=== PATIENT | male | born 1955 | race Two or more races ===

== ENCOUNTER 2017-02-27 21:48 | Inpatient (IN) | payer MEDICAID ==
[~2017-02-27] VITALS: Ht 177.8 cm; Wt 68.0 kg
[~2017-02-27 21:48] MED LIST: NKM
[2017-02-27 21:50] VITALS: BP 109/68
[2017-02-27] MEDS ORDERED: Norco 5mg/325mg tab PO ONE (22:00)
[2017-02-27 23:55] VITALS: BP 119/62
[2017-02-28] VITALS (14 sets, daily range): BP systolic 110–173; BP diastolic 54–91
[2017-02-28] MEDS ORDERED: Morphine Sulfate 4mg/ml Inj IVP ONE (00:15)
[2017-02-28 00:42] LABS: BASOPHILS % (AUTO) 0.3 % (0.0-2.0); LYMPHOCYTES % (AUTO) 13.4 % (20.0-45.0); MEAN CORPUSCULAR HGB CONC 31.7 G/DL (32.0-36.0); MEAN CORPUSCULAR VOLUME 95 FL (80-99); MEAN PLATELET VOLUME 5.1 FL (6.5-10.1); MONOCYTES % (AUTO) 7.9 % (1.0-10.0); NEUTROPHILS % (AUTO) 78.4 % (45.0-75.0); PLATELET COUNT 291 K/UL (150-450); RED BLOOD COUNT 2.67 M/UL (4.70-6.10); RED CELL DISTRIBUTION WIDTH 16.5 % (11.6-14.8); WHITE BLOOD COUNT 11.8 K/UL (4.8-10.8)
[2017-02-28 00:56] LABS: ALBUMIN/GLOBULIN RATIO 0.5 (1.0-2.7); CALCIUM 8.3 mg/dL (8.6-10.2); CREATININE 1.8 mg/dL (0.7-1.2); GLOMERULAR FILTRATION RATE 38.8 mL/min (>60); POTASSIUM 4.1 mEQ/L (3.4-4.9); TOTAL PROTEIN 6.9 g/dL (6.6-8.7)
[2017-02-28 01:04] LABS: INR 1.1 (0.9-1.1); PROTHROMBIN TIME 11.2 SEC (9.30-11.50)
[2017-02-28] MEDS ORDERED: MULTIVITAMINS1 EAC2 ORAL (03:10)
[2017-02-28] MEDS ORDERED: IBUPROFEN200 M2 ORAL (03:10)
[2017-02-28] MEDS ORDERED: Morphine Sulfate 4mg/ml Inj IVP PRN ×2 (03:15→08:56)
--- NOTE | 2017-02-28 03:37 | Emergency Room Report ---
History of Present Illness General Chief Complaint: Multiple Trauma/Fall Source: EMS Present Illness HPI 61-year-old male presents ED complaining of right leg pain. States he had a mechanical fall today at home. Denies hitting his head or LOC. Patient is here complaining of right hip and leg pain. Pain is an 8/10, sharp, nonradiating. Unable to bear weight. Denies any other injuries. No other aggravating or relieving factors. Denies any other associated symptoms Allergies: Coded Allergies: No Known Allergies (Unverified , 02/27/17) Patient History Past Medical History: HTN Past Surgical History: none Pertinent Family History: none Social History: Denies: alcohol use, drug use, smoking Immunizations: UTD Reviewed Nursing Documentation: PMH: Agreed, PSxH: Agreed Nursing Documentation-PMH Past Medical History: No History, Except For Hx Hypertension: Yes Review of Systems All Other Systems: negative except mentioned in HPI Physical Exam Vital Signs Date Time Temp Pulse Resp B/P Pulse Ox O2 Delivery O2 Flow Rate FiO2 02/27/17 21:22 98.2 82 16 109/68 100 Room Air Sp02 EP Interpretation: reviewed, normal General Appearance: no apparent distress, alert, GCS 15, non-toxic Head: normocephalic Eyes: bilateral eye PERRL, bilateral eye normal inspection ENT: hearing grossly normal Neck: normal inspection Respiratory: normal inspection Cardiovascular #1: normal inspection Gastrointestinal: normal inspection Rectal: deferred Genitourinary: no CVA tenderness Musculoskeletal: decreased range of motion, tender - R hip Neurologic: alert, oriented x3, responsive, motor strength/tone normal, sensory intact, speech normal Psychiatric: judgement/insight normal, memory normal, mood/affect normal, no suicidal/homicidal ideation Skin: normal inspection Lymphatic: normal inspection Medical Decision Making Diagnostic Impression: Primary Impression: Fracture of femoral neck, right Qualified Codes: S72.001A - Fracture of unspecified part of neck of right femur, initial encounter for closed fracture Additional Impressions: Multiple injuries due to trauma Renal insufficiency ER Course Hospital Course 61-year-old male presents to ED with R hip pain s/p fall Differential diagnoses include: fracture, dislocation, contusion Clinical course Patient placed on stretcher. After initial history and physical I ordered labs , pain medication and imaging studies Labs reviewed-mild leukocytosis noted, BUN/Cr elecated, hemoglobin/hematocrit 8/ 25.2 Femur x-ray shows R femoral neck fx confirmed on CT pelvis Case discussed with Dr. Jay who agreed to consult on this case. Case discussed with Dr. De Paz who agreed to accept the patient to his service for further care and support i. I feel this is a highly complex case requiring extensive working including EKG/Rhythm strip, Xray/CT/US, Blood/urine lab work, repeat exams while in ED, and administration of strong opiates/narcotics for pain control, admission to hospital or close patient follow up. Diagnosis - femoral neck fx, multiple injuries due to trauma, renal insuffiency Admitted to floor in serious condition Labs Test 02/28/17 00:18 White Blood Count 11.8 K/UL (4.8-10.8) Red Blood Count 2.67 M/UL (4.70-6.10) Hemoglobin 8.0 G/DL (14.2-18.0) Hematocrit 25.2 % (42.0-52.0) Mean Corpuscular Volume 95 FL (80-99) Mean Corpuscular Hemoglobin 30.0 PG (27.0-31.0) Mean Corpuscular Hemoglobin Concent 31.7 G/DL (32.0-36.0) Red Cell Distribution Width 16.5 % (11.6-14.8) Platelet Count 291 K/UL (150-450) Mean Platelet Volume 5.1 FL (6.5-10.1) Neutrophils (%) (Auto) 78.4 % (45.0-75.0) Lymphocytes (%) (Auto) 13.4 % (20.0-45.0) Monocytes (%) (Auto) 7.9 % (1.0-10.0) Eosinophils (%) (Auto) 0.0 % (0.0-3.0) Basophils (%) (Auto) 0.3 % (0.0-2.0) Prothrombin Time 11.2 SEC (9.30-11.50) Prothromb Time International Ratio 1.1 (0.9-1.1) Activated Partial Thromboplast Time 26 SEC (23-33) Sodium Level 132 mEQ/L (135-145) Potassium Level 4.1 mEQ/L (3.4-4.9) Chloride Level 93 mEQ/L (98-107) Carbon Dioxide Level 19 mEQ/L (20-30) Anion Gap 20 (5-15) Blood Urea Nitrogen 42 mg/dL (7-23) Creatinine 1.8 mg/dL (0.7-1.2) Estimat Glomerular Filtration Rate 38.8 mL/min (>60) Glucose Level 109 mg/dL (74-106) Calcium Level 8.3 mg/dL (8.6-10.2) Total Bilirubin 0.3 mg/dL (0.0-1.2) Aspartate Amino Transf (AST/SGOT) 24 U/L (5-40) Alanine Aminotransferase (ALT/SGPT) 14 U/L (3-41) Alkaline Phosphatase 150 U/L (40-129) Total Protein 6.9 g/dL (6.6-8.7) Albumin 2.4 g/dL (3.5-5.2) Globulin 4.5 g/dL Albumin/Globulin Ratio 0.5 (1.0-2.7) Other X-Ray Diagnostic Results Other X-Ray Diagnostic Results #1: X-Ray ordered: R femur # of Views/Limited Vs Complete: 3 View Indication: Pain EP Interpretation: Yes Interpretation: no dislocation, no soft tissue swelling, other - R femoral neck fx Impression: Other - R femoral neck fx Interpreting ER Provider: Electronically signed by Benedict Mujica MD Other X-Ray Diagnostic Results #2: X-Ray ordered: Right knee # of Views/Limited Vs Complete: 3 View Indication: Pain EP Interpretation: Yes Interpretation: no dislocation, no soft tissue swelling, no fractures Impression: No acute disease Interpreting ER Provider: Electronically signed by Benedict Mujica MD CT/MRI/US Diagnostic Results CT/MRI/US Diagnostic Results : Imaging Test Ordered: CT pelvis Impression R femoral neck fx Last Vital Signs Date Time Temp Pulse Resp B/P Pulse Ox O2 Delivery O2 Flow Rate FiO2 02/27/17 21:50 98.2 16 109/68 100 Room Air 02/27/17 21:22 82 Status: improved Disposition: ADMITTED INPATIENT Condition: Serious Referrals: NOT CHOSEN [place]/,REFERRING (PCP) BENEDICT MUJICA M.D. Feb 28, 2017 03:37
[2017-02-28] MEDS ORDERED: D5 1/2NS 1,000 ML IV SCH (04:00)
[2017-02-28] MEDS ORDERED: LORazepam Inj 2mg/ml 1ml IV PRN (08:00)
[2017-02-28] MEDS ORDERED: Mylanta II UD 30ml ORAL PRN (08:00)
[2017-02-28] MEDS: D5 1/2NS 1,000 ML IV SCH (08:30)
[2017-02-28] MEDS: Heparin 5000 units/ml inj SUBQ SCH ×2 (08:32→21:24)
[2017-02-28] MEDS ORDERED: Morphine Sulfate 2mg/ml Inj IVP PRN (08:56)
--- NOTE | 2017-02-28 10:13 | Diagnostic Imaging Report ---
Indication: Pelvic pain. Trauma to the pelvis Technique: Continuous helical transaxial imaging of the pelvis was obtained from the iliac crest to the pubic symphysis. Coronal 2-D reformats were also obtained. Study obtained in a Siemens sensation [address] Intravenous non-ionic contrast was administered. Total Dose length Product (DLP): [address] Dose Index Volume (CTDIvol): 16 mGy Comparison: None Findings: There is an acute fracture of the right femoral neck. There is moderate displacement. The shaft of the femur is displaced superiorly relative to the femoral head. There are slight impaction. Soft tissue swelling noted. No other fractures are appreciated. Some irregularity of the L5-S1 facet noted due to arthritis. There are multiple stones noted within the urinary bladder incidentally. There is an umbilical hernia containing fat measuring 3 cm. Few diverticula noted in the sigmoid colon. Arterial calcifications noted in the aorta. Impression: Acute fracture of the right femoral neck with displacement and impaction. Incidental urinary bladder stones. Umbilical hernia containing fat Atherosclerotic disease Mild sigmoid diverticulosis Degenerative changes lower lumbar spine [facility] has communicated the preliminary results to the Emergency Department. Their findings are largely concordant with this report. The CT scanner at [facility] is accredited by the [employer] [place] [employer] and the scans are performed using dose optimization techniques as appropriate to a performed exam including Automatic Exposure control.
--- NOTE | 2017-02-28 10:43 | Pre-Procedure Note/Attestation ---
Pre-Procedure Note/Attestation Complete Prior to Procedure Planned Procedure: right Procedure Narrative: Right hip hemiathroplasty Indications for Procedure Pre-Operative Diagnosis: Right hip fracture Attestation I attest that I discussed the nature of the procedure; its benefits; risks and complications; and alternatives (and the risks and benefits of such alternatives ), prior to the procedure, with the patient (or the patient's legal call center representative). I attest that, if there was a reasonable possibility of needing a blood transfusion, the patient (or the patient's legal call center representative) was given the [facility] standardized written summary, pursuant to the [place] Blood Safety Act ([place] Health and Safety Code # 1645, as amended). I attest that I re-evaluated the patient just prior to the surgery and that there has been no change in the patient's H&P, except as documented below: NEVA RODRÍGUEZ Feb 28, 2017 10:43
--- NOTE | 2017-02-28 11:10 | History and Physical ---
History of Present Illness General Date patient seen: Feb 28, 2017 Reason for Hospitalization: Multiple Trauma/Fall Present Illness HPI 61-year-old male presents ED complaining of right leg pain after a mechanical fall today at home. Pain is an 8/10, sharp, nonradiating. Unable to bear weight. Denies any other injuries. No other aggravating or relieving factors. Denies any other associated symptoms. Pt was diagnosed to have right hip fracture and admitted for further care. Allergies: Coded Allergies: No Known Allergies (Unverified , 02/27/17) Medication History Scheduled Ibuprofen (Ibuprofen), 200 MG ORAL Q6H, (Reported) Multivitamins* (Multivitamins*), 1 TAB ORAL DAILY, (Reported) No Known Medications* (NKM - No Known Medications*), 0 ., (Reported) Patient History Healthcare decision maker Resuscitation status Full Code Advanced Directive on File Past Medical/Surgical History Past Medical/Surgical History: (1) Renal insufficiency Review of Systems All Other Systems: negative except mentioned in HPI Physical Exam General Appearance: WD/WN Lines, tubes and drains: peripheral HEENT: normocephalic, atraumatic Neck: non-tender, normal alignment Respiratory/Chest: chest wall non-tender, lungs clear Breasts: no masses Cardiovascular/Chest: normal peripheral pulses Abdomen: normal bowel sounds, non tender Genitourinary/Rectal: normal rectal exam Last 24 Hour Vital Signs Date Time Temp Pulse Resp B/P Pulse Ox O2 Delivery O2 Flow Rate FiO2 02/28/17 08:26 97.8 74 20 114/66 100 Room Air 02/28/17 04:00 97.4 80 20 140/72 97 Room Air 02/28/17 03:45 89 18 116/54 100 Room Air 02/28/17 03:40 97.2 89 18 116/54 100 Room Air 02/28/17 01:55 97.5 92 16 110/60 100 02/27/17 23:55 97.6 99 16 119/62 99 Room Air 02/27/17 23:03 97.2 02/27/17 21:50 98.2 16 109/68 100 Room Air 02/27/17 21:22 98.2 82 16 109/68 100 Room Air Intake and Output 02/27/17 02/28/17 19:00 07:00 Intake Total 200 ml Balance 200 ml Intake IV Total 200 ml Laboratory Tests Test 7/18/17 00:18 White Blood Count 11.8 K/UL (4.8-10.8) H Red Blood Count 2.67 M/UL (4.70-6.10) L Hemoglobin 8.0 G/DL (14.2-18.0) L Hematocrit 25.2 % (42.0-52.0) L Mean Corpuscular Volume 95 FL (80-99) Mean Corpuscular Hemoglobin 30.0 PG (27.0-31.0) Mean Corpuscular Hemoglobin Concent 31.7 G/DL (32.0-36.0) L Red Cell Distribution Width 16.5 % (11.6-14.8) H Platelet Count 291 K/UL (150-450) Mean Platelet Volume 5.1 FL (6.5-10.1) L Neutrophils (%) (Auto) 78.4 % (45.0-75.0) H Lymphocytes (%) (Auto) 13.4 % (20.0-45.0) L Monocytes (%) (Auto) 7.9 % (1.0-10.0) Eosinophils (%) (Auto) 0.0 % (0.0-3.0) Basophils (%) (Auto) 0.3 % (0.0-2.0) Prothrombin Time 11.2 SEC (9.30-11.50) Prothromb Time International Ratio 1.1 (0.9-1.1) Activated Partial Thromboplast Time 26 SEC (23-33) Sodium Level 132 mEQ/L (135-145) L Potassium Level 4.1 mEQ/L (3.4-4.9) Chloride Level 93 mEQ/L (98-107) L Carbon Dioxide Level 19 mEQ/L (20-30) L Anion Gap 20 (5-15) H Blood Urea Nitrogen 42 mg/dL (7-23) H Creatinine 1.8 mg/dL (0.7-1.2) H Estimat Glomerular Filtration Rate 38.8 mL/min (>60) Glucose Level 109 mg/dL (74-106) H Calcium Level 8.3 mg/dL (8.6-10.2) L Total Bilirubin 0.3 mg/dL (0.0-1.2) Aspartate Amino Transf (AST/SGOT) 24 U/L (5-40) Alanine Aminotransferase (ALT/SGPT) 14 U/L (3-41) Alkaline Phosphatase 150 U/L (40-129) H Total Protein 6.9 g/dL (6.6-8.7) Albumin 2.4 g/dL (3.5-5.2) L Globulin 4.5 g/dL Albumin/Globulin Ratio 0.5 (1.0-2.7) L Height (Feet): 5 Height (Inches): 10.00 Weight (Pounds): 150 Medications Current Medications Medications (Trade) Dose Ordered Sig/Bautista Route PRN Reason Start Time Stop Time Status Last Admin Dose Admin Acetaminophen (Tylenol) 650 mg Q4H PRN ORAL fever>100.5 02/28/17 08:00 03/30/17 07:59 Al Hydroxide/Mg Hydroxide (Mylanta II) 30 ml Q6H PRN ORAL dyspepsia 02/28/17 08:00 03/30/17 07:59 Dextrose (Dextrose 50%) STAT PRN IV Hypoglycemia 02/28/17 08:00 03/30/17 07:59 Dextrose/Sodium Chloride (D5 0.45% NS) 1,000 ml @ 50 mls/hr Q20H IV 02/28/17 08:00 03/30/17 07:59 02/28/17 08:30 Heparin Sodium (Porcine) (Heparin 5000 units/ml) 5,000 units EVERY 12 HOURS SUBQ 02/28/17 09:00 03/30/17 08:59 Lorazepam (Ativan 2mg/ml 1ml) 0.5 mg Q4H PRN IV For Anxiety 02/28/17 08:00 03/07/17 07:59 Morphine Sulfate (Morphine Sulfate) 2 mg Q4H PRN IVP For Pain 4-6 02/28/17 08:56 03/07/17 08:55 Morphine Sulfate (Morphine Sulfate) 4 mg Q4H PRN IVP For Pain 7-10 02/28/17 08:56 03/07/17 08:55 Ondansetron HCl (Zofran) 4 mg Q6H PRN IVP Nausea & Vomiting 02/28/17 08:00 03/30/17 07:59 Polyethylene Glycol (Miralax) 17 gm HSPRN PRN ORAL Constipation 02/28/17 21:00 03/30/17 20:59 Zolpidem Tartrate (Ambien) 5 mg HSPRN PRN ORAL Insomnia 02/28/17 21:00 03/30/17 20:59 Assessment/Plan Problem List: (1) Fracture of femoral neck, right ICD Codes: S72.001A - Fracture of unspecified part of neck of right femur, initial encounter for closed fracture SNOMED: [id number] Qualifiers: Qualified Codes: S72.001A - Fracture of unspecified part of neck of right femur, initial encounter for closed fracture (2) Anemia ICD Codes: D64.9 - Anemia, unspecified SNOMED: 092250421 (3) Renal insufficiency ICD Codes: N28.9 - Disorder of kidney and ureter, unspecified SNOMED: 028398819, [id number] Assessment/Plan ortho evaluation anemia w/u prbc prn renal evaluation GURWINDER YI Feb 28, 2017 11:10
--- NOTE | 2017-02-28 11:15 | Diagnostic Imaging Report ---
Indication: Pain To views of the right knee were obtained. Findings: Study is limited. Bones are osteopenic. There is artifact probably related to a wrap. There is soft tissue swelling. Alignment is normal. No definite fracture seen. Impression: Limited study showing no acute injury
--- NOTE | 2017-02-28 11:27 | Diagnostic Imaging Report ---
Indication: Pain Findings: 2 views of the right femur were obtained. There is an acute fracture of the right femoral neck with impaction and superior displacement. Bones are osteopenic. Impression: Acute fracture of the right femoral neck
[2017-02-28 12:52] LABS: URIC ACID 10.3 mg/dL (3.0-7.5)
[2017-02-28] MEDS ORDERED: Midazolam 2mg/2ml Inj ONE (13:00)
[2017-02-28] MEDS ORDERED: Zemuron 50mg/5ml Inj IV ONE (13:00)
[2017-02-28] MEDS ORDERED: LR 1000ml ONE (13:00)
[2017-02-28] MEDS ORDERED: Sterile Water Irrig 1000ml IRRIG ONE (13:00)
[2017-02-28] MEDS ORDERED: NS Irrig 1000ml ONE (13:00)
[2017-02-28] MEDS ORDERED: fentaNYL 100 mcg/2 mL IV ONE (13:00)
[2017-02-28] MEDS ORDERED: Propofol 10mg/ml 20ml IV ONE (13:00)
[2017-02-28] MEDS ORDERED: LR 1000ml 1,000 ML IVLG SCH (14:39)
[2017-02-28] MEDS ORDERED: DiphenhydrAMINE 50mg/ml Inj IVP PRN (14:45)
[2017-02-28] MEDS ORDERED: Hydromorphone 0.5mg/0.5ml inj IVP PRN ×3 (14:45→15:00)
--- NOTE | 2017-02-28 14:45 | Anethesia Preoperative Eval ---
Anesthesia Pre-op PMH/ROS General Date of Evaluation: Feb 28, 2017 Time of Evaluation: 13:10 Anesthesiologist: Jhon ASA Score: ASA 3 Mallampati Score Class I : Soft palate, uvula, fauces, pillars visible Class II: Soft palate, uvula, fauces visible Class III: Soft palate, base of uvula visible Class IV: Only hard plate visible Mallampati Classification: Class II Surgeon: Pierre Diagnosis: Right hip fracture Surgical Procedure: Right hip naun arthroplasty Family History: no anesthesia problems Allergies: Coded Allergies: No Known Allergies (Unverified , 02/27/17) Past Medical History Cardiovascular: Reports: HTN, Denies: CAD, TN, arrhythmia, other, valve dz Pulmonary: Denies: COPD, JAMILAH, asthma, other Gastrointestinal/Genitourinary: Reports: CRI, Denies: ESRD, GERD, other Neurologic/Psychiatric: Denies: CVA, TIA, dementia, depression/anxiety, other Endocrine: Denies: DM, hypothyroidism, other, steroids HEENT: Denies: SENECA (L), SENECA (R), cataract (L), cataract (R), glaucoma, other Hematology/Immune: Reports: anemia, Denies: DVT, bleeding disorder, other Musculoskeletal/Integumentary: Denies: DDD, DJD, OA, RA, edema, other PMH Narrative: HTN, CRI, anemia PSxH Narrative: Denies Anesthesia Pre-op Phys. Exam Physician Exam Last Vital Signs Date Time Temp Pulse Resp B/P Pulse Ox O2 Delivery O2 Flow Rate FiO2 02/28/17 12:01 98.3 76 20 119/69 100 Room Air Constitutional: NAD Neurologic: CN 2-12 intact Cardiovascular: RRR, no M/R/G Respiratory: CTA Gastrointestinal: S/NT/ND Airway Exam Mallampati Score: Class II MO: full ROM: full Teeth: intact Anesthesia Pre-op A/P Labs Hematology Test 02/28/17 00:18 White Blood Count 11.8 K/UL (4.8-10.8) H Red Blood Count 2.67 M/UL (4.70-6.10) L Hemoglobin 8.0 G/DL (14.2-18.0) L Hematocrit 25.2 % (42.0-52.0) L Mean Corpuscular Volume 95 FL (80-99) Mean Corpuscular Hemoglobin 30.0 PG (27.0-31.0) Mean Corpuscular Hemoglobin Concent 31.7 G/DL (32.0-36.0) L Red Cell Distribution Width 16.5 % (11.6-14.8) H Platelet Count 291 K/UL (150-450) Mean Platelet Volume 5.1 FL (6.5-10.1) L Neutrophils (%) (Auto) 78.4 % (45.0-75.0) H Lymphocytes (%) (Auto) 13.4 % (20.0-45.0) L Monocytes (%) (Auto) 7.9 % (1.0-10.0) Eosinophils (%) (Auto) 0.0 % (0.0-3.0) Basophils (%) (Auto) 0.3 % (0.0-2.0) Coagulation Test 02/28/17 00:18 Prothrombin Time 11.2 SEC (9.30-11.50) Prothromb Time International Ratio 1.1 (0.9-1.1) Activated Partial Thromboplast Time 26 SEC (23-33) Chemistry Test 02/28/17 00:18 Sodium Level 132 mEQ/L (135-145) L Potassium Level 4.1 mEQ/L (3.4-4.9) Chloride Level 93 mEQ/L (98-107) L Carbon Dioxide Level 19 mEQ/L (20-30) L Anion Gap 20 (5-15) H Blood Urea Nitrogen 42 mg/dL (7-23) H Creatinine 1.8 mg/dL (0.7-1.2) H Estimat Glomerular Filtration Rate 38.8 mL/min (>60) Glucose Level 109 mg/dL (74-106) H Uric Acid 10.3 mg/dL (3.0-7.5) H Calcium Level 8.3 mg/dL (8.6-10.2) L Total Bilirubin 0.3 mg/dL (0.0-1.2) Aspartate Amino Transf (AST/SGOT) 24 U/L (5-40) Alanine Aminotransferase (ALT/SGPT) 14 U/L (3-41) Alkaline Phosphatase 150 U/L (40-129) H Total Creatine Kinase 132 U/L (38-174) Total Protein 6.9 g/dL (6.6-8.7) Albumin 2.4 g/dL (3.5-5.2) L Globulin 4.5 g/dL Albumin/Globulin Ratio 0.5 (1.0-2.7) L Risk Assessment & Plan Assessment: HTN male with CRI and anemia now with right hip fracture...here for right hip hemiarthroplasty Plan: GETA, transfusion 1 unit PRBC (discussed with patient) Status Change Before Surgery: No Pre-Antibiotics Drug: Ancef Given Within 1 Hr of Incision: Yes Time Given: 13:45 EUSEBIO SABILLON M.D. Feb 28, 2017 14:45
--- NOTE | 2017-02-28 14:46 | Immediate Post-Op Evaluation ---
Immediate Post-Op Evalulation Immediate Post-Op Evalulation Procedure: Right hip naun arthroplasty Date of Evaluation: Feb 28, 2017 Time of Evaluation: 15:35 IV Fluids: 1100 Blood Products: 250 Estimated Blood Loss: 50 Blood Pressure Systolic: 141 Blood Pressure Diastolic: 75 Pulse Rate: 88 Respiratory Rate: 19 O2 Sat by Pulse Oximetry: 100 Temperature (Fahrenheit): 97.9 Pain Score (1-10): 0 Nausea: No Vomiting: No Complications No complication Patient Status: reacts, patent, extubated, none Hydration Status: adequate Drug: Ancef Given Within 1 Hr of Incision: Yes Time Given: 13:45 EUSEBIO SABILLON M.D. Feb 28, 2017 14:46
[2017-02-28] MEDS ORDERED: Ketorolac 60mg Inj ONE (14:52)
[2017-02-28] MEDS ORDERED: Bupivacaine w/Epi 0.5% 30ml Vial INJ ONE (14:53)
[2017-02-28] MEDS ORDERED: Kenalog-40 1ml Vial ONE (14:53)
[2017-02-28] MEDS ORDERED: Bacitracin 50000 Units Vial ONE (14:53)
--- NOTE | 2017-02-28 15:47 | Diagnostic Imaging Report ---
Indication: Right hip replacement Findings: Single AP view of the pelvis was performed. Femoral spacer noted during hip replacement. Right femoral head was resected. Impression: Intraoperative imaging
[2017-02-28] MEDS ORDERED: HYDROmorphone 1mg/ml Carpuject IVP PRN (16:00)
[2017-02-28] MEDS ORDERED: Norco 10mg/325mg tab ORAL PRN (16:00)
--- NOTE | 2017-02-28 16:24 | Diagnostic Imaging Report ---
Indication: Status post hip replacement Findings: Single AP view of the pelvis was performed. Immediate postoperative film of the pelvis demonstrating the right hip hemiarthroplasty. This is a bipolar prosthesis, which appears appropriate in position and alignment on this single view which is a limited evaluation. There is overlying soft tissue air. Arriaza catheter noted. Single view left hip and other osseous structures notable for generalized osteopenia. Arriaza catheter noted. Impression: Status post right hip hemiarthroplasty. No complications demonstrated on this single view
[2017-02-28 17:12] LABS: APPEARANCE,URINE CLEAR; KETONES,URINE 1+ (NEGATIVE); LEUKOCYTE ESTERASE ,URINE NEGATIVE (NEGATIVE); NITRITE,URINE NEGATIVE (NEGATIVE); PH,URINE 5 (4.5-8.0); PROTEIN,URINE 2+ (NEGATIVE); UROBILINOGEN,URINE NORMAL MG/DL (0.0-1.0)
[2017-02-28 17:23] LABS: RBC,URINE 20-30 /HPF (0 - 0); WBC,URINE 0-2 /HPF (0 - 0)
--- NOTE | 2017-02-28 19:32 | Consultation ---
History of Present Illness General Date patient seen: Feb 28, 2017 Chief Complaint: Multiple Trauma/Fall Present Illness Allergies: Coded Allergies: No Known Allergies (Unverified , 02/27/17) Medication History Scheduled Ibuprofen (Ibuprofen), 200 MG ORAL Q6H, (Reported) Multivitamins* (Multivitamins*), 1 TAB ORAL DAILY, (Reported) No Known Medications* (NKM - No Known Medications*), 0 ., (Reported) Patient History Healthcare decision maker Resuscitation status Full Code Advanced Directive on File Physical Exam Last 24 Hour Vital Signs Date Time Temp Pulse Resp B/P Pulse Ox O2 Delivery O2 Flow Rate FiO2 02/28/17 17:39 98.1 103 22 128/82 100 Nasal Cannula 2.0 02/28/17 16:27 97.7 96 19 142/74 100 Nasal Cannula 3.0 02/28/17 16:13 95 17 153/79 100 Nasal Cannula 3.0 02/28/17 16:00 98 18 173/91 100 Nasal Cannula 3.0 02/28/17 15:45 96 21 145/76 99 Nasal Cannula 3.0 02/28/17 15:35 92 19 143/77 100 Simple Mask 6.0 02/28/17 15:30 91 19 143/76 100 Simple Mask 6.0 02/28/17 15:29 88 19 100 02/28/17 15:25 97.9 89 22 143/79 100 Simple Mask 6.0 02/28/17 12:01 98.3 76 20 119/69 100 Room Air 02/28/17 08:26 97.8 74 20 114/66 100 Room Air 02/28/17 04:00 97.4 80 20 140/72 97 Room Air 02/28/17 03:45 89 18 116/54 100 Room Air 02/28/17 03:40 97.2 89 18 116/54 100 Room Air 02/28/17 01:55 97.5 92 16 110/60 100 02/27/17 23:55 97.6 99 16 119/62 99 Room Air 02/27/17 23:03 97.2 02/27/17 21:50 98.2 16 109/68 100 Room Air 02/27/17 21:22 98.2 82 16 109/68 100 Room Air Intake and Output 02/27/17 02/28/17 19:00 07:00 Intake Total 200 ml Balance 200 ml IV Total 200 ml Laboratory Tests Test 02/28/17 00:18 02/28/17 15:00 02/28/17 17:35 White Blood Count 11.8 K/UL (4.8-10.8) H Red Blood Count 2.67 M/UL (4.70-6.10) L Hemoglobin 8.0 G/DL (14.2-18.0) L Hematocrit 25.2 % (42.0-52.0) L Mean Corpuscular Volume 95 FL (80-99) Mean Corpuscular Hemoglobin 30.0 PG (27.0-31.0) Mean Corpuscular Hemoglobin Concent 31.7 G/DL (32.0-36.0) L Red Cell Distribution Width 16.5 % (11.6-14.8) H Platelet Count 291 K/UL (150-450) Mean Platelet Volume 5.1 FL (6.5-10.1) L Neutrophils (%) (Auto) 78.4 % (45.0-75.0) H Lymphocytes (%) (Auto) 13.4 % (20.0-45.0) L Monocytes (%) (Auto) 7.9 % (1.0-10.0) Eosinophils (%) (Auto) 0.0 % (0.0-3.0) Basophils (%) (Auto) 0.3 % (0.0-2.0) Neutrophils % (Manual) Pending Lymphocytes % (Manual) Pending Platelet Estimate Pending Platelet Morphology Pending Prothrombin Time 11.2 SEC (9.30-11.50) Prothromb Time International Ratio 1.1 (0.9-1.1) Activated Partial Thromboplast Time 26 SEC (23-33) Sodium Level 132 mEQ/L (135-145) L Potassium Level 4.1 mEQ/L (3.4-4.9) Chloride Level 93 mEQ/L (98-107) L Carbon Dioxide Level 19 mEQ/L (20-30) L Anion Gap 20 (5-15) H Blood Urea Nitrogen 42 mg/dL (7-23) H Creatinine 1.8 mg/dL (0.7-1.2) H Estimat Glomerular Filtration Rate 38.8 mL/min (>60) Glucose Level 109 mg/dL (74-106) H Uric Acid 10.3 mg/dL (3.0-7.5) H Calcium Level 8.3 mg/dL (8.6-10.2) L Calcium (Send out) Pending Total Bilirubin 0.3 mg/dL (0.0-1.2) Aspartate Amino Transf (AST/SGOT) 24 U/L (5-40) Alanine Aminotransferase (ALT/SGPT) 14 U/L (3-41) Alkaline Phosphatase 150 U/L (40-129) H Total Creatine Kinase 132 U/L (38-174) Total Protein 6.9 g/dL (6.6-8.7) Albumin 2.4 g/dL (3.5-5.2) L Globulin 4.5 g/dL Albumin/Globulin Ratio 0.5 (1.0-2.7) L Parathyroid Hormone (Intact) Pending Urine Color Pale yellow Urine Appearance Clear Urine pH 5 (4.5-8.0) Urine Specific [place] 1.015 (1.005-1.035) Urine Protein 2+ (NEGATIVE) H Urine Glucose (UA) Negative (NEGATIVE) Urine Ketones 1+ (NEGATIVE) H Urine Occult Blood 5+ (NEGATIVE) H Urine Nitrite Negative (NEGATIVE) Urine Bilirubin Negative (NEGATIVE) Urine Urobilinogen Normal MG/DL (0.0-1.0) Urine Leukocyte Esterase Negative (NEGATIVE) Urine RBC 20-30 /HPF (0 - 0) H Urine WBC 0-2 /HPF (0 - 0) Urine Squamous Epithelial Cells None /LPF (NONE/OCC) Urine Bacteria None /HPF (NONE) Urine Eosinophils None seen Urine Random Sodium 19 mmol/L Urine Potassium Timed 8 mmol/L Reticulocyte Count Pending Iron Level 100 ug/dL (59-158) Total Iron Binding Capacity 128 ug/dL (250-400) L Percent Iron Saturation 78 % (15-50) H Unsaturated Iron Binding 28 ug/dL (112-346) L Ferritin 358 ng/mL (10-230) H Lactate Dehydrogenase 281 U/L (135-230) H Carcinoembryonic Antigen 5.0 ng/mL H Vitamin B12 Level 320 pg/mL (211-946) Folate Pending Height (Feet): 5 Height (Inches): 10.00 Weight (Pounds): 150 Medications Current Medications Medications (Trade) Dose Ordered Sig/Bautista Route PRN Reason Start Time Stop Time Status Last Admin Dose Admin Acetaminophen (Tylenol) 650 mg Q4H PRN ORAL fever>100.5 02/28/17 08:00 03/30/17 07:59 Acetaminophen/ Hydrocodone Bitart ([place] 10/325) 1 ea Q4H PRN ORAL For Pain 02/28/17 16:00 03/07/17 15:59 Al Hydroxide/Mg Hydroxide (Mylanta II) 30 ml Q6H PRN ORAL dyspepsia 02/28/17 08:00 03/30/17 07:59 Cefazolin Sodium/ Dextrose (Ancef/D5W) 55 ml @ 110 mls/hr Q8HR IVPB 02/28/17 22:00 03/07/17 21:59 Dextrose (Dextrose 50%) STAT PRN IV Hypoglycemia 02/28/17 08:00 03/30/17 07:59 Dextrose/Sodium Chloride (D5 0.45% NS) 1,000 ml @ 50 mls/hr Q20H IV 02/28/17 08:00 03/30/17 07:59 02/28/17 08:30 Diphenhydramine HCl 25 mg 25 mg Q15M PRN IVP Itching 02/28/17 14:45 02/28/17 21:00 Epoetin Reyes (Procrit (for non ESRD use)) 5,000 units ONCE ONCE SUBQ 02/28/17 20:00 02/28/17 20:01 Heparin Sodium (Porcine) (Heparin 5000 units/ml) 5,000 units EVERY 12 HOURS SUBQ 02/28/17 09:00 03/30/17 08:59 Hydromorphone HCl (Dilaudid) 1 mg EVERY 2 HOURS PRN IVP For Pain 02/28/17 16:00 03/07/17 15:59 Lactated Ringer's 1,000 ml @ 10 mls/hr Q24H IVLG 02/28/17 14:39 02/28/17 20:00 Lorazepam (Ativan 2mg/ml 1ml) 0.5 mg Q4H PRN IV For Anxiety 02/28/17 08:00 03/07/17 07:59 Ondansetron HCl (Zofran) 4 mg Q6H PRN IVP Nausea & Vomiting 02/28/17 16:00 03/30/17 15:59 Polyethylene Glycol (Miralax) 17 gm HSPRN PRN ORAL Constipation 02/28/17 21:00 03/30/17 20:59 Zolpidem Tartrate (Ambien) 5 mg HSPRN PRN ORAL Insomnia 02/28/17 21:00 03/30/17 20:59 Assessment/Plan Assessment/Plan (1) Right hip fracture (2) Right hip pain (3) S/p naun arthroplasty Seen dictated. HIEN LAMAR Feb 28, 2017 19:32
[2017-02-28] MEDS ORDERED: Epogen (for non ESRD use) SUBQ ONE (20:00)
--- NOTE | 2017-02-28 20:00 | Consultation ---
DATE OF CONSULTATION: 02/28/2017 ORTHOPEDIC CONSULTATION REFERRING PHYSICIAN: Tano De Paz M.D. DIAGNOSIS: Right femoral neck displaced fracture. 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 He lives at home and uses a walker. When asked why he has used a walker over the last two months, he states both weakness and imbalance as a reason. He has fallen a few times and most recently fell and sustained a femoral neck fracture on the right, which was significantly displaced. He was not able to bear weight. There was no loss of consciousness at the time of initial injury. PAST MEDICAL HISTORY: Hypertension and renal insufficiency. ALLERGIES: No known drug allergies. REVIEW OF SYSTEMS: A 14-point review of systems negative. PHYSICAL EXAMINATION: EXTREMITIES: He is in the gurney, in mild discomfort. The right hip is in a flexed position and no provocative testing was performed because of the patient comfort. Distal neurovascular examination is grossly intact to motor movement. There are no open wounds about the right hip. RADIOGRAPHS: AP pelvis and CT scan reveal a displaced impacted femoral neck fracture. IMPRESSION AND PLAN: The patient sustained a right femoral neck fracture. His overall appearance and evaluation appear older than stated age. I have recommended hemiarthroplasty for definitive fixation and treatment. He understands all associated risks. We will proceed to the operating room when available. Thank you for the opportunity to consult. Brendon Jay M.D. DR: RENITA JOB#: [id number] CC:
[2017-02-28 20:10] LABS: BAND NEUTROPHILS % (MANUAL) 2 % (0-8); BASOPHILS % (MANUAL) 0 % (0-2); EOSINOPHILS % (MANUAL) 0 % (0-3); LYMPHOCYTES % (MANUAL) 6 % (20-45); NEUTROPHILS % (MANUAL) 90 % (45-75); PLATELET ESTIMATE ADEQUATE; TOTAL CELLS COUNTED 100
[2017-02-28 20:11] LABS: ANISOCYTOSIS 1+; PLATELET MORPHOLOGY NORMAL; POLYCHROMASIA 1+
[2017-02-28 20:12] LABS: PATH BLOOD SMEAR/OMC SENT TO PATHOLOGIST
[2017-02-28] MEDS ORDERED: Miralax 17gm pkt ORAL PRN (21:00)
[2017-02-28] MEDS: ceFAZolin sod 1 GM in D5W 55 ML IVPB SCH (21:21)
[2017-03-01 00:17] VITALS: BP 113/67
[2017-03-01 04:00] VITALS: BP 113/64
[2017-03-01] MEDS: D5 1/2NS 1,000 ML IV SCH (05:09)
[2017-03-01] MEDS: ceFAZolin sod 1 GM in D5W 55 ML IVPB SCH ×3 (05:10→22:17)
[2017-03-01 06:37] LABS: BASOPHILS % (AUTO) 0.3 % (0.0-2.0); LYMPHOCYTES % (AUTO) 8.8 % (20.0-45.0); MEAN CORPUSCULAR HEMOGLOBIN 30.1 PG (27.0-31.0); MEAN CORPUSCULAR HGB CONC 31.5 G/DL (32.0-36.0); MEAN CORPUSCULAR VOLUME 95 FL (80-99); MEAN PLATELET VOLUME 5.4 FL (6.5-10.1); MONOCYTES % (AUTO) 9.3 % (1.0-10.0); NEUTROPHILS % (AUTO) 81.6 % (45.0-75.0); PLATELET COUNT 264 K/UL (150-450); RED BLOOD COUNT 2.71 M/UL (4.70-6.10); RED CELL DISTRIBUTION WIDTH 16.5 % (11.6-14.8); WHITE BLOOD COUNT 9.3 K/UL (4.8-10.8)
--- NOTE | 2017-03-01 07:01 | Consultation ---
DATE OF CONSULTATION: PAIN MANAGEMENT CONSULTATION CONSULTING PHYSICIAN: Karin Loyd M.D. PHYSICIAN PRODUCTION GRIP: HAILEE Alford REFERRING PHYSICIAN: Tano De Paz M.D. CHIEF COMPLAINT: Right hip pain. HISTORY OF PRESENT ILLNESS: This is a 61-year-old male, who is being seen on the medical/surgical floor of [facility] for initial comprehensive pain management consultation. The patient reports that he had a mechanical fall today at home and rating his pain at 8/10. It has been sharp and nonradiating pain, increasing with movement, was unable to bear weight, and went in for right hip hemiarthroplasty with Dr. Jay. At this time, the patient is comfortable, rating his pain at a mild level, and is on Dilaudid 1 mg IV every two hours as needed for severe pain and [place] 10/325 mg one tablet every four hours as needed for moderate pain, comfortable in the bed, in no acute distress, no signs of pain, and has no new complaints. PAST MEDICAL HISTORY: Hypertension and renal insufficiency. ALLERGIES: No known drug allergies. MEDICATIONS: Ibuprofen and multivitamin. SOCIAL HISTORY: He denies smoking tobacco, drinking alcohol, or drug abuse. REVIEW OF SYSTEMS: Denies rash, fever, chills, sweating, dizziness, drowsiness, blurred vision, sore throat, or change in weight. No shortness of breath, chest pain, palpitations, or cough. No nausea, vomiting, diarrhea, or blood in the stool or urine. No bowel or bladder incontinence. No hematuria or dysuria. PHYSICAL EXAMINATION: GENERAL: Alert, awake, and oriented. VITAL SIGNS: Blood pressure is 128/82, heart rate 103, oxygen saturation 100%, respiratory rate 22, and temperature 98.1 degrees Fahrenheit. HEENT: Pupils are equally round and reactive to light and accommodation. NECK: Range of motion is full in all directions. No tenderness to paracervical muscles. No adenopathy. LUNGS: Lungs are clear. HEART: S1 and S2 are regular. ABDOMEN: Benign. BACK: Range of motion is full on flexion and extension. No tenderness to paraspinal muscles, trapezius, or rhomboid muscles. EXTREMITIES: Upper extremity range of motion is full in all directions. Motor is intact. No cyanosis. No clubbing. No edema. Sensory is intact. Reflexes are unobtainable. No adenopathy. Lower extremity motion is decreased due to the patient's clinical condition. Motor is intact. No cyanosis. No clubbing. Tenderness to palpation of the right hip with bandages noted. Sensory is intact. Reflexes are unobtainable. No adenopathy. ASSESSMENT AND PLAN: This is a 61-year-old male with right hip fracture and right hip pain, status post hemiarthroplasty. The patient will be continued on Dilaudid and [place] as needed. The patient was discussed with Dr. Loyd and Dr. Loyd concurred. We will follow the patient. Thank you very much for the courtesy of this consultation. Karin Loyd M.D. JOY Alford DR: Minoo JOB#: [id number] CC:
[2017-03-01 07:07] LABS: ALBUMIN/GLOBULIN RATIO 0.5 (1.0-2.7); CALCIUM 7.5 mg/dL (8.6-10.2); CREATININE 1.5 mg/dL (0.7-1.2); GLOMERULAR FILTRATION RATE 47.9 mL/min (>60); TOTAL PROTEIN 5.6 g/dL (6.6-8.7)
[2017-03-01 07:13] LABS: THYROID STIMULATING HORMONE 1.71 uIU/mL (0.300-4.500)
--- NOTE | 2017-03-01 07:20 | Brief Operative Note ---
Immediate Post Operative Note Operative Note Pre-op Diagnosis: Right hip fracture Procedure: Right hip hemiarthroplasty Post-op Diagnosis: same as pre-op Findings: consistent w/pre-op dx studies Surgeon: Pierre Anesthesiologist: Sunshine Anesthesia: general, local Specimen: yes Complications: none Condition: stable Estimated Blood Loss: minimal Drains: none Implant(s) used?: Yes NEVA RODRÍGUEZ Mar 01, 2017 07:20
--- NOTE | 2017-03-01 07:22 | Orthopedic Progress Note ---
Orthopedic - Progress Note Subjective Symptoms: c/o post-op hip pain Objective Vital Signs Last 24 Hour Vital Signs Date Time Temp Pulse Resp B/P Pulse Ox O2 Delivery O2 Flow Rate FiO2 03/01/17 04:00 96.6 79 20 113/64 100 Room Air 03/01/17 00:17 97.3 78 20 113/67 98 Room Air 02/28/17 20:41 97.1 82 20 114/76 100 Room Air 02/28/17 17:39 98.1 103 22 128/82 100 Nasal Cannula 2.0 02/28/17 16:27 97.7 96 19 142/74 100 Nasal Cannula 3.0 02/28/17 16:13 95 17 153/79 100 Nasal Cannula 3.0 02/28/17 16:00 98 18 173/91 100 Nasal Cannula 3.0 02/28/17 15:45 96 21 145/76 99 Nasal Cannula 3.0 02/28/17 15:35 92 19 143/77 100 Simple Mask 6.0 02/28/17 15:30 91 19 143/76 100 Simple Mask 6.0 02/28/17 15:29 88 19 100 02/28/17 15:25 97.9 89 22 143/79 100 Simple Mask 6.0 02/28/17 12:01 98.3 76 20 119/69 100 Room Air 02/28/17 08:26 97.8 74 20 114/66 100 Room Air I&O Intake and Output 02/28/17 03/01/17 19:00 07:00 Intake Total 1870 ml Output Total 865 ml 450 ml Balance 1005 ml -450 ml Intake Oral 420 ml IV Total 1200 ml Blood Product 250 ml Output Urine Total 850 ml 450 ml Estimated Blood Loss 15 ml # Voids 1 2 Wound: clean, dry Drains: none Neuro Status: normal Vascular Status: normal Assessment Procedure Performed Right hip hemiarthroplasty Plan Plan: PT, pain management Additional Comments WBAT with posterior dislocation precautions knee immobilizer to replace abduction pillow to be worn only in bed/sleeping ( Not needed when up and ambulating) Follow up in 10-14 days NEVA RODRÍGUEZ Mar 01, 2017 07:22
[2017-03-01 08:00] VITALS: BP 119/66
[2017-03-01] MEDS: Heparin 5000 units/ml inj SUBQ SCH ×2 (08:00→22:19)
--- NOTE | 2017-03-01 08:45 | Consultation ---
DATE OF CONSULTATION: 02/28/2017 HEMATOLOGY/ONCOLOGY CONSULTATION CONSULTING PHYSICIAN: Leandro Ceja M.D. REFERRING PHYSICIAN: Tano De Paz M.D. REASON FOR CONSULTATION: Evaluation of anemia. IDENTIFYING DATA: Dear Dr. Tano De Paz, Thank you for this consultation. The patient is a pleasant 61-year-old male with past medical history significant for history of anemia, KARINA, as well as hypertension, shortness of breath, and diabetes mellitus, at this time presents to [facility] with a recent fall right leg pain. The pain is 8/10, diagnosed with a right hip fracture and admitted for further care. Orthopedic Surgery consulted as well as Hematology for anemia. The patient at this time will be ordered an Epogen only one dose, and Orthopedic Surgery to evaluate the patient for potential procedure. PAST MEDICAL HISTORY: In addition to anemia workup, which was ordered as noted above. PAST SURGICAL HISTORY: None noted. MEDICATIONS: Have been reviewed. SOCIAL HISTORY: No alcohol, tobacco, or illicit drug use. He lives on his own. REVIEW OF SYSTEMS: Constitutional: No fever, chills, or night sweats. Skin: No rash, lumps, or itching. HEENT: No headache, hearing, or vision changes. Breasts: No lumps, pain, or discharge. Pulmonary: No cough, sputum, or shortness of breath. Cardiovascular: No chest pain, tenderness, or palpitations. Gastrointestinal: No nausea, vomiting, or diarrhea. Genitourinary: No dysuria, frequency, or urgency. PHYSICAL EXAMINATION: VITAL SIGNS: Temperature 97.8 degrees Fahrenheit, pulse 74, respiratory rate 12, blood pressure 114/66, and pulse oximetry 100% on room air. GENERAL: No acute distress. PULMONARY: Decreased breath sounds. CARDIOVASCULAR: Regular rate. No S3 or S4. ABDOMEN: Soft, nontender, and nondistended. EXTREMITIES: There is 1+ edema. LABORATORY AND DIAGNOSTIC DATA: WBC 12.8, hemoglobin 8, hematocrit 25, and platelet count 291,000. INR 1.1. BUN of 42 and creatinine of 1.8. Uric acid 10. Albumin 2.4. ASSESSMENT AND PLAN: 1. Anemia secondary to chronic disease, closely monitor. 2. Anemia secondary to orthopedic procedure. 3. Anemia secondary to kidney disease with acute kidney injury. 4. Uricemia. Uric acid elevated at 10.2. 5. Hypocalcemia. We will send for a parathyroid level. 6. Leukocytosis secondary to reactive process from . 7. Right hip fracture, to be seen by Orthopedic Surgery. 8. We will give one dose of Neupogen. 9. . Leandro Ceja M.D. DR: TIERNEY JOB#: [id number] CC:
--- NOTE | 2017-03-01 10:12 | 48 Hour Post Anesthesia Eval ---
Post Anesthesia Evaluation Procedure: Right hip naun arthroplasty Date of Evaluation: Mar 01, 2017 Time of Evaluation: 10:11 Blood Pressure Systolic: 144 0: 74 Pulse Rate: 88 Respiratory Rate: 16 Temperature (Fahrenheit): 97 O2 Sat by Pulse Oximetry: 99 Nausea: No Vomiting: No Hydration Status: adequate Franchesca Garvey MD Mar 01, 2017 10:12
[2017-03-01 12:00] VITALS: BP 111/65
--- NOTE | 2017-03-01 12:26 | Consultation ---
Consult Note Consult Note asked to eval for renal failure Chief Complaint: Multiple Trauma/Fall 61-year-old male presents ED complaining of right leg pain. States he had a mechanical fall today at home. Denies hitting his head or LOC. Patient is here complaining of right hip and leg pain. Pain is an 8/10, sharp, nonradiating. Unable to bear weight. Denies any other injuries. No other aggravating or relieving factors. Denies any other associated symptoms Past Medical History: HTN Hx Hypertension: Yes Assessment/Plan status: Renal failure- HypoNatremia- Dehydration- Anemia- HypoAlbuminemia Right Hip Fx , s/p surgery Plan; 3% saline- B12 SQ Gastric support Monitor renal parameters BRITTANY CANCINO Mar 01, 2017 12:26
--- NOTE | 2017-03-01 12:30 | Operative Note - Dictated ---
DATE OF OPERATION: 02/28/2017 SURGEON: Brendon Jay M.D. LABORER PIE BAKERY: None. ANESTHESIA: General plus local. COMPLICATIONS: None. ANTIBIOTICS: Ancef. PREOPERATIVE DIAGNOSIS: Right femoral neck displaced fracture. POSTOPERATIVE DIAGNOSIS: Right femoral neck displaced fracture (chronic). PROCEDURE PERFORMED: Right hip hemiarthroplasty using an uncemented Microport Profemur Z classic femoral stem with a short neck size 6 with varus 8 degrees, a lineage Transcend femoral head 28 mm +3.5 mm long neck length with gladiator bipolar auto-diameter 35 mm bipolar shell. BACKGROUND: The patient sustained a right femoral neck fracture. All risks, benefits, and alternatives of surgical intervention were discussed in great detail. Risks included, but were not limited to, bleeding, infection, neurovascular injury, need for additional surgical intervention, failure of pain relief, arthrofibrosis, complications of anesthesia, blood clots, stroke, heart attack, and potential . He understood these risks, amongst others including leg length discrepancy, fracture, and dislocation, and consent was signed. PROCEDURE IN DETAIL: The patient was brought in the operating room and placed supine on the operating table. General anesthesia was induced. Arriaza catheter was placed. All bony prominences were then appropriately padded and was placed in a lateral decubitus position with right right side up. The right hip was prepped and draped in a standard sterile fashion. A posterior incision was created and a percutaneously assisted hip hemiarthroplasty undertaken. Hemostasis was maintained using electrocautery, although it was found that he had some mildly abnormal soft tissue. The fascia was identified and carefully dissected. Incision was created in line withe fibers and the gluteus bluntly dissected down the piriformis fossa. The piriformis/conjoint tendon were elevated, identified, detached distally as possible. The capsule was identified, there was "tissue liquifaction indicative of chronic injury". Once capsule was incised in a T-like fashion, there was no hematoma. There was excessive shortening of the soft tissue indicative of a chronic injury. Once the femoral head was removed, the acetabulum cleared of any debris. Using sequential reaming and broaching, a size 6 stem was found to fit appropriately. Trial reduction using a 45 mm outer diameter stem with medium length neck and one femoral head revealed excellent stability leg lengths. No dislocation or purging at 90 degrees hip flexion, 90 degrees hip flexion with 85 degrees internal rotation, position of sleep, position of sleep with 85 degrees internal rotation, and 10 degrees of extension with 10 degrees of extension and external rotation. Intraoperative radiographs confirmed appropriate hardware sizing, offset, and failed leg lengths. The trials were removed and copious irrigation was used throughout. Femoral components were secured into position. There was no change in final stability or leg lengths. Once again copious irrigation was utilized and there was no retained foreign body or debris The capsule was reapproximated as well as could be done so using #1 Vicryl and more superficial tissues using #0 and 2-0 Vicryl, Monocryl was used in a subcuticular fashion. Steri-Strips were used over Mastisol. Dry sterile dressing was applied. He tolerated the procedure well. There were no complications. I attest that I performed the entire operation. He was then transferred to recovery in good condition. Brendon Jay M.D. DR: Ayden JOB#: [id number] CC: JUSTIN
[2017-03-01 13:11] LABS: CALCIUM 7.7 mg/dL (8.7-10.2); PTH INTACT 29 pg/mL (15-65)
--- NOTE | 2017-03-01 13:32 | Diagnostic Imaging Report ---
Indication: Abnormal renal function tests Technique: Grayscale and duplex images of the kidneys, retroperitoneum, and bladder were obtained. Comparison:None Findings: Right kidney measures 9 point cm in length. Left kidney measures 10.3 cm in length. Both kidneys demonstrate normal echogenicity. No hydronephrosis. Calcifications are seen in the renal pelvis bilaterally. There is a 7 mm cyst in the lower pole of the left kidney. There is a 14 mm cyst in the interpolar region of the right kidney. Normal inferior vena cava. Bladder is empty, contains a Arriaza catheter. Impression: Nonobstructive bilateral intrarenal calculi Negative for hydronephrosis Arriaza catheter within empty bladder Incidental finding bilateral renal cysts.
[2017-03-01] MEDS ORDERED: NaCl 3% 500ml 500 ML IV ONE (14:00)
[2017-03-01] MEDS: Docusate 100mg cap ORAL SCH ×3 (14:37→18:20)
[2017-03-01] MEDS: Thiamine 100mg tab ORAL SCH (14:38)
[2017-03-01] MEDS: Vitamin B12 1000mcg/ml Inj SUBQ SCH (14:38)
[2017-03-01] MEDS: Vitamin D 50,000 units cap ORAL SCH (14:42)
--- NOTE | 2017-03-01 15:19 | Pulmonology Progress Note ---
Assessment/Plan Problems: (1) Fracture of femoral neck, right (2) Anemia (3) Renal insufficiency Assessment/Plan w/u in progress pt/ot f/u labs tolerating diet Subjective ROS Limited/Unobtainable: No Interval Events: tolerated surgery very well Constitutional: Reports: no symptoms Allergies: Coded Allergies: No Known Allergies (Unverified , 02/27/17) Objective Last 24 Hour Vital Signs Date Time Temp Pulse Resp B/P Pulse Ox O2 Delivery O2 Flow Rate FiO2 03/01/17 12:00 97.2 84 18 111/65 99 Room Air 03/01/17 10:12 88 16 99 03/01/17 08:00 97.0 78 17 119/66 100 Room Air 03/01/17 04:00 96.6 79 20 113/64 100 Room Air 03/01/17 00:17 97.3 78 20 113/67 98 Room Air 02/28/17 20:41 97.1 82 20 114/76 100 Room Air 02/28/17 17:39 98.1 103 22 128/82 100 Nasal Cannula 2.0 02/28/17 16:27 97.7 96 19 142/74 100 Nasal Cannula 3.0 02/28/17 16:13 95 17 153/79 100 Nasal Cannula 3.0 02/28/17 16:00 98 18 173/91 100 Nasal Cannula 3.0 02/28/17 15:45 96 21 145/76 99 Nasal Cannula 3.0 02/28/17 15:35 92 19 143/77 100 Simple Mask 6.0 02/28/17 15:30 91 19 143/76 100 Simple Mask 6.0 02/28/17 15:29 88 19 100 02/28/17 15:25 97.9 89 22 143/79 100 Simple Mask 6.0 Intake and Output 02/28/17 03/01/17 19:00 07:00 Intake Total 1870 ml 50 ml Output Total 865 ml 450 ml Balance 1005 ml -400 ml Intake Oral 420 ml IV Total 1200 ml 50 ml Blood Product 250 ml Output Urine Total 850 ml 450 ml Estimated Blood Loss 15 ml # Voids 1 2 General Appearance: cachetic HEENT: normocephalic, atraumatic Respiratory/Chest: lungs clear, normal breath sounds Cardiovascular: normal peripheral pulses, regular rhythm Abdomen: normal bowel sounds, soft, non tender Extremities: no cyanosis, no clubbing Skin: no rash, no lesions Laboratory Tests 02/28/17 17:35: Reticulocyte Count 2.5H, Iron Level 100, Total Iron Binding Capacity 128L, Percent Iron Saturation 78H, Unsaturated Iron Binding 28L, Ferritin 358H, Lactate Dehydrogenase 281H, Carcinoembryonic Antigen 5.0H, Vitamin B12 Level 320 , Folate 5.1 03/01/17 06:15: White Blood Count 9.3, Red Blood Count 2.71L, Hemoglobin 8.2L, Hematocrit 25.9L , Mean Corpuscular Volume 95, Mean Corpuscular Hemoglobin 30.1, Mean Corpuscular Hemoglobin Concent 31.5L, Red Cell Distribution Width 16.5H, Platelet Count 264, Mean Platelet Volume 5.4L, Neutrophils (%) (Auto) 81.6H, Lymphocytes (%) (Auto) 8.8L, Monocytes (%) (Auto) 9.3, Eosinophils (%) (Auto) 0.0, Basophils (%) (Auto) 0.3, Sodium Level 130L, Potassium Level 4.0, Chloride Level 99, Carbon Dioxide Level 19L, Anion Gap 12, Blood Urea Nitrogen 34H, Creatinine 1.5H, Estimat Glomerular Filtration Rate 47.9, Glucose Level 163H, Calcium Level 7.5L, Total Bilirubin 0.2, Aspartate Amino Transf (AST/SGOT) 18, Alanine Aminotransferase (ALT/SGPT) 10, Alkaline Phosphatase 103, Total Protein 5.6L, Albumin 2.0L, Globulin 3.6, Albumin/Globulin Ratio 0.5L, Thyroid Stimulating Hormone (TSH) 1.710 Current Medications Medications (Trade) Dose Ordered Sig/Bautista Route PRN Reason Start Time Stop Time Status Last Admin Dose Admin Acetaminophen (Tylenol) 650 mg Q4H PRN ORAL fever>100.5 02/28/17 08:00 03/30/17 07:59 Acetaminophen/ Hydrocodone Bitart ([place] 10/325) 1 ea Q4H PRN ORAL For Pain 02/28/17 16:00 03/07/17 15:59 03/01/17 08:27 Cefazolin Sodium/ Dextrose (Ancef/D5W) 55 ml @ 110 mls/hr Q8HR IVPB 02/28/17 22:00 03/07/17 21:59 03/01/17 14:39 Cyanocobalamin (Vitamin B12) 1,000 mcg DAILY SUBQ 03/01/17 13:00 03/03/17 09:01 03/01/17 14:38 Dextrose (Dextrose 50%) STAT PRN IV Hypoglycemia 02/28/17 08:00 03/30/17 07:59 Docusate Sodium 100 mg 100 mg THREE TIMES A DAY ORAL 03/01/17 13:00 03/31/17 12:59 03/01/17 14:37 Ergocalciferol (Drisdol) 50,000 intlu QWEEK ORAL 03/01/17 14:00 03/31/17 13:59 03/01/17 14:42 Folic Acid (Folate) 2 mg DAILY ORAL 03/01/17 12:30 03/31/17 12:29 03/01/17 14:38 Heparin Sodium (Porcine) 5000 units 5,000 units EVERY 12 HOURS SUBQ 02/28/17 09:00 03/30/17 08:59 03/01/17 08:00 Hydromorphone HCl (Dilaudid) 1 mg EVERY 2 HOURS PRN IVP For Pain 02/28/17 16:00 03/07/17 15:59 Lorazepam (Ativan 2mg/ml 1ml) 0.5 mg Q4H PRN IV For Anxiety 02/28/17 08:00 03/07/17 07:59 Ondansetron HCl (Zofran) 4 mg Q6H PRN IVP Nausea & Vomiting 02/28/17 16:00 03/30/17 15:59 Pantoprazole (Protonix) 40 mg EVERY 12 HOURS ORAL 03/01/17 12:30 03/31/17 12:29 03/01/17 14:37 Polyethylene Glycol (Miralax) 17 gm HSPRN PRN ORAL Constipation 02/28/17 21:00 03/30/17 20:59 Sodium Chloride (Hypertonic Saline) 500 ml @ 30 mls/hr ONCE ONCE IV 03/01/17 14:00 03/02/17 06:39 03/01/17 14:40 Thiamine HCl (Vitamin B1) 100 mg DAILY ORAL 03/01/17 12:30 03/31/17 12:29 03/01/17 14:38 Zolpidem Tartrate (Ambien) 5 mg HSPRN PRN ORAL Insomnia 02/28/17 21:00 03/30/17 20:59 GURWINDER YI Mar 01, 2017 15:19
--- NOTE | 2017-03-01 15:47 | Wound Care Consultation ---
Wound Assessment Wound Assessment #1: Wound Number: #1 Wound Present on Admission: Yes New Wound: No Status Change of Wound: No Wound Location Body Site Modif: left Wound Location Body Site: ischial tuberosity Wound Type: pressure ulcer Valentine Test: Does not Valentine Pressure Ulcer Stage: IV/unstageable - unstageable. Wound Thickness: Full Thickness Wound Length: 4.0 Wound Width: 4.0 Wound Depth: utd Percent of Wound Bed Yellow/Wh: 20 Percent of Wound Black/Brown: 80 Wound Drainage Description: Serosanguineous Wound Drainage Amount: Moderate Wound Drainage Odor: None/Absent Tissue Surrounding Wound: Macerated Wound General Appearance: Reddened, Blackened, Draining, Necrotic Wound Assessment #2: Wound Number: #2 Wound Present on Admission: Yes New Wound: No Status Change of Wound: No Wound Location Body Site Modif: left Wound Location Body Site: trochanter Wound Type: pressure ulcer Valentine Test: Does not Valentine Pressure Ulcer Stage: IV/unstageable - unstageable. scattered. Wound Thickness: Full Thickness Wound Length: 5.0 - unstageable. Wound Width: 3.0 - unstageable Wound Depth: utd Percent of Wound [place]/Red: 50 Percent of Wound Bed Yellow/Wh: 40 Percent of Wound Black/Brown: 10 Wound Drainage Description: Serosanguineous Wound Drainage Amount: Scant Wound Drainage Odor: None/Absent Tissue Surrounding Wound: Macerated Wound General Appearance: Reddened, Blackened, Necrotic Wound Assessment #3: Wound Number: #3 Wound Present on Admission: Yes New Wound: No Status Change of Wound: No Wound Location Body Site Modif: left Wound Location Body Site: buttocks Wound Type: scar - scattered scar tissue with hyperpigmentation. Valentine Test: Does not Valentine Wound Thickness: Full Thickness Percent of Wound [place]/Red: 100 Wound Drainage Amount: None Wound Drainage Odor: None/Absent Tissue Surrounding Wound: Intact Wound General Appearance: Reddened, Clean/Dry Wound Assessment #4: Wound Number: #4 Wound Present on Admission: Yes New Wound: No Status Change of Wound: No Wound Location Body Site Modif: left Wound Location Body Site: knee Wound Type: scab Valentine Test: Does not Valentine Wound Thickness: Partial Thickness Wound Length: 4.0 Wound Width: 4.0 Wound Depth: utd Percent of Wound [place]/Red: 50 - dry scab Percent of Wound Black/Brown: 50 - dry scab Wound Drainage Amount: None Wound Drainage Odor: None/Absent Tissue Surrounding Wound: Intact - erythemic Wound General Appearance: Open to air, Clean/Dry Wound Comment #1 Left lower leg dry scaly skin. #2 Left ischial tuberosity pressure ulcer Unstageable. #3 Left trochanter scattered pressure ulcer Unstageable. #4 Left buttock scattered full thickness scar tissue with hyperpigmentation. #5 Left knee Traumatic injury - scab. Recommendation. -Local wound care as ordered. -Apply low air loss mattress SPR for wound and skin management. -Turn and reposition. -Keep clean and dry. -Offload affected wound sites. -Optimize nutrition. -Offload heels. -Assess and notify MD if any further changes of condition noted to skin. NAE SERRA Mar 01, 2017 15:47
[2017-03-01 16:00] VITALS: BP 106/68
[2017-03-01] MEDS ORDERED: Tubing IV Secondary IV ONE (16:57)
[2017-03-01] MEDS ORDERED: D5 1/2NS 1000ml IV ONE (16:57)
--- NOTE | 2017-03-01 19:32 | General Progress Note ---
Assessment/Plan Assessment/Plan 1. Anemia secondary to chronic disease, closely monitor. --> hgb goal above 7 2. Anemia secondary to orthopedic procedure. 3. Anemia secondary to kidney disease with acute kidney injury. 4. Uricemia. Uric acid elevated at 10.2. 5. Hypocalcemia. We will send for a parathyroid level. 6. Leukocytosis secondary to reactive process from anemia 7. Right hip fracture, to be seen by Orthopedic Surgery. 8. We will give one dose of Neupogen. Subjective Constitutional: Reports: no symptoms HEENT: Reports: no symptoms Cardiovascular: Reports: no symptoms Respiratory: Reports: no symptoms Gastrointestinal/Abdominal: Reports: no symptoms Genitourinary: Reports: no symptoms Neurologic/Psychiatric: Reports: no symptoms Endocrine: Reports: no symptoms Hematologic/Lymphatic: Reports: anemia Allergies: Coded Allergies: No Known Allergies (Unverified , 02/27/17) Subjective no bleeding, afebrile Objective Last 24 Hour Vital Signs Date Time Temp Pulse Resp B/P Pulse Ox O2 Delivery O2 Flow Rate FiO2 03/01/17 16:00 97.5 74 16 106/68 98 Room Air 03/01/17 12:00 97.2 84 18 111/65 99 Room Air 03/01/17 10:12 88 16 99 03/01/17 08:00 97.0 78 17 119/66 100 Room Air 03/01/17 04:00 96.6 79 20 113/64 100 Room Air 03/01/17 00:17 97.3 78 20 113/67 98 Room Air 02/28/17 20:41 97.1 82 20 114/76 100 Room Air Intake and Output 02/28/17 03/01/17 19:00 07:00 Intake Total 1870 ml 50 ml Output Total 865 ml 450 ml Balance 1005 ml -400 ml Intake Oral 420 ml IV Total 1200 ml 50 ml Blood Product 250 ml Output Urine Total 850 ml 450 ml Estimated Blood Loss 15 ml # Voids 1 2 Laboratory Tests 03/01/17 06:15: White Blood Count 9.3, Red Blood Count 2.71L, Hemoglobin 8.2L, Hematocrit 25.9L , Mean Corpuscular Volume 95, Mean Corpuscular Hemoglobin 30.1, Mean Corpuscular Hemoglobin Concent 31.5L, Red Cell Distribution Width 16.5H, Platelet Count 264, Mean Platelet Volume 5.4L, Neutrophils (%) (Auto) 81.6H, Lymphocytes (%) (Auto) 8.8L, Monocytes (%) (Auto) 9.3, Eosinophils (%) (Auto) 0.0, Basophils (%) (Auto) 0.3, Sodium Level 130L, Potassium Level 4.0, Chloride Level 99, Carbon Dioxide Level 19L, Anion Gap 12, Blood Urea Nitrogen 34H, Creatinine 1.5H, Estimat Glomerular Filtration Rate 47.9, Glucose Level 163H, Calcium Level 7.5L, Total Bilirubin 0.2, Aspartate Amino Transf (AST/SGOT) 18, Alanine Aminotransferase (ALT/SGPT) 10, Alkaline Phosphatase 103, Total Protein 5.6L, Albumin 2.0L, Globulin 3.6, Albumin/Globulin Ratio 0.5L, Thyroid Stimulating Hormone (TSH) 1.710 Height (Feet): 5 Height (Inches): 10.00 Weight (Pounds): 150 General Appearance: no apparent distress EENT: normal ENT inspection Neck: normal alignment Cardiovascular: normal peripheral pulses, regular rhythm Respiratory/Chest: chest wall non-tender Abdomen: normal bowel sounds, no mass 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
[2017-03-01 20:00] VITALS: BP 125/74
[2017-03-02] VITALS: BP 122/64
[2017-03-02] MEDS: Zolpidem 5mg tab ORAL PRN ×2 (01:36→22:33)
[2017-03-02 04:00] VITALS: BP 110/68
[2017-03-02] MEDS: ceFAZolin sod 1 GM in D5W 55 ML IVPB SCH ×3 (05:33→22:33)
[2017-03-02 06:40] LABS: MEAN CORPUSCULAR HEMOGLOBIN 29.1 PG (27.0-31.0); MEAN CORPUSCULAR HGB CONC 30.6 G/DL (32.0-36.0); MEAN CORPUSCULAR VOLUME 95 FL (80-99); MEAN PLATELET VOLUME 5.3 FL (6.5-10.1); PLATELET COUNT 304 K/UL (150-450); RED BLOOD COUNT 2.55 M/UL (4.70-6.10); RED CELL DISTRIBUTION WIDTH 15.6 % (11.6-14.8); WHITE BLOOD COUNT 9.1 K/UL (4.8-10.8)
[2017-03-02 07:11] LABS: AMMONIA 22 umol/L (16-60)
[2017-03-02 07:33] LABS: ALANINE AMINOTRANSFERASE 8 U/L (3-41); ALBUMIN/GLOBULIN RATIO 0.5 (1.0-2.7); ANION GAP 8 (5-15); ASPARTATE AMINO TRANSFERASE 14 U/L (5-40); CARBON DIOXIDE 22 mEQ/L (20-30); CHLORIDE 100 mEQ/L (98-107); CHOLESTEROL 93 mg/dL (< 200); CREATININE 1.3 mg/dL (0.7-1.2); CRP QUANT 6.4 mg/dL (< 0.5); GLOMERULAR FILTRATION RATE 56.5 mL/min (>60); HEMOLYSIS 0; LDL CHOLESTEROL (CALC.) 43 mg/dL (60-99); MAGNESIUM 1.6 mg/dL (1.7-2.5); PHOSPHORUS 2.4 mg/dL (2.5-4.8); POTASSIUM 4.8 mEQ/L (3.4-4.9); SODIUM 130 mEQ/L (135-145); TOTAL PROTEIN 5.4 g/dL (6.6-8.7); URIC ACID 7.9 mg/dL (3.0-7.5)
[2017-03-02 08:00] VITALS: BP 126/70
[2017-03-02 08:24] LABS: HEMOGLOBIN A1C 5.6 % (< 6.0)
[2017-03-02] MEDS: Docusate 100mg cap ORAL SCH ×3 (09:14→20:30)
[2017-03-02] MEDS: Thiamine 100mg tab ORAL SCH (09:14)
[2017-03-02] MEDS: Vitamin B12 1000mcg/ml Inj SUBQ SCH (09:15)
[2017-03-02] MEDS: Heparin 5000 units/ml inj SUBQ SCH ×2 (09:16→22:35)
[2017-03-02] MEDS ORDERED: Sodium Phosphate 30 MM in NS 275 ML IVPB ONE (09:30)
[2017-03-02 12:00] VITALS: BP 136/78
--- NOTE | 2017-03-02 15:14 | General Progress Note ---
Assessment/Plan Status: stable Assessment/Plan Renal failure- HypoNatremia- Dehydration- Anemia- HypoAlbuminemia Right Hip Fx , s/p surgery Plan; 3% saline- transfuse B12 SQ Gastric support Monitor renal parameters Subjective ROS Limited/Unobtainable: No Constitutional: Reports: malaise, other - being transfused Allergies: Coded Allergies: No Known Allergies (Unverified , 02/27/17) Objective Last 24 Hour Vital Signs Date Time Temp Pulse Resp B/P Pulse Ox O2 Delivery O2 Flow Rate FiO2 03/02/17 12:00 97.4 88 19 136/78 96 Room Air 03/02/17 08:00 97.5 80 17 126/70 99 Room Air 03/02/17 04:00 97.0 74 18 110/68 98 Room Air 03/02/17 00:00 97.0 84 18 122/64 98 Room Air 03/01/17 20:00 97.5 83 18 125/74 99 Room Air 03/01/17 16:00 97.5 74 16 106/68 98 Room Air Intake and Output 03/01/17 03/02/17 19:00 07:00 Intake Total 1550 ml 450 ml Output Total 700 ml Balance 850 ml 450 ml Intake Oral 1300 ml 120 ml IV Total 250 ml 330 ml Output Urine Total 700 ml # Voids 2 Laboratory Tests 03/02/17 06:30: White Blood Count 9.1, Red Blood Count 2.55L, Hemoglobin 7.4L, Hematocrit 24.3L , Mean Corpuscular Volume 95, Mean Corpuscular Hemoglobin 29.1, Mean Corpuscular Hemoglobin Concent 30.6L, Red Cell Distribution Width 15.6H, Platelet Count 304, Mean Platelet Volume 5.3L, Neutrophils (%) (Auto) , Lymphocytes (%) (Auto) , Monocytes (%) (Auto) , Eosinophils (%) (Auto) , Basophils (%) (Auto) , Sodium Level 130L, Potassium Level 4.8, Chloride Level 100, Carbon Dioxide Level 22, Anion Gap 8, Blood Urea Nitrogen 31H, Creatinine 1.3H, Estimat Glomerular Filtration Rate 56.5, Glucose Level 214H, Hemoglobin A1c 5.6, Uric Acid 7.9H, Calcium Level 7.0L, Phosphorus Level 2.4L, Magnesium Level 1.6L, Total Bilirubin < 0.2, Gamma Glutamyl Transpeptidase 15, Aspartate Amino Transf (AST/SGOT) 14, Alanine Aminotransferase (ALT/SGPT) 8, Alkaline Phosphatase 122, Ammonia 22, Total Creatine Kinase 82, C-Reactive Protein, Quantitative 6.4H, Pro-B-Type Natriuretic Peptide 1598H, Total Protein 5.4L, Albumin 1.9L, Globulin 3.5, Albumin/Globulin Ratio 0.5L, Triglycerides Level 96 , Cholesterol Level 93, LDL Cholesterol 43L, HDL Cholesterol 31, Cholesterol/ HDL Ratio 3.0L, Thyroid Stimulating Hormone (TSH) 1.480 Height (Feet): 5 Height (Inches): 10.00 Weight (Pounds): 150 General Appearance: no apparent distress Objective no change in PE BRITTANY CANCINO Mar 02, 2017 15:14
[2017-03-02 16:00] VITALS: BP 134/79
[2017-03-02] MEDS ORDERED: NaCl 3% 500ml 500 ML IV ONE ×2 (16:00→18:00)
--- NOTE | 2017-03-02 18:56 | Pulmonology Progress Note ---
Assessment/Plan Problems: (1) Fracture of femoral neck, right (2) Anemia (3) Renal insufficiency Assessment/Plan w/u in progress pt/ot f/u labs tolerating diet dc planning Subjective ROS Limited/Unobtainable: No Constitutional: Reports: no symptoms HEENT: Repors: no symptoms Allergies: Coded Allergies: No Known Allergies (Unverified , 02/27/17) Objective Last 24 Hour Vital Signs Date Time Temp Pulse Resp B/P Pulse Ox O2 Delivery O2 Flow Rate FiO2 03/02/17 16:00 97.2 83 17 134/79 97 Room Air 03/02/17 12:00 97.4 88 19 136/78 96 Room Air 03/02/17 08:00 97.5 80 17 126/70 99 Room Air 03/02/17 04:00 97.0 74 18 110/68 98 Room Air 03/02/17 00:00 97.0 84 18 122/64 98 Room Air 03/01/17 20:00 97.5 83 18 125/74 99 Room Air Intake and Output 03/01/17 03/02/17 19:00 07:00 Intake Total 1550 ml 450 ml Output Total 700 ml Balance 850 ml 450 ml Intake Oral 1300 ml 120 ml IV Total 250 ml 330 ml Output Urine Total 700 ml # Voids 2 General Appearance: cachetic HEENT: normocephalic, atraumatic Respiratory/Chest: chest wall non-tender, lungs clear Cardiovascular: normal peripheral pulses, normal rate Abdomen: normal bowel sounds, soft, non tender Genitourinary: normal external genitalia Extremities: no cyanosis Laboratory Tests 03/02/17 06:30: White Blood Count 9.1, Red Blood Count 2.55L, Hemoglobin 7.4L, Hematocrit 24.3L , Mean Corpuscular Volume 95, Mean Corpuscular Hemoglobin 29.1, Mean Corpuscular Hemoglobin Concent 30.6L, Red Cell Distribution Width 15.6H, Platelet Count 304, Mean Platelet Volume 5.3L, Neutrophils (%) (Auto) , Lymphocytes (%) (Auto) , Monocytes (%) (Auto) , Eosinophils (%) (Auto) , Basophils (%) (Auto) , Sodium Level 130L, Potassium Level 4.8, Chloride Level 100, Carbon Dioxide Level 22, Anion Gap 8, Blood Urea Nitrogen 31H, Creatinine 1.3H, Estimat Glomerular Filtration Rate 56.5, Glucose Level 214H, Hemoglobin A1c 5.6, Uric Acid 7.9H, Calcium Level 7.0L, Phosphorus Level 2.4L, Magnesium Level 1.6L, Total Bilirubin < 0.2, Gamma Glutamyl Transpeptidase 15, Aspartate Amino Transf (AST/SGOT) 14, Alanine Aminotransferase (ALT/SGPT) 8, Alkaline Phosphatase 122, Ammonia 22, Total Creatine Kinase 82, C-Reactive Protein, Quantitative 6.4H, Pro-B-Type Natriuretic Peptide 1598H, Total Protein 5.4L, Albumin 1.9L, Globulin 3.5, Albumin/Globulin Ratio 0.5L, Triglycerides Level 96 , Cholesterol Level 93, LDL Cholesterol 43L, HDL Cholesterol 31, Cholesterol/ HDL Ratio 3.0L, Thyroid Stimulating Hormone (TSH) 1.480 Current Medications Medications (Trade) Dose Ordered Sig/Bautista Route PRN Reason Start Time Stop Time Status Last Admin Dose Admin Acetaminophen (Tylenol) 650 mg Q4H PRN ORAL fever>100.5 02/28/17 08:00 03/30/17 07:59 Acetaminophen/ Hydrocodone Bitart ([place] 10/325) 1 ea Q4H PRN ORAL For Pain 02/28/17 16:00 03/07/17 15:59 03/01/17 08:27 Cefazolin Sodium/ Dextrose (Ancef/D5W) 55 ml @ 110 mls/hr Q8HR IVPB 02/28/17 22:00 03/07/17 21:59 03/02/17 15:58 Cyanocobalamin (Vitamin B12) 1,000 mcg DAILY SUBQ 03/01/17 13:00 03/03/17 09:01 03/02/17 09:15 Dextrose (Dextrose 50%) STAT PRN IV Hypoglycemia 02/28/17 08:00 03/30/17 07:59 Docusate Sodium (Colace) 100 mg THREE TIMES A DAY ORAL 03/01/17 13:00 03/31/17 12:59 03/02/17 15:59 Ergocalciferol 91109 intlu 50,000 intlu QWEEK ORAL 03/01/17 14:00 03/31/17 13:59 03/01/17 14:42 Folic Acid (Folate) 2 mg DAILY ORAL 03/01/17 12:30 03/31/17 12:29 03/02/17 09:14 Heparin Sodium (Porcine) 5000 units 5,000 units EVERY 12 HOURS SUBQ 02/28/17 09:00 03/30/17 08:59 03/02/17 09:16 Hydromorphone HCl (Dilaudid) 1 mg EVERY 2 HOURS PRN IVP For Pain 02/28/17 16:00 03/07/17 15:59 Lorazepam (Ativan 2mg/ml 1ml) 0.5 mg Q4H PRN IV For Anxiety 02/28/17 08:00 03/07/17 07:59 Ondansetron HCl (Zofran) 4 mg Q6H PRN IVP Nausea & Vomiting 02/28/17 16:00 03/30/17 15:59 Pantoprazole (Protonix) 40 mg EVERY 12 HOURS ORAL 03/01/17 12:30 03/31/17 12:29 03/02/17 09:14 Polyethylene Glycol (Miralax) 17 gm HSPRN PRN ORAL Constipation 02/28/17 21:00 03/30/17 20:59 Sodium Chloride (Hypertonic Saline) 500 ml @ 30 mls/hr ONCE ONCE IV 03/02/17 18:00 03/03/17 10:39 Thiamine HCl (Vitamin B1) 100 mg DAILY ORAL 03/01/17 12:30 03/31/17 12:29 03/02/17 09:14 Zolpidem Tartrate (Ambien) 5 mg HSPRN PRN ORAL Insomnia 02/28/17 21:00 03/30/17 20:59 03/02/17 01:36 GURWINDER YI Mar 02, 2017 18:56
[2017-03-02 20:00] VITALS: BP 129/76
--- NOTE | 2017-03-02 23:17 | General Progress Note ---
Assessment/Plan Assessment/Plan 1. Anemia secondary to chronic disease, ferritin is elevated and tibc is low --> hgb goal above 7 2. Anemia secondary to orthopedic procedure. 3. Anemia secondary to kidney disease with KARINA 4. Uricemia. Uric acid elevated at 10.2. 5. Hypocalcemia. PTH is 29 --> urine to be evaluated, consider endo consilt 6. Leukocytosis secondary to reactive process from anemia 7. Right hip fracture, to be seen by Orthopedic Surgery. 8. We will give one dose of Neupogen. Subjective Constitutional: Denies: chills, diaphoresis, fever, malaise, no symptoms, other , weakness HEENT: Denies: blurred vision, double vision, ear discharge, ear pain, eye pain , mouth pain, mouth swelling, no symptoms, nose congestion, nose pain, other, tearing, throat pain, throat swelling Cardiovascular: Denies: chest pain, edema, irregular heart rate, lightheadedness, no symptoms, other, palpitations, syncope Respiratory: Denies: SOB at rest, SOB with excertion, cough, no symptoms, orthopnea, other, shortness of breath, sputum, stridor, wheezing Gastrointestinal/Abdominal: Denies: abdomen distended, abdominal pain, black stools, blood in stool, constipated, diarrhea, difficulty swallowing, nausea, no symptoms, other, poor appetite, poor fluid intake, rectal bleeding, tarry stools, vomiting Genitourinary: Denies: burning, discharge, flank pain, frequency, hematuria, incontinence, no symptoms, other, pain, urgency Neurologic/Psychiatric: Denies: anxiety, depressed, emotional problems, headache, no symptoms, numbness, other, paresthesia, pre-existing deficit, seizure, tingling, tremors, weakness Allergies: Coded Allergies: No Known Allergies (Unverified , 02/27/17) Subjective no bleeding, afebrile at moment Objective Last 24 Hour Vital Signs Date Time Temp Pulse Resp B/P Pulse Ox O2 Delivery O2 Flow Rate FiO2 03/02/17 20:00 98.1 76 18 129/76 97 Room Air 03/02/17 16:00 97.2 83 17 134/79 97 Room Air 03/02/17 12:00 97.4 88 19 136/78 96 Room Air 03/02/17 08:00 97.5 80 17 126/70 99 Room Air 03/02/17 04:00 97.0 74 18 110/68 98 Room Air 03/02/17 00:00 97.0 84 18 122/64 98 Room Air Intake and Output 03/01/17 03/02/17 19:00 07:00 Intake Total 1550 ml 450 ml Output Total 700 ml Balance 850 ml 450 ml Intake Oral 1300 ml 120 ml IV Total 250 ml 330 ml Output Urine Total 700 ml # Voids 2 Laboratory Tests 03/02/17 06:30: White Blood Count 9.1, Red Blood Count 2.55L, Hemoglobin 7.4L, Hematocrit 24.3L , Mean Corpuscular Volume 95, Mean Corpuscular Hemoglobin 29.1, Mean Corpuscular Hemoglobin Concent 30.6L, Red Cell Distribution Width 15.6H, Platelet Count 304, Mean Platelet Volume 5.3L, Neutrophils (%) (Auto) , Lymphocytes (%) (Auto) , Monocytes (%) (Auto) , Eosinophils (%) (Auto) , Basophils (%) (Auto) , Sodium Level 130L, Potassium Level 4.8, Chloride Level 100, Carbon Dioxide Level 22, Anion Gap 8, Blood Urea Nitrogen 31H, Creatinine 1.3H, Estimat Glomerular Filtration Rate 56.5, Glucose Level 214H, Hemoglobin A1c 5.6, Uric Acid 7.9H, Calcium Level 7.0L, Phosphorus Level 2.4L, Magnesium Level 1.6L, Total Bilirubin < 0.2, Gamma Glutamyl Transpeptidase 15, Aspartate Amino Transf (AST/SGOT) 14, Alanine Aminotransferase (ALT/SGPT) 8, Alkaline Phosphatase 122, Ammonia 22, Total Creatine Kinase 82, C-Reactive Protein, Quantitative 6.4H, Pro-B-Type Natriuretic Peptide 1598H, Total Protein 5.4L, Albumin 1.9L, Globulin 3.5, Albumin/Globulin Ratio 0.5L, Triglycerides Level 96 , Cholesterol Level 93, LDL Cholesterol 43L, HDL Cholesterol 31, Cholesterol/ HDL Ratio 3.0L, Thyroid Stimulating Hormone (TSH) 1.480 Height (Feet): 5 Height (Inches): 10.00 Weight (Pounds): 150 General Appearance: alert EENT: TMs normal Neck: supple Cardiovascular: no gallop/murmur Respiratory/Chest: no respiratory distress Abdomen: normal bowel sounds Genitourinary/Rectal: normal prostate exam Extremities: non-tender Edema: 1+ Leg (L), 1+ Leg (R) Edema: mild edema Neurologic: alert Leandro Ceja Mar 02, 2017 23:17
[2017-03-03 04:00] VITALS: BP 147/82
[2017-03-03] MEDS: ceFAZolin sod 1 GM in D5W 55 ML IVPB SCH ×3 (05:53→21:57)
[2017-03-03 06:55] LABS: BASOPHILS % (AUTO) 0.4 % (0.0-2.0); EOSINOPHILS % (AUTO) 0.1 % (0.0-3.0); LYMPHOCYTES % (AUTO) 10.5 % (20.0-45.0); MEAN CORPUSCULAR HEMOGLOBIN 29.8 PG (27.0-31.0); MEAN CORPUSCULAR VOLUME 96 FL (80-99); MEAN PLATELET VOLUME 5.2 FL (6.5-10.1); MONOCYTES % (AUTO) 6.1 % (1.0-10.0); PLATELET COUNT 356 K/UL (150-450); RED BLOOD COUNT 2.93 M/UL (4.70-6.10); RED CELL DISTRIBUTION WIDTH 15.7 % (11.6-14.8); WHITE BLOOD COUNT 8.6 K/UL (4.8-10.8)
[2017-03-03 06:59] LABS: ANION GAP 10 (5-15); CALCIUM 7.6 mg/dL (8.6-10.2); CARBON DIOXIDE 20 mEQ/L (20-30); CHLORIDE 103 mEQ/L (98-107); CREATININE 1.1 mg/dL (0.7-1.2); GLOMERULAR FILTRATION RATE > 60 mL/min (>60); HEMOLYSIS 6; MAGNESIUM 2.3 mg/dL (1.7-2.5); PHOSPHORUS 1.9 mg/dL (2.5-4.8); SODIUM 133 mEQ/L (135-145)
[2017-03-03 08:00] VITALS: BP 152/81
--- NOTE | 2017-03-03 08:04 | Pulmonology Progress Note ---
Assessment/Plan Assessment/Plan ASSESSMENT s/p fall R femoral neck displaced fracture s/p R hip hemiarthroplasty acute renal failure, likely due to dehydration-resolved dehydration hypo Na anemia of chronic disease acute DVT RLE ( SFV and popliteal) Hx of HTN electrolyte imbalance ( hypo Mg, hypo P, hypo Ca) elevated CEA L ischial tuberosity pressure ulcer un-stageable, POA left trochanter pressure ulcer, un-stageable PLAN OF CARE MS floor surgery follows pain management Venous Duplex BLE + RLE acute DVT SFV and popliteal IVC filter today start Lovenox and Coumadin to bridge dc SCD bowel regimen PT/OT - so far unable to ambulate nephro follows renal US negative ( no hydro, normal echogenicity) s/p 3% NaCl, Na up to 133 Na phosphate today as per nephro anemia workup with stable iron, borderline B 12 s/p total of 3 u PRBC HH at baseline, monitor and transfuse prn elevated CEA will get GI eval due to anemia and elevated CEA check stool OB electrolyte correction as per nephro DVT, GI prophylaxis B 12 SQ given x 1 ( at normal limits, low range) wound care as per wound nurse recommendations BP management, Clonidine prn case discussed and evaluated by supervising physician Subjective Allergies: Coded Allergies: No Known Allergies (Unverified , 02/27/17) Subjective leukocytosis resolved, afebrile HH with small trend up to baseline after blood transfusion pain controlled unable to ambulate with PT creat down to 1.1, Na up to 133 P-1.9 Venous Duplex + acute DVT RLE Objective Last 24 Hour Vital Signs Date Time Temp Pulse Resp B/P Pulse Ox O2 Delivery O2 Flow Rate FiO2 03/03/17 04:00 97.9 78 18 147/82 96 Room Air 03/02/17 20:00 98.1 76 18 129/76 97 Room Air 03/02/17 16:00 97.2 83 17 134/79 97 Room Air 03/02/17 12:00 97.4 88 19 136/78 96 Room Air Intake and Output 03/02/17 03/03/17 19:00 07:00 Intake Total 850 ml 480 ml Balance 850 ml 480 ml Intake Oral 850 ml 240 ml IV Total 240 ml # Voids 3 General Appearance: no acute distress, other - awake, alert, confused male in NAD HEENT: normocephalic, atraumatic, anicteric, mucous membranes moist Respiratory/Chest: lungs clear, no respiratory distress, no accessory muscle use Cardiovascular: normal peripheral pulses, normal rate, regular rhythm, no JVD Abdomen: normal bowel sounds, soft, non tender, non distended Genitourinary: normal external genitalia Extremities: no edema, pedal pulses normal Skin: other - R hip dressing C/D/I Neurologic/Psychiatric: abnormal gait, alert, responsive Musculoskeletal: normal muscle bulk Laboratory Tests 03/03/17 06:15: White Blood Count 8.6, Red Blood Count 2.93L, Hemoglobin 8.7L, Hematocrit 28.2L , Mean Corpuscular Volume 96, Mean Corpuscular Hemoglobin 29.8, Mean Corpuscular Hemoglobin Concent 31.0L, Red Cell Distribution Width 15.7H, Platelet Count 356, Mean Platelet Volume 5.2L, Neutrophils (%) (Auto) 83.0H, Lymphocytes (%) (Auto) 10.5L, Monocytes (%) (Auto) 6.1, Eosinophils (%) (Auto) 0.1, Basophils (%) (Auto) 0.4, Sodium Level 133L, Potassium Level 5.0H, Chloride Level 103, Carbon Dioxide Level 20, Anion Gap 10, Blood Urea Nitrogen 24H, Creatinine 1.1, Estimat Glomerular Filtration Rate > 60, Glucose Level 202H , Calcium Level 7.6L, Phosphorus Level 1.9L, Magnesium Level 2.3 Current Medications Medications (Trade) Dose Ordered Sig/Bautista Route PRN Reason Start Time Stop Time Status Last Admin Dose Admin Acetaminophen (Tylenol) 650 mg Q4H PRN ORAL fever>100.5 02/28/17 08:00 03/30/17 07:59 Acetaminophen/ Hydrocodone Bitart ([place] 10/325) 1 ea Q4H PRN ORAL For Pain 02/28/17 16:00 03/07/17 15:59 03/01/17 08:27 Cefazolin Sodium/ Dextrose (Ancef/D5W) 55 ml @ 110 mls/hr Q8HR IVPB 02/28/17 22:00 03/07/17 21:59 03/03/17 05:53 Cyanocobalamin (Vitamin B12) 1,000 mcg DAILY SUBQ 03/01/17 13:00 03/03/17 09:01 03/02/17 09:15 Dextrose (Dextrose 50%) STAT PRN IV Hypoglycemia 02/28/17 08:00 03/30/17 07:59 Docusate Sodium (Colace) 100 mg THREE TIMES A DAY ORAL 03/01/17 13:00 03/31/17 12:59 03/02/17 20:30 Ergocalciferol 65595 intlu 50,000 intlu QWEEK ORAL 03/01/17 14:00 03/31/17 13:59 03/01/17 14:42 Folic Acid (Folate) 2 mg DAILY ORAL 03/01/17 12:30 03/31/17 12:29 03/02/17 09:14 Heparin Sodium (Porcine) 5000 units 5,000 units EVERY 12 HOURS SUBQ 02/28/17 09:00 03/30/17 08:59 03/02/17 22:35 Hydromorphone HCl (Dilaudid) 1 mg EVERY 2 HOURS PRN IVP For Pain 02/28/17 16:00 03/07/17 15:59 Lorazepam (Ativan 2mg/ml 1ml) 0.5 mg Q4H PRN IV For Anxiety 02/28/17 08:00 03/07/17 07:59 Magnesium Sulfate 100 ml @ 100 mls/hr Q1H IVPB 03/03/17 08:00 03/03/17 09:59 Ondansetron HCl (Zofran) 4 mg Q6H PRN IVP Nausea & Vomiting 02/28/17 16:00 03/30/17 15:59 Pantoprazole (Protonix) 40 mg EVERY 12 HOURS ORAL 03/01/17 12:30 03/31/17 12:29 03/02/17 22:33 Polyethylene Glycol (Miralax) 17 gm HSPRN PRN ORAL Constipation 02/28/17 21:00 03/30/17 20:59 Sodium Chloride 500 ml @ 30 mls/hr ONCE ONCE IV 03/02/17 18:00 03/03/17 10:39 03/02/17 20:31 Sodium Phosphate/ Sodium Chloride (NaPO4/Sodium Chloride) 285 ml @ 47.5 mls/hr ONCE ONCE IVPB 03/03/17 10:00 03/03/17 15:59 Thiamine HCl (Vitamin B1) 100 mg DAILY ORAL 03/01/17 12:30 03/31/17 12:29 03/02/17 09:14 Zolpidem Tartrate (Ambien) 5 mg HSPRN PRN ORAL Insomnia 02/28/17 21:00 03/30/17 20:59 03/02/17 22:33 Mateus ([facility])Sera NP Mar 03, 2017 08:04
[2017-03-03] MEDS: Thiamine 100mg tab ORAL SCH (08:30)
[2017-03-03] MEDS: Docusate 100mg cap ORAL SCH ×3 (08:30→17:24)
[2017-03-03] MEDS: Vitamin B12 1000mcg/ml Inj SUBQ SCH (08:30)
[2017-03-03] MEDS: Heparin 5000 units/ml inj SUBQ SCH (08:38)
--- NOTE | 2017-03-03 09:17 | General Progress Note ---
Assessment/Plan Status: stable Assessment/Plan Renal failure- resolved HypoNatremia- Dehydration- Anemia- HypoAlbuminemia Right Hip Fx , s/p surgery Plan; Phos supplement transfused B12 SQ Gastric support Monitor renal parameters Subjective ROS Limited/Unobtainable: No Constitutional: Reports: malaise Allergies: Coded Allergies: No Known Allergies (Unverified , 02/27/17) Objective Last 24 Hour Vital Signs Date Time Temp Pulse Resp B/P Pulse Ox O2 Delivery O2 Flow Rate FiO2 03/03/17 04:00 97.9 78 18 147/82 96 Room Air 03/02/17 20:00 98.1 76 18 129/76 97 Room Air 03/02/17 16:00 97.2 83 17 134/79 97 Room Air 03/02/17 12:00 97.4 88 19 136/78 96 Room Air Intake and Output 03/02/17 03/03/17 19:00 07:00 Intake Total 850 ml 630 ml Balance 850 ml 630 ml Intake Oral 850 ml 240 ml IV Total 390 ml # Voids 3 Laboratory Tests 03/03/17 06:15: White Blood Count 8.6, Red Blood Count 2.93L, Hemoglobin 8.7L, Hematocrit 28.2L , Mean Corpuscular Volume 96, Mean Corpuscular Hemoglobin 29.8, Mean Corpuscular Hemoglobin Concent 31.0L, Red Cell Distribution Width 15.7H, Platelet Count 356, Mean Platelet Volume 5.2L, Neutrophils (%) (Auto) 83.0H, Lymphocytes (%) (Auto) 10.5L, Monocytes (%) (Auto) 6.1, Eosinophils (%) (Auto) 0.1, Basophils (%) (Auto) 0.4, Sodium Level 133L, Potassium Level 5.0H, Chloride Level 103, Carbon Dioxide Level 20, Anion Gap 10, Blood Urea Nitrogen 24H, Creatinine 1.1, Estimat Glomerular Filtration Rate > 60, Glucose Level 202H , Calcium Level 7.6L, Phosphorus Level 1.9L, Magnesium Level 2.3 Height (Feet): 5 Height (Inches): 10.00 Weight (Pounds): 150 General Appearance: no apparent distress Objective no change in PE BRITTANY CANCINO Mar 03, 2017 09:17
[2017-03-03] MEDS ORDERED: Sodium Phosphate 30 MM in NS 275 ML IVPB ONE (10:00)
[2017-03-03 12:00] VITALS: BP 144/79
[2017-03-03] MEDS: Enoxaparin Sodium 300mg/3ml vial SUBQ SCH ×2 (13:40→21:58)
--- NOTE | 2017-03-03 14:12 | GI Initial Consult Note ---
History of Present Illness General Date patient seen: Mar 03, 2017 Time patient seen: 11:10 Reason for Hospitalization: Multiple Trauma/Fall Referring physician: GURWINDER HI Reason for Consultation: ANEMIA Present Illness HPI 61-year-old male presents ED complaining of right leg pain. States he had a mechanical fall today at home. Denies hitting his head or LOC. Patient is here complaining of right hip and leg pain. Pain is an 8/10, sharp, nonradiating. Unable to bear weight. Denies any other injuries. No other aggravating or relieving factors. Denies any other associated symptoms GI Consult. HPI as noted above. GI consulted for anemia. Pt seen on floor, awake A&Ox4 NAD states he recently has a right hip fx. Currently c/o of constipation. Denies pain, weight loss or changes in dietary habits. Denies any N/V/D. Presents today with anemia, hypoalbuminemia, and elevated CEA. Patient has no history of endoscopic procedures. Home Meds Reported Medications Multivitamins* (MULTIVITAMINS*) 1 Each Tablet, 1 TAB ORAL DAILY 02/28/17 Ibuprofen (IBUPROFEN) 200 Mg Capsule, 200 MG ORAL Q6H 02/28/17 No Known Medications* (NKM - No Known Medications*) ., 0 ., 0 Refills 02/27/17 Med list reviewed/reconciled: Yes Allergies: Coded Allergies: No Known Allergies (Unverified , 02/27/17) Patient History History Provided By: Patient, Medical Record PMH Narrative Past Medical History: HTN Past Surgical History: none Pertinent Family History: none Social History: Denies: alcohol use, drug use, smoking Immunizations: UTD Reviewed Nursing Documentation: PMH: Agreed, PSxH: Agreed Nursing Documentation-PMH Past Medical History: No History, Except For Hx Hypertension: Yes Social History: Denies: alcohol use, drug use, other, smoking Review of Systems All Other Systems: negative except mentioned in HPI Physical Exam Vital Signs Date Time Temp Pulse Resp B/P Pulse Ox O2 Delivery O2 Flow Rate FiO2 02/27/17 21:22 98.2 82 16 109/68 100 Room Air 02/28/17 15:25 6.0 Sp02 EP Interpretation: reviewed Labs Laboratory Tests Test 03/03/17 06:15 White Blood Count 8.6 K/UL (4.8-10.8) Red Blood Count 2.93 M/UL (4.70-6.10) L Hemoglobin 8.7 G/DL (14.2-18.0) L Hematocrit 28.2 % (42.0-52.0) L Mean Corpuscular Volume 96 FL (80-99) Mean Corpuscular Hemoglobin 29.8 PG (27.0-31.0) Mean Corpuscular Hemoglobin Concent 31.0 G/DL (32.0-36.0) L Red Cell Distribution Width 15.7 % (11.6-14.8) H Platelet Count 356 K/UL (150-450) Mean Platelet Volume 5.2 FL (6.5-10.1) L Neutrophils (%) (Auto) 83.0 % (45.0-75.0) H Lymphocytes (%) (Auto) 10.5 % (20.0-45.0) L Monocytes (%) (Auto) 6.1 % (1.0-10.0) Eosinophils (%) (Auto) 0.1 % (0.0-3.0) Basophils (%) (Auto) 0.4 % (0.0-2.0) Sodium Level 133 mEQ/L (135-145) L Potassium Level 5.0 mEQ/L (3.4-4.9) H Chloride Level 103 mEQ/L (98-107) Carbon Dioxide Level 20 mEQ/L (20-30) Anion Gap 10 (5-15) Blood Urea Nitrogen 24 mg/dL (7-23) H Creatinine 1.1 mg/dL (0.7-1.2) Estimat Glomerular Filtration Rate > 60 mL/min (>60) Glucose Level 202 mg/dL (74-106) H Calcium Level 7.6 mg/dL (8.6-10.2) L Phosphorus Level 1.9 mg/dL (2.5-4.8) L Magnesium Level 2.3 mg/dL (1.7-2.5) General Appearance: well appearing, no apparent distress, alert Head: normocephalic EENT: normal ENT inspection Neck: supple Respiratory: normal breath sounds, no respiratory distress Cardiovascular: normal rate Gastrointestinal: normal inspection, non tender, soft Rectal: deferred Genitourinary: normal inspection Neurologic: alert, oriented x3, responsive Psychiatric: normal inspection, judgement/insight normal, memory normal Skin: normal inspection, normal color, no rash, warm/dry Lymphatic: normal inspection, no adenopathy Current Medications Current Medications Medications (Trade) Dose Ordered Sig/Bautista Route PRN Reason Start Time Stop Time Status Last Admin Dose Admin Acetaminophen 650 mg 650 mg Q4H PRN ORAL fever>100.5 02/28/17 08:00 03/30/17 07:59 Acetaminophen/ Hydrocodone Bitart ([place] 10/325) 1 ea Q4H PRN ORAL For Pain 02/28/17 16:00 03/07/17 15:59 03/01/17 08:27 Cefazolin Sodium/ Dextrose (Ancef/D5W) 55 ml @ 110 mls/hr Q8HR IVPB 02/28/17 22:00 03/07/17 21:59 03/03/17 05:53 Clonidine HCl (Catapres) 0.1 mg Q6H PRN ORAL SBP>160 03/03/17 10:00 04/02/17 09:59 Dextrose (Dextrose 50%) STAT PRN IV Hypoglycemia 02/28/17 08:00 03/30/17 07:59 Docusate Sodium (Colace) 100 mg THREE TIMES A DAY ORAL 03/01/17 13:00 03/31/17 12:59 03/03/17 13:37 Enoxaparin Sodium (Lovenox) 70 mg EVERY 12 HOURS SUBQ 03/03/17 11:30 04/02/17 11:29 03/03/17 13:40 Ergocalciferol 67658 intlu 50,000 intlu QWEEK ORAL 03/01/17 14:00 03/31/17 13:59 03/01/17 14:42 Folic Acid (Folate) 2 mg DAILY ORAL 03/01/17 12:30 03/31/17 12:29 03/03/17 08:30 Hydromorphone HCl (Dilaudid) 1 mg EVERY 2 HOURS PRN IVP For Pain 02/28/17 16:00 03/07/17 15:59 Lorazepam (Ativan 2mg/ml 1ml) 0.5 mg Q4H PRN IV For Anxiety 02/28/17 08:00 03/07/17 07:59 Ondansetron HCl (Zofran) 4 mg Q6H PRN IVP Nausea & Vomiting 02/28/17 16:00 03/30/17 15:59 Pantoprazole (Protonix) 40 mg EVERY 12 HOURS ORAL 03/01/17 12:30 03/31/17 12:29 03/03/17 08:30 Polyethylene Glycol (Miralax) 17 gm HSPRN PRN ORAL Constipation 02/28/17 21:00 03/30/17 20:59 Sodium Phosphate/ Sodium Chloride (NaPO4/Sodium Chloride) 285 ml @ 47.5 mls/hr ONCE ONCE IVPB 03/03/17 10:00 03/03/17 15:59 03/03/17 09:47 Thiamine HCl (Vitamin B1) 100 mg DAILY ORAL 03/01/17 12:30 03/31/17 12:29 03/03/17 08:30 Zolpidem Tartrate (Ambien) 5 mg HSPRN PRN ORAL Insomnia 02/28/17 21:00 03/30/17 20:59 03/02/17 22:33 GI: Plan Problems: (1) Hypoalbuminemia (2) Elevated CEA (3) Anemia Plan elevated CEA anemia work up OB stool r/o GI bleed prn transfusions PPI bowel regime fu labs will consider colonoscopy Monday pending OB Discussed with Dr. Pressley. Thank you for referring this patient, we will follow. Mag Esteban N.P. Mar 03, 2017 14:12
[2017-03-03 16:33] VITALS: BP 141/79
--- NOTE | 2017-03-03 17:08 | General Progress Note ---
Assessment/Plan Assessment/Plan 1. Anemia secondary to chronic disease, ferritin is elevated and tibc is low --> hgb goal above 7, continue to monitor 2. Anemia secondary to orthopedic procedure. 3. Anemia secondary to kidney disease with KARINA 4. Uricemia. Uric acid elevated at 10.2. 5. Hypocalcemia. PTH is 29 --> urine to be evaluated, consider endo consilt 6. Leukocytosis secondary to reactive process from anemia 7. Right hip fracture, to be seen by Orthopedic Surgery. 8. We will give one dose of Neupogen. Subjective Constitutional: Reports: no symptoms HEENT: Reports: no symptoms Cardiovascular: Reports: no symptoms Respiratory: Reports: no symptoms Gastrointestinal/Abdominal: Reports: no symptoms Genitourinary: Reports: no symptoms Neurologic/Psychiatric: Reports: no symptoms Endocrine: Reports: no symptoms Allergies: Coded Allergies: No Known Allergies (Unverified , 02/27/17) Subjective considering colonoscopy Mon, no fevers or chills overnight Objective Last 24 Hour Vital Signs Date Time Temp Pulse Resp B/P Pulse Ox O2 Delivery O2 Flow Rate FiO2 03/03/17 16:33 98.1 79 20 141/79 97 Room Air 03/03/17 12:00 98.0 81 20 144/79 98 Room Air 03/03/17 08:00 98.0 86 20 152/81 98 Room Air 03/03/17 04:00 97.9 78 18 147/82 96 Room Air 03/02/17 20:00 98.1 76 18 129/76 97 Room Air Intake and Output 03/02/17 03/03/17 19:00 07:00 Intake Total 850 ml 660 ml Balance 850 ml 660 ml Intake Oral 850 ml 240 ml IV Total 420 ml # Voids 3 Laboratory Tests 03/03/17 06:15: White Blood Count 8.6, Red Blood Count 2.93L, Hemoglobin 8.7L, Hematocrit 28.2L , Mean Corpuscular Volume 96, Mean Corpuscular Hemoglobin 29.8, Mean Corpuscular Hemoglobin Concent 31.0L, Red Cell Distribution Width 15.7H, Platelet Count 356, Mean Platelet Volume 5.2L, Neutrophils (%) (Auto) 83.0H, Lymphocytes (%) (Auto) 10.5L, Monocytes (%) (Auto) 6.1, Eosinophils (%) (Auto) 0.1, Basophils (%) (Auto) 0.4, Sodium Level 133L, Potassium Level 5.0H, Chloride Level 103, Carbon Dioxide Level 20, Anion Gap 10, Blood Urea Nitrogen 24H, Creatinine 1.1, Estimat Glomerular Filtration Rate > 60, Glucose Level 202H , Calcium Level 7.6L, Phosphorus Level 1.9L, Magnesium Level 2.3 Height (Feet): 5 Height (Inches): 10.00 Weight (Pounds): 150 General Appearance: no apparent distress EENT: PERRL/EOMI Neck: normal alignment Cardiovascular: normal peripheral pulses Respiratory/Chest: chest wall non-tender Edema: no edema noted Pedal (L), no edema noted Pedal (R) 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
[2017-03-03 20:00] VITALS: BP 141/77
[2017-03-03] MEDS: Zolpidem 5mg tab ORAL PRN (22:17)
[2017-03-04] VITALS: BP 126/66
[2017-03-04 04:00] VITALS: BP 149/72
[2017-03-04] MEDS: ceFAZolin sod 1 GM in D5W 55 ML IVPB SCH ×3 (06:03→21:28)
--- NOTE | 2017-03-04 07:41 | Pulmonology Progress Note ---
Assessment/Plan Assessment/Plan ASSESSMENT s/p fall R femoral neck displaced fracture s/p R hip hemiarthroplasty acute renal failure, likely due to dehydration-resolved dehydration hypo Na anemia of chronic disease acute DVT RLE ( SFV and popliteal) Hx of HTN electrolyte imbalance ( hypo Mg, hypo P, hypo Ca) elevated CEA L ischial tuberosity pressure ulcer un-stageable, POA left trochanter pressure ulcer, un-stageable PLAN OF CARE MS floor surgery follows pain management Venous Duplex BLE + RLE acute DVT SFV and popliteal IVC filter cancelled by radiology, unless confirmed GI bleeding than will do on Lovenox and Coumadin to bridge to therapeutic INR 2-3 off SCD bowel regimen PT/OT - so far unable to ambulate nephro follows renal US negative ( no hydro, normal echogenicity) s/p 3% NaCl, Na up to 133 s/p Na phosphate Na-136 anemia workup with stable iron, borderline B 12 s/p total of 3 u PRBC HH at baseline, monitor and transfuse prn elevated CEA GI eval appreciated ( due to anemia and elevated CEA ) check stool OB electrolyte correction as needed DVT, GI prophylaxis B 12 SQ given x 1 ( at normal limits, low range) wound care as per wound nurse recommendations BP management, Clonidine prn case discussed and evaluated by supervising physician Subjective Allergies: Coded Allergies: No Known Allergies (Unverified , 02/27/17) Subjective leukocytosis resolved, afebrile HH at baseline after blood transfusion pain controlled unable to ambulate with PT yet creat down to 1.0, Na up to 136 Objective Last 24 Hour Vital Signs Date Time Temp Pulse Resp B/P Pulse Ox O2 Delivery O2 Flow Rate FiO2 03/04/17 00:00 98.3 84 17 126/66 98 Room Air 03/03/17 20:00 97.5 80 18 141/77 99 Room Air 03/03/17 16:33 98.1 79 20 141/79 97 Room Air 03/03/17 12:00 98.0 81 20 144/79 98 Room Air 03/03/17 08:00 98.0 86 20 152/81 98 Room Air Intake and Output 03/03/17 03/04/17 19:00 07:00 Intake Total 1198.75 ml Balance 1198.75 ml Intake Oral 720 ml IV Total 478.75 ml # Voids 3 Objective General Appearance: no acute distress, other - awake, alert, confused male in NAD HEENT: normocephalic, atraumatic, anicteric, mucous membranes moist Respiratory/Chest: lungs clear, no respiratory distress, no accessory muscle use Cardiovascular: normal peripheral pulses, normal rate, regular rhythm, no JVD Abdomen: normal bowel sounds, soft, non tender, non distended Genitourinary: normal external genitalia Extremities: no edema, pedal pulses normal Skin: other - R hip dressing C/D/I Neurologic/Psychiatric: abnormal gait, alert, responsive Musculoskeletal: normal muscle bulk Current Medications Medications (Trade) Dose Ordered Sig/Bautista Route PRN Reason Start Time Stop Time Status Last Admin Dose Admin Acetaminophen 650 mg 650 mg Q4H PRN ORAL fever>100.5 02/28/17 08:00 03/30/17 07:59 Acetaminophen/ Hydrocodone Bitart ([place] 10/325) 1 ea Q4H PRN ORAL For Pain 02/28/17 16:00 03/07/17 15:59 03/01/17 08:27 Cefazolin Sodium/ Dextrose (Ancef/D5W) 55 ml @ 110 mls/hr Q8HR IVPB 02/28/17 22:00 03/07/17 21:59 03/04/17 06:03 Clonidine HCl (Catapres) 0.1 mg Q6H PRN ORAL SBP>160 03/03/17 10:00 04/02/17 09:59 Dextrose (Dextrose 50%) STAT PRN IV Hypoglycemia 02/28/17 08:00 03/30/17 07:59 Docusate Sodium (Colace) 100 mg THREE TIMES A DAY ORAL 03/01/17 13:00 03/31/17 12:59 03/03/17 17:24 Enoxaparin Sodium (Lovenox) 70 mg EVERY 12 HOURS SUBQ 03/03/17 11:30 04/02/17 11:29 03/03/17 21:58 Ergocalciferol (Drisdol) 50,000 intlu QWEEK ORAL 03/01/17 14:00 03/31/17 13:59 03/01/17 14:42 Folic Acid (Folate) 2 mg DAILY ORAL 03/01/17 12:30 03/31/17 12:29 03/03/17 08:30 Hydromorphone HCl (Dilaudid) 1 mg EVERY 2 HOURS PRN IVP For Pain 02/28/17 16:00 03/07/17 15:59 Lorazepam (Ativan 2mg/ml 1ml) 0.5 mg Q4H PRN IV For Anxiety 02/28/17 08:00 03/07/17 07:59 Ondansetron HCl (Zofran) 4 mg Q6H PRN IVP Nausea & Vomiting 02/28/17 16:00 03/30/17 15:59 Pantoprazole (Protonix) 40 mg EVERY 12 HOURS ORAL 03/01/17 12:30 03/31/17 12:29 03/03/17 21:58 Polyethylene Glycol (Miralax) 17 gm HSPRN PRN ORAL Constipation 02/28/17 21:00 03/30/17 20:59 Thiamine HCl (Vitamin B1) 100 mg DAILY ORAL 03/01/17 12:30 03/31/17 12:29 03/03/17 08:30 Zolpidem Tartrate (Ambien) 5 mg HSPRN PRN ORAL Insomnia 02/28/17 21:00 03/30/17 20:59 03/03/17 22:17 Mateus ([facility])Sera NP Mar 04, 2017 07:41
--- NOTE | 2017-03-04 07:55 | General Progress Note ---
Assessment/Plan Problem List: (1) Elevated CEA ICD Codes: R97.0 - Elevated carcinoembryonic antigen [CEA] SNOMED: 16156290, 859153058 (2) Hypoalbuminemia ICD Codes: E88.09 - Other disorders of plasma-protein metabolism, not elsewhere classified SNOMED: 401882951 (3) Fracture of femoral neck, right ICD Codes: S72.001A - Fracture of unspecified part of neck of right femur, initial encounter for closed fracture SNOMED: 2397514 Qualifiers: Qualified Codes: S72.001A - Fracture of unspecified part of neck of right femur, initial encounter for closed fracture (4) Anemia ICD Codes: D64.9 - Anemia, unspecified SNOMED: 232656437 Assessment/Plan fu stool ob fu H&H prn blood transfusion fu ortho and hem Subjective ROS Limited/Unobtainable: Yes Allergies: Coded Allergies: No Known Allergies (Unverified , 02/27/17) Subjective no event Objective Last 24 Hour Vital Signs Date Time Temp Pulse Resp B/P Pulse Ox O2 Delivery O2 Flow Rate FiO2 03/04/17 00:00 98.3 84 17 126/66 98 Room Air 03/03/17 20:00 97.5 80 18 141/77 99 Room Air 03/03/17 16:33 98.1 79 20 141/79 97 Room Air 03/03/17 12:00 98.0 81 20 144/79 98 Room Air 03/03/17 08:00 98.0 86 20 152/81 98 Room Air Intake and Output 03/03/17 03/04/17 19:00 07:00 Intake Total 1198.75 ml Balance 1198.75 ml Intake Oral 720 ml IV Total 478.75 ml # Voids 3 Height (Feet): 5 Height (Inches): 10.00 Weight (Pounds): 150 General Appearance: no apparent distress EENT: normal ENT inspection Neck: supple Cardiovascular: normal rate Respiratory/Chest: decreased breath sounds Abdomen: normal bowel sounds, non tender, soft Extremities: non-tender CONTRERAS BANKS Mar 04, 2017 07:55
[2017-03-04 08:00] VITALS: BP 154/93
[2017-03-04 08:18] LABS: BASOPHILS % (AUTO) 0.4 % (0.0-2.0); EOSINOPHILS % (AUTO) 0.3 % (0.0-3.0); LYMPHOCYTES % (AUTO) 15.8 % (20.0-45.0); MEAN CORPUSCULAR HEMOGLOBIN 30.2 PG (27.0-31.0); MEAN CORPUSCULAR HGB CONC 31.3 G/DL (32.0-36.0); MEAN CORPUSCULAR VOLUME 96 FL (80-99); MEAN PLATELET VOLUME 5.4 FL (6.5-10.1); MONOCYTES % (AUTO) 4.9 % (1.0-10.0); NEUTROPHILS % (AUTO) 78.6 % (45.0-75.0); PLATELET COUNT 377 K/UL (150-450); RED BLOOD COUNT 2.83 M/UL (4.70-6.10); WHITE BLOOD COUNT 10.5 K/UL (4.8-10.8)
[2017-03-04 08:25] LABS: ANION GAP 8 (5-15); CALCIUM 7.5 mg/dL (8.6-10.2); CARBON DIOXIDE 24 mEQ/L (20-30); CHLORIDE 104 mEQ/L (98-107); GLOMERULAR FILTRATION RATE > 60 mL/min (>60); HEMOLYSIS 9; POTASSIUM 4.8 mEQ/L (3.4-4.9); SODIUM 136 mEQ/L (135-145)
[2017-03-04] MEDS: Thiamine 100mg tab ORAL SCH (08:30)
[2017-03-04] MEDS: Docusate 100mg cap ORAL SCH ×3 (08:30→17:15)
[2017-03-04] MEDS: Enoxaparin Sodium 300mg/3ml vial SUBQ SCH ×2 (09:19→21:31)
[2017-03-04] MEDS ORDERED: NS 275ml ONE (10:48)
[2017-03-04] MEDS ORDERED: Tubing IV Secondary IV ONE (10:48)
[2017-03-04 11:54] VITALS: BP 114/89
--- NOTE | 2017-03-04 12:53 | Diagnostic Imaging Report ---
APPROVED REPORT CPT Code: 26674 Present Symptoms Lower Extremity Edema: Right Comments: Post op: Right hip RIGHT LEG: Venous imaging reveals acute thrombus in the superficial femoral to calf veins. Remainder of the deep venous system within normal limits. No evidence of thrombus in the common femoral vein. Greater saphenous vein also within normal limits. LEFT LEG: Venous imaging reveals a patent deep venous system. There is no evidence of thrombus within the femoral, popliteal or tibial segments. The greater saphenous vein is also within normal limits. Doppler indicates normal spontaneous flow within these segments. MARITZA Rodriguez was notified of abnormal results at 0950 hours.
[2017-03-04 16:00] VITALS: BP 143/75
--- NOTE | 2017-03-04 16:29 | Nephrology Progress Note ---
Assessment/Plan Problem List: (1) ARF (acute renal failure) Assessment: ok (2) Hyponatremia Assessment: ok (3) Fracture of femoral neck, right Plan pain meds keep hydrated follow labs Subjective Subjective feels ok Objective Objective Last 24 Hour Vital Signs Date Time Temp Pulse Resp B/P Pulse Ox O2 Delivery O2 Flow Rate FiO2 03/04/17 11:54 97.5 76 18 114/89 97 Room Air 03/04/17 08:00 98.2 89 18 154/93 98 Room Air 03/04/17 04:00 98.1 83 15 149/72 98 Room Air 03/04/17 00:00 98.3 84 17 126/66 98 Room Air 03/03/17 20:00 97.5 80 18 141/77 99 Room Air 03/03/17 16:33 98.1 79 20 141/79 97 Room Air Intake and Output 03/03/17 03/04/17 19:00 07:00 Intake Total 1198.75 ml 360 ml Balance 1198.75 ml 360 ml Intake Oral 720 ml 360 ml IV Total 478.75 ml # Voids 3 3 Laboratory Tests 03/04/17 06:35: White Blood Count 10.5, Red Blood Count 2.83L, Hemoglobin 8.5L, Hematocrit 27.3L , Mean Corpuscular Volume 96, Mean Corpuscular Hemoglobin 30.2, Mean Corpuscular Hemoglobin Concent 31.3L, Red Cell Distribution Width 16.0H, Platelet Count 377, Mean Platelet Volume 5.4L, Neutrophils (%) (Auto) 78.6H, Lymphocytes (%) (Auto) 15.8L, Monocytes (%) (Auto) 4.9, Eosinophils (%) (Auto) 0.3, Basophils (%) (Auto) 0.4, Sodium Level 136, Potassium Level 4.8, Chloride Level 104, Carbon Dioxide Level 24, Anion Gap 8, Blood Urea Nitrogen 21, Creatinine 1.0, Estimat Glomerular Filtration Rate > 60, Glucose Level 131H, Calcium Level 7.5L Height (Feet): 5 Height (Inches): 10.00 Weight (Pounds): 150 Cardiovascular: normal rate Respiratory/Chest: lungs clear Extremities: other - no edema BUSTER KAT Mar 04, 2017 16:29
[2017-03-04] MEDS ORDERED: Warfarin Sodium 2.5mg ORAL ONE (17:00)
[2017-03-04 20:00] VITALS: BP 142/85
[2017-03-04] MEDS: Zolpidem 5mg tab ORAL PRN (21:28)
--- NOTE | 2017-03-04 23:23 | Consultation ---
Consult Note Consult Note PODIATRY CONSULTATION DATE 03/04/17 CONSULTING PHYSICIAN: Tripp Lamebrt DPM COVERING FOR: Tj Degroot DPM REASON FOR CONSULT: Painful toenails HISTORY OF PRESENT ILLNESS: Patient states he has painful toenails bilaterally that he is unable to trim himself. Patient is admitted for right hip fracture and is status post right hip surgery. No other pedal complaints at this time ALLERGIES: No known MEDICATIONS: Reviewed. Please refer to chart for details SOCIAL HISTORY: Denies tobacco, alcohol, or illicit drug use FAMILY HISTORY: No pertinent findings. Patient states he has no family locally PAST MEDICAL HISTORY: Acute kidney insufficiency and right hip fracture OBJECTIVE: Last 24 Hour Vital Signs Date Time Temp Pulse Resp B/P Pulse Ox O2 Delivery O2 Flow Rate FiO2 03/04/17 20:00 97.0 89 18 142/85 97 Room Air 03/04/17 16:00 98.1 18 143/75 98 Room Air 03/04/17 11:54 97.5 76 18 114/89 97 Room Air 03/04/17 08:00 98.2 89 18 154/93 98 Room Air 03/04/17 04:00 98.1 83 15 149/72 98 Room Air 03/04/17 00:00 98.3 84 17 126/66 98 Room Air Laboratory Tests Test 03/04/17 06:35 White Blood Count 10.5 K/UL (4.8-10.8) Red Blood Count 2.83 M/UL (4.70-6.10) L Hemoglobin 8.5 G/DL (14.2-18.0) L Hematocrit 27.3 % (42.0-52.0) L Mean Corpuscular Volume 96 FL (80-99) Mean Corpuscular Hemoglobin 30.2 PG (27.0-31.0) Mean Corpuscular Hemoglobin Concent 31.3 G/DL (32.0-36.0) L Red Cell Distribution Width 16.0 % (11.6-14.8) H Platelet Count 377 K/UL (150-450) Mean Platelet Volume 5.4 FL (6.5-10.1) L Neutrophils (%) (Auto) 78.6 % (45.0-75.0) H Lymphocytes (%) (Auto) 15.8 % (20.0-45.0) L Monocytes (%) (Auto) 4.9 % (1.0-10.0) Eosinophils (%) (Auto) 0.3 % (0.0-3.0) Basophils (%) (Auto) 0.4 % (0.0-2.0) Sodium Level 136 mEQ/L (135-145) Potassium Level 4.8 mEQ/L (3.4-4.9) Chloride Level 104 mEQ/L (98-107) Carbon Dioxide Level 24 mEQ/L (20-30) Anion Gap 8 (5-15) Blood Urea Nitrogen 21 mg/dL (7-23) Creatinine 1.0 mg/dL (0.7-1.2) Estimat Glomerular Filtration Rate > 60 mL/min (>60) Glucose Level 131 mg/dL (74-106) H Calcium Level 7.5 mg/dL (8.6-10.2) L PHYSICAL EXAM: DERM: Thick, discolored and elongated toenails x 10 NEURO: Sensation in tact to light touch VASC: Pedal pulses difficult to palpate MSK: Muscle strength appropriate for age . Assessment/Plan ASSESSMENT: Painful mycotic toenails PLAN: - Debrided toenails x 10 without complications Tripp Lambert DPM Mar 04, 2017 23:22
[2017-03-05] VITALS: BP 130/79
[2017-03-05 04:00] VITALS: BP 139/82
[2017-03-05] MEDS: ceFAZolin sod 1 GM in D5W 55 ML IVPB SCH ×3 (05:48→22:00)
[2017-03-05 05:50] LABS: BASOPHILS % (AUTO) 0.2 % (0.0-2.0); EOSINOPHILS % (AUTO) 0.6 % (0.0-3.0); LYMPHOCYTES % (AUTO) 18.6 % (20.0-45.0); MEAN CORPUSCULAR HEMOGLOBIN 29.1 PG (27.0-31.0); MEAN CORPUSCULAR HGB CONC 30.6 G/DL (32.0-36.0); MEAN CORPUSCULAR VOLUME 95 FL (80-99); MEAN PLATELET VOLUME 5.4 FL (6.5-10.1); MONOCYTES % (AUTO) 6.9 % (1.0-10.0); NEUTROPHILS % (AUTO) 73.7 % (45.0-75.0); PLATELET COUNT 367 K/UL (150-450); RED BLOOD COUNT 2.81 M/UL (4.70-6.10); RED CELL DISTRIBUTION WIDTH 15.8 % (11.6-14.8); WHITE BLOOD COUNT 9.7 K/UL (4.8-10.8)
[2017-03-05 05:59] LABS: PROTHROMBIN TIME 10.8 SEC (9.30-11.50)
[2017-03-05 06:21] LABS: ANION GAP 7 (5-15); CALCIUM 7.6 mg/dL (8.6-10.2); CARBON DIOXIDE 24 mEQ/L (20-30); CHLORIDE 101 mEQ/L (98-107); CREATININE 0.9 mg/dL (0.7-1.2); GLOMERULAR FILTRATION RATE > 60 mL/min (>60); HEMOLYSIS 3; POTASSIUM 4.8 mEQ/L (3.4-4.9); SODIUM 132 mEQ/L (135-145)
[2017-03-05 07:38] VITALS: BP 148/81
--- NOTE | 2017-03-05 07:43 | Pulmonology Progress Note ---
Assessment/Plan Assessment/Plan ASSESSMENT s/p fall R femoral neck displaced fracture s/p R hip hemiarthroplasty acute renal failure, likely due to dehydration-resolved dehydration hypo Na anemia of chronic disease acute DVT RLE ( SFV and popliteal) Hx of HTN electrolyte imbalance ( hypo Mg, hypo P, hypo Ca) elevated CEA L ischial tuberosity pressure ulcer un-stageable, POA left trochanter pressure ulcer, un-stageable painful mycotic toe nails, s/p debridemetn PLAN OF CARE MS floor surgery follows pain management Venous Duplex BLE + RLE acute DVT SFV and popliteal IVC filter cancelled by radiology, unless confirmed GI bleeding than will do on Lovenox and Coumadin to bridge to therapeutic INR 2-3 off SCD bowel regimen PT/OT - so far unable to ambulate nephro follows renal US negative ( no hydro, normal echogenicity) s/p 3% NaCl, Na up to 133 s/p Na phosphate Na-136 anemia workup with stable iron, borderline B 12 s/p total of 3 u PRBC HH at baseline, monitor and transfuse prn elevated CEA GI eval appreciated ( due to anemia and elevated CEA ) check stool OB electrolyte correction as needed DVT, GI prophylaxis B 12 SQ given x 1 ( at normal limits, low range) wound care as per wound nurse recommendations BP management, Clonidine prn seen by maintenance apprentice, s/p debridement x10 toenails replace P with Neutro-Phos x 1 days, check P in am case discussed and evaluated by supervising physician Subjective Allergies: Coded Allergies: No Known Allergies (Unverified , 02/27/17) Subjective leukocytosis resolved, afebrile HH at baseline after blood transfusion pain controlled not working with DVT due to acute DVT INR still subtherapeutic P-2.3 Objective Last 24 Hour Vital Signs Date Time Temp Pulse Resp B/P Pulse Ox O2 Delivery O2 Flow Rate FiO2 03/05/17 07:38 98.5 73 20 148/81 98 Room Air 03/05/17 04:00 98.4 83 18 139/82 98 Room Air 03/05/17 00:00 98.2 78 20 130/79 98 Room Air 03/04/17 20:00 97.0 89 18 142/85 97 Room Air 03/04/17 16:00 98.1 18 143/75 98 Room Air 03/04/17 11:54 97.5 76 18 114/89 97 Room Air 03/04/17 08:00 98.2 89 18 154/93 98 Room Air Intake and Output 03/04/17 03/05/17 19:00 07:00 Intake Total 805 ml Output Total 50 ml Balance 755 ml Intake Oral 750 ml IV Total 55 ml Output Urine Total 50 ml # Voids 2 5 # Bowel Movements 1 1 Objective General Appearance: no acute distress, other - awake, alert, confused male in NAD HEENT: normocephalic, atraumatic, anicteric, mucous membranes moist Respiratory/Chest: lungs clear, no respiratory distress, no accessory muscle use Cardiovascular: normal peripheral pulses, normal rate, regular rhythm, no JVD Abdomen: normal bowel sounds, soft, non tender, non distended Genitourinary: normal external genitalia Extremities: no edema, pedal pulses normal Skin: other - R hip dressing C/D/I Neurologic/Psychiatric: abnormal gait, alert, responsive Musculoskeletal: normal muscle bulk Laboratory Tests 03/05/17 05:30: White Blood Count 9.7, Red Blood Count 2.81L, Hemoglobin 8.2L, Hematocrit 26.7L , Mean Corpuscular Volume 95, Mean Corpuscular Hemoglobin 29.1, Mean Corpuscular Hemoglobin Concent 30.6L, Red Cell Distribution Width 15.8H, Platelet Count 367, Mean Platelet Volume 5.4L, Neutrophils (%) (Auto) 73.7, Lymphocytes (%) (Auto) 18.6L, Monocytes (%) (Auto) 6.9, Eosinophils (%) (Auto) 0.6, Basophils (%) (Auto) 0.2, Prothrombin Time 10.8, Prothromb Time International Ratio 1.0, Sodium Level 132L, Potassium Level 4.8, Chloride Level 101, Carbon Dioxide Level 24, Anion Gap 7, Blood Urea Nitrogen 17, Creatinine 0.9, Estimat Glomerular Filtration Rate > 60, Glucose Level 129H, Calcium Level 7.6L, Phosphorus Level 2.3L Current Medications Medications (Trade) Dose Ordered Sig/Bautista Route PRN Reason Start Time Stop Time Status Last Admin Dose Admin Acetaminophen 650 mg 650 mg Q4H PRN ORAL fever>100.5 02/28/17 08:00 03/30/17 07:59 Acetaminophen/ Hydrocodone Bitart (Bruce 10/325) 1 ea Q4H PRN ORAL For Pain 02/28/17 16:00 03/07/17 15:59 03/01/17 08:27 Cefazolin Sodium/ Dextrose (Ancef/D5W) 55 ml @ 110 mls/hr Q8HR IVPB 02/28/17 22:00 03/07/17 21:59 03/05/17 05:48 Clonidine HCl (Catapres) 0.1 mg Q6H PRN ORAL SBP>160 03/03/17 10:00 04/02/17 09:59 Dextrose (Dextrose 50%) STAT PRN IV Hypoglycemia 02/28/17 08:00 03/30/17 07:59 Docusate Sodium (Colace) 100 mg THREE TIMES A DAY ORAL 03/01/17 13:00 03/31/17 12:59 03/04/17 17:15 Enoxaparin Sodium (Lovenox) 70 mg EVERY 12 HOURS SUBQ 03/03/17 11:30 04/02/17 11:29 03/04/17 21:31 Ergocalciferol (Drisdol) 50,000 intlu QWEEK ORAL 03/01/17 14:00 03/31/17 13:59 03/01/17 14:42 Folic Acid (Folate) 2 mg DAILY ORAL 03/01/17 12:30 03/31/17 12:29 03/04/17 08:29 Hydromorphone HCl (Dilaudid) 1 mg EVERY 2 HOURS PRN IVP For Pain 02/28/17 16:00 03/07/17 15:59 Lorazepam (Ativan 2mg/ml 1ml) 0.5 mg Q4H PRN IV For Anxiety 02/28/17 08:00 03/07/17 07:59 Ondansetron HCl (Zofran) 4 mg Q6H PRN IVP Nausea & Vomiting 02/28/17 16:00 03/30/17 15:59 Pantoprazole (Protonix) 40 mg EVERY 12 HOURS ORAL 03/01/17 12:30 03/31/17 12:29 03/04/17 21:28 Polyethylene Glycol (Miralax) 17 gm HSPRN PRN ORAL Constipation 02/28/17 21:00 03/30/17 20:59 Thiamine HCl (Vitamin B1) 100 mg DAILY ORAL 03/01/17 12:30 03/31/17 12:29 03/04/17 08:30 Warfarin Sodium (Coumadin per pharmacy) 1 ea DAILY PRN MISC Per rx protocol 03/04/17 07:45 04/03/17 07:44 Zolpidem Tartrate (Ambien) 5 mg HSPRN PRN ORAL Insomnia 02/28/17 21:00 03/30/17 20:59 03/04/17 21:28 Mateus ([facility])Sera NP Mar 05, 2017 07:43
[2017-03-05] MEDS ORDERED: HYDROmorphone 1mg/ml Carpuject IVP PRN (07:45)
[2017-03-05] MEDS ORDERED: Norco 10mg/325mg tab ORAL PRN (08:00)
[2017-03-05] MEDS ORDERED: LORazepam Inj 2mg/ml 1ml IV PRN (08:00)
[2017-03-05] MEDS: Docusate 100mg cap ORAL SCH ×3 (09:09→17:35)
[2017-03-05] MEDS: Thiamine 100mg tab ORAL SCH (09:09)
[2017-03-05] MEDS: Phospha 250 Neutral tab ORAL SCH ×3 (09:09→17:35)
[2017-03-05] MEDS: Enoxaparin Sodium 300mg/3ml vial SUBQ SCH ×2 (09:10→22:05)
[2017-03-05] MEDS ORDERED: Norco 5mg/325mg tab ORAL PRN (09:45)
--- NOTE | 2017-03-05 10:08 | General Progress Note ---
Assessment/Plan Assessment/Plan (1) Right hip fracture (2) Right hip pain (3) S/p naun arthroplasty Pt will be discontinued off Dilaudid IV and reduced to Seaside 5/325mg PO 1 tab Q4H PRN pain D/w Dr. Loyd and he concurred. Subjective Date patient seen: Mar 05, 2017 Time patient seen: 08:45 - am Allergies: Coded Allergies: No Known Allergies (Unverified , 02/27/17) Subjective REVIEW OF SYSTEMS: Denies rash, fever, chills, sweating, dizziness, drowsiness, blurred vision, sore throat, or change in weight. No shortness of breath, chest pain, palpitations, or cough. No nausea, vomiting, diarrhea, or blood in the stool or urine. No bowel or bladder incontinence. No hematuria or dysuria. SUBJECTIVE: Patient is laying in bed. He reports that he is not having pain at this time. However he does of issues with walking due to pain and weakness. Has received Seaside once since surgery. Objective Last 24 Hour Vital Signs Date Time Temp Pulse Resp B/P Pulse Ox O2 Delivery O2 Flow Rate FiO2 03/05/17 07:38 98.5 73 20 148/81 98 Room Air 03/05/17 04:00 98.4 83 18 139/82 98 Room Air 03/05/17 00:00 98.2 78 20 130/79 98 Room Air 03/04/17 20:00 97.0 89 18 142/85 97 Room Air 03/04/17 16:00 98.1 18 143/75 98 Room Air 03/04/17 11:54 97.5 76 18 114/89 97 Room Air Intake and Output 03/04/17 03/05/17 19:00 07:00 Intake Total 805 ml Output Total 50 ml Balance 755 ml Intake Oral 750 ml IV Total 55 ml Output Urine Total 50 ml # Voids 2 5 # Bowel Movements 1 1 Laboratory Tests 03/05/17 05:30: White Blood Count 9.7, Red Blood Count 2.81L, Hemoglobin 8.2L, Hematocrit 26.7L , Mean Corpuscular Volume 95, Mean Corpuscular Hemoglobin 29.1, Mean Corpuscular Hemoglobin Concent 30.6L, Red Cell Distribution Width 15.8H, Platelet Count 367, Mean Platelet Volume 5.4L, Neutrophils (%) (Auto) 73.7, Lymphocytes (%) (Auto) 18.6L, Monocytes (%) (Auto) 6.9, Eosinophils (%) (Auto) 0.6, Basophils (%) (Auto) 0.2, Prothrombin Time 10.8, Prothromb Time International Ratio 1.0, Sodium Level 132L, Potassium Level 4.8, Chloride Level 101, Carbon Dioxide Level 24, Anion Gap 7, Blood Urea Nitrogen 17, Creatinine 0.9, Estimat Glomerular Filtration Rate > 60, Glucose Level 129H, Calcium Level 7.6L, Phosphorus Level 2.3L Height (Feet): 5 Height (Inches): 10.00 Weight (Pounds): 150 Objective GENERAL: Alert, awake, and oriented. HEENT: Pupils are equally round and reactive to light and accommodation. NECK: Range of motion is full in all directions. No tenderness to paracervical muscles. No adenopathy. LUNGS: Lungs are clear. HEART: S1 and S2 are regular. ABDOMEN: Benign. BACK: Range of motion is full on flexion and extension. No tenderness to paraspinal muscles, trapezius, or rhomboid muscles. EXTREMITIES: No cyanosis. No clubbing. No edema. NEURO: No changes. HIEN LAMAR Mar 05, 2017 10:08
--- NOTE | 2017-03-05 10:12 | General Progress Note ---
Assessment/Plan Problem List: (1) Elevated CEA ICD Codes: R97.0 - Elevated carcinoembryonic antigen [CEA] SNOMED: 95623998, 314718122 (2) Hypoalbuminemia ICD Codes: E88.09 - Other disorders of plasma-protein metabolism, not elsewhere classified SNOMED: 133820622 (3) Fracture of femoral neck, right ICD Codes: S72.001A - Fracture of unspecified part of neck of right femur, initial encounter for closed fracture SNOMED: 3409159 Qualifiers: Qualified Codes: S72.001A - Fracture of unspecified part of neck of right femur, initial encounter for closed fracture (4) Anemia ICD Codes: D64.9 - Anemia, unspecified SNOMED: 086198164 Assessment/Plan fu stool ob fu H&H prn blood transfusion fu ortho and hem Subjective ROS Limited/Unobtainable: Yes Allergies: Coded Allergies: No Known Allergies (Unverified , 02/27/17) Subjective no event Objective Last 24 Hour Vital Signs Date Time Temp Pulse Resp B/P Pulse Ox O2 Delivery O2 Flow Rate FiO2 03/05/17 07:38 98.5 73 20 148/81 98 Room Air 03/05/17 04:00 98.4 83 18 139/82 98 Room Air 03/05/17 00:00 98.2 78 20 130/79 98 Room Air 03/04/17 20:00 97.0 89 18 142/85 97 Room Air 03/04/17 16:00 98.1 18 143/75 98 Room Air 03/04/17 11:54 97.5 76 18 114/89 97 Room Air Intake and Output 03/04/17 03/05/17 19:00 07:00 Intake Total 805 ml Output Total 50 ml Balance 755 ml Intake Oral 750 ml IV Total 55 ml Output Urine Total 50 ml # Voids 2 5 # Bowel Movements 1 1 Laboratory Tests 03/05/17 05:30: White Blood Count 9.7, Red Blood Count 2.81L, Hemoglobin 8.2L, Hematocrit 26.7L , Mean Corpuscular Volume 95, Mean Corpuscular Hemoglobin 29.1, Mean Corpuscular Hemoglobin Concent 30.6L, Red Cell Distribution Width 15.8H, Platelet Count 367, Mean Platelet Volume 5.4L, Neutrophils (%) (Auto) 73.7, Lymphocytes (%) (Auto) 18.6L, Monocytes (%) (Auto) 6.9, Eosinophils (%) (Auto) 0.6, Basophils (%) (Auto) 0.2, Prothrombin Time 10.8, Prothromb Time International Ratio 1.0, Sodium Level 132L, Potassium Level 4.8, Chloride Level 101, Carbon Dioxide Level 24, Anion Gap 7, Blood Urea Nitrogen 17, Creatinine 0.9, Estimat Glomerular Filtration Rate > 60, Glucose Level 129H, Calcium Level 7.6L, Phosphorus Level 2.3L Height (Feet): 5 Height (Inches): 10.00 Weight (Pounds): 150 General Appearance: alert EENT: normal ENT inspection Neck: supple Cardiovascular: normal rate, gallop/S3 Abdomen: normal bowel sounds, non tender, soft Extremities: non-tender CONTRERAS BANKS Mar 05, 2017 10:12
[2017-03-05 11:58] VITALS: BP 143/87
--- NOTE | 2017-03-05 13:37 | Nephrology Progress Note ---
Assessment/Plan Problem List: (1) ARF (acute renal failure) Assessment: ok (2) Hyponatremia Assessment: ok (3) Fracture of femoral neck, right Plan pain meds keep hydrated follow labs Subjective Subjective feels ok Objective Objective Last 24 Hour Vital Signs Date Time Temp Pulse Resp B/P Pulse Ox O2 Delivery O2 Flow Rate FiO2 03/05/17 11:58 98.1 69 20 143/87 99 Room Air 03/05/17 07:38 98.5 73 20 148/81 98 Room Air 03/05/17 04:00 98.4 83 18 139/82 98 Room Air 03/05/17 00:00 98.2 78 20 130/79 98 Room Air 03/04/17 20:00 97.0 89 18 142/85 97 Room Air 03/04/17 16:00 98.1 18 143/75 98 Room Air Intake and Output 03/04/17 03/05/17 19:00 07:00 Intake Total 805 ml Output Total 50 ml Balance 755 ml Intake Oral 750 ml IV Total 55 ml Output Urine Total 50 ml # Voids 2 5 # Bowel Movements 1 1 Laboratory Tests 03/05/17 05:30: White Blood Count 9.7, Red Blood Count 2.81L, Hemoglobin 8.2L, Hematocrit 26.7L , Mean Corpuscular Volume 95, Mean Corpuscular Hemoglobin 29.1, Mean Corpuscular Hemoglobin Concent 30.6L, Red Cell Distribution Width 15.8H, Platelet Count 367, Mean Platelet Volume 5.4L, Neutrophils (%) (Auto) 73.7, Lymphocytes (%) (Auto) 18.6L, Monocytes (%) (Auto) 6.9, Eosinophils (%) (Auto) 0.6, Basophils (%) (Auto) 0.2, Prothrombin Time 10.8, Prothromb Time International Ratio 1.0, Sodium Level 132L, Potassium Level 4.8, Chloride Level 101, Carbon Dioxide Level 24, Anion Gap 7, Blood Urea Nitrogen 17, Creatinine 0.9, Estimat Glomerular Filtration Rate > 60, Glucose Level 129H, Calcium Level 7.6L, Phosphorus Level 2.3L Height (Feet): 5 Height (Inches): 10.00 Weight (Pounds): 150 Cardiovascular: normal rate Respiratory/Chest: lungs clear Extremities: other - no edema BSUTER KAT Mar 05, 2017 13:37
[2017-03-05] MEDS ORDERED: Tubing IV Secondary IV ONE (15:11)
[2017-03-05 15:45] VITALS: BP 130/72
--- NOTE | 2017-03-05 15:48 | General Progress Note ---
Assessment/Plan Assessment/Plan #. Anemia secondary to chronic disease, ferritin is elevated and tibc is low --> hgb goal above 7, continue to monitor #. Anemia secondary to orthopedic procedure. #. DVT of right superficial femoral vein of the right llower extremity is on coumadin/lovenox --> INR goal 2-3 #. Uricemia. Uric acid elevated at 10.2. #. Hypocalcemia. PTH is 29 --> urine to be evaluated, consider endo consilt #. Leukocytosis secondary to reactive process from anemia #. Right hip fracture, to be seen by Orthopedic Surgery. Subjective Date patient seen: Mar 04, 2017 Constitutional: Reports: no symptoms HEENT: Reports: no symptoms Respiratory: Denies: SOB at rest, SOB with excertion, cough, no symptoms, orthopnea, other, shortness of breath, sputum, stridor, wheezing Gastrointestinal/Abdominal: Denies: abdomen distended, abdominal pain, black stools, blood in stool, constipated, diarrhea, difficulty swallowing, nausea, no symptoms, other, poor appetite, poor fluid intake, rectal bleeding, tarry stools, vomiting Neurologic/Psychiatric: Denies: anxiety, depressed, emotional problems, headache, no symptoms, numbness, other, paresthesia, pre-existing deficit, seizure, tingling, tremors, weakness Endocrine: Denies: excessive sweating, flushing, increased hunger, increased thirst, increased urine, intolerance to cold, intolerance to heat, no symptoms, other, unexplained weight gain, unexplained weight loss Allergies: Coded Allergies: No Known Allergies (Unverified , 02/27/17) Subjective considering colonoscopy Mon, no fevers or chills overnight Objective Last 24 Hour Vital Signs Date Time Temp Pulse Resp B/P Pulse Ox O2 Delivery O2 Flow Rate FiO2 03/05/17 15:45 98.1 89 20 130/72 97 Room Air 03/05/17 11:58 98.1 69 20 143/87 99 Room Air 03/05/17 07:38 98.5 73 20 148/81 98 Room Air 03/05/17 04:00 98.4 83 18 139/82 98 Room Air 03/05/17 00:00 98.2 78 20 130/79 98 Room Air 03/04/17 20:00 97.0 89 18 142/85 97 Room Air 7/22/17 16:00 98.1 18 143/75 98 Room Air Intake and Output 03/04/17 03/05/17 19:00 07:00 Intake Total 805 ml Output Total 50 ml Balance 755 ml Intake Oral 750 ml IV Total 55 ml Output Urine Total 50 ml # Voids 2 5 # Bowel Movements 1 1 Laboratory Tests 03/05/17 05:30: White Blood Count 9.7, Red Blood Count 2.81L, Hemoglobin 8.2L, Hematocrit 26.7L , Mean Corpuscular Volume 95, Mean Corpuscular Hemoglobin 29.1, Mean Corpuscular Hemoglobin Concent 30.6L, Red Cell Distribution Width 15.8H, Platelet Count 367, Mean Platelet Volume 5.4L, Neutrophils (%) (Auto) 73.7, Lymphocytes (%) (Auto) 18.6L, Monocytes (%) (Auto) 6.9, Eosinophils (%) (Auto) 0.6, Basophils (%) (Auto) 0.2, Prothrombin Time 10.8, Prothromb Time International Ratio 1.0, Sodium Level 132L, Potassium Level 4.8, Chloride Level 101, Carbon Dioxide Level 24, Anion Gap 7, Blood Urea Nitrogen 17, Creatinine 0.9, Estimat Glomerular Filtration Rate > 60, Glucose Level 129H, Calcium Level 7.6L, Phosphorus Level 2.3L Height (Feet): 5 Height (Inches): 10.00 Weight (Pounds): 150 General Appearance: lethargic EENT: normal ENT inspection Neck: normal alignment Cardiovascular: normal rate Respiratory/Chest: lungs clear Abdomen: soft Extremities: normal inspection Edema: no edema noted Leg (L), no edema noted Leg (R) Edema: trace edema Neurologic: alert Leandro Ceja Mar 05, 2017 15:48
[2017-03-05] MEDS ORDERED: Warfarin Sodium 7.5mg ORAL ONE (17:00)
[2017-03-05 20:07] VITALS: BP 146/74
--- NOTE | 2017-03-05 21:47 | General Progress Note ---
Assessment/Plan Assessment/Plan #. Anemia secondary to chronic disease, ferritin is elevated and tibc is low --> hgb goal above 7, continue to closely monitor #. Anemia secondary to orthopedic procedure. #. DVT of right superficial femoral vein of the right llower extremity is on coumadin/lovenox --> INR goal 2-3 #. Uricemia. Uric acid elevated at 10.2. #. Hypocalcemia. PTH is 29 --> urine to be evaluated, consider endo consilt #. Leukocytosis secondary to reactive process from anemia #. Right hip fracture, to be seen by Orthopedic Surgery. Subjective Constitutional: Reports: no symptoms HEENT: Reports: no symptoms Cardiovascular: Reports: no symptoms Respiratory: Reports: no symptoms Gastrointestinal/Abdominal: Reports: no symptoms Genitourinary: Reports: no symptoms Neurologic/Psychiatric: Reports: no symptoms Endocrine: Reports: no symptoms Hematologic/Lymphatic: Reports: anemia Allergies: Coded Allergies: No Known Allergies (Unverified , 02/27/17) Subjective considering colonoscopy Mon, no fevers or chills noted overnight Objective Last 24 Hour Vital Signs Date Time Temp Pulse Resp B/P Pulse Ox O2 Delivery O2 Flow Rate FiO2 03/05/17 20:07 97.0 85 19 146/74 97 Room Air 03/05/17 15:45 98.1 89 20 130/72 97 Room Air 03/05/17 11:58 98.1 69 20 143/87 99 Room Air 03/05/17 07:38 98.5 73 20 148/81 98 Room Air 03/05/17 04:00 98.4 83 18 139/82 98 Room Air 03/05/17 00:00 98.2 78 20 130/79 98 Room Air Intake and Output 03/04/17 03/05/17 19:00 07:00 Intake Total 805 ml Output Total 50 ml Balance 755 ml Intake Oral 750 ml IV Total 55 ml Output Urine Total 50 ml # Voids 2 5 # Bowel Movements 1 1 Laboratory Tests 03/05/17 05:30: White Blood Count 9.7, Red Blood Count 2.81L, Hemoglobin 8.2L, Hematocrit 26.7L , Mean Corpuscular Volume 95, Mean Corpuscular Hemoglobin 29.1, Mean Corpuscular Hemoglobin Concent 30.6L, Red Cell Distribution Width 15.8H, Platelet Count 367, Mean Platelet Volume 5.4L, Neutrophils (%) (Auto) 73.7, Lymphocytes (%) (Auto) 18.6L, Monocytes (%) (Auto) 6.9, Eosinophils (%) (Auto) 0.6, Basophils (%) (Auto) 0.2, Prothrombin Time 10.8, Prothromb Time International Ratio 1.0, Sodium Level 132L, Potassium Level 4.8, Chloride Level 101, Carbon Dioxide Level 24, Anion Gap 7, Blood Urea Nitrogen 17, Creatinine 0.9, Estimat Glomerular Filtration Rate > 60, Glucose Level 129H, Calcium Level 7.6L, Phosphorus Level 2.3L Height (Feet): 5 Height (Inches): 10.00 Weight (Pounds): 150 General Appearance: no apparent distress EENT: TMs normal Neck: normal inspection Cardiovascular: normal rate Respiratory/Chest: normal breath sounds Abdomen: normal bowel sounds, no mass Extremities: non-tender Edema: 1+ Leg (L), 1+ Leg (R) Edema: mild edema Neurologic: alert Skin: warm/dry Leandro Ceja Mar 05, 2017 21:46
[2017-03-05] MEDS: Zolpidem 5mg tab ORAL PRN (22:56)
[2017-03-06 00:18] VITALS: BP 140/80
[2017-03-06 04:21] VITALS: BP 129/70
[2017-03-06] MEDS: ceFAZolin sod 1 GM in D5W 55 ML IVPB SCH ×3 (06:20→21:46)
[2017-03-06 07:43] LABS: BASOPHILS % (AUTO) 0.4 % (0.0-2.0); EOSINOPHILS % (AUTO) 0.8 % (0.0-3.0); MEAN CORPUSCULAR HEMOGLOBIN 30.9 PG (27.0-31.0); MEAN CORPUSCULAR HGB CONC 32.3 G/DL (32.0-36.0); MEAN CORPUSCULAR VOLUME 96 FL (80-99); MEAN PLATELET VOLUME 5.3 FL (6.5-10.1); MONOCYTES % (AUTO) 8.1 % (1.0-10.0); NEUTROPHILS % (AUTO) 71.8 % (45.0-75.0); PLATELET COUNT 327 K/UL (150-450); RED BLOOD COUNT 2.75 M/UL (4.70-6.10); RED CELL DISTRIBUTION WIDTH 16.4 % (11.6-14.8); WHITE BLOOD COUNT 9.6 K/UL (4.8-10.8)
[2017-03-06 07:57] LABS: INR 1.9 (0.9-1.1)
[2017-03-06 08:00] VITALS: BP 138/76
[2017-03-06 08:01] LABS: ANION GAP 10 (5-15); CALCIUM 7.6 mg/dL (8.6-10.2); CARBON DIOXIDE 25 mEQ/L (20-30); CHLORIDE 100 mEQ/L (98-107); GLOMERULAR FILTRATION RATE > 60 mL/min (>60); HEMOLYSIS 3; POTASSIUM 4.5 mEQ/L (3.4-4.9); SODIUM 135 mEQ/L (135-145)
[2017-03-06] MEDS: Thiamine 100mg tab ORAL SCH (08:35)
[2017-03-06] MEDS: Docusate 100mg cap ORAL SCH ×3 (08:35→17:10)
[2017-03-06] MEDS: Enoxaparin Sodium 300mg/3ml vial SUBQ SCH ×2 (08:40→21:44)
[2017-03-06 12:00] VITALS: BP 147/71
--- NOTE | 2017-03-06 12:05 | GI Progress Note ---
Assessment/Plan Problems: (1) Hypoalbuminemia ICD Codes: E88.09 - Other disorders of plasma-protein metabolism, not elsewhere classified SNOMED: 489463687 (2) Anemia ICD Codes: D64.9 - Anemia, unspecified SNOMED: 860755808 (3) Elevated CEA ICD Codes: R97.0 - Elevated carcinoembryonic antigen [CEA] SNOMED: 77255112, 225847039 Status: stable Status Narrative Discussed with Dr. Pressley. Assessment/Plan elevated CEA OB stool r/o GI bleed, will consider colonoscopy prn transfusions PPI bowel regime fu labs Subjective Gastrointestinal/Abdominal: Reports: no symptoms Objective Last 24 Hour Vital Signs Date Time Temp Pulse Resp B/P Pulse Ox O2 Delivery O2 Flow Rate FiO2 03/06/17 08:00 97.3 92 19 138/76 98 Room Air 03/06/17 04:21 96.6 85 19 129/70 97 Room Air 03/06/17 00:18 97.9 80 18 140/80 96 Room Air 03/05/17 20:07 97.0 85 19 146/74 97 Room Air 03/05/17 15:45 98.1 89 20 130/72 97 Room Air Intake and Output 03/05/17 03/06/17 19:00 07:00 Intake Total 1530 ml 240 ml Output Total 350 ml Balance 1180 ml 240 ml Intake Oral 1530 ml 240 ml Output Urine Total 350 ml # Voids 6 2 # Bowel Movements 2 1 Laboratory Tests Test 03/06/17 07:05 White Blood Count 9.6 K/UL (4.8-10.8) Red Blood Count 2.75 M/UL (4.70-6.10) L Hemoglobin 8.5 G/DL (14.2-18.0) L Hematocrit 26.4 % (42.0-52.0) L Mean Corpuscular Volume 96 FL (80-99) Mean Corpuscular Hemoglobin 30.9 PG (27.0-31.0) Mean Corpuscular Hemoglobin Concent 32.3 G/DL (32.0-36.0) Red Cell Distribution Width 16.4 % (11.6-14.8) H Platelet Count 327 K/UL (150-450) Mean Platelet Volume 5.3 FL (6.5-10.1) L Neutrophils (%) (Auto) 71.8 % (45.0-75.0) Lymphocytes (%) (Auto) 19.0 % (20.0-45.0) L Monocytes (%) (Auto) 8.1 % (1.0-10.0) Eosinophils (%) (Auto) 0.8 % (0.0-3.0) Basophils (%) (Auto) 0.4 % (0.0-2.0) Prothrombin Time 20.0 SEC (9.30-11.50) H Prothromb Time International Ratio 1.9 (0.9-1.1) H Sodium Level 135 mEQ/L (135-145) Potassium Level 4.5 mEQ/L (3.4-4.9) Chloride Level 100 mEQ/L (98-107) Carbon Dioxide Level 25 mEQ/L (20-30) Anion Gap 10 (5-15) Blood Urea Nitrogen 18 mg/dL (7-23) Creatinine 1.0 mg/dL (0.7-1.2) Estimat Glomerular Filtration Rate > 60 mL/min (>60) Glucose Level 216 mg/dL (74-106) H Calcium Level 7.6 mg/dL (8.6-10.2) L Phosphorus Level 3.0 mg/dL (2.5-4.8) Height (Feet): 5 Height (Inches): 10.00 Weight (Pounds): 150 General Appearance: no apparent distress, alert Cardiovascular: normal rate Respiratory/Chest: normal breath sounds, no respiratory distress Abdominal Exam: normal bowel sounds, non tender, soft Mag Esteban N.P. Mar 06, 2017 12:05
[2017-03-06 16:00] VITALS: BP 132/66
--- NOTE | 2017-03-06 16:11 | Nephrology Progress Note ---
Assessment/Plan Problem List: (1) ARF (acute renal failure) Assessment: ok (2) Hyponatremia Assessment: ok (3) Fracture of femoral neck, right Plan cont as is will follow Subjective Subjective all noted Objective Objective Last 24 Hour Vital Signs Date Time Temp Pulse Resp B/P Pulse Ox O2 Delivery O2 Flow Rate FiO2 03/06/17 12:00 98.2 96 20 147/71 96 Room Air 03/06/17 08:00 97.3 92 19 138/76 98 Room Air 03/06/17 04:21 96.6 85 19 129/70 97 Room Air 03/06/17 00:18 97.9 80 18 140/80 96 Room Air 03/05/17 20:07 97.0 85 19 146/74 97 Room Air Intake and Output 03/05/17 03/06/17 19:00 07:00 Intake Total 1530 ml 240 ml Output Total 350 ml Balance 1180 ml 240 ml Intake Oral 1530 ml 240 ml Output Urine Total 350 ml # Voids 6 2 # Bowel Movements 2 1 Laboratory Tests 03/06/17 07:05: White Blood Count 9.6, Red Blood Count 2.75L, Hemoglobin 8.5L, Hematocrit 26.4L , Mean Corpuscular Volume 96, Mean Corpuscular Hemoglobin 30.9, Mean Corpuscular Hemoglobin Concent 32.3, Red Cell Distribution Width 16.4H, Platelet Count 327, Mean Platelet Volume 5.3L, Neutrophils (%) (Auto) 71.8, Lymphocytes (%) (Auto) 19.0L, Monocytes (%) (Auto) 8.1, Eosinophils (%) (Auto) 0.8, Basophils (%) (Auto) 0.4, Prothrombin Time 20.0H, Prothromb Time International Ratio 1.9H, Sodium Level 135, Potassium Level 4.5, Chloride Level 100, Carbon Dioxide Level 25, Anion Gap 10, Blood Urea Nitrogen 18, Creatinine 1.0, Estimat Glomerular Filtration Rate > 60, Glucose Level 216H, Calcium Level 7.6L, Phosphorus Level 3.0 03/06/17 11:45: Stool Occult Blood [Pending] Height (Feet): 5 Height (Inches): 10.00 Weight (Pounds): 150 BUSTER KAT Mar 06, 2017 16:11
--- NOTE | 2017-03-06 18:07 | Pulmonology Progress Note ---
Assessment/Plan Problems: (1) Fracture of femoral neck, right (2) DVT (deep venous thrombosis) (3) Renal insufficiency (4) Anemia Assessment/Plan w/u in progress pt/ot f/u labs tolerating diet dc planning awaiting placement Subjective ROS Limited/Unobtainable: No Constitutional: Reports: no symptoms HEENT: Repors: no symptoms Respiratory: Reports: no symptoms Allergies: Coded Allergies: No Known Allergies (Unverified , 02/27/17) Objective Last 24 Hour Vital Signs Date Time Temp Pulse Resp B/P Pulse Ox O2 Delivery O2 Flow Rate FiO2 03/06/17 16:00 98.0 95 19 132/66 97 Room Air 03/06/17 12:00 98.2 96 20 147/71 96 Room Air 03/06/17 08:00 97.3 92 19 138/76 98 Room Air 03/06/17 04:21 96.6 85 19 129/70 97 Room Air 03/06/17 00:18 97.9 80 18 140/80 96 Room Air 03/05/17 20:07 97.0 85 19 146/74 97 Room Air Intake and Output 03/05/17 03/06/17 19:00 07:00 Intake Total 1530 ml 240 ml Output Total 350 ml Balance 1180 ml 240 ml Intake Oral 1530 ml 240 ml Output Urine Total 350 ml # Voids 6 2 # Bowel Movements 2 1 General Appearance: WD/WN HEENT: normocephalic, atraumatic Respiratory/Chest: chest wall non-tender, lungs clear Cardiovascular: normal peripheral pulses, normal rate Abdomen: normal bowel sounds, soft, non tender Genitourinary: normal external genitalia Extremities: no cyanosis Skin: no rash Neurologic/Psychiatric: inside account representative II-XII grossly normal, no motor/sensory deficits Lymphatic: no neck adenopathy Musculoskeletal: normal muscle bulk Laboratory Tests 03/06/17 07:05: White Blood Count 9.6, Red Blood Count 2.75L, Hemoglobin 8.5L, Hematocrit 26.4L , Mean Corpuscular Volume 96, Mean Corpuscular Hemoglobin 30.9, Mean Corpuscular Hemoglobin Concent 32.3, Red Cell Distribution Width 16.4H, Platelet Count 327, Mean Platelet Volume 5.3L, Neutrophils (%) (Auto) 71.8, Lymphocytes (%) (Auto) 19.0L, Monocytes (%) (Auto) 8.1, Eosinophils (%) (Auto) 0.8, Basophils (%) (Auto) 0.4, Prothrombin Time 20.0H, Prothromb Time International Ratio 1.9H, Sodium Level 135, Potassium Level 4.5, Chloride Level 100, Carbon Dioxide Level 25, Anion Gap 10, Blood Urea Nitrogen 18, Creatinine 1.0, Estimat Glomerular Filtration Rate > 60, Glucose Level 216H, Calcium Level 7.6L, Phosphorus Level 3.0 03/06/17 11:45: Stool Occult Blood [Pending] Current Medications Medications (Trade) Dose Ordered Sig/Bautista Route PRN Reason Start Time Stop Time Status Last Admin Dose Admin Acetaminophen 650 mg 650 mg Q4H PRN ORAL fever>100.5 02/28/17 08:00 03/30/17 07:59 Acetaminophen/ Hydrocodone Bitart ([place] 5/325) 1 tab Q4H PRN ORAL Severe Pain (Pain Scale 7-10) 03/05/17 09:45 03/12/17 09:44 Cefazolin Sodium/ Dextrose (Ancef/D5W) 55 ml @ 110 mls/hr Q8HR IVPB 02/28/17 22:00 03/07/17 21:59 03/06/17 13:08 Clonidine HCl (Catapres) 0.1 mg Q6H PRN ORAL SBP>160 03/03/17 10:00 04/02/17 09:59 Dextrose (Dextrose 50%) STAT PRN IV Hypoglycemia 02/28/17 08:00 03/30/17 07:59 Docusate Sodium (Colace) 100 mg THREE TIMES A DAY ORAL 03/01/17 13:00 03/31/17 12:59 03/06/17 08:35 Enoxaparin Sodium (Lovenox) 70 mg EVERY 12 HOURS SUBQ 03/03/17 11:30 04/02/17 11:29 03/06/17 08:40 Ergocalciferol (Drisdol) 50,000 intlu QWEEK ORAL 03/01/17 14:00 03/31/17 13:59 03/01/17 14:42 Folic Acid (Folate) 2 mg DAILY ORAL 03/01/17 12:30 03/31/17 12:29 03/06/17 08:35 Lorazepam (Ativan 2mg/ml 1ml) 0.5 mg Q4H PRN IV For Anxiety 03/05/17 08:00 03/12/17 07:59 Ondansetron HCl (Zofran) 4 mg Q6H PRN IVP Nausea & Vomiting 02/28/17 16:00 03/30/17 15:59 Pantoprazole (Protonix) 40 mg EVERY 12 HOURS ORAL 03/01/17 12:30 03/31/17 12:29 03/06/17 08:35 Polyethylene Glycol (Miralax) 17 gm HSPRN PRN ORAL Constipation 02/28/17 21:00 03/30/17 20:59 Thiamine HCl (Vitamin B1) 100 mg DAILY ORAL 03/01/17 12:30 03/31/17 12:29 03/06/17 08:35 Warfarin Sodium (Coumadin per pharmacy) 1 ea DAILY PRN MISC Per rx protocol 03/04/17 07:45 04/03/17 07:44 Zolpidem Tartrate (Ambien) 5 mg HSPRN PRN ORAL Insomnia 02/28/17 21:00 03/30/17 20:59 03/05/17 22:56 GURWINDER YI Mar 06, 2017 18:07
--- NOTE | 2017-03-06 18:14 | General Progress Note ---
Assessment/Plan Assessment/Plan #. Anemia secondary to chronic disease, ferritin is elevated and tibc is low --> hgb goal above 7, continue to closely monitor #. Anemia secondary to orthopedic procedure. #. DVT of right superficial femoral vein of the right llower extremity is on coumadin/lovenox --> INR goal 2-3 #. Uricemia. Uric acid elevated at 10.2. #. Hypocalcemia. PTH is 29 --> urine to be evaluated, consider endo consult #. Leukocytosis secondary to reactive process from anemia #. Right hip fracture, to be seen by Orthopedic Surgery. Subjective Constitutional: Reports: no symptoms HEENT: Reports: no symptoms Cardiovascular: Reports: no symptoms Respiratory: Reports: no symptoms Gastrointestinal/Abdominal: Reports: no symptoms Genitourinary: Reports: no symptoms Neurologic/Psychiatric: Reports: no symptoms Endocrine: Reports: no symptoms Hematologic/Lymphatic: Reports: anemia Allergies: Coded Allergies: No Known Allergies (Unverified , 02/27/17) Subjective NAD, planning for discharge Objective Last 24 Hour Vital Signs Date Time Temp Pulse Resp B/P Pulse Ox O2 Delivery O2 Flow Rate FiO2 03/06/17 16:00 98.0 95 19 132/66 97 Room Air 03/06/17 12:00 98.2 96 20 147/71 96 Room Air 03/06/17 08:00 97.3 92 19 138/76 98 Room Air 03/06/17 04:21 96.6 85 19 129/70 97 Room Air 03/06/17 00:18 97.9 80 18 140/80 96 Room Air 03/05/17 20:07 97.0 85 19 146/74 97 Room Air Intake and Output 03/05/17 03/06/17 19:00 07:00 Intake Total 1530 ml 240 ml Output Total 350 ml Balance 1180 ml 240 ml Intake Oral 1530 ml 240 ml Output Urine Total 350 ml # Voids 6 2 # Bowel Movements 2 1 Laboratory Tests 03/06/17 07:05: White Blood Count 9.6, Red Blood Count 2.75L, Hemoglobin 8.5L, Hematocrit 26.4L , Mean Corpuscular Volume 96, Mean Corpuscular Hemoglobin 30.9, Mean Corpuscular Hemoglobin Concent 32.3, Red Cell Distribution Width 16.4H, Platelet Count 327, Mean Platelet Volume 5.3L, Neutrophils (%) (Auto) 71.8, Lymphocytes (%) (Auto) 19.0L, Monocytes (%) (Auto) 8.1, Eosinophils (%) (Auto) 0.8, Basophils (%) (Auto) 0.4, Prothrombin Time 20.0H, Prothromb Time International Ratio 1.9H, Sodium Level 135, Potassium Level 4.5, Chloride Level 100, Carbon Dioxide Level 25, Anion Gap 10, Blood Urea Nitrogen 18, Creatinine 1.0, Estimat Glomerular Filtration Rate > 60, Glucose Level 216H, Calcium Level 7.6L, Phosphorus Level 3.0 03/06/17 11:45: Stool Occult Blood [Pending] Height (Feet): 5 Height (Inches): 10.00 Weight (Pounds): 150 General Appearance: no apparent distress EENT: normal ENT inspection Neck: normal alignment Cardiovascular: normal peripheral pulses Abdomen: non tender Edema: no edema noted Pedal (L), no edema noted Pedal (R) Skin: warm/dry Leandro Ceja Mar 06, 2017 18:14
[2017-03-06 20:00] VITALS: BP 118/68
[2017-03-06] MEDS: Zolpidem 5mg tab ORAL PRN (21:39)
[2017-03-06] MEDS: NovoLOG Insulin Flexpen SUBQ SCH (21:43)
[2017-03-07] VITALS (7 sets, daily range): BP systolic 110–134; BP diastolic 60–72
[2017-03-07] MEDS: ceFAZolin sod 1 GM in D5W 55 ML IVPB SCH ×2 (06:15→13:24)
[2017-03-07] MEDS: NovoLOG Insulin Flexpen SUBQ SCH ×4 (06:18→22:33)
[2017-03-07 06:53] LABS: BASOPHILS % (AUTO) 0.9 % (0.0-2.0); EOSINOPHILS % (AUTO) 0.6 % (0.0-3.0); LYMPHOCYTES % (AUTO) 18.1 % (20.0-45.0); MEAN CORPUSCULAR HEMOGLOBIN 30.5 PG (27.0-31.0); MEAN CORPUSCULAR HGB CONC 31.5 G/DL (32.0-36.0); MEAN CORPUSCULAR VOLUME 97 FL (80-99); MEAN PLATELET VOLUME 4.9 FL (6.5-10.1); MONOCYTES % (AUTO) 8.8 % (1.0-10.0); NEUTROPHILS % (AUTO) 71.6 % (45.0-75.0); PLATELET COUNT 343 K/UL (150-450); RED BLOOD COUNT 2.76 M/UL (4.70-6.10); RED CELL DISTRIBUTION WIDTH 16.2 % (11.6-14.8); WHITE BLOOD COUNT 10.1 K/UL (4.8-10.8)
[2017-03-07 07:02] LABS: INR 1.6 (0.9-1.1); PROTHROMBIN TIME 16.7 SEC (9.30-11.50)
[2017-03-07 07:17] LABS: ANION GAP 8 (5-15); CALCIUM 7.9 mg/dL (8.6-10.2); CARBON DIOXIDE 27 mEQ/L (20-30); CHLORIDE 101 mEQ/L (98-107); CREATININE 0.9 mg/dL (0.7-1.2); GLOMERULAR FILTRATION RATE > 60 mL/min (>60); HEMOLYSIS 6; POTASSIUM 5.1 mEQ/L (3.4-4.9); SODIUM 136 mEQ/L (135-145)
[2017-03-07] MEDS: Docusate 100mg cap ORAL SCH ×3 (08:35→19:25)
[2017-03-07] MEDS: Thiamine 100mg tab ORAL SCH (08:36)
[2017-03-07] MEDS: Enoxaparin Sodium 300mg/3ml vial SUBQ SCH ×2 (08:38→22:35)
--- NOTE | 2017-03-07 15:17 | GI Progress Note ---
Assessment/Plan Problems: (1) Hypoalbuminemia ICD Codes: E88.09 - Other disorders of plasma-protein metabolism, not elsewhere classified SNOMED: 535883540 (2) Anemia ICD Codes: D64.9 - Anemia, unspecified SNOMED: 173851885 (3) Elevated CEA ICD Codes: R97.0 - Elevated carcinoembryonic antigen [CEA] SNOMED: 79234740, 702782584 Status: stable Status Narrative Discussed with Dr. Pressley. Assessment/Plan elevated CEA OB stool r/o GI bleed >> negative stable H&H prn transfusions PPI bowel regime fu labs outpatient colonoscopy Subjective Gastrointestinal/Abdominal: Reports: no symptoms Objective Last 24 Hour Vital Signs Date Time Temp Pulse Resp B/P Pulse Ox O2 Delivery O2 Flow Rate FiO2 03/07/17 11:44 97.9 75 21 115/67 98 Room Air 03/07/17 08:11 97.7 94 19 110/60 98 Room Air 03/07/17 04:00 97.9 88 19 117/70 97 Room Air 03/07/17 00:09 97.8 90 18 120/63 96 Room Air 03/06/17 20:00 97.9 93 19 118/68 96 Room Air 03/06/17 16:00 98.0 95 19 132/66 97 Room Air Intake and Output 03/06/17 03/07/17 19:00 07:00 Intake Total 650 ml 240 ml Balance 650 ml 240 ml Intake Oral 650 ml 240 ml # Voids 3 # Bowel Movements 4 1 Laboratory Tests Test 03/07/17 05:39 White Blood Count 10.1 K/UL (4.8-10.8) Red Blood Count 2.76 M/UL (4.70-6.10) L Hemoglobin 8.4 G/DL (14.2-18.0) L Hematocrit 26.7 % (42.0-52.0) L Mean Corpuscular Volume 97 FL (80-99) Mean Corpuscular Hemoglobin 30.5 PG (27.0-31.0) Mean Corpuscular Hemoglobin Concent 31.5 G/DL (32.0-36.0) L Red Cell Distribution Width 16.2 % (11.6-14.8) H Platelet Count 343 K/UL (150-450) Mean Platelet Volume 4.9 FL (6.5-10.1) L Neutrophils (%) (Auto) 71.6 % (45.0-75.0) Lymphocytes (%) (Auto) 18.1 % (20.0-45.0) L Monocytes (%) (Auto) 8.8 % (1.0-10.0) Eosinophils (%) (Auto) 0.6 % (0.0-3.0) Basophils (%) (Auto) 0.9 % (0.0-2.0) Prothrombin Time 16.7 SEC (9.30-11.50) H Prothromb Time International Ratio 1.6 (0.9-1.1) H Activated Partial Thromboplast Time 35 SEC (23-33) H Sodium Level 136 mEQ/L (135-145) Potassium Level 5.1 mEQ/L (3.4-4.9) H Chloride Level 101 mEQ/L (98-107) Carbon Dioxide Level 27 mEQ/L (20-30) Anion Gap 8 (5-15) Blood Urea Nitrogen 19 mg/dL (7-23) Creatinine 0.9 mg/dL (0.7-1.2) Estimat Glomerular Filtration Rate > 60 mL/min (>60) Glucose Level 111 mg/dL (74-106) #H Calcium Level 7.9 mg/dL (8.6-10.2) L Height (Feet): 5 Height (Inches): 10.00 Weight (Pounds): 150 General Appearance: no apparent distress, alert Cardiovascular: normal rate Respiratory/Chest: normal breath sounds, no respiratory distress Abdominal Exam: normal bowel sounds, non tender, soft Mag Esteban N.PMarlene Mar 07, 2017 15:17
[2017-03-07] MEDS ORDERED: Warfarin Sodium 3mg ORAL SCH (17:00)
--- NOTE | 2017-03-07 17:09 | General Progress Note ---
Assessment/Plan Assessment/Plan #. Anemia secondary to chronic disease, ferritin is elevated and tibc is low --> hgb goal above 7, continue to closely monitor --> OB stool neg #. Anemia secondary to orthopedic procedure. #. DVT of right superficial femoral vein of the right lower extremity is on coumadin/lovenox --> INR goal 2-3 #. Uricemia. Uric acid elevated at 10.2. #. Hypocalcemia. PTH is 29 --> urine to be evaluated, consider endo consult #. Leukocytosis secondary to reactive process from anemia #. Right hip fracture, to be seen by Orthopedic Surgery. Subjective Constitutional: Reports: no symptoms HEENT: Reports: no symptoms Cardiovascular: Reports: no symptoms Respiratory: Reports: no symptoms Gastrointestinal/Abdominal: Reports: no symptoms Genitourinary: Reports: no symptoms Neurologic/Psychiatric: Reports: no symptoms Endocrine: Reports: no symptoms Hematologic/Lymphatic: Reports: no symptoms Allergies: Coded Allergies: No Known Allergies (Unverified , 02/27/17) Subjective appears comfortable, no events overnight Objective Last 24 Hour Vital Signs Date Time Temp Pulse Resp B/P Pulse Ox O2 Delivery O2 Flow Rate FiO2 03/07/17 16:05 98.9 86 20 134/72 98 Room Air 03/07/17 11:44 97.9 75 21 115/67 98 Room Air 03/07/17 08:11 97.7 94 19 110/60 98 Room Air 03/07/17 04:00 97.9 88 19 117/70 97 Room Air 03/07/17 00:09 97.8 90 18 120/63 96 Room Air 03/06/17 20:00 97.9 93 19 118/68 96 Room Air Intake and Output 03/06/17 03/07/17 19:00 07:00 Intake Total 650 ml 240 ml Balance 650 ml 240 ml Intake Oral 650 ml 240 ml # Voids 3 # Bowel Movements 4 1 Laboratory Tests 03/07/17 05:39: White Blood Count 10.1, Red Blood Count 2.76L, Hemoglobin 8.4L, Hematocrit 26.7L , Mean Corpuscular Volume 97, Mean Corpuscular Hemoglobin 30.5, Mean Corpuscular Hemoglobin Concent 31.5L, Red Cell Distribution Width 16.2H, Platelet Count 343, Mean Platelet Volume 4.9L, Neutrophils (%) (Auto) 71.6, Lymphocytes (%) (Auto) 18.1L, Monocytes (%) (Auto) 8.8, Eosinophils (%) (Auto) 0.6, Basophils (%) (Auto) 0.9, Prothrombin Time 16.7H, Prothromb Time International Ratio 1.6H, Activated Partial Thromboplast Time 35H, Sodium Level 136, Potassium Level 5.1H, Chloride Level 101, Carbon Dioxide Level 27, Anion Gap 8, Blood Urea Nitrogen 19, Creatinine 0.9, Estimat Glomerular Filtration Rate > 60, Glucose Level 111#H, Calcium Level 7.9L Height (Feet): 5 Height (Inches): 10.00 Weight (Pounds): 150 General Appearance: no apparent distress EENT: normal ENT inspection Neck: non-tender Cardiovascular: normal peripheral pulses Respiratory/Chest: chest wall non-tender Extremities: non-tender Neurologic: window cutter II-XII grossly normal Skin: warm/dry Leandro Ceja Mar 07, 2017 17:09
--- NOTE | 2017-03-07 20:06 | Pulmonology Progress Note ---
Assessment/Plan Problems: (1) Fracture of femoral neck, right (2) DVT (deep venous thrombosis) (3) Renal insufficiency (4) Anemia Assessment/Plan pt/ot f/u labs tolerating diet dc planning awaiting placement Subjective ROS Limited/Unobtainable: No Allergies: Coded Allergies: No Known Allergies (Unverified , 02/27/17) Objective Last 24 Hour Vital Signs Date Time Temp Pulse Resp B/P Pulse Ox O2 Delivery O2 Flow Rate FiO2 03/07/17 16:05 98.9 86 20 134/72 98 Room Air 03/07/17 11:44 97.9 75 21 115/67 98 Room Air 03/07/17 08:11 97.7 94 19 110/60 98 Room Air 03/07/17 04:00 97.9 88 19 117/70 97 Room Air 03/07/17 00:09 97.8 90 18 120/63 96 Room Air Intake and Output 03/06/17 03/07/17 19:00 07:00 Intake Total 650 ml 240 ml Balance 650 ml 240 ml Intake Oral 650 ml 240 ml # Voids 3 # Bowel Movements 4 1 General Appearance: cachetic HEENT: normocephalic, atraumatic Cardiovascular: normal peripheral pulses, normal rate Abdomen: normal bowel sounds, soft, non tender Genitourinary: normal external genitalia Extremities: no cyanosis Neurologic/Psychiatric: algologist II-XII grossly normal Lymphatic: no neck adenopathy Laboratory Tests 03/07/17 05:39: White Blood Count 10.1, Red Blood Count 2.76L, Hemoglobin 8.4L, Hematocrit 26.7L , Mean Corpuscular Volume 97, Mean Corpuscular Hemoglobin 30.5, Mean Corpuscular Hemoglobin Concent 31.5L, Red Cell Distribution Width 16.2H, Platelet Count 343, Mean Platelet Volume 4.9L, Neutrophils (%) (Auto) 71.6, Lymphocytes (%) (Auto) 18.1L, Monocytes (%) (Auto) 8.8, Eosinophils (%) (Auto) 0.6, Basophils (%) (Auto) 0.9, Prothrombin Time 16.7H, Prothromb Time International Ratio 1.6H, Activated Partial Thromboplast Time 35H, Sodium Level 136, Potassium Level 5.1H, Chloride Level 101, Carbon Dioxide Level 27, Anion Gap 8, Blood Urea Nitrogen 19, Creatinine 0.9, Estimat Glomerular Filtration Rate > 60, Glucose Level 111#H, Calcium Level 7.9L Current Medications Medications (Trade) Dose Ordered Sig/Bautista Route PRN Reason Start Time Stop Time Status Last Admin Dose Admin Acetaminophen 650 mg 650 mg Q4H PRN ORAL fever>100.5 02/28/17 08:00 03/30/17 07:59 Acetaminophen/ Hydrocodone Bitart ([place] 5/325) 1 tab Q4H PRN ORAL Severe Pain (Pain Scale 7-10) 03/05/17 09:45 03/12/17 09:44 Cefazolin Sodium/ Dextrose (Ancef/D5W) 55 ml @ 110 mls/hr Q8HR IVPB 02/28/17 22:00 03/07/17 21:59 03/07/17 13:24 Clonidine HCl (Catapres) 0.1 mg Q6H PRN ORAL SBP>160 03/03/17 10:00 04/02/17 09:59 Dextrose (Dextrose 50%) STAT PRN IV Hypoglycemia 02/28/17 08:00 03/30/17 07:59 Docusate Sodium (Colace) 100 mg THREE TIMES A DAY ORAL 03/01/17 13:00 03/31/17 12:59 03/07/17 19:25 Enoxaparin Sodium (Lovenox) 70 mg EVERY 12 HOURS SUBQ 03/03/17 11:30 04/02/17 11:29 03/07/17 08:38 Ergocalciferol (Drisdol) 50,000 intlu QWEEK ORAL 03/01/17 14:00 03/31/17 13:59 03/01/17 14:42 Folic Acid (Folate) 2 mg DAILY ORAL 03/01/17 12:30 03/31/17 12:29 03/07/17 08:36 Insulin Aspart (NovoLOG) BEFORE MEALS AND HS SUBQ 03/06/17 21:00 04/05/17 20:59 03/07/17 17:07 Lorazepam (Ativan 2mg/ml 1ml) 0.5 mg Q4H PRN IV For Anxiety 03/05/17 08:00 03/12/17 07:59 Ondansetron HCl (Zofran) 4 mg Q6H PRN IVP Nausea & Vomiting 02/28/17 16:00 03/30/17 15:59 Pantoprazole (Protonix) 40 mg EVERY 12 HOURS ORAL 03/01/17 12:30 03/31/17 12:29 03/07/17 08:36 Polyethylene Glycol (Miralax) 17 gm HSPRN PRN ORAL Constipation 02/28/17 21:00 03/30/17 20:59 Thiamine HCl (Vitamin B1) 100 mg DAILY ORAL 03/01/17 12:30 03/31/17 12:29 03/07/17 08:36 Warfarin Sodium (Coumadin per pharmacy) 1 ea DAILY PRN MISC Per rx protocol 03/04/17 07:45 04/03/17 07:44 Warfarin Sodium (Coumadin) 3 mg COUMADIN ORAL 03/07/17 17:00 03/12/17 16:59 03/07/17 19:25 Zolpidem Tartrate (Ambien) 5 mg HSPRN PRN ORAL Insomnia 02/28/17 21:00 03/30/17 20:59 03/06/17 21:39 GURWINDER YI Mar 07, 2017 20:06
[2017-03-07] MEDS ORDERED: Sodium Polystyrene Sulfonate 15gm Powder ORAL ONE (21:00)
[2017-03-07] MEDS: Zolpidem 5mg tab ORAL PRN (23:25)
[2017-03-08 04:00] VITALS: BP 125/70
[2017-03-08] MEDS: NovoLOG Insulin Flexpen SUBQ SCH ×4 (06:00→20:48)
[2017-03-08 07:22] LABS: BASOPHILS % (AUTO) 1.1 % (0.0-2.0); EOSINOPHILS % (AUTO) 0.4 % (0.0-3.0); LYMPHOCYTES % (AUTO) 17.8 % (20.0-45.0); MEAN CORPUSCULAR HEMOGLOBIN 29.6 PG (27.0-31.0); MEAN CORPUSCULAR HGB CONC 30.5 G/DL (32.0-36.0); MEAN CORPUSCULAR VOLUME 97 FL (80-99); MEAN PLATELET VOLUME 5.2 FL (6.5-10.1); MONOCYTES % (AUTO) 5.6 % (1.0-10.0); NEUTROPHILS % (AUTO) 75.1 % (45.0-75.0); PLATELET COUNT 342 K/UL (150-450); RED BLOOD COUNT 3.28 M/UL (4.70-6.10); RED CELL DISTRIBUTION WIDTH 16.3 % (11.6-14.8); WHITE BLOOD COUNT 11.3 K/UL (4.8-10.8)
[2017-03-08 07:56] LABS: ANION GAP 11 (5-15); CALCIUM 8.4 mg/dL (8.6-10.2); CARBON DIOXIDE 29 mEQ/L (20-30); CHLORIDE 96 mEQ/L (98-107); GLOMERULAR FILTRATION RATE > 60 mL/min (>60); HEMOLYSIS 40; POTASSIUM 5.3 mEQ/L (3.4-4.9); SODIUM 136 mEQ/L (135-145)
[2017-03-08 08:00] VITALS: BP 121/62
[2017-03-08 08:05] LABS: INR 1.3 (0.9-1.1); PROTHROMBIN TIME 13.9 SEC (9.30-11.50)
[2017-03-08] MEDS: Docusate 100mg cap ORAL SCH ×3 (08:24→16:55)
[2017-03-08] MEDS: Thiamine 100mg tab ORAL SCH (08:24)
[2017-03-08] MEDS: Enoxaparin Sodium 300mg/3ml vial SUBQ SCH ×2 (08:30→20:47)
[2017-03-08] MEDS ORDERED: Sodium Polystyrene Sulfonate 15gm Powder ORAL ONE (10:00)
--- NOTE | 2017-03-08 11:56 | Nephrology Progress Note ---
Assessment/Plan Problem List: (1) ARF (acute renal failure) Assessment: ok (2) Hyponatremia Assessment: ok (3) Fracture of femoral neck, right Plan cont with Vit D needs placement Subjective Subjective In NAD Objective Objective Last 24 Hour Vital Signs Date Time Temp Pulse Resp B/P Pulse Ox O2 Delivery O2 Flow Rate FiO2 03/08/17 08:00 97.9 84 20 121/62 99 Room Air 03/08/17 04:00 97.0 70 17 125/70 99 Room Air 03/07/17 23:42 96.6 78 17 122/70 97 Room Air 03/07/17 20:00 97.9 82 19 117/65 97 Room Air 03/07/17 16:05 98.9 86 20 134/72 98 Room Air Intake and Output 03/07/17 03/08/17 19:00 07:00 Intake Total 1580 ml 270 ml Output Total 400 ml Balance 1180 ml 270 ml Intake Oral 1580 ml 270 ml Output Urine Total 400 ml # Voids 4 3 # Bowel Movements 2 1 Laboratory Tests 03/08/17 06:20: Prothrombin Time 13.9H, Prothromb Time International Ratio 1.3H, Activated Partial Thromboplast Time 29 03/08/17 06:30: White Blood Count 11.3H, Red Blood Count 3.28L, Hemoglobin 9.7L, Hematocrit 31.8L, Mean Corpuscular Volume 97, Mean Corpuscular Hemoglobin 29.6, Mean Corpuscular Hemoglobin Concent 30.5L, Red Cell Distribution Width 16.3H, Platelet Count 342, Mean Platelet Volume 5.2L, Neutrophils (%) (Auto) 75.1H, Lymphocytes (%) (Auto) 17.8L, Monocytes (%) (Auto) 5.6, Eosinophils (%) (Auto) 0.4, Basophils (%) (Auto) 1.1, Sodium Level 136, Potassium Level 5.3H, Chloride Level 96L, Carbon Dioxide Level 29, Anion Gap 11, Blood Urea Nitrogen 20, Creatinine 1.0, Estimat Glomerular Filtration Rate > 60, Glucose Level 111H, Calcium Level 8.4L Height (Feet): 5 Height (Inches): 10.00 Weight (Pounds): 150 Cardiovascular: normal rate Respiratory/Chest: lungs clear BUSTER KAT Mar 08, 2017 11:56
[2017-03-08 12:00] VITALS: BP 123/69
[2017-03-08] MEDS: Vitamin D 50,000 units cap ORAL SCH (12:24)
--- NOTE | 2017-03-08 12:27 | GI Progress Note ---
Assessment/Plan Problems: (1) Hypoalbuminemia ICD Codes: E88.09 - Other disorders of plasma-protein metabolism, not elsewhere classified SNOMED: 691403167 (2) Anemia ICD Codes: D64.9 - Anemia, unspecified SNOMED: 234385907 (3) Elevated CEA ICD Codes: R97.0 - Elevated carcinoembryonic antigen [CEA] SNOMED: 29512264, 628438826 Status: stable Status Narrative Discussed with Dr. Pressley. Assessment/Plan elevated CEA OB stool r/o GI bleed >> negative stable H&H prn transfusions PPI bowel regime fu labs outpatient colonoscopy Subjective Gastrointestinal/Abdominal: Reports: no symptoms Objective Last 24 Hour Vital Signs Date Time Temp Pulse Resp B/P Pulse Ox O2 Delivery O2 Flow Rate FiO2 03/08/17 08:00 97.9 84 20 121/62 99 Room Air 03/08/17 04:00 97.0 70 17 125/70 99 Room Air 03/07/17 23:42 96.6 78 17 122/70 97 Room Air 03/07/17 20:00 97.9 82 19 117/65 97 Room Air 03/07/17 16:05 98.9 86 20 134/72 98 Room Air Intake and Output 03/07/17 03/08/17 19:00 07:00 Intake Total 1580 ml 270 ml Output Total 400 ml Balance 1180 ml 270 ml Intake Oral 1580 ml 270 ml Output Urine Total 400 ml # Voids 4 3 # Bowel Movements 2 1 Laboratory Tests Test 03/08/17 06:20 03/08/17 06:30 Prothrombin Time 13.9 SEC (9.30-11.50) H Prothromb Time International Ratio 1.3 (0.9-1.1) H Activated Partial Thromboplast Time 29 SEC (23-33) White Blood Count 11.3 K/UL (4.8-10.8) H Red Blood Count 3.28 M/UL (4.70-6.10) L Hemoglobin 9.7 G/DL (14.2-18.0) L Hematocrit 31.8 % (42.0-52.0) L Mean Corpuscular Volume 97 FL (80-99) Mean Corpuscular Hemoglobin 29.6 PG (27.0-31.0) Mean Corpuscular Hemoglobin Concent 30.5 G/DL (32.0-36.0) L Red Cell Distribution Width 16.3 % (11.6-14.8) H Platelet Count 342 K/UL (150-450) Mean Platelet Volume 5.2 FL (6.5-10.1) L Neutrophils (%) (Auto) 75.1 % (45.0-75.0) H Lymphocytes (%) (Auto) 17.8 % (20.0-45.0) L Monocytes (%) (Auto) 5.6 % (1.0-10.0) Eosinophils (%) (Auto) 0.4 % (0.0-3.0) Basophils (%) (Auto) 1.1 % (0.0-2.0) Sodium Level 136 mEQ/L (135-145) Potassium Level 5.3 mEQ/L (3.4-4.9) H Chloride Level 96 mEQ/L (98-107) L Carbon Dioxide Level 29 mEQ/L (20-30) Anion Gap 11 (5-15) Blood Urea Nitrogen 20 mg/dL (7-23) Creatinine 1.0 mg/dL (0.7-1.2) Estimat Glomerular Filtration Rate > 60 mL/min (>60) Glucose Level 111 mg/dL (74-106) H Calcium Level 8.4 mg/dL (8.6-10.2) L Height (Feet): 5 Height (Inches): 10.00 Weight (Pounds): 150 General Appearance: no apparent distress, alert, thin Cardiovascular: normal rate Respiratory/Chest: normal breath sounds, no respiratory distress Abdominal Exam: normal bowel sounds, non tender, soft Mag Esteban N.PMarlene Mar 08, 2017 12:27
--- NOTE | 2017-03-08 13:25 | General Progress Note ---
Assessment/Plan Assessment/Plan #. Anemia secondary to chronic disease, ferritin is elevated and tibc is low --> hgb goal above 7, continue to closely monitor --> OB stool neg #Elevated CEA --> colonoscopy as outpatient #. Anemia secondary to orthopedic procedure. #. DVT of right superficial femoral vein of the right lower extremity is on coumadin/lovenox --> INR goal 2-3 #. Uricemia. Uric acid elevated at 10.2. #. Hypocalcemia. #. Leukocytosis secondary to reactive process from anemia #. Right hip fracture, to be seen by Orthopedic Surgery. Subjective Constitutional: Reports: no symptoms HEENT: Reports: no symptoms Cardiovascular: Reports: no symptoms Respiratory: Reports: no symptoms Gastrointestinal/Abdominal: Reports: no symptoms Genitourinary: Reports: no symptoms Neurologic/Psychiatric: Reports: no symptoms Endocrine: Reports: no symptoms Hematologic/Lymphatic: Reports: anemia Allergies: Coded Allergies: No Known Allergies (Unverified , 02/27/17) Subjective nad, no fevers or chills overnight Objective Last 24 Hour Vital Signs Date Time Temp Pulse Resp B/P Pulse Ox O2 Delivery O2 Flow Rate FiO2 03/08/17 08:00 97.9 84 20 121/62 99 Room Air 03/08/17 04:00 97.0 70 17 125/70 99 Room Air 03/07/17 23:42 96.6 78 17 122/70 97 Room Air 03/07/17 20:00 97.9 82 19 117/65 97 Room Air 03/07/17 16:05 98.9 86 20 134/72 98 Room Air Intake and Output 03/07/17 03/08/17 19:00 07:00 Intake Total 1580 ml 270 ml Output Total 400 ml Balance 1180 ml 270 ml Intake Oral 1580 ml 270 ml Output Urine Total 400 ml # Voids 4 3 # Bowel Movements 2 1 Laboratory Tests 03/08/17 06:20: Prothrombin Time 13.9H, Prothromb Time International Ratio 1.3H, Activated Partial Thromboplast Time 29 03/08/17 06:30: White Blood Count 11.3H, Red Blood Count 3.28L, Hemoglobin 9.7L, Hematocrit 31.8L, Mean Corpuscular Volume 97, Mean Corpuscular Hemoglobin 29.6, Mean Corpuscular Hemoglobin Concent 30.5L, Red Cell Distribution Width 16.3H, Platelet Count 342, Mean Platelet Volume 5.2L, Neutrophils (%) (Auto) 75.1H, Lymphocytes (%) (Auto) 17.8L, Monocytes (%) (Auto) 5.6, Eosinophils (%) (Auto) 0.4, Basophils (%) (Auto) 1.1, Sodium Level 136, Potassium Level 5.3H, Chloride Level 96L, Carbon Dioxide Level 29, Anion Gap 11, Blood Urea Nitrogen 20, Creatinine 1.0, Estimat Glomerular Filtration Rate > 60, Glucose Level 111H, Calcium Level 8.4L Height (Feet): 5 Height (Inches): 10.00 Weight (Pounds): 150 General Appearance: no apparent distress EENT: PERRL/EOMI Neck: normal alignment Cardiovascular: normal peripheral pulses Respiratory/Chest: chest wall non-tender Abdomen: normal bowel sounds Edema: no edema noted Pedal (L), no edema noted Pedal (R) 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
--- NOTE | 2017-03-08 15:13 | Pulmonology Progress Note ---
Assessment/Plan Problems: (1) Fracture of femoral neck, right (2) DVT (deep venous thrombosis) (3) Renal insufficiency (4) Anemia Assessment/Plan check INR, on coumadin by pharmacy. pt/ot f/u labs tolerating diet dc planning awaiting placement Subjective ROS Limited/Unobtainable: No Constitutional: Reports: no symptoms HEENT: Repors: no symptoms Respiratory: Reports: no symptoms Allergies: Coded Allergies: No Known Allergies (Unverified , 02/27/17) Objective Last 24 Hour Vital Signs Date Time Temp Pulse Resp B/P Pulse Ox O2 Delivery O2 Flow Rate FiO2 03/08/17 12:00 97.0 74 20 123/69 99 Room Air 03/08/17 08:00 97.9 84 20 121/62 99 Room Air 03/08/17 04:00 97.0 70 17 125/70 99 Room Air 03/07/17 23:42 96.6 78 17 122/70 97 Room Air 03/07/17 20:00 97.9 82 19 117/65 97 Room Air 03/07/17 16:05 98.9 86 20 134/72 98 Room Air Intake and Output 03/07/17 03/08/17 19:00 07:00 Intake Total 1580 ml 270 ml Output Total 400 ml Balance 1180 ml 270 ml Intake Oral 1580 ml 270 ml Output Urine Total 400 ml # Voids 4 3 # Bowel Movements 2 1 General Appearance: WD/WN Respiratory/Chest: chest wall non-tender, lungs clear Cardiovascular: normal peripheral pulses, normal rate Abdomen: normal bowel sounds, soft, non tender Genitourinary: normal external genitalia Extremities: no cyanosis Skin: no lesions 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 Lymphatic: no neck adenopathy Laboratory Tests 03/08/17 06:20: Prothrombin Time 13.9H, Prothromb Time International Ratio 1.3H, Activated Partial Thromboplast Time 29 03/08/17 06:30: White Blood Count 11.3H, Red Blood Count 3.28L, Hemoglobin 9.7L, Hematocrit 31.8L, Mean Corpuscular Volume 97, Mean Corpuscular Hemoglobin 29.6, Mean Corpuscular Hemoglobin Concent 30.5L, Red Cell Distribution Width 16.3H, Platelet Count 342, Mean Platelet Volume 5.2L, Neutrophils (%) (Auto) 75.1H, Lymphocytes (%) (Auto) 17.8L, Monocytes (%) (Auto) 5.6, Eosinophils (%) (Auto) 0.4, Basophils (%) (Auto) 1.1, Sodium Level 136, Potassium Level 5.3H, Chloride Level 96L, Carbon Dioxide Level 29, Anion Gap 11, Blood Urea Nitrogen 20, Creatinine 1.0, Estimat Glomerular Filtration Rate > 60, Glucose Level 111H, Calcium Level 8.4L Current Medications Medications (Trade) Dose Ordered Sig/Bautista Route PRN Reason Start Time Stop Time Status Last Admin Dose Admin Acetaminophen (Tylenol) 650 mg Q4H PRN ORAL fever>100.5 02/28/17 08:00 03/30/17 07:59 Acetaminophen/ Hydrocodone Bitart ([place] 5/325) 1 tab Q4H PRN ORAL Severe Pain (Pain Scale 7-10) 03/05/17 09:45 03/12/17 09:44 Clonidine HCl (Catapres) 0.1 mg Q6H PRN ORAL SBP>160 03/03/17 10:00 04/02/17 09:59 Dextrose (Dextrose 50%) STAT PRN IV Hypoglycemia 02/28/17 08:00 03/30/17 07:59 Docusate Sodium (Colace) 100 mg THREE TIMES A DAY ORAL 03/01/17 13:00 03/31/17 12:59 03/08/17 12:24 Enoxaparin Sodium (Lovenox) 70 mg EVERY 12 HOURS SUBQ 03/03/17 11:30 04/02/17 11:29 03/08/17 08:30 Ergocalciferol (Drisdol) 50,000 intlu QWEEK ORAL 03/01/17 14:00 03/31/17 13:59 03/08/17 12:24 Folic Acid (Folate) 2 mg DAILY ORAL 03/01/17 12:30 03/31/17 12:29 03/08/17 08:24 Insulin Aspart (NovoLOG) BEFORE MEALS AND HS SUBQ 03/06/17 21:00 04/05/17 20:59 03/08/17 12:28 Lorazepam (Ativan 2mg/ml 1ml) 0.5 mg Q4H PRN IV For Anxiety 03/05/17 08:00 03/12/17 07:59 Ondansetron HCl (Zofran) 4 mg Q6H PRN IVP Nausea & Vomiting 02/28/17 16:00 03/30/17 15:59 Pantoprazole (Protonix) 40 mg EVERY 12 HOURS ORAL 03/01/17 12:30 03/31/17 12:29 03/08/17 08:24 Polyethylene Glycol (Miralax) 17 gm HSPRN PRN ORAL Constipation 02/28/17 21:00 03/30/17 20:59 Thiamine HCl (Vitamin B1) 100 mg DAILY ORAL 03/01/17 12:30 03/31/17 12:29 03/08/17 08:24 Warfarin Sodium (Coumadin per pharmacy) 1 ea DAILY PRN MISC Per rx protocol 03/04/17 07:45 04/03/17 07:44 Warfarin Sodium (Coumadin) 5 mg COUMADIN ONCE ORAL 03/08/17 17:00 03/08/17 17:01 Zolpidem Tartrate (Ambien) 5 mg HSPRN PRN ORAL Insomnia 02/28/17 21:00 03/30/17 20:59 03/07/17 23:25 GURWINDER YI Mar 08, 2017 15:13
[2017-03-08 16:00] VITALS: BP 129/73
[2017-03-08] MEDS ORDERED: Warfarin Sodium 5mg ORAL ONE (17:00)
--- NOTE | 2017-03-08 18:21 | Wound Care Consultation ---
Wound Assessment Wound Assessment #1: Wound Present on Admission: Yes New Wound: No Status Change of Wound: No Wound Location Body Site Modif: left Wound Location Body Site: knee Wound Type: scab Valentine Test: Does not Valentine Wound Thickness: Partial Thickness Wound Length: 2.5 Wound Width: 3.5 Wound Depth: utd Percent of Wound [place]/Red: 50 - dry scab Percent of Wound Black/Brown: 50 - dry scab Wound Drainage Amount: None Wound Drainage Odor: None/Absent Tissue Surrounding Wound: Intact - erythemic Wound General Appearance: Open to air, Clean/Dry Wound Assessment #2: Wound Number: #2 Wound Present on Admission: Yes New Wound: No Status Change of Wound: No Wound Location Body Site Modif: left Wound Location Body Site: ischial tuberosity Wound Type: pressure ulcer Valentine Test: Does not Valentine Pressure Ulcer Stage: IV/unstageable Wound Thickness: Full Thickness Wound Length: 4.0 Wound Width: 4.0 Wound Depth: utd Percent of Wound Bed Yellow/Wh: 100 Wound Drainage Description: Serosanguineous Wound Drainage Amount: Moderate Wound Drainage Odor: None/Absent Tissue Surrounding Wound: Macerated Wound General Appearance: Draining, Necrotic Wound Assessment #3: Wound Number: #3 Wound Location Body Site Modif: left Wound Location Body Site: trochanter Wound Type: pressure ulcer Valentine Test: Does not Valentine Pressure Ulcer Stage: IV/unstageable Wound Thickness: Full Thickness Wound Length: 4.5 Wound Width: 2.5 Wound Depth: utd Percent of Wound [place]/Red: 80 Percent of Wound Bed Yellow/Wh: 20 Wound Drainage Description: Serosanguineous Wound Drainage Amount: Moderate Wound Drainage Odor: None/Absent Tissue Surrounding Wound: Macerated Wound General Appearance: Reddened, Draining Wound Assessment #4: Wound Number: #4 Wound Present on Admission: Yes New Wound: No Status Change of Wound: No Wound Location Body Site Modif: left Wound Location Body Site: buttocks Wound Type: scar - scattered and hyperpigmentation Valentine Test: Does not Valentine Percent of Wound [place]/Red: 100 Wound Drainage Amount: None Wound Drainage Odor: None/Absent Tissue Surrounding Wound: Intact Wound General Appearance: Reddened, Clean/Dry Wound Comment #1 Left lower leg dry scaly skin. #2 Left ischial tuberosity pressure ulcer Unstageable. #3 Left trochanter scattered pressure ulcer Unstageable. #4 Left buttock scattered full thickness scar tissue with hyperpigmentation. still intact #5 Left knee Traumatic injury - scab. Reassessment done on this Pt. No further deterioration noted. Will cont same wound care treatment and recommendation. Recommendation. -Local wound care as ordered. -A&D ointment on both legs for dry skin -Apply low air loss mattress SPR for wound and skin management. -Turn and reposition. -Keep clean and dry. -Offload affected wound sites. -Optimize nutrition. -Offload heels. -Assess and notify MD if any further changes of condition noted to skin. EAGLE JOHNSON RN Mar 08, 2017 18:21
[2017-03-08 20:00] VITALS: BP 126/68
[2017-03-08] MEDS: Zolpidem 5mg tab ORAL PRN (20:46)
[2017-03-08] MEDS: Vitamin A&D Oint 2oz Tube TOPIC SCH (20:46)
[2017-03-09] VITALS: BP 130/68
[2017-03-09 04:00] VITALS: BP 123/66
[2017-03-09 06:18] LABS: BASOPHILS % (AUTO) 0.8 % (0.0-2.0); EOSINOPHILS % (AUTO) 0.5 % (0.0-3.0); LYMPHOCYTES % (AUTO) 20.8 % (20.0-45.0); MEAN CORPUSCULAR HEMOGLOBIN 29.6 PG (27.0-31.0); MEAN CORPUSCULAR VOLUME 96 FL (80-99); MEAN PLATELET VOLUME 5.2 FL (6.5-10.1); MONOCYTES % (AUTO) 9.4 % (1.0-10.0); NEUTROPHILS % (AUTO) 68.6 % (45.0-75.0); PLATELET COUNT 344 K/UL (150-450); RED CELL DISTRIBUTION WIDTH 16.2 % (11.6-14.8); WHITE BLOOD COUNT 7.6 K/UL (4.8-10.8)
[2017-03-09] MEDS: NovoLOG Insulin Flexpen SUBQ SCH ×4 (06:24→21:02)
[2017-03-09 06:39] LABS: INR 1.3 (0.9-1.1); PROTHROMBIN TIME 13.2 SEC (9.30-11.50)
[2017-03-09 06:43] LABS: ANION GAP 6 (5-15); CALCIUM 7.8 mg/dL (8.6-10.2); CARBON DIOXIDE 33 mEQ/L (20-30); CHLORIDE 97 mEQ/L (98-107); CREATININE 1.1 mg/dL (0.7-1.2); GLOMERULAR FILTRATION RATE > 60 mL/min (>60); HEMOLYSIS 0; POTASSIUM 3.8 mEQ/L (3.4-4.9); SODIUM 136 mEQ/L (135-145)
[2017-03-09 07:50] VITALS: BP 125/68
[2017-03-09] MEDS: Docusate 100mg cap ORAL SCH ×3 (08:20→16:15)
[2017-03-09] MEDS: Thiamine 100mg tab ORAL SCH (08:20)
[2017-03-09] MEDS: Vitamin A&D Oint 2oz Tube TOPIC SCH ×2 (08:22→21:03)
[2017-03-09] MEDS: Enoxaparin Sodium 300mg/3ml vial SUBQ SCH ×2 (08:56→21:02)
[2017-03-09 11:38] VITALS: BP 118/59
--- NOTE | 2017-03-09 12:09 | GI Progress Note ---
Assessment/Plan Problems: (1) Hypoalbuminemia ICD Codes: E88.09 - Other disorders of plasma-protein metabolism, not elsewhere classified SNOMED: 542750147 (2) Anemia ICD Codes: D64.9 - Anemia, unspecified SNOMED: 299638498 (3) Elevated CEA ICD Codes: R97.0 - Elevated carcinoembryonic antigen [CEA] SNOMED: 09047712, 582277545 Status: stable Status Narrative Discussed with Dr. Pressley. Assessment/Plan elevated CEA OB stool r/o GI bleed >> negative stable H&H prn transfusions PPI bowel regime fu labs outpatient colonoscopy Subjective Gastrointestinal/Abdominal: Reports: no symptoms Objective Last 24 Hour Vital Signs Date Time Temp Pulse Resp B/P Pulse Ox O2 Delivery O2 Flow Rate FiO2 03/09/17 11:38 97.4 91 18 118/59 99 Room Air 03/09/17 07:50 98.2 88 18 125/68 97 Room Air 03/09/17 04:00 97.0 88 18 123/66 98 Room Air 03/09/17 00:00 98.6 98 18 130/68 97 Room Air 03/08/17 20:00 98.8 87 18 126/68 98 Room Air 03/08/17 16:00 98.8 84 20 129/73 97 Room Air Intake and Output 03/08/17 03/09/17 19:00 07:00 Intake Total 720 ml Balance 720 ml Intake Oral 720 ml # Voids 3 2 # Bowel Movements 2 Laboratory Tests Test 03/09/17 05:15 White Blood Count 7.6 K/UL (4.8-10.8) Red Blood Count 2.70 M/UL (4.70-6.10) L Hemoglobin 8.0 G/DL (14.2-18.0) L Hematocrit 25.8 % (42.0-52.0) L Mean Corpuscular Volume 96 FL (80-99) Mean Corpuscular Hemoglobin 29.6 PG (27.0-31.0) Mean Corpuscular Hemoglobin Concent 31.0 G/DL (32.0-36.0) L Red Cell Distribution Width 16.2 % (11.6-14.8) H Platelet Count 344 K/UL (150-450) Mean Platelet Volume 5.2 FL (6.5-10.1) L Neutrophils (%) (Auto) 68.6 % (45.0-75.0) Lymphocytes (%) (Auto) 20.8 % (20.0-45.0) Monocytes (%) (Auto) 9.4 % (1.0-10.0) Eosinophils (%) (Auto) 0.5 % (0.0-3.0) Basophils (%) (Auto) 0.8 % (0.0-2.0) Prothrombin Time 13.2 SEC (9.30-11.50) H Prothromb Time International Ratio 1.3 (0.9-1.1) H Sodium Level 136 mEQ/L (135-145) Potassium Level 3.8 mEQ/L (3.4-4.9) Chloride Level 97 mEQ/L (98-107) L Carbon Dioxide Level 33 mEQ/L (20-30) H Anion Gap 6 (5-15) Blood Urea Nitrogen 23 mg/dL (7-23) Creatinine 1.1 mg/dL (0.7-1.2) Estimat Glomerular Filtration Rate > 60 mL/min (>60) Glucose Level 177 mg/dL (74-106) H Calcium Level 7.8 mg/dL (8.6-10.2) L Height (Feet): 5 Height (Inches): 10.00 Weight (Pounds): 150 General Appearance: no apparent distress, alert Cardiovascular: normal rate Respiratory/Chest: normal breath sounds, no respiratory distress Abdominal Exam: normal bowel sounds, non tender, soft Mag Esteban N.P. Mar 09, 2017 12:09
--- NOTE | 2017-03-09 15:53 | Pulmonology Progress Note ---
Assessment/Plan Problems: (1) Fracture of femoral neck, right (2) DVT (deep venous thrombosis) (3) Renal insufficiency (4) Anemia Assessment/Plan no new changes check INR, on coumadin by pharmacy. pt/ot f/u labs tolerating diet dc planning awaiting placement Subjective ROS Limited/Unobtainable: No Constitutional: Reports: no symptoms HEENT: Repors: no symptoms Respiratory: Reports: no symptoms Allergies: Coded Allergies: No Known Allergies (Unverified , 02/27/17) Objective Last 24 Hour Vital Signs Date Time Temp Pulse Resp B/P Pulse Ox O2 Delivery O2 Flow Rate FiO2 03/09/17 11:38 97.4 91 18 118/59 99 Room Air 03/09/17 07:50 98.2 88 18 125/68 97 Room Air 03/09/17 04:00 97.0 88 18 123/66 98 Room Air 03/09/17 00:00 98.6 98 18 130/68 97 Room Air 03/08/17 20:00 98.8 87 18 126/68 98 Room Air 03/08/17 16:00 98.8 84 20 129/73 97 Room Air Intake and Output 03/08/17 03/09/17 19:00 07:00 Intake Total 720 ml Balance 720 ml Intake Oral 720 ml # Voids 3 2 # Bowel Movements 2 General Appearance: cachetic HEENT: normocephalic, atraumatic Respiratory/Chest: chest wall non-tender, lungs clear Cardiovascular: normal peripheral pulses, normal rate Abdomen: normal bowel sounds, soft, non tender Genitourinary: normal external genitalia Extremities: no clubbing Skin: no rash Laboratory Tests 03/09/17 05:15: White Blood Count 7.6, Red Blood Count 2.70L, Hemoglobin 8.0L, Hematocrit 25.8L , Mean Corpuscular Volume 96, Mean Corpuscular Hemoglobin 29.6, Mean Corpuscular Hemoglobin Concent 31.0L, Red Cell Distribution Width 16.2H, Platelet Count 344, Mean Platelet Volume 5.2L, Neutrophils (%) (Auto) 68.6, Lymphocytes (%) (Auto) 20.8, Monocytes (%) (Auto) 9.4, Eosinophils (%) (Auto) 0.5, Basophils (%) (Auto) 0.8, Prothrombin Time 13.2H, Prothromb Time International Ratio 1.3H, Sodium Level 136, Potassium Level 3.8, Chloride Level 97L, Carbon Dioxide Level 33H, Anion Gap 6, Blood Urea Nitrogen 23, Creatinine 1.1, Estimat Glomerular Filtration Rate > 60, Glucose Level 177H, Calcium Level 7.8L Current Medications Medications (Trade) Dose Ordered Sig/Bautista Route PRN Reason Start Time Stop Time Status Last Admin Dose Admin Acetaminophen (Tylenol) 650 mg Q4H PRN ORAL fever>100.5 02/28/17 08:00 03/30/17 07:59 Acetaminophen/ Hydrocodone Bitart ([place] 5/325) 1 tab Q4H PRN ORAL Severe Pain (Pain Scale 7-10) 03/05/17 09:45 03/12/17 09:44 Clonidine HCl (Catapres) 0.1 mg Q6H PRN ORAL SBP>160 03/03/17 10:00 04/02/17 09:59 Dextrose (Dextrose 50%) STAT PRN IV Hypoglycemia 02/28/17 08:00 03/30/17 07:59 Docusate Sodium (Colace) 100 mg THREE TIMES A DAY ORAL 03/01/17 13:00 03/31/17 12:59 03/09/17 08:20 Enoxaparin Sodium (Lovenox) 70 mg EVERY 12 HOURS SUBQ 03/03/17 11:30 04/02/17 11:29 03/09/17 08:56 Ergocalciferol (Drisdol) 50,000 intlu QWEEK ORAL 03/01/17 14:00 03/31/17 13:59 03/08/17 12:24 Folic Acid (Folate) 2 mg DAILY ORAL 03/01/17 12:30 03/31/17 12:29 03/09/17 08:21 Insulin Aspart (NovoLOG) BEFORE MEALS AND HS SUBQ 03/06/17 21:00 04/05/17 20:59 03/09/17 11:47 Lorazepam (Ativan 2mg/ml 1ml) 0.5 mg Q4H PRN IV For Anxiety 03/05/17 08:00 03/12/17 07:59 Ondansetron HCl (Zofran) 4 mg Q6H PRN IVP Nausea & Vomiting 02/28/17 16:00 03/30/17 15:59 Pantoprazole (Protonix) 40 mg EVERY 12 HOURS ORAL 03/01/17 12:30 03/31/17 12:29 03/09/17 08:21 Polyethylene Glycol (Miralax) 17 gm HSPRN PRN ORAL Constipation 02/28/17 21:00 03/30/17 20:59 Thiamine HCl (Vitamin B1) 100 mg DAILY ORAL 03/01/17 12:30 03/31/17 12:29 03/09/17 08:20 Vitamin A/Vitamin D (A & D Oint) 1 applic EVERY 12 HOURS TOPIC 03/08/17 21:00 04/07/17 20:59 03/09/17 08:22 Warfarin Sodium (Coumadin per pharmacy) 1 ea DAILY PRN MISC Per rx protocol 03/04/17 07:45 04/03/17 07:44 Warfarin Sodium (Coumadin) 5 mg COUMADIN ONCE ORAL 03/09/17 17:00 03/09/17 17:01 Zolpidem Tartrate (Ambien) 5 mg HSPRN PRN ORAL Insomnia 02/28/17 21:00 03/30/17 20:59 03/08/17 20:46 GURWINDER YI Mar 09, 2017 15:53
[2017-03-09 16:00] VITALS: BP 128/71
--- NOTE | 2017-03-09 16:49 | Nephrology Progress Note ---
Assessment/Plan Problem List: (1) ARF (acute renal failure) Assessment: ok (2) Hyponatremia Assessment: ok (3) Fracture of femoral neck, right Plan cont with Vit D needs placement Dr doe will follow Subjective Subjective In NAD Objective Objective Last 24 Hour Vital Signs Date Time Temp Pulse Resp B/P Pulse Ox O2 Delivery O2 Flow Rate FiO2 03/09/17 16:00 98.8 90 18 128/71 98 Room Air 03/09/17 11:38 97.4 91 18 118/59 99 Room Air 03/09/17 07:50 98.2 88 18 125/68 97 Room Air 03/09/17 04:00 97.0 88 18 123/66 98 Room Air 03/09/17 00:00 98.6 98 18 130/68 97 Room Air 03/08/17 20:00 98.8 87 18 126/68 98 Room Air Intake and Output 03/08/17 03/09/17 19:00 07:00 Intake Total 720 ml Balance 720 ml Intake Oral 720 ml # Voids 3 2 # Bowel Movements 2 Laboratory Tests 03/09/17 05:15: White Blood Count 7.6, Red Blood Count 2.70L, Hemoglobin 8.0L, Hematocrit 25.8L , Mean Corpuscular Volume 96, Mean Corpuscular Hemoglobin 29.6, Mean Corpuscular Hemoglobin Concent 31.0L, Red Cell Distribution Width 16.2H, Platelet Count 344, Mean Platelet Volume 5.2L, Neutrophils (%) (Auto) 68.6, Lymphocytes (%) (Auto) 20.8, Monocytes (%) (Auto) 9.4, Eosinophils (%) (Auto) 0.5, Basophils (%) (Auto) 0.8, Prothrombin Time 13.2H, Prothromb Time International Ratio 1.3H, Sodium Level 136, Potassium Level 3.8, Chloride Level 97L, Carbon Dioxide Level 33H, Anion Gap 6, Blood Urea Nitrogen 23, Creatinine 1.1, Estimat Glomerular Filtration Rate > 60, Glucose Level 177H, Calcium Level 7.8L Height (Feet): 5 Height (Inches): 10.00 Weight (Pounds): 150 Cardiovascular: normal rate Respiratory/Chest: lungs clear, normal breath sounds BUSTER KAT Mar 09, 2017 16:49
[2017-03-09] MEDS ORDERED: Warfarin Sodium 5mg ORAL ONE (17:00)
[2017-03-09 20:00] VITALS: BP 118/65
--- NOTE | 2017-03-09 20:31 | General Progress Note ---
Assessment/Plan Assessment/Plan #. Anemia secondary to chronic disease, ferritin is elevated and tibc is low --> hgb goal above 7, continue to closely monitor --> OB stool neg #Elevated CEA --> colonoscopy as outpatient #. Anemia secondary to orthopedic procedure. #. DVT of right superficial femoral vein of the right lower extremity is on coumadin/lovenox --> continue to monitor INR --> INR goal 2-3 #. Uricemia. Uric acid elevated at 10.2. #. Hypocalcemia. #. Leukocytosis secondary to reactive process from anemia #. Right hip fracture, to be seen by Orthopedic Surgery. Subjective Constitutional: Reports: no symptoms HEENT: Reports: no symptoms Cardiovascular: Reports: no symptoms Respiratory: Reports: no symptoms Gastrointestinal/Abdominal: Reports: no symptoms Genitourinary: Reports: no symptoms Neurologic/Psychiatric: Reports: no symptoms Endocrine: Reports: no symptoms Hematologic/Lymphatic: Reports: anemia Allergies: Coded Allergies: No Known Allergies (Unverified , 02/27/17) Subjective appears comfortable, nad Objective Last 24 Hour Vital Signs Date Time Temp Pulse Resp B/P Pulse Ox O2 Delivery O2 Flow Rate FiO2 03/09/17 16:00 98.8 90 18 128/71 98 Room Air 03/09/17 11:38 97.4 91 18 118/59 99 Room Air 03/09/17 07:50 98.2 88 18 125/68 97 Room Air 03/09/17 04:00 97.0 88 18 123/66 98 Room Air 03/09/17 00:00 98.6 98 18 130/68 97 Room Air Intake and Output 03/08/17 03/09/17 19:00 07:00 Intake Total 720 ml Balance 720 ml Intake Oral 720 ml # Voids 3 2 # Bowel Movements 2 Laboratory Tests 03/09/17 05:15: White Blood Count 7.6, Red Blood Count 2.70L, Hemoglobin 8.0L, Hematocrit 25.8L , Mean Corpuscular Volume 96, Mean Corpuscular Hemoglobin 29.6, Mean Corpuscular Hemoglobin Concent 31.0L, Red Cell Distribution Width 16.2H, Platelet Count 344, Mean Platelet Volume 5.2L, Neutrophils (%) (Auto) 68.6, Lymphocytes (%) (Auto) 20.8, Monocytes (%) (Auto) 9.4, Eosinophils (%) (Auto) 0.5, Basophils (%) (Auto) 0.8, Prothrombin Time 13.2H, Prothromb Time International Ratio 1.3H, Sodium Level 136, Potassium Level 3.8, Chloride Level 97L, Carbon Dioxide Level 33H, Anion Gap 6, Blood Urea Nitrogen 23, Creatinine 1.1, Estimat Glomerular Filtration Rate > 60, Glucose Level 177H, Calcium Level 7.8L Height (Feet): 5 Height (Inches): 10.00 Weight (Pounds): 150 General Appearance: no apparent distress EENT: PERRL/EOMI Neck: non-tender Cardiovascular: normal peripheral pulses Respiratory/Chest: chest wall non-tender 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
[2017-03-09] MEDS: Zolpidem 5mg tab ORAL PRN (20:50)
[2017-03-10] VITALS: BP 114/63
[2017-03-10 04:00] VITALS: BP 124/64
[2017-03-10] MEDS: NovoLOG Insulin Flexpen SUBQ SCH ×4 (06:30→21:40)
[2017-03-10 07:41] VITALS: BP 131/78
[2017-03-10 07:47] LABS: INR 1.3 (0.9-1.1)
[2017-03-10] MEDS: Docusate 100mg cap ORAL SCH ×3 (08:27→17:07)
[2017-03-10] MEDS: Thiamine 100mg tab ORAL SCH (08:28)
[2017-03-10] MEDS: Enoxaparin Sodium 300mg/3ml vial SUBQ SCH ×2 (08:33→21:41)
[2017-03-10] MEDS: Vitamin A&D Oint 2oz Tube TOPIC SCH ×2 (08:34→21:42)
--- NOTE | 2017-03-10 11:14 | GI Progress Note ---
Assessment/Plan Problems: (1) Hypoalbuminemia ICD Codes: E88.09 - Other disorders of plasma-protein metabolism, not elsewhere classified SNOMED: 989103445 (2) Anemia ICD Codes: D64.9 - Anemia, unspecified SNOMED: 379008707 (3) Elevated CEA ICD Codes: R97.0 - Elevated carcinoembryonic antigen [CEA] SNOMED: 42226349, 288833014 Status: stable Status Narrative Discussed with Dr. Pressley. Assessment/Plan elevated CEA OB stool r/o GI bleed >> negative stable H&H prn transfusions PPI bowel regime fu labs outpatient colonoscopy Subjective Gastrointestinal/Abdominal: Reports: no symptoms Objective Last 24 Hour Vital Signs Date Time Temp Pulse Resp B/P Pulse Ox O2 Delivery O2 Flow Rate FiO2 03/10/17 07:41 96.8 73 18 131/78 96 Room Air 03/10/17 04:00 98.4 99 18 124/64 99 Room Air 03/10/17 00:00 97.9 98 19 114/63 97 Room Air 03/09/17 20:00 98.2 96 18 118/65 96 Room Air 03/09/17 16:00 98.8 90 18 128/71 98 Room Air 03/09/17 11:38 97.4 91 18 118/59 99 Room Air Intake and Output 03/09/17 03/10/17 19:00 07:00 Intake Total 600 ml 240 ml Output Total 400 ml Balance 200 ml 240 ml Intake Oral 600 ml 240 ml Output Urine Total 400 ml # Voids 3 3 Laboratory Tests Test 03/10/17 06:10 Prothrombin Time 14.0 SEC (9.30-11.50) H Prothromb Time International Ratio 1.3 (0.9-1.1) H Height (Feet): 5 Height (Inches): 10.00 Weight (Pounds): 150 General Appearance: no apparent distress, alert Cardiovascular: normal rate Respiratory/Chest: normal breath sounds, no respiratory distress Abdominal Exam: normal bowel sounds, non tender, soft Mag Esteban N.PMarlene Mar 10, 2017 11:14
[2017-03-10 12:30] VITALS: BP 140/79
[2017-03-10 16:30] VITALS: BP 140/79
[2017-03-10] MEDS ORDERED: Warfarin Sodium 3mg ORAL SCH (17:00)
--- NOTE | 2017-03-10 18:43 | General Progress Note ---
Assessment/Plan Assessment/Plan #. Anemia secondary to chronic disease, ferritin is elevated and tibc is low --> hgb goal above 7, continue to closely monitor --> OB stool neg #Elevated CEA --> colonoscopy as outpatient #. Anemia secondary to orthopedic procedure. #. DVT of right superficial femoral vein of the right lower extremity is on coumadin/lovenox --> continue to monitor INR --> INR goal 2-3 #. Uricemia. Uric acid elevated at 10.2. #. Hypocalcemia. #. Leukocytosis secondary to reactive process from anemia #. Right hip fracture, to be seen by Orthopedic Surgery. Subjective Constitutional: Reports: no symptoms HEENT: Reports: no symptoms Cardiovascular: Reports: no symptoms Respiratory: Reports: no symptoms Gastrointestinal/Abdominal: Reports: no symptoms Genitourinary: Reports: no symptoms Neurologic/Psychiatric: Reports: no symptoms Endocrine: Reports: no symptoms Hematologic/Lymphatic: Reports: anemia Allergies: Coded Allergies: No Known Allergies (Unverified , 02/27/17) Subjective nad Objective Last 24 Hour Vital Signs Date Time Temp Pulse Resp B/P Pulse Ox O2 Delivery O2 Flow Rate FiO2 03/10/17 16:30 100.4 83 18 140/79 97 Room Air 03/10/17 12:30 98.1 83 18 140/79 97 Room Air 03/10/17 07:41 96.8 73 18 131/78 96 Room Air 03/10/17 04:00 98.4 99 18 124/64 99 Room Air 03/10/17 00:00 97.9 98 19 114/63 97 Room Air 03/09/17 20:00 98.2 96 18 118/65 96 Room Air Intake and Output 03/09/17 03/10/17 19:00 07:00 Intake Total 600 ml 240 ml Output Total 400 ml Balance 200 ml 240 ml Intake Oral 600 ml 240 ml Output Urine Total 400 ml # Voids 3 3 Laboratory Tests 03/10/17 06:10: Prothrombin Time 14.0H, Prothromb Time International Ratio 1.3H Height (Feet): 5 Height (Inches): 10.00 Weight (Pounds): 150 General Appearance: no apparent distress EENT: normal ENT inspection Neck: non-tender Cardiovascular: normal peripheral pulses Abdomen: non tender Edema: no edema noted Pedal (L), no edema noted Pedal (R) Edema: trace edema Kleynberg,Leandro L. Mar 10, 2017 18:43
--- NOTE | 2017-03-10 19:36 | Pulmonology Progress Note ---
Assessment/Plan Problems: (1) Fracture of femoral neck, right (2) DVT (deep venous thrombosis) (3) Renal insufficiency (4) Anemia Assessment/Plan no new changes check INR, on coumadin by pharmacy. pt/ot f/u labs tolerating diet dc planning awaiting placement d/w Dr. Yanez, pt is not competent to make any decisions Subjective ROS Limited/Unobtainable: No Allergies: Coded Allergies: No Known Allergies (Unverified , 02/27/17) Objective Last 24 Hour Vital Signs Date Time Temp Pulse Resp B/P Pulse Ox O2 Delivery O2 Flow Rate FiO2 03/10/17 16:30 100.4 83 18 140/79 97 Room Air 03/10/17 12:30 98.1 83 18 140/79 97 Room Air 03/10/17 07:41 96.8 73 18 131/78 96 Room Air 03/10/17 04:00 98.4 99 18 124/64 99 Room Air 03/10/17 00:00 97.9 98 19 114/63 97 Room Air 03/09/17 20:00 98.2 96 18 118/65 96 Room Air Intake and Output 03/09/17 03/10/17 19:00 07:00 Intake Total 600 ml 240 ml Output Total 400 ml Balance 200 ml 240 ml Intake Oral 600 ml 240 ml Output Urine Total 400 ml # Voids 3 3 General Appearance: cachetic HEENT: normocephalic, atraumatic Respiratory/Chest: chest wall non-tender, lungs clear Cardiovascular: normal peripheral pulses, normal rate Abdomen: normal bowel sounds, no organomegaly Genitourinary: normal external genitalia Extremities: no cyanosis Laboratory Tests 03/10/17 06:10: Prothrombin Time 14.0H, Prothromb Time International Ratio 1.3H Current Medications Medications (Trade) Dose Ordered Sig/Bautista Route PRN Reason Start Time Stop Time Status Last Admin Dose Admin Acetaminophen (Tylenol) 650 mg Q4H PRN ORAL fever>100.5 02/28/17 08:00 03/30/17 07:59 Acetaminophen/ Hydrocodone Bitart ([place]den 5/325) 1 tab Q4H PRN ORAL Severe Pain (Pain Scale 7-10) 03/05/17 09:45 03/12/17 09:44 Clonidine HCl (Catapres) 0.1 mg Q6H PRN ORAL SBP>160 03/03/17 10:00 04/02/17 09:59 Dextrose (Dextrose 50%) STAT PRN IV Hypoglycemia 02/28/17 08:00 03/30/17 07:59 Docusate Sodium (Colace) 100 mg THREE TIMES A DAY ORAL 03/01/17 13:00 03/31/17 12:59 03/10/17 17:07 Enoxaparin Sodium (Lovenox) 70 mg EVERY 12 HOURS SUBQ 03/03/17 11:30 04/02/17 11:29 03/10/17 08:33 Ergocalciferol (Drisdol) 50,000 intlu QWEEK ORAL 03/01/17 14:00 03/31/17 13:59 03/08/17 12:24 Folic Acid (Folate) 2 mg DAILY ORAL 03/01/17 12:30 03/31/17 12:29 03/10/17 08:28 Insulin Aspart (NovoLOG) BEFORE MEALS AND HS SUBQ 03/06/17 21:00 04/05/17 20:59 03/10/17 17:01 Lorazepam (Ativan 2mg/ml 1ml) 0.5 mg Q4H PRN IV For Anxiety 03/05/17 08:00 03/12/17 07:59 Ondansetron HCl (Zofran) 4 mg Q6H PRN IVP Nausea & Vomiting 02/28/17 16:00 03/30/17 15:59 Pantoprazole (Protonix) 40 mg EVERY 12 HOURS ORAL 03/01/17 12:30 03/31/17 12:29 03/10/17 08:28 Polyethylene Glycol (Miralax) 17 gm HSPRN PRN ORAL Constipation 02/28/17 21:00 03/30/17 20:59 Thiamine HCl (Vitamin B1) 100 mg DAILY ORAL 03/01/17 12:30 03/31/17 12:29 03/10/17 08:28 Vitamin A/Vitamin D (A & D Oint) 1 applic EVERY 12 HOURS TOPIC 03/08/17 21:00 04/07/17 20:59 03/10/17 08:34 Warfarin Sodium (Coumadin per pharmacy) 1 ea DAILY PRN MISC Per rx protocol 03/04/17 07:45 04/03/17 07:44 Zolpidem Tartrate (Ambien) 5 mg HSPRN PRN ORAL Insomnia 02/28/17 21:00 03/30/17 20:59 03/09/17 20:50 GURWINDER YI Mar 10, 2017 19:36
[2017-03-10 20:00] VITALS: BP 121/68
[2017-03-10] MEDS: Zolpidem 5mg tab ORAL PRN (21:39)
[2017-03-11] VITALS: BP 120/62
[2017-03-11 04:00] VITALS: BP 117/65
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
[2017-03-11] MEDS: NovoLOG Insulin Flexpen SUBQ SCH ×4 (06:41→20:41)
[2017-03-11 07:56] VITALS: BP 129/77
[2017-03-11] MEDS: Thiamine 100mg tab ORAL SCH (08:30)
[2017-03-11] MEDS: Docusate 100mg cap ORAL SCH ×3 (08:30→17:11)
[2017-03-11] MEDS: Enoxaparin Sodium 300mg/3ml vial SUBQ SCH ×2 (08:33→20:42)
[2017-03-11] MEDS: Vitamin A&D Oint 2oz Tube TOPIC SCH ×2 (08:34→20:43)
[2017-03-11 10:30] LABS: BASOPHILS % (AUTO) 0.9 % (0.0-2.0); EOSINOPHILS % (AUTO) 0.7 % (0.0-3.0); LYMPHOCYTES % (AUTO) 21.4 % (20.0-45.0); MEAN CORPUSCULAR HEMOGLOBIN 29.3 PG (27.0-31.0); MEAN CORPUSCULAR HGB CONC 30.7 G/DL (32.0-36.0); MEAN CORPUSCULAR VOLUME 95 FL (80-99); MEAN PLATELET VOLUME 5.3 FL (6.5-10.1); MONOCYTES % (AUTO) 6.3 % (1.0-10.0); NEUTROPHILS % (AUTO) 70.6 % (45.0-75.0); PLATELET COUNT 382 K/UL (150-450); RED BLOOD COUNT 2.78 M/UL (4.70-6.10); RED CELL DISTRIBUTION WIDTH 15.6 % (11.6-14.8); WHITE BLOOD COUNT 7.3 K/UL (4.8-10.8)
[2017-03-11 10:57] LABS: ANION GAP 10 (5-15); CALCIUM 7.9 mg/dL (8.6-10.2); CARBON DIOXIDE 27 mEQ/L (20-30); CHLORIDE 99 mEQ/L (98-107); CREATININE 0.9 mg/dL (0.7-1.2); GLOMERULAR FILTRATION RATE > 60 mL/min (>60); HEMOLYSIS 1; POTASSIUM 4.5 mEQ/L (3.4-4.9); SODIUM 136 mEQ/L (135-145)
[2017-03-11 11:00] LABS: INR 1.6 (0.9-1.1); PROTHROMBIN TIME 16.7 SEC (9.30-11.50)
[2017-03-11 12:04] VITALS: BP 128/81
--- NOTE | 2017-03-11 13:46 | Pulmonology Progress Note ---
Assessment/Plan Problems: (1) Fracture of femoral neck, right (2) DVT (deep venous thrombosis) (3) Renal insufficiency (4) Anemia Assessment/Plan no new changes check INR, on coumadin by pharmacy. pt/ot f/u labs tolerating diet dc planning awaiting placement pt is not competent to make any decisions Subjective ROS Limited/Unobtainable: No Constitutional: Reports: no symptoms HEENT: Repors: no symptoms Respiratory: Reports: no symptoms Cardiovascular: Reports: no symptoms Gastrointestinal/Abdominal: Reports: no symptoms Allergies: Coded Allergies: No Known Allergies (Unverified , 02/27/17) Objective Last 24 Hour Vital Signs Date Time Temp Pulse Resp B/P Pulse Ox O2 Delivery O2 Flow Rate FiO2 03/11/17 12:04 98.2 74 20 128/81 98 Room Air 03/11/17 07:56 97.7 81 18 129/77 97 Room Air 03/11/17 04:00 98.1 87 16 117/65 95 Room Air 03/11/17 00:00 97.7 76 16 120/62 96 Room Air 03/10/17 20:00 98.2 80 18 121/68 98 Room Air 03/10/17 16:30 100.4 83 18 140/79 97 Room Air Intake and Output 03/10/17 03/11/17 19:00 07:00 Intake Total 850 ml 240 ml Output Total 850 ml Balance 0 ml 240 ml Intake Oral 850 ml 240 ml Output Urine Total 850 ml # Voids 3 4 # Bowel Movements 3 2 General Appearance: cachetic HEENT: normocephalic, atraumatic Respiratory/Chest: chest wall non-tender, lungs clear Cardiovascular: normal peripheral pulses, normal rate Abdomen: normal bowel sounds, soft, non tender, no organomegaly Genitourinary: normal external genitalia Extremities: no cyanosis Laboratory Tests 03/11/17 10:05: White Blood Count 7.3, Red Blood Count 2.78L, Hemoglobin 8.1L, Hematocrit 26.5L , Mean Corpuscular Volume 95, Mean Corpuscular Hemoglobin 29.3, Mean Corpuscular Hemoglobin Concent 30.7L, Red Cell Distribution Width 15.6H, Platelet Count 382, Mean Platelet Volume 5.3L, Neutrophils (%) (Auto) 70.6, Lymphocytes (%) (Auto) 21.4, Monocytes (%) (Auto) 6.3, Eosinophils (%) (Auto) 0.7, Basophils (%) (Auto) 0.9, Prothrombin Time 16.7H, Prothromb Time International Ratio 1.6H, Sodium Level 136, Potassium Level 4.5, Chloride Level 99, Carbon Dioxide Level 27, Anion Gap 10, Blood Urea Nitrogen 22, Creatinine 0.9, Estimat Glomerular Filtration Rate > 60, Glucose Level 160H, Calcium Level 7.9L Current Medications Medications (Trade) Dose Ordered Sig/Bautista Route PRN Reason Start Time Stop Time Status Last Admin Dose Admin Acetaminophen (Tylenol) 650 mg Q4H PRN ORAL fever>100.5 02/28/17 08:00 03/30/17 07:59 Acetaminophen/ Hydrocodone Bitart (Bern 5/325) 1 tab Q4H PRN ORAL Severe Pain (Pain Scale 7-10) 03/05/17 09:45 03/12/17 09:44 Clonidine HCl (Catapres) 0.1 mg Q6H PRN ORAL SBP>160 03/03/17 10:00 04/02/17 09:59 Dextrose (Dextrose 50%) STAT PRN IV Hypoglycemia 02/28/17 08:00 03/30/17 07:59 Docusate Sodium (Colace) 100 mg THREE TIMES A DAY ORAL 03/01/17 13:00 03/31/17 12:59 03/11/17 12:49 Enoxaparin Sodium (Lovenox) 70 mg EVERY 12 HOURS SUBQ 03/03/17 11:30 04/02/17 11:29 03/11/17 08:33 Ergocalciferol (Drisdol) 50,000 intlu QWEEK ORAL 03/01/17 14:00 03/31/17 13:59 03/08/17 12:24 Folic Acid (Folate) 2 mg DAILY ORAL 03/01/17 12:30 03/31/17 12:29 03/11/17 08:30 Insulin Aspart (NovoLOG) BEFORE MEALS AND HS SUBQ 03/06/17 21:00 04/05/17 20:59 03/11/17 12:05 Lorazepam (Ativan 2mg/ml 1ml) 0.5 mg Q4H PRN IV For Anxiety 03/05/17 08:00 03/12/17 07:59 Ondansetron HCl (Zofran) 4 mg Q6H PRN IVP Nausea & Vomiting 02/28/17 16:00 03/30/17 15:59 Pantoprazole (Protonix) 40 mg EVERY 12 HOURS ORAL 03/01/17 12:30 03/31/17 12:29 03/11/17 08:30 Polyethylene Glycol (Miralax) 17 gm HSPRN PRN ORAL Constipation 02/28/17 21:00 03/30/17 20:59 Thiamine HCl (Vitamin B1) 100 mg DAILY ORAL 03/01/17 12:30 03/31/17 12:29 03/11/17 08:30 Vitamin A/Vitamin D (A & D Oint) 1 applic EVERY 12 HOURS TOPIC 03/08/17 21:00 04/07/17 20:59 03/11/17 08:34 Warfarin Sodium (Coumadin per pharmacy) 1 ea DAILY PRN MISC Per rx protocol 03/04/17 07:45 04/03/17 07:44 Warfarin Sodium (Coumadin) 6 mg COUMADIN ONCE ORAL 03/11/17 17:00 03/11/17 17:01 Zolpidem Tartrate (Ambien) 5 mg HSPRN PRN ORAL Insomnia 02/28/17 21:00 03/30/17 20:59 03/10/17 21:39 GURWINDER YI Mar 11, 2017 13:46
[2017-03-11 16:00] VITALS: BP 130/71
[2017-03-11] MEDS ORDERED: Warfarin Sodium 3mg ORAL ONE (17:00)
--- NOTE | 2017-03-11 18:27 | General Progress Note ---
Assessment/Plan Status: stable Assessment/Plan MDD, DD, the pt lacks capacity to make decisions. social work services are involved and have called apt/adult protective services -lexapro 10mg qam Subjective Constitutional: Reports: malaise, weakness Neurologic/Psychiatric: Reports: depressed, emotional problems Allergies: Coded Allergies: No Known Allergies (Unverified , 02/27/17) Objective Last 24 Hour Vital Signs Date Time Temp Pulse Resp B/P Pulse Ox O2 Delivery O2 Flow Rate FiO2 03/11/17 16:00 98.1 78 20 130/71 99 Room Air 03/11/17 12:04 98.2 74 20 128/81 98 Room Air 03/11/17 07:56 97.7 81 18 129/77 97 Room Air 03/11/17 04:00 98.1 87 16 117/65 95 Room Air 03/11/17 00:00 97.7 76 16 120/62 96 Room Air 03/10/17 20:00 98.2 80 18 121/68 98 Room Air Intake and Output 03/10/17 03/11/17 19:00 07:00 Intake Total 850 ml 240 ml Output Total 850 ml Balance 0 ml 240 ml Intake Oral 850 ml 240 ml Output Urine Total 850 ml # Voids 3 4 # Bowel Movements 3 2 Laboratory Tests 03/11/17 10:05: White Blood Count 7.3, Red Blood Count 2.78L, Hemoglobin 8.1L, Hematocrit 26.5L , Mean Corpuscular Volume 95, Mean Corpuscular Hemoglobin 29.3, Mean Corpuscular Hemoglobin Concent 30.7L, Red Cell Distribution Width 15.6H, Platelet Count 382, Mean Platelet Volume 5.3L, Neutrophils (%) (Auto) 70.6, Lymphocytes (%) (Auto) 21.4, Monocytes (%) (Auto) 6.3, Eosinophils (%) (Auto) 0.7, Basophils (%) (Auto) 0.9, Prothrombin Time 16.7H, Prothromb Time International Ratio 1.6H, Sodium Level 136, Potassium Level 4.5, Chloride Level 99, Carbon Dioxide Level 27, Anion Gap 10, Blood Urea Nitrogen 22, Creatinine 0.9, Estimat Glomerular Filtration Rate > 60, Glucose Level 160H, Calcium Level 7.9L Height (Feet): 5 Height (Inches): 10.00 Weight (Pounds): 150 General Appearance: no apparent distress, alert, thin Neurologic: alert, oriented x 3, responsive, depressed affect Diana Yanez M.D. Mar 11, 2017 18:27
[2017-03-11 20:00] VITALS: BP 129/78
[2017-03-11] MEDS: Zolpidem 5mg tab ORAL PRN (20:36)
[2017-03-11] MEDS ORDERED: NS 550ML IV ONE (20:53)
[2017-03-12] VITALS: BP 122/71
[2017-03-12 04:00] VITALS: BP 133/78
[2017-03-12] MEDS: NovoLOG Insulin Flexpen SUBQ SCH ×4 (05:46→21:00)
[2017-03-12 07:50] LABS: INR 1.6 (0.9-1.1); PROTHROMBIN TIME 16.5 SEC (9.30-11.50)
[2017-03-12 08:10] VITALS: BP 123/67
[2017-03-12] MEDS: Thiamine 100mg tab ORAL SCH (08:30)
[2017-03-12] MEDS: Docusate 100mg cap ORAL SCH ×3 (08:30→17:24)
[2017-03-12] MEDS: Vitamin A&D Oint 2oz Tube TOPIC SCH ×2 (08:31→21:00)
[2017-03-12] MEDS: Enoxaparin Sodium 300mg/3ml vial SUBQ SCH ×2 (08:31→22:11)
--- NOTE | 2017-03-12 09:10 | General Progress Note ---
Assessment/Plan Assessment/Plan (1) Right hip fracture (2) Right hip pain (3) S/p naun arthroplasty Pt will be continued on Lynn D/w Dr. Loyd and he concurred. Subjective Date patient seen: Mar 12, 2017 Time patient seen: 08:00 - am Allergies: Coded Allergies: No Known Allergies (Unverified , 02/27/17) Subjective REVIEW OF SYSTEMS: Denies rash, fever, chills, sweating, dizziness, drowsiness, blurred vision, sore throat, or change in weight. No shortness of breath, chest pain, palpitations, or cough. No nausea, vomiting, diarrhea, or blood in the stool or urine. No bowel or bladder incontinence. No dysuria. SUBJECTIVE: Patient is laying in bed no signs of pain or distress. He reports no pain and uses the Lynn as needed. Objective Last 24 Hour Vital Signs Date Time Temp Pulse Resp B/P Pulse Ox O2 Delivery O2 Flow Rate FiO2 03/12/17 08:10 97.3 76 18 123/67 76 Room Air 03/12/17 04:00 97.9 76 18 133/78 76 Room Air 03/12/17 00:00 97.9 79 18 122/71 97 Room Air 03/11/17 20:00 98.3 89 19 129/78 98 Room Air 03/11/17 16:00 98.1 78 20 130/71 99 Room Air 03/11/17 12:04 98.2 74 20 128/81 98 Room Air Intake and Output 03/11/17 03/12/17 19:00 07:00 Intake Total 1100 ml 120 ml Output Total 750 ml 500 ml Balance 350 ml -380 ml Intake Oral 1100 ml 120 ml Output Urine Total 750 ml 500 ml # Voids 3 # Bowel Movements 1 Laboratory Tests 03/11/17 10:05: White Blood Count 7.3, Red Blood Count 2.78L, Hemoglobin 8.1L, Hematocrit 26.5L , Mean Corpuscular Volume 95, Mean Corpuscular Hemoglobin 29.3, Mean Corpuscular Hemoglobin Concent 30.7L, Red Cell Distribution Width 15.6H, Platelet Count 382, Mean Platelet Volume 5.3L, Neutrophils (%) (Auto) 70.6, Lymphocytes (%) (Auto) 21.4, Monocytes (%) (Auto) 6.3, Eosinophils (%) (Auto) 0.7, Basophils (%) (Auto) 0.9, Prothrombin Time 16.7H, Prothromb Time International Ratio 1.6H, Sodium Level 136, Potassium Level 4.5, Chloride Level 99, Carbon Dioxide Level 27, Anion Gap 10, Blood Urea Nitrogen 22, Creatinine 0.9, Estimat Glomerular Filtration Rate > 60, Glucose Level 160H, Calcium Level 7.9L 03/12/17 06:55: Prothrombin Time 16.5H, Prothromb Time International Ratio 1.6H Height (Feet): 5 Height (Inches): 10.00 Weight (Pounds): 150 Objective GENERAL: Alert, awake, and oriented. HEENT: Pupils are equally round and reactive to light and accommodation. NECK: Range of motion is full in all directions. No tenderness to paracervical muscles. No adenopathy. LUNGS: Lungs are clear. HEART: S1 and S2 are regular. ABDOMEN: Benign. BACK: Range of motion is full on flexion and extension. No tenderness to paraspinal muscles, trapezius, or rhomboid muscles. EXTREMITIES: No cyanosis. No clubbing. No edema. NEURO: No changes. HIEN LAMAR Mar 12, 2017 09:10
[2017-03-12] MEDS ORDERED: Norco 5mg/325mg tab ORAL PRN (10:00)
--- NOTE | 2017-03-12 11:19 | General Progress Note ---
Assessment/Plan Assessment/Plan #. Anemia secondary to chronic disease, ferritin is elevated and tibc is low --> hgb goal above 7, continue to closely monitor. remains stable --> transfuse prn --> OB stool neg #Elevated CEA --> colonoscopy as outpatient #. Anemia secondary to orthopedic procedure. #. DVT of right superficial femoral vein of the right lower extremity is on coumadin/lovenox --> continue to monitor INR --> INR goal 2-3 #. Uricemia. Uric acid elevated at 10.2. #. Hypocalcemia. #. Leukocytosis secondary to reactive process from anemia #. Right hip fracture, to be seen by Orthopedic Surgery --> pt complaining of hip pain today Subjective Date patient seen: Mar 11, 2017 Constitutional: Reports: no symptoms HEENT: Reports: no symptoms Cardiovascular: Reports: no symptoms Respiratory: Reports: no symptoms Gastrointestinal/Abdominal: Reports: no symptoms Genitourinary: Reports: no symptoms Neurologic/Psychiatric: Reports: no symptoms Endocrine: Reports: no symptoms Hematologic/Lymphatic: Reports: anemia Allergies: Coded Allergies: No Known Allergies (Unverified , 02/27/17) Subjective no events overnight, patient in bed, appears comfortable Objective Last 24 Hour Vital Signs Date Time Temp Pulse Resp B/P Pulse Ox O2 Delivery O2 Flow Rate FiO2 03/12/17 08:10 97.3 76 18 123/67 76 Room Air 03/12/17 04:00 97.9 76 18 133/78 76 Room Air 03/12/17 00:00 97.9 79 18 122/71 97 Room Air 03/11/17 20:00 98.3 89 19 129/78 98 Room Air 03/11/17 16:00 98.1 78 20 130/71 99 Room Air 03/11/17 12:04 98.2 74 20 128/81 98 Room Air Intake and Output 03/11/17 03/12/17 19:00 07:00 Intake Total 1100 ml 120 ml Output Total 750 ml 500 ml Balance 350 ml -380 ml Intake Oral 1100 ml 120 ml Output Urine Total 750 ml 500 ml # Voids 3 # Bowel Movements 1 Laboratory Tests 03/12/17 06:55: Prothrombin Time 16.5H, Prothromb Time International Ratio 1.6H Height (Feet): 5 Height (Inches): 10.00 Weight (Pounds): 150 General Appearance: no apparent distress EENT: PERRL/EOMI Neck: supple Cardiovascular: regular rhythm Respiratory/Chest: chest wall non-tender Abdomen: normal bowel sounds Edema: no edema noted Pedal (L), no edema noted Pedal (R) 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
[2017-03-12 12:00] VITALS: BP 143/85
--- NOTE | 2017-03-12 13:58 | Pulmonology Progress Note ---
Assessment/Plan Problems: (1) Fracture of femoral neck, right (2) DVT (deep venous thrombosis) (3) Renal insufficiency (4) Anemia Assessment/Plan no new changes check INR, on coumadin by pharmacy. pt/ot f/u labs tolerating diet dc planning awaiting placement pt is not competent to make any decisions Subjective ROS Limited/Unobtainable: No Constitutional: Reports: no symptoms HEENT: Repors: no symptoms Allergies: Coded Allergies: No Known Allergies (Unverified , 02/27/17) Objective Last 24 Hour Vital Signs Date Time Temp Pulse Resp B/P Pulse Ox O2 Delivery O2 Flow Rate FiO2 03/12/17 12:00 97.9 81 18 143/85 99 Room Air 03/12/17 08:10 97.3 76 18 123/67 76 Room Air 03/12/17 04:00 97.9 76 18 133/78 76 Room Air 03/12/17 00:00 97.9 79 18 122/71 97 Room Air 03/11/17 20:00 98.3 89 19 129/78 98 Room Air 03/11/17 16:00 98.1 78 20 130/71 99 Room Air Intake and Output 03/11/17 03/12/17 19:00 07:00 Intake Total 1100 ml 120 ml Output Total 750 ml 500 ml Balance 350 ml -380 ml Intake Oral 1100 ml 120 ml Output Urine Total 750 ml 500 ml # Voids 3 # Bowel Movements 1 General Appearance: cachetic HEENT: normocephalic, atraumatic Respiratory/Chest: chest wall non-tender, lungs clear Cardiovascular: normal peripheral pulses, normal rate Abdomen: normal bowel sounds Genitourinary: normal external genitalia Skin: no rash 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 normal Laboratory Tests 03/12/17 06:55: Prothrombin Time 16.5H, Prothromb Time International Ratio 1.6H Current Medications Medications (Trade) Dose Ordered Sig/Bautista Route PRN Reason Start Time Stop Time Status Last Admin Dose Admin Acetaminophen (Tylenol) 650 mg Q4H PRN ORAL fever>100.5 02/28/17 08:00 03/30/17 07:59 Acetaminophen/ Hydrocodone Bitart (Ada 5/325) 1 tab Q4H PRN ORAL Severe Pain (Pain Scale 7-10) 03/12/17 10:00 03/19/17 09:59 Clonidine HCl (Catapres) 0.1 mg Q6H PRN ORAL SBP>160 03/03/17 10:00 04/02/17 09:59 Dextrose (Dextrose 50%) STAT PRN IV Hypoglycemia 02/28/17 08:00 03/30/17 07:59 Docusate Sodium (Colace) 100 mg THREE TIMES A DAY ORAL 03/01/17 13:00 03/31/17 12:59 03/12/17 12:30 Enoxaparin Sodium (Lovenox) 70 mg EVERY 12 HOURS SUBQ 03/03/17 11:30 04/02/17 11:29 03/12/17 08:31 Ergocalciferol (Drisdol) 50,000 intlu QWEEK ORAL 03/01/17 14:00 03/31/17 13:59 03/08/17 12:24 Escitalopram Oxalate (Lexapro) 10 mg DAILY ORAL 03/12/17 09:00 04/11/17 08:59 03/12/17 08:30 Folic Acid (Folate) 2 mg DAILY ORAL 03/01/17 12:30 03/31/17 12:29 03/12/17 08:30 Insulin Aspart (NovoLOG) BEFORE MEALS AND HS SUBQ 03/06/17 21:00 04/05/17 20:59 03/12/17 11:48 Ondansetron HCl (Zofran) 4 mg Q6H PRN IVP Nausea & Vomiting 02/28/17 16:00 03/30/17 15:59 Pantoprazole (Protonix) 40 mg EVERY 12 HOURS ORAL 03/01/17 12:30 03/31/17 12:29 03/12/17 08:30 Polyethylene Glycol (Miralax) 17 gm HSPRN PRN ORAL Constipation 02/28/17 21:00 03/30/17 20:59 Thiamine HCl (Vitamin B1) 100 mg DAILY ORAL 03/01/17 12:30 03/31/17 12:29 03/12/17 08:30 Vitamin A/Vitamin D (A & D Oint) 1 applic EVERY 12 HOURS TOPIC 03/08/17 21:00 04/07/17 20:59 03/12/17 08:31 Warfarin Sodium (Coumadin per pharmacy) 1 ea DAILY PRN MISC Per rx protocol 03/04/17 07:45 04/03/17 07:44 Warfarin Sodium (Coumadin) 7.5 mg COUMADIN ONCE ORAL 03/12/17 17:00 03/12/17 17:01 Zolpidem Tartrate (Ambien) 5 mg HSPRN PRN ORAL Insomnia 02/28/17 21:00 03/30/17 20:59 03/11/17 20:36 GURWINDER YI Mar 12, 2017 13:58
[2017-03-12 16:00] VITALS: BP 141/84
[2017-03-12] MEDS ORDERED: Warfarin Sodium 7.5mg ORAL ONE (17:00)
[2017-03-12 20:00] VITALS: BP 132/71
--- NOTE | 2017-03-12 20:00 | General Progress Note ---
Assessment/Plan Assessment/Plan #. Anemia secondary to chronic disease, ferritin is elevated and tibc is low --> hgb goal above 7, continue to closely monitor. remains stable --> transfuse prn --> OB stool neg #Elevated CEA --> colonoscopy as outpatient #. Anemia secondary to orthopedic procedure. #. DVT of right superficial femoral vein of the right lower extremity is on coumadin/lovenox --> continue to monitor INR --> INR goal 2-3 #. Uricemia. Uric acid elevated at 10.2. #. Hypocalcemia. #. Leukocytosis secondary to reactive process from anemia #. Right hip fracture, to be seen by Orthopedic Surgery --> pt complaining of hip pain today Subjective Constitutional: Reports: no symptoms HEENT: Reports: no symptoms Cardiovascular: Reports: no symptoms Respiratory: Reports: no symptoms Gastrointestinal/Abdominal: Reports: no symptoms Genitourinary: Reports: no symptoms Neurologic/Psychiatric: Reports: no symptoms Endocrine: Reports: no symptoms Hematologic/Lymphatic: Reports: anemia Allergies: Coded Allergies: No Known Allergies (Unverified , 02/27/17) Subjective no events Objective Last 24 Hour Vital Signs Date Time Temp Pulse Resp B/P Pulse Ox O2 Delivery O2 Flow Rate FiO2 03/12/17 16:00 96.2 77 20 141/84 97 Room Air 03/12/17 12:00 97.9 81 18 143/85 99 Room Air 03/12/17 08:10 97.3 76 18 123/67 76 Room Air 03/12/17 04:00 97.9 76 18 133/78 76 Room Air 03/12/17 00:00 97.9 79 18 122/71 97 Room Air 03/11/17 20:00 98.3 89 19 129/78 98 Room Air Intake and Output 03/11/17 03/12/17 19:00 07:00 Intake Total 1100 ml 120 ml Output Total 750 ml 500 ml Balance 350 ml -380 ml Intake Oral 1100 ml 120 ml Output Urine Total 750 ml 500 ml # Voids 3 # Bowel Movements 1 Laboratory Tests 03/12/17 06:55: Prothrombin Time 16.5H, Prothromb Time International Ratio 1.6H Height (Feet): 5 Height (Inches): 10.00 Weight (Pounds): 150 General Appearance: no apparent distress EENT: normal ENT inspection Neck: normal alignment Cardiovascular: normal rate Respiratory/Chest: chest wall non-tender Edema: trace edema Skin: warm/dry Leandro Ceja Mar 12, 2017 20:00
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
[2017-03-12] MEDS: Zolpidem 5mg tab ORAL PRN (22:07)
[2017-03-13] VITALS: BP 130/73
[2017-03-13 04:00] VITALS: BP 136/78
[2017-03-13] MEDS: NovoLOG Insulin Flexpen SUBQ SCH ×4 (06:30→21:23)
[2017-03-13 06:58] LABS: INR 1.8 (0.9-1.1); PROTHROMBIN TIME 19.1 SEC (9.30-11.50)
[2017-03-13 08:00] VITALS: BP 119/62
[2017-03-13] MEDS: Thiamine 100mg tab ORAL SCH (08:28)
[2017-03-13] MEDS: Vitamin A&D Oint 2oz Tube TOPIC SCH ×2 (08:29→21:23)
[2017-03-13] MEDS: Docusate 100mg cap ORAL SCH ×3 (08:29→16:22)
[2017-03-13] MEDS: Enoxaparin Sodium 300mg/3ml vial SUBQ SCH ×2 (08:36→21:22)
--- NOTE | 2017-03-13 11:21 | GI Progress Note ---
Assessment/Plan Problems: (1) Hypoalbuminemia ICD Codes: E88.09 - Other disorders of plasma-protein metabolism, not elsewhere classified SNOMED: 040171180 (2) Anemia ICD Codes: D64.9 - Anemia, unspecified SNOMED: 398481207 (3) Elevated CEA ICD Codes: R97.0 - Elevated carcinoembryonic antigen [CEA] SNOMED: 92937479, 023156974 Status: stable Status Narrative Discussed with Dr. Pressley. Assessment/Plan elevated CEA OB stool r/o GI bleed >> negative stable H&H prn transfusions PPI bowel regime fu labs outpatient colonoscopy Subjective Gastrointestinal/Abdominal: Reports: no symptoms Objective Last 24 Hour Vital Signs Date Time Temp Pulse Resp B/P Pulse Ox O2 Delivery O2 Flow Rate FiO2 03/13/17 08:00 97.2 85 19 119/62 98 Room Air 03/13/17 04:00 97.7 73 18 136/78 98 Room Air 03/13/17 00:00 97.6 74 18 130/73 97 Room Air 03/12/17 20:00 98.2 83 18 132/71 98 Room Air 03/12/17 16:00 96.2 77 20 141/84 97 Room Air 03/12/17 12:00 97.9 81 18 143/85 99 Room Air Intake and Output 03/12/17 03/13/17 19:00 07:00 Intake Total 1100 ml 240 ml Output Total 800 ml Balance 300 ml 240 ml Intake Oral 1100 ml 240 ml Output Urine Total 800 ml # Voids 3 6 # Bowel Movements 2 Laboratory Tests Test 03/13/17 04:55 Prothrombin Time 19.1 SEC (9.30-11.50) H Prothromb Time International Ratio 1.8 (0.9-1.1) H Height (Feet): 5 Height (Inches): 10.00 Weight (Pounds): 150 General Appearance: no apparent distress, alert, thin Cardiovascular: normal rate Respiratory/Chest: normal breath sounds, no respiratory distress Abdominal Exam: normal bowel sounds, non tender, soft Extremities: normal range of motion Mag Esteban N.P. Mar 13, 2017 11:21
[2017-03-13 12:00] VITALS: BP 124/73
--- NOTE | 2017-03-13 14:39 | Pulmonology Progress Note ---
Assessment/Plan Problems: (1) Fracture of femoral neck, right (2) DVT (deep venous thrombosis) (3) Renal insufficiency (4) Anemia Assessment/Plan no new changes pt/ot f/u labs tolerating diet dc planning awaiting placement pt is not competent to make any decisions Subjective ROS Limited/Unobtainable: No Constitutional: Reports: no symptoms HEENT: Repors: no symptoms Allergies: Coded Allergies: No Known Allergies (Unverified , 02/27/17) Objective Last 24 Hour Vital Signs Date Time Temp Pulse Resp B/P Pulse Ox O2 Delivery O2 Flow Rate FiO2 03/13/17 12:00 96.3 80 19 124/73 98 Room Air 03/13/17 08:00 97.2 85 19 119/62 98 Room Air 03/13/17 04:00 97.7 73 18 136/78 98 Room Air 03/13/17 00:00 97.6 74 18 130/73 97 Room Air 03/12/17 20:00 98.2 83 18 132/71 98 Room Air 03/12/17 16:00 96.2 77 20 141/84 97 Room Air Intake and Output 03/12/17 03/13/17 19:00 07:00 Intake Total 1100 ml 240 ml Output Total 800 ml Balance 300 ml 240 ml Intake Oral 1100 ml 240 ml Output Urine Total 800 ml # Voids 3 6 # Bowel Movements 2 General Appearance: WD/WN HEENT: normocephalic, atraumatic Respiratory/Chest: chest wall non-tender, normal breath sounds Cardiovascular: normal peripheral pulses, normal rate Genitourinary: normal external genitalia Extremities: no clubbing Skin: no lesions Laboratory Tests 03/13/17 04:55: Prothrombin Time 19.1H, Prothromb Time International Ratio 1.8H Current Medications Medications (Trade) Dose Ordered Sig/Bautista Route PRN Reason Start Time Stop Time Status Last Admin Dose Admin Acetaminophen (Tylenol) 650 mg Q4H PRN ORAL fever>100.5 02/28/17 08:00 03/30/17 07:59 Acetaminophen/ Hydrocodone Bitart ([place] 5/325) 1 tab Q4H PRN ORAL Severe Pain (Pain Scale 7-10) 03/12/17 10:00 03/19/17 09:59 Clonidine HCl (Catapres) 0.1 mg Q6H PRN ORAL SBP>160 03/03/17 10:00 04/02/17 09:59 Dextrose (Dextrose 50%) STAT PRN IV Hypoglycemia 02/28/17 08:00 03/30/17 07:59 Docusate Sodium (Colace) 100 mg THREE TIMES A DAY ORAL 03/01/17 13:00 03/31/17 12:59 03/13/17 08:29 Enoxaparin Sodium (Lovenox) 70 mg EVERY 12 HOURS SUBQ 03/03/17 11:30 04/02/17 11:29 03/13/17 08:36 Ergocalciferol (Drisdol) 50,000 intlu QWEEK ORAL 03/01/17 14:00 03/31/17 13:59 03/08/17 12:24 Escitalopram Oxalate (Lexapro) 10 mg DAILY ORAL 03/12/17 09:00 04/11/17 08:59 03/13/17 08:29 Folic Acid (Folate) 2 mg DAILY ORAL 03/01/17 12:30 03/31/17 12:29 03/13/17 08:28 Insulin Aspart (NovoLOG) BEFORE MEALS AND HS SUBQ 03/06/17 21:00 04/05/17 20:59 03/13/17 11:25 Ondansetron HCl (Zofran) 4 mg Q6H PRN IVP Nausea & Vomiting 02/28/17 16:00 03/30/17 15:59 Pantoprazole (Protonix) 40 mg EVERY 12 HOURS ORAL 03/01/17 12:30 03/31/17 12:29 03/13/17 08:29 Polyethylene Glycol (Miralax) 17 gm HSPRN PRN ORAL Constipation 02/28/17 21:00 03/30/17 20:59 Thiamine HCl (Vitamin B1) 100 mg DAILY ORAL 03/01/17 12:30 03/31/17 12:29 03/13/17 08:28 Vitamin A/Vitamin D (A & D Oint) 1 applic EVERY 12 HOURS TOPIC 03/08/17 21:00 04/07/17 20:59 03/13/17 08:29 Warfarin Sodium (Coumadin per pharmacy) 1 ea DAILY PRN MISC Per rx protocol 03/04/17 07:45 04/03/17 07:44 Warfarin Sodium (Coumadin) 7.5 mg COUMADIN ONCE ORAL 03/13/17 17:00 03/13/17 17:01 Zolpidem Tartrate (Ambien) 5 mg HSPRN PRN ORAL Insomnia 02/28/17 21:00 03/30/17 20:59 03/12/17 22:07 GURWINDER YI Mar 13, 2017 14:39
--- NOTE | 2017-03-13 14:49 | General Progress Note ---
Assessment/Plan Assessment/Plan #. Anemia secondary to chronic disease, ferritin is elevated and tibc is low --> hgb goal above 7, continue to closely monitor. remains stable --> transfuse prn --> OB stool neg #Elevated CEA --> colonoscopy as outpatient #. Anemia secondary to orthopedic procedure. #. DVT of right superficial femoral vein of the right lower extremity is on coumadin/lovenox --> continue to monitor INR --> INR goal 2-3 #. Uricemia. #. Hypocalcemia. #. Leukocytosis secondary to reactive process from anemia #. Right hip fracture --> has been seen by ortho Subjective Constitutional: Reports: no symptoms HEENT: Reports: no symptoms Cardiovascular: Reports: no symptoms Respiratory: Reports: no symptoms Gastrointestinal/Abdominal: Reports: no symptoms Genitourinary: Reports: no symptoms Neurologic/Psychiatric: Reports: no symptoms Endocrine: Reports: no symptoms Hematologic/Lymphatic: Reports: no symptoms Allergies: Coded Allergies: No Known Allergies (Unverified , 02/27/17) Subjective unchanged Objective Last 24 Hour Vital Signs Date Time Temp Pulse Resp B/P Pulse Ox O2 Delivery O2 Flow Rate FiO2 03/13/17 12:00 96.3 80 19 124/73 98 Room Air 03/13/17 08:00 97.2 85 19 119/62 98 Room Air 03/13/17 04:00 97.7 73 18 136/78 98 Room Air 03/13/17 00:00 97.6 74 18 130/73 97 Room Air 03/12/17 20:00 98.2 83 18 132/71 98 Room Air 03/12/17 16:00 96.2 77 20 141/84 97 Room Air Intake and Output 03/12/17 03/13/17 19:00 07:00 Intake Total 1100 ml 240 ml Output Total 800 ml Balance 300 ml 240 ml Intake Oral 1100 ml 240 ml Output Urine Total 800 ml # Voids 3 6 # Bowel Movements 2 Laboratory Tests 03/13/17 04:55: Prothrombin Time 19.1H, Prothromb Time International Ratio 1.8H Height (Feet): 5 Height (Inches): 10.00 Weight (Pounds): 150 General Appearance: no apparent distress EENT: PERRL/EOMI Neck: normal alignment Cardiovascular: normal rate Respiratory/Chest: chest wall non-tender, no accessory muscle use Abdomen: normal bowel sounds Extremities: non-tender Edema: no edema noted Pedal (L), no edema noted Pedal (R) 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
[2017-03-13 16:00] VITALS: BP 130/67
[2017-03-13] MEDS ORDERED: Warfarin Sodium 7.5mg ORAL ONE (17:00)
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
[2017-03-13 20:00] VITALS: BP 130/71
[2017-03-13] MEDS: Zolpidem 5mg tab ORAL PRN (21:20)
[2017-03-14 00:34] VITALS: BP 122/65
[2017-03-14 04:00] VITALS: BP 126/69
[2017-03-14 05:57] LABS: BASOPHILS % (AUTO) 0.8 % (0.0-2.0); EOSINOPHILS % (AUTO) 1.2 % (0.0-3.0); LYMPHOCYTES % (AUTO) 32.4 % (20.0-45.0); MEAN CORPUSCULAR HEMOGLOBIN 30.6 PG (27.0-31.0); MEAN CORPUSCULAR HGB CONC 31.9 G/DL (32.0-36.0); MEAN CORPUSCULAR VOLUME 96 FL (80-99); MEAN PLATELET VOLUME 5.2 FL (6.5-10.1); MONOCYTES % (AUTO) 5.8 % (1.0-10.0); NEUTROPHILS % (AUTO) 59.8 % (45.0-75.0); PLATELET COUNT 451 K/UL (150-450); RED BLOOD COUNT 2.69 M/UL (4.70-6.10); RED CELL DISTRIBUTION WIDTH 15.6 % (11.6-14.8); WHITE BLOOD COUNT 6.1 K/UL (4.8-10.8)
[2017-03-14 06:25] LABS: ANION GAP 10 (5-15); CALCIUM 8.3 mg/dL (8.6-10.2); CARBON DIOXIDE 28 mEQ/L (20-30); CHLORIDE 100 mEQ/L (98-107); GLOMERULAR FILTRATION RATE > 60 mL/min (>60); HEMOLYSIS 1; POTASSIUM 4.6 mEQ/L (3.4-4.9); SODIUM 138 mEQ/L (135-145)
[2017-03-14] MEDS: NovoLOG Insulin Flexpen SUBQ SCH ×4 (06:30→20:56)
[2017-03-14 06:33] LABS: INR 2.1 (0.9-1.1); PROTHROMBIN TIME 22.4 SEC (9.30-11.50)
[2017-03-14 08:18] VITALS: BP 139/78
[2017-03-14] MEDS: Docusate 100mg cap ORAL SCH ×3 (09:18→17:35)
[2017-03-14] MEDS: Vitamin A&D Oint 2oz Tube TOPIC SCH ×2 (09:18→21:00)
[2017-03-14] MEDS: Thiamine 100mg tab ORAL SCH (09:18)
[2017-03-14] MEDS: Enoxaparin Sodium 300mg/3ml vial SUBQ SCH (09:20)
--- NOTE | 2017-03-14 09:48 | GI Progress Note ---
Assessment/Plan Problems: (1) Hypoalbuminemia ICD Codes: E88.09 - Other disorders of plasma-protein metabolism, not elsewhere classified SNOMED: 619426413 (2) Anemia ICD Codes: D64.9 - Anemia, unspecified SNOMED: 545674877 (3) Elevated CEA ICD Codes: R97.0 - Elevated carcinoembryonic antigen [CEA] SNOMED: 41737300, 720305248 Status: doing well, stable Status Narrative Discussed with Dr. Pressley. Assessment/Plan elevated CEA OB stool r/o GI bleed >> negative stable H&H prn transfusions PPI bowel regime fu labs outpatient colonoscopy Subjective Gastrointestinal/Abdominal: Reports: no symptoms Objective Last 24 Hour Vital Signs Date Time Temp Pulse Resp B/P Pulse Ox O2 Delivery O2 Flow Rate FiO2 03/14/17 08:18 97.3 96 19 139/78 99 Room Air 03/14/17 04:00 97.6 74 20 126/69 98 Room Air 03/14/17 00:34 97.4 77 21 122/65 97 Room Air 03/13/17 20:00 97.2 80 20 130/71 98 Room Air 03/13/17 16:00 95.7 82 18 130/67 96 Room Air 03/13/17 12:00 96.3 80 19 124/73 98 Room Air Intake and Output 03/13/17 03/14/17 19:00 07:00 Intake Total 700 ml 240 ml Balance 700 ml 240 ml Intake Oral 700 ml 240 ml # Voids 4 # Bowel Movements 1 Laboratory Tests Test 03/14/17 05:05 White Blood Count 6.1 K/UL (4.8-10.8) Red Blood Count 2.69 M/UL (4.70-6.10) L Hemoglobin 8.2 G/DL (14.2-18.0) L Hematocrit 25.8 % (42.0-52.0) L Mean Corpuscular Volume 96 FL (80-99) Mean Corpuscular Hemoglobin 30.6 PG (27.0-31.0) Mean Corpuscular Hemoglobin Concent 31.9 G/DL (32.0-36.0) L Red Cell Distribution Width 15.6 % (11.6-14.8) H Platelet Count 451 K/UL (150-450) H Mean Platelet Volume 5.2 FL (6.5-10.1) L Neutrophils (%) (Auto) 59.8 % (45.0-75.0) Lymphocytes (%) (Auto) 32.4 % (20.0-45.0) Monocytes (%) (Auto) 5.8 % (1.0-10.0) Eosinophils (%) (Auto) 1.2 % (0.0-3.0) Basophils (%) (Auto) 0.8 % (0.0-2.0) Prothrombin Time 22.4 SEC (9.30-11.50) H Prothromb Time International Ratio 2.1 (0.9-1.1) H Sodium Level 138 mEQ/L (135-145) Potassium Level 4.6 mEQ/L (3.4-4.9) Chloride Level 100 mEQ/L (98-107) Carbon Dioxide Level 28 mEQ/L (20-30) Anion Gap 10 (5-15) Blood Urea Nitrogen 25 mg/dL (7-23) H Creatinine 1.0 mg/dL (0.7-1.2) Estimat Glomerular Filtration Rate > 60 mL/min (>60) Glucose Level 105 mg/dL (74-106) Calcium Level 8.3 mg/dL (8.6-10.2) L Height (Feet): 5 Height (Inches): 10.00 Weight (Pounds): 150 General Appearance: no apparent distress, alert, thin Cardiovascular: normal rate Respiratory/Chest: normal breath sounds, no respiratory distress Abdominal Exam: normal bowel sounds, non tender Mag Esteban N.P. Mar 14, 2017 09:48
[2017-03-14 11:53] VITALS: BP 137/88
--- NOTE | 2017-03-14 15:46 | General Progress Note ---
Assessment/Plan Assessment/Plan MDD, DD, the pt lacks capacity to make decisions. social work services are involved and have called apt/adult protective services -lexapro 10mg qam -provided ro/st Subjective Allergies: Coded Allergies: No Known Allergies (Unverified , 02/27/17) Subjective cont to be illogical and is very concrete. poor historian. the pt is the same. no behavioral issues Objective Last 24 Hour Vital Signs Date Time Temp Pulse Resp B/P Pulse Ox O2 Delivery O2 Flow Rate FiO2 03/14/17 11:53 97.0 99 20 137/88 100 Room Air 03/14/17 08:18 97.3 96 19 139/78 99 Room Air 03/14/17 04:00 97.6 74 20 126/69 98 Room Air 03/14/17 00:34 97.4 77 21 122/65 97 Room Air 03/13/17 20:00 97.2 80 20 130/71 98 Room Air 03/13/17 16:00 95.7 82 18 130/67 96 Room Air Intake and Output 03/13/17 03/14/17 19:00 07:00 Intake Total 700 ml 240 ml Balance 700 ml 240 ml Intake Oral 700 ml 240 ml # Voids 4 # Bowel Movements 1 Laboratory Tests 03/14/17 05:05: White Blood Count 6.1, Red Blood Count 2.69L, Hemoglobin 8.2L, Hematocrit 25.8L , Mean Corpuscular Volume 96, Mean Corpuscular Hemoglobin 30.6, Mean Corpuscular Hemoglobin Concent 31.9L, Red Cell Distribution Width 15.6H, Platelet Count 451H, Mean Platelet Volume 5.2L, Neutrophils (%) (Auto) 59.8, Lymphocytes (%) (Auto) 32.4, Monocytes (%) (Auto) 5.8, Eosinophils (%) (Auto) 1.2, Basophils (%) (Auto) 0.8, Prothrombin Time 22.4H, Prothromb Time International Ratio 2.1H, Sodium Level 138, Potassium Level 4.6, Chloride Level 100, Carbon Dioxide Level 28, Anion Gap 10, Blood Urea Nitrogen 25H, Creatinine 1.0, Estimat Glomerular Filtration Rate > 60, Glucose Level 105, Calcium Level 8.3L Height (Feet): 5 Height (Inches): 10.00 Weight (Pounds): 150 General Appearance: no apparent distress, alert, thin Neurologic: alert, oriented x 3, responsive, depressed affect Diana Yanez M.D. Mar 14, 2017 15:46
[2017-03-14 15:57] VITALS: BP 141/79
[2017-03-14] MEDS ORDERED: Warfarin Sodium 7.5mg ORAL SCH (17:00)
--- NOTE | 2017-03-14 17:53 | General Progress Note ---
Assessment/Plan Assessment/Plan #. Anemia secondary to chronic disease, ferritin is elevated and tibc is low --> hgb goal above 7, continue to closely monitor. remains stable --> transfuse prn --> OB stool neg #Elevated CEA --> colonoscopy as outpatient #. Anemia secondary to orthopedic procedure. #. DVT of right superficial femoral vein of the right lower extremity is on coumadin --> lovenox has been DC --> continue to monitor INR --> INR goal 2-3 #. Uricemia. #. Hypocalcemia. #. Leukocytosis secondary to reactive process from anemia #. Right hip fracture --> has been seen by ortho Subjective Constitutional: Reports: no symptoms HEENT: Reports: no symptoms Cardiovascular: Reports: no symptoms Respiratory: Reports: no symptoms Gastrointestinal/Abdominal: Reports: no symptoms Genitourinary: Reports: no symptoms Neurologic/Psychiatric: Reports: no symptoms Endocrine: Reports: no symptoms Hematologic/Lymphatic: Reports: anemia Allergies: Coded Allergies: No Known Allergies (Unverified , 02/27/17) Subjective INR goal has been reached Objective Last 24 Hour Vital Signs Date Time Temp Pulse Resp B/P Pulse Ox O2 Delivery O2 Flow Rate FiO2 03/14/17 15:57 97.1 63 21 141/79 100 Room Air 03/14/17 11:53 97.0 99 20 137/88 100 Room Air 03/14/17 08:18 97.3 96 19 139/78 99 Room Air 03/14/17 04:00 97.6 74 20 126/69 98 Room Air 03/14/17 00:34 97.4 77 21 122/65 97 Room Air 03/13/17 20:00 97.2 80 20 130/71 98 Room Air Intake and Output 03/13/17 03/14/17 19:00 07:00 Intake Total 700 ml 240 ml Balance 700 ml 240 ml Intake Oral 700 ml 240 ml # Voids 4 # Bowel Movements 1 Laboratory Tests 03/14/17 05:05: White Blood Count 6.1, Red Blood Count 2.69L, Hemoglobin 8.2L, Hematocrit 25.8L , Mean Corpuscular Volume 96, Mean Corpuscular Hemoglobin 30.6, Mean Corpuscular Hemoglobin Concent 31.9L, Red Cell Distribution Width 15.6H, Platelet Count 451H, Mean Platelet Volume 5.2L, Neutrophils (%) (Auto) 59.8, Lymphocytes (%) (Auto) 32.4, Monocytes (%) (Auto) 5.8, Eosinophils (%) (Auto) 1.2, Basophils (%) (Auto) 0.8, Prothrombin Time 22.4H, Prothromb Time International Ratio 2.1H, Sodium Level 138, Potassium Level 4.6, Chloride Level 100, Carbon Dioxide Level 28, Anion Gap 10, Blood Urea Nitrogen 25H, Creatinine 1.0, Estimat Glomerular Filtration Rate > 60, Glucose Level 105, Calcium Level 8.3L Height (Feet): 5 Height (Inches): 10.00 Weight (Pounds): 150 General Appearance: no apparent distress EENT: normal ENT inspection Neck: supple Cardiovascular: normal rate Respiratory/Chest: lungs clear Abdomen: non tender Extremities: non-tender Edema: no edema noted Pedal (L), no edema noted Pedal (R) 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
[2017-03-14 20:00] VITALS: BP 123/72
[2017-03-14] MEDS: Zolpidem 5mg tab ORAL PRN (20:53)
--- NOTE | 2017-03-14 22:24 | Pulmonology Progress Note ---
Assessment/Plan Problems: (1) Fracture of femoral neck, right (2) DVT (deep venous thrombosis) (3) Renal insufficiency (4) Anemia Assessment/Plan no new changes pt/ot f/u labs tolerating diet dc planning awaiting placement pt is not competent to make any decisions Subjective ROS Limited/Unobtainable: No Allergies: Coded Allergies: No Known Allergies (Unverified , 02/27/17) Objective Last 24 Hour Vital Signs Date Time Temp Pulse Resp B/P Pulse Ox O2 Delivery O2 Flow Rate FiO2 03/14/17 15:57 97.1 63 21 141/79 100 Room Air 03/14/17 11:53 97.0 99 20 137/88 100 Room Air 03/14/17 08:18 97.3 96 19 139/78 99 Room Air 03/14/17 04:00 97.6 74 20 126/69 98 Room Air 03/14/17 00:34 97.4 77 21 122/65 97 Room Air Intake and Output 03/13/17 03/14/17 19:00 07:00 Intake Total 700 ml 240 ml Balance 700 ml 240 ml Intake Oral 700 ml 240 ml # Voids 4 # Bowel Movements 1 General Appearance: cachetic HEENT: normocephalic, atraumatic Respiratory/Chest: chest wall non-tender, lungs clear Cardiovascular: normal peripheral pulses, normal rate Abdomen: normal bowel sounds, soft, non tender Genitourinary: normal external genitalia Extremities: no cyanosis Laboratory Tests 03/14/17 05:05: White Blood Count 6.1, Red Blood Count 2.69L, Hemoglobin 8.2L, Hematocrit 25.8L , Mean Corpuscular Volume 96, Mean Corpuscular Hemoglobin 30.6, Mean Corpuscular Hemoglobin Concent 31.9L, Red Cell Distribution Width 15.6H, Platelet Count 451H, Mean Platelet Volume 5.2L, Neutrophils (%) (Auto) 59.8, Lymphocytes (%) (Auto) 32.4, Monocytes (%) (Auto) 5.8, Eosinophils (%) (Auto) 1.2, Basophils (%) (Auto) 0.8, Prothrombin Time 22.4H, Prothromb Time International Ratio 2.1H, Sodium Level 138, Potassium Level 4.6, Chloride Level 100, Carbon Dioxide Level 28, Anion Gap 10, Blood Urea Nitrogen 25H, Creatinine 1.0, Estimat Glomerular Filtration Rate > 60, Glucose Level 105, Calcium Level 8.3L Current Medications Medications (Trade) Dose Ordered Sig/Bautista Route PRN Reason Start Time Stop Time Status Last Admin Dose Admin Acetaminophen (Tylenol) 650 mg Q4H PRN ORAL fever>100.5 02/28/17 08:00 03/30/17 07:59 Acetaminophen/ Hydrocodone Bitart ([place] 5/325) 1 tab Q4H PRN ORAL Severe Pain (Pain Scale 7-10) 03/12/17 10:00 03/19/17 09:59 Clonidine HCl (Catapres) 0.1 mg Q6H PRN ORAL SBP>160 03/03/17 10:00 04/02/17 09:59 Dextrose (Dextrose 50%) STAT PRN IV Hypoglycemia 02/28/17 08:00 03/30/17 07:59 Docusate Sodium (Colace) 100 mg THREE TIMES A DAY ORAL 03/01/17 13:00 03/31/17 12:59 03/14/17 17:35 Ergocalciferol (Drisdol) 50,000 intlu QWEEK ORAL 03/01/17 14:00 03/31/17 13:59 03/08/17 12:24 Escitalopram Oxalate (Lexapro) 10 mg DAILY ORAL 03/12/17 09:00 04/11/17 08:59 03/14/17 09:18 Folic Acid (Folate) 2 mg DAILY ORAL 03/01/17 12:30 03/31/17 12:29 03/14/17 09:18 Insulin Aspart (NovoLOG) BEFORE MEALS AND HS SUBQ 03/06/17 21:00 04/05/17 20:59 03/14/17 20:56 Ondansetron HCl (Zofran) 4 mg Q6H PRN IVP Nausea & Vomiting 02/28/17 16:00 03/30/17 15:59 Pantoprazole (Protonix) 40 mg EVERY 12 HOURS ORAL 03/01/17 12:30 03/31/17 12:29 03/14/17 20:53 Polyethylene Glycol (Miralax) 17 gm HSPRN PRN ORAL Constipation 02/28/17 21:00 03/30/17 20:59 Thiamine HCl (Vitamin B1) 100 mg DAILY ORAL 03/01/17 12:30 03/31/17 12:29 03/14/17 09:18 Vitamin A/Vitamin D (A & D Oint) 1 applic EVERY 12 HOURS TOPIC 03/08/17 21:00 04/07/17 20:59 03/14/17 21:00 Warfarin Sodium (Coumadin per pharmacy) 1 ea DAILY PRN MISC Per rx protocol 03/04/17 07:45 04/03/17 07:44 Warfarin Sodium (Coumadin) 7.5 mg COUMADIN ORAL 03/14/17 17:00 03/19/17 16:59 03/14/17 16:33 Zolpidem Tartrate (Ambien) 5 mg HSPRN PRN ORAL Insomnia 02/28/17 21:00 03/30/17 20:59 03/14/17 20:53 GURWINDER YI Mar 14, 2017 22:24
[2017-03-15] VITALS: BP 135/82
[2017-03-15 04:00] VITALS: BP 145/80
[2017-03-15 05:48] LABS: BASOPHILS % (AUTO) 2.4 % (0.0-2.0); EOSINOPHILS % (AUTO) 3.2 % (0.0-3.0); MEAN CORPUSCULAR HEMOGLOBIN 29.2 PG (27.0-31.0); MEAN CORPUSCULAR HGB CONC 30.3 G/DL (32.0-36.0); MEAN CORPUSCULAR VOLUME 96 FL (80-99); MONOCYTES % (AUTO) 12.5 % (1.0-10.0); NEUTROPHILS % (AUTO) 58.8 % (45.0-75.0); PLATELET COUNT 467 K/UL (150-450); RED BLOOD COUNT 2.99 M/UL (4.70-6.10); RED CELL DISTRIBUTION WIDTH 15.8 % (11.6-14.8); WHITE BLOOD COUNT 5.3 K/UL (4.8-10.8)
[2017-03-15 05:58] LABS: INR 2.5 (0.9-1.1); PROTHROMBIN TIME 26.2 SEC (9.30-11.50)
[2017-03-15 06:10] LABS: ANION GAP 10 (5-15); CALCIUM 8.5 mg/dL (8.6-10.2); CARBON DIOXIDE 27 mEQ/L (20-30); CHLORIDE 99 mEQ/L (98-107); CREATININE 0.9 mg/dL (0.7-1.2); GLOMERULAR FILTRATION RATE > 60 mL/min (>60); HEMOLYSIS 0; POTASSIUM 4.7 mEQ/L (3.4-4.9); SODIUM 136 mEQ/L (135-145)
[2017-03-15] MEDS: NovoLOG Insulin Flexpen SUBQ SCH ×4 (06:30→21:00)
[2017-03-15 08:02] VITALS: BP 136/70
[2017-03-15] MEDS: Thiamine 100mg tab ORAL SCH (09:19)
[2017-03-15] MEDS: Docusate 100mg cap ORAL SCH ×3 (09:19→17:06)
[2017-03-15] MEDS: Vitamin A&D Oint 2oz Tube TOPIC SCH ×2 (09:20→21:00)
--- NOTE | 2017-03-15 12:03 | GI Progress Note ---
Assessment/Plan Problems: (1) Hypoalbuminemia ICD Codes: E88.09 - Other disorders of plasma-protein metabolism, not elsewhere classified SNOMED: 526737717 (2) Anemia ICD Codes: D64.9 - Anemia, unspecified SNOMED: 364186205 (3) Elevated CEA ICD Codes: R97.0 - Elevated carcinoembryonic antigen [CEA] SNOMED: 73344215, [id number] Status: stable Status Narrative Discussed with Dr. Pressley. Assessment/Plan elevated CEA OB stool r/o GI bleed >> negative stable H&H prn transfusions PPI bowel regime fu labs outpatient colonoscopy pt on coumadin >> medication must be discontinued min 48 hours prior any endoscopic procedures. Subjective Gastrointestinal/Abdominal: Reports: no symptoms Objective Last 24 Hour Vital Signs Date Time Temp Pulse Resp B/P Pulse Ox O2 Delivery O2 Flow Rate FiO2 03/15/17 08:02 98.3 81 21 136/70 96 Room Air 03/15/17 04:00 98.0 72 18 145/80 97 Room Air 03/15/17 00:00 97.8 66 18 135/82 98 Room Air 03/14/17 20:00 97.6 72 18 123/72 97 Room Air 03/14/17 15:57 97.1 63 21 141/79 100 Room Air Intake and Output 03/14/17 03/15/17 19:00 07:00 Intake Total 1380 ml Output Total 1100 ml 850 ml Balance 280 ml -850 ml Intake Oral 1380 ml Output Urine Total 1100 ml 850 ml # Voids 6 # Bowel Movements 2 Laboratory Tests Test 03/15/17 05:20 White Blood Count 5.3 K/UL (4.8-10.8) Red Blood Count 2.99 M/UL (4.70-6.10) L Hemoglobin 8.7 G/DL (14.2-18.0) L Hematocrit 28.8 % (42.0-52.0) L Mean Corpuscular Volume 96 FL (80-99) Mean Corpuscular Hemoglobin 29.2 PG (27.0-31.0) Mean Corpuscular Hemoglobin Concent 30.3 G/DL (32.0-36.0) L Red Cell Distribution Width 15.8 % (11.6-14.8) H Platelet Count 467 K/UL (150-450) H Mean Platelet Volume 5.0 FL (6.5-10.1) L Neutrophils (%) (Auto) 58.8 % (45.0-75.0) Lymphocytes (%) (Auto) 23.0 % (20.0-45.0) Monocytes (%) (Auto) 12.5 % (1.0-10.0) H Eosinophils (%) (Auto) 3.2 % (0.0-3.0) H Basophils (%) (Auto) 2.4 % (0.0-2.0) H Prothrombin Time 26.2 SEC (9.30-11.50) H Prothromb Time International Ratio 2.5 (0.9-1.1) H Sodium Level 136 mEQ/L (135-145) Potassium Level 4.7 mEQ/L (3.4-4.9) Chloride Level 99 mEQ/L (98-107) Carbon Dioxide Level 27 mEQ/L (20-30) Anion Gap 10 (5-15) Blood Urea Nitrogen 23 mg/dL (7-23) Creatinine 0.9 mg/dL (0.7-1.2) Estimat Glomerular Filtration Rate > 60 mL/min (>60) Glucose Level 112 mg/dL (74-106) H Calcium Level 8.5 mg/dL (8.6-10.2) L Height (Feet): 5 Height (Inches): 10.00 Weight (Pounds): 150 General Appearance: no apparent distress, alert Cardiovascular: normal rate Respiratory/Chest: normal breath sounds, no respiratory distress Abdominal Exam: normal bowel sounds, non tender, soft Extremities: normal range of motion Mag Esteban N.P. Mar 15, 2017 12:03
[2017-03-15 12:14] VITALS: BP 134/71
[2017-03-15 15:50] VITALS: BP 129/86
--- NOTE | 2017-03-15 16:30 | Progress Note ---
DATE: 03/15/2017 SUBJECTIVE: The patient is doing the same, stable at baseline. No anxiety or agitation, however, he is depressed, had anhedonia, worthlessness. He stated I am not more depressed than other people. He has poor insight and judgment into his current situation he is in. He is very illogical and he has concrete thinking. MENTAL STATUS EXAMINATION: The patient is alert and oriented x3. Mood is depressed. Affect is flat, congruent with mood. Thought process is concrete. Thought content, no suicidal or homicidal ideation. ASSESSMENT: Developmental disability, rule out schizophrenia. PLAN: 1. The patient will be continued on current medication. 2. Adult Protective Services are involved. Diana Yanez M.D. DR: EVA JOB#: [id number] CC:
[2017-03-15] MEDS ORDERED: Warfarin Sodium 3mg ORAL ONE (17:00)
[2017-03-15] MEDS: Vitamin D 50,000 units cap ORAL SCH (17:05)
--- NOTE | 2017-03-15 18:01 | General Progress Note ---
Assessment/Plan Assessment/Plan #. Anemia secondary to chronic disease, ferritin is elevated and tibc is low --> hgb goal above 7, continue to closely monitor. remains stable --> transfuse prn --> OB stool neg #Elevated CEA --> colonoscopy as outpatient #. Anemia secondary to orthopedic procedure. #. DVT of right superficial femoral vein of the right lower extremity is on coumadin --> lovenox has been DC --> continue to monitor INR --> INR goal 2-3 #. Uricemia. #. Hypocalcemia. #. Leukocytosis secondary to reactive process from anemia #. Right hip fracture --> has been seen by ortho Subjective Constitutional: Reports: no symptoms HEENT: Reports: no symptoms Cardiovascular: Reports: no symptoms Respiratory: Reports: no symptoms Gastrointestinal/Abdominal: Reports: no symptoms Genitourinary: Reports: no symptoms Neurologic/Psychiatric: Reports: no symptoms Endocrine: Reports: no symptoms Hematologic/Lymphatic: Reports: anemia Allergies: Coded Allergies: No Known Allergies (Unverified , 02/27/17) Subjective INR goal has been reached, continue to monitor Objective Last 24 Hour Vital Signs Date Time Temp Pulse Resp B/P Pulse Ox O2 Delivery O2 Flow Rate FiO2 03/15/17 15:50 98.1 77 20 129/86 97 Room Air 03/15/17 12:14 99.0 77 21 134/71 98 Room Air 03/15/17 08:02 98.3 81 21 136/70 96 Room Air 03/15/17 04:00 98.0 72 18 145/80 97 Room Air 03/15/17 00:00 97.8 66 18 135/82 98 Room Air 03/14/17 20:00 97.6 72 18 123/72 97 Room Air Intake and Output 03/14/17 03/15/17 19:00 07:00 Intake Total 1380 ml Output Total 1100 ml 850 ml Balance 280 ml -850 ml Intake Oral 1380 ml Output Urine Total 1100 ml 850 ml # Voids 6 # Bowel Movements 2 Laboratory Tests 03/15/17 05:20: White Blood Count 5.3, Red Blood Count 2.99L, Hemoglobin 8.7L, Hematocrit 28.8L , Mean Corpuscular Volume 96, Mean Corpuscular Hemoglobin 29.2, Mean Corpuscular Hemoglobin Concent 30.3L, Red Cell Distribution Width 15.8H, Platelet Count 467H, Mean Platelet Volume 5.0L, Neutrophils (%) (Auto) 58.8, Lymphocytes (%) (Auto) 23.0, Monocytes (%) (Auto) 12.5H, Eosinophils (%) (Auto) 3.2H, Basophils (%) (Auto) 2.4H, Prothrombin Time 26.2H, Prothromb Time International Ratio 2.5H, Sodium Level 136, Potassium Level 4.7, Chloride Level 99, Carbon Dioxide Level 27, Anion Gap 10, Blood Urea Nitrogen 23, Creatinine 0.9, Estimat Glomerular Filtration Rate > 60, Glucose Level 112H, Calcium Level 8.5L Height (Feet): 5 Height (Inches): 10.00 Weight (Pounds): 150 General Appearance: no apparent distress EENT: PERRL/EOMI Neck: normal alignment Cardiovascular: normal rate Abdomen: normal bowel sounds Edema: no edema noted Pedal (L), no edema noted Pedal (R) Skin: warm/dry Leandro Ceja Mar 15, 2017 18:01
[2017-03-15 20:23] VITALS: BP 134/73
[2017-03-15] MEDS: Zolpidem 5mg tab ORAL PRN (22:00)
--- NOTE | 2017-03-15 22:32 | Pulmonology Progress Note ---
Assessment/Plan Problems: (1) Fracture of femoral neck, right (2) DVT (deep venous thrombosis) (3) Renal insufficiency (4) Anemia Assessment/Plan no new changes pt/ot f/u labs tolerating diet dc planning awaiting placement pt is not competent to make any decisions Subjective ROS Limited/Unobtainable: No Allergies: Coded Allergies: No Known Allergies (Unverified , 02/27/17) Objective Last 24 Hour Vital Signs Date Time Temp Pulse Resp B/P Pulse Ox O2 Delivery O2 Flow Rate FiO2 03/15/17 20:23 96.6 79 19 134/73 97 Room Air 03/15/17 15:50 98.1 77 20 129/86 97 Room Air 03/15/17 12:14 99.0 77 21 134/71 98 Room Air 03/15/17 08:02 98.3 81 21 136/70 96 Room Air 03/15/17 04:00 98.0 72 18 145/80 97 Room Air 03/15/17 00:00 97.8 66 18 135/82 98 Room Air Intake and Output 03/14/17 03/15/17 19:00 07:00 Intake Total 1380 ml Output Total 1100 ml 850 ml Balance 280 ml -850 ml Intake Oral 1380 ml Output Urine Total 1100 ml 850 ml # Voids 6 # Bowel Movements 2 General Appearance: WD/WN HEENT: atraumatic Respiratory/Chest: chest wall non-tender, lungs clear Cardiovascular: normal peripheral pulses, normal rate Abdomen: normal bowel sounds, soft, non tender Genitourinary: normal external genitalia Extremities: no clubbing Laboratory Tests 03/15/17 05:20: White Blood Count 5.3, Red Blood Count 2.99L, Hemoglobin 8.7L, Hematocrit 28.8L , Mean Corpuscular Volume 96, Mean Corpuscular Hemoglobin 29.2, Mean Corpuscular Hemoglobin Concent 30.3L, Red Cell Distribution Width 15.8H, Platelet Count 467H, Mean Platelet Volume 5.0L, Neutrophils (%) (Auto) 58.8, Lymphocytes (%) (Auto) 23.0, Monocytes (%) (Auto) 12.5H, Eosinophils (%) (Auto) 3.2H, Basophils (%) (Auto) 2.4H, Prothrombin Time 26.2H, Prothromb Time International Ratio 2.5H, Sodium Level 136, Potassium Level 4.7, Chloride Level 99, Carbon Dioxide Level 27, Anion Gap 10, Blood Urea Nitrogen 23, Creatinine 0.9, Estimat Glomerular Filtration Rate > 60, Glucose Level 112H, Calcium Level 8.5L Current Medications Medications (Trade) Dose Ordered Sig/Bautista Route PRN Reason Start Time Stop Time Status Last Admin Dose Admin Acetaminophen (Tylenol) 650 mg Q4H PRN ORAL fever>100.5 02/28/17 08:00 03/30/17 07:59 Acetaminophen/ Hydrocodone Bitart ([place] 5/325) 1 tab Q4H PRN ORAL Severe Pain (Pain Scale 7-10) 03/12/17 10:00 03/19/17 09:59 Clonidine HCl (Catapres) 0.1 mg Q6H PRN ORAL SBP>160 03/03/17 10:00 04/02/17 09:59 Dextrose (Dextrose 50%) STAT PRN IV Hypoglycemia 02/28/17 08:00 03/30/17 07:59 Docusate Sodium (Colace) 100 mg THREE TIMES A DAY ORAL 03/01/17 13:00 03/31/17 12:59 03/15/17 09:19 Ergocalciferol (Drisdol) 50,000 intlu QWEEK ORAL 03/01/17 14:00 03/31/17 13:59 03/15/17 17:05 Escitalopram Oxalate (Lexapro) 10 mg DAILY ORAL 03/12/17 09:00 04/11/17 08:59 03/15/17 09:23 Folic Acid (Folate) 2 mg DAILY ORAL 03/01/17 12:30 03/31/17 12:29 03/15/17 09:19 Insulin Aspart (NovoLOG) BEFORE MEALS AND HS SUBQ 03/06/17 21:00 04/05/17 20:59 03/15/17 17:06 Ondansetron HCl (Zofran) 4 mg Q6H PRN IVP Nausea & Vomiting 02/28/17 16:00 03/30/17 15:59 Pantoprazole (Protonix) 40 mg EVERY 12 HOURS ORAL 03/01/17 12:30 03/31/17 12:29 03/15/17 21:00 Polyethylene Glycol (Miralax) 17 gm HSPRN PRN ORAL Constipation 02/28/17 21:00 03/30/17 20:59 Thiamine HCl (Vitamin B1) 100 mg DAILY ORAL 03/01/17 12:30 03/31/17 12:29 03/15/17 09:19 Vitamin A/Vitamin D (A & D Oint) 1 applic EVERY 12 HOURS TOPIC 03/08/17 21:00 04/07/17 20:59 03/15/17 21:00 Warfarin Sodium (Coumadin per pharmacy) 1 ea DAILY PRN MISC Per rx protocol 03/04/17 07:45 04/03/17 07:44 Zolpidem Tartrate (Ambien) 5 mg HSPRN PRN ORAL Insomnia 02/28/17 21:00 03/30/17 20:59 03/15/17 22:00 GURWINDER YI Mar 15, 2017 22:32
[2017-03-16 00:11] VITALS: BP 131/75
--- NOTE | 2017-03-16 00:23 | Wound Nurse Progress Note ---
Wound RN Progress Note Wound Consult #1 Left lower leg dry scaly skin. #2 Left ischial tuberosity pressure. L 3.0 X W 2.5 D 0.1. 100% pink with small amount of serosanguineous drainage. #3 Left trochanter scattered pressure ulcer. Resolving #4 Left buttock scattered full thickness scar tissue with hyperpigmentation. still intact #5 Left knee Traumatic injury - scab. Reassessment done on this Pt. Good progress noted. Will use Triad cream on left ischial and left trochanter pressure ulcers. Recommendation. -Local wound care as ordered. -A&D ointment on both legs for dry skin -Apply low air loss mattress SPR for wound and skin management. -Turn and reposition. -Keep clean and dry. -Offload affected wound sites. -Optimize nutrition. -Offload heels. -Assess and notify MD if any further changes of condition noted to skin. EAGLE JOHNSON RN Mar 16, 2017 00:23
[2017-03-16 04:16] VITALS: BP 147/83
[2017-03-16] MEDS: NovoLOG Insulin Flexpen SUBQ SCH ×4 (05:51→21:08)
[2017-03-16 07:03] LABS: BASOPHILS % (AUTO) 0.8 % (0.0-2.0); EOSINOPHILS % (AUTO) 3.3 % (0.0-3.0); LYMPHOCYTES % (AUTO) 31.5 % (20.0-45.0); MEAN CORPUSCULAR HEMOGLOBIN 29.5 PG (27.0-31.0); MEAN CORPUSCULAR HGB CONC 30.7 G/DL (32.0-36.0); MEAN CORPUSCULAR VOLUME 96 FL (80-99); MEAN PLATELET VOLUME 5.2 FL (6.5-10.1); MONOCYTES % (AUTO) 5.7 % (1.0-10.0); NEUTROPHILS % (AUTO) 58.7 % (45.0-75.0); PLATELET COUNT 495 K/UL (150-450); RED BLOOD COUNT 2.99 M/UL (4.70-6.10); RED CELL DISTRIBUTION WIDTH 16.1 % (11.6-14.8); WHITE BLOOD COUNT 5.2 K/UL (4.8-10.8)
[2017-03-16 07:10] LABS: INR 2.3 (0.9-1.1); PROTHROMBIN TIME 23.9 SEC (9.30-11.50)
[2017-03-16 07:28] LABS: ANION GAP 9 (5-15); CALCIUM 8.7 mg/dL (8.6-10.2); CARBON DIOXIDE 30 mEQ/L (20-30); CHLORIDE 98 mEQ/L (98-107); GLOMERULAR FILTRATION RATE > 60 mL/min (>60); HEMOLYSIS 1; POTASSIUM 4.4 mEQ/L (3.4-4.9); SODIUM 137 mEQ/L (135-145)
[2017-03-16 08:10] VITALS: BP 121/70
[2017-03-16] MEDS: Thiamine 100mg tab ORAL SCH (09:45)
[2017-03-16] MEDS: Docusate 100mg cap ORAL SCH ×3 (09:45→17:57)
[2017-03-16] MEDS: Vitamin A&D Oint 2oz Tube TOPIC SCH ×2 (09:46→21:07)
--- NOTE | 2017-03-16 10:37 | GI Progress Note ---
Assessment/Plan Problems: (1) Hypoalbuminemia ICD Codes: E88.09 - Other disorders of plasma-protein metabolism, not elsewhere classified SNOMED: 504464568 (2) Anemia ICD Codes: D64.9 - Anemia, unspecified SNOMED: 358090647 (3) Elevated CEA ICD Codes: R97.0 - Elevated carcinoembryonic antigen [CEA] SNOMED: 90162285, 330890317 Status: stable Status Narrative Discussed with Dr. Pressley. Assessment/Plan elevated CEA OB stool r/o GI bleed >> negative stable H&H prn transfusions PPI bowel regime fu labs outpatient colonoscopy pt on Coumadin >> medication must be discontinued min 48 hours prior any endoscopic procedures. Subjective Gastrointestinal/Abdominal: Reports: no symptoms Objective Last 24 Hour Vital Signs Date Time Temp Pulse Resp B/P Pulse Ox O2 Delivery O2 Flow Rate FiO2 03/16/17 08:10 98.0 83 20 121/70 98 Room Air 03/16/17 04:16 98.1 79 19 147/83 97 Room Air 03/16/17 00:11 96.3 72 18 131/75 97 Room Air 03/15/17 20:23 96.6 79 19 134/73 97 Room Air 03/15/17 15:50 98.1 77 20 129/86 97 Room Air 03/15/17 12:14 99.0 77 21 134/71 98 Room Air Intake and Output 03/15/17 03/16/17 19:00 07:00 Intake Total 1020 ml 240 ml Output Total 400 ml 300 ml Balance 620 ml -60 ml Intake Oral 1020 ml 240 ml Output Urine Total 400 ml 300 ml # Voids 5 2 # Bowel Movements 1 1 Laboratory Tests Test 03/16/17 05:20 White Blood Count 5.2 K/UL (4.8-10.8) Red Blood Count 2.99 M/UL (4.70-6.10) L Hemoglobin 8.8 G/DL (14.2-18.0) L Hematocrit 28.7 % (42.0-52.0) L Mean Corpuscular Volume 96 FL (80-99) Mean Corpuscular Hemoglobin 29.5 PG (27.0-31.0) Mean Corpuscular Hemoglobin Concent 30.7 G/DL (32.0-36.0) L Red Cell Distribution Width 16.1 % (11.6-14.8) H Platelet Count 495 K/UL (150-450) H Mean Platelet Volume 5.2 FL (6.5-10.1) L Neutrophils (%) (Auto) 58.7 % (45.0-75.0) Lymphocytes (%) (Auto) 31.5 % (20.0-45.0) Monocytes (%) (Auto) 5.7 % (1.0-10.0) Eosinophils (%) (Auto) 3.3 % (0.0-3.0) H Basophils (%) (Auto) 0.8 % (0.0-2.0) Prothrombin Time 23.9 SEC (9.30-11.50) H Prothromb Time International Ratio 2.3 (0.9-1.1) H Sodium Level 137 mEQ/L (135-145) Potassium Level 4.4 mEQ/L (3.4-4.9) Chloride Level 98 mEQ/L (98-107) Carbon Dioxide Level 30 mEQ/L (20-30) Anion Gap 9 (5-15) Blood Urea Nitrogen 25 mg/dL (7-23) H Creatinine 1.0 mg/dL (0.7-1.2) Estimat Glomerular Filtration Rate > 60 mL/min (>60) Glucose Level 111 mg/dL (74-106) H Calcium Level 8.7 mg/dL (8.6-10.2) Height (Feet): 5 Height (Inches): 10.00 Weight (Pounds): 150 General Appearance: no apparent distress, alert, thin Cardiovascular: normal rate Respiratory/Chest: normal breath sounds, no respiratory distress Abdominal Exam: normal bowel sounds, non tender, soft Extremities: normal range of motion Mag Esteban N.P. Mar 16, 2017 10:37
[2017-03-16 11:46] VITALS: BP 139/79
--- NOTE | 2017-03-16 15:07 | Pulmonology Progress Note ---
Assessment/Plan Problems: (1) Fracture of femoral neck, right (2) DVT (deep venous thrombosis) (3) Renal insufficiency (4) Anemia Assessment/Plan no new changes pt/ot f/u labs tolerating diet dc planning awaiting placement pt is not competent to make any decisions Subjective ROS Limited/Unobtainable: No Constitutional: Reports: no symptoms Respiratory: Reports: no symptoms Cardiovascular: Reports: no symptoms Gastrointestinal/Abdominal: Reports: no symptoms Genitourinary: Reports: no symptoms Allergies: Coded Allergies: No Known Allergies (Unverified , 02/27/17) Objective Last 24 Hour Vital Signs Date Time Temp Pulse Resp B/P Pulse Ox O2 Delivery O2 Flow Rate FiO2 03/16/17 11:46 97.4 70 20 139/79 98 Room Air 03/16/17 08:10 98.0 83 20 121/70 98 Room Air 03/16/17 04:16 98.1 79 19 147/83 97 Room Air 03/16/17 00:11 96.3 72 18 131/75 97 Room Air 03/15/17 20:23 96.6 79 19 134/73 97 Room Air 03/15/17 15:50 98.1 77 20 129/86 97 Room Air Intake and Output 03/15/17 03/16/17 19:00 07:00 Intake Total 1020 ml 240 ml Output Total 400 ml 300 ml Balance 620 ml -60 ml Intake Oral 1020 ml 240 ml Output Urine Total 400 ml 300 ml # Voids 5 2 # Bowel Movements 1 1 General Appearance: WD/WN, no acute distress HEENT: normocephalic, atraumatic Respiratory/Chest: chest wall non-tender, lungs clear Cardiovascular: normal peripheral pulses, normal rate Abdomen: normal bowel sounds, soft, non tender Genitourinary: normal external genitalia Extremities: no clubbing 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, no motor/sensory deficits Lymphatic: no neck adenopathy Laboratory Tests 03/16/17 05:20: White Blood Count 5.2, Red Blood Count 2.99L, Hemoglobin 8.8L, Hematocrit 28.7L , Mean Corpuscular Volume 96, Mean Corpuscular Hemoglobin 29.5, Mean Corpuscular Hemoglobin Concent 30.7L, Red Cell Distribution Width 16.1H, Platelet Count 495H, Mean Platelet Volume 5.2L, Neutrophils (%) (Auto) 58.7, Lymphocytes (%) (Auto) 31.5, Monocytes (%) (Auto) 5.7, Eosinophils (%) (Auto) 3.3H, Basophils (%) (Auto) 0.8, Prothrombin Time 23.9H, Prothromb Time International Ratio 2.3H, Sodium Level 137, Potassium Level 4.4, Chloride Level 98, Carbon Dioxide Level 30, Anion Gap 9, Blood Urea Nitrogen 25H, Creatinine 1.0, Estimat Glomerular Filtration Rate > 60, Glucose Level 111H, Calcium Level 8.7 Current Medications Medications (Trade) Dose Ordered Sig/Bautista Route PRN Reason Start Time Stop Time Status Last Admin Dose Admin Acetaminophen (Tylenol) 650 mg Q4H PRN ORAL fever>100.5 02/28/17 08:00 03/30/17 07:59 Acetaminophen/ Hydrocodone Bitart ([place] 5/325) 1 tab Q4H PRN ORAL Severe Pain (Pain Scale 7-10) 03/12/17 10:00 03/19/17 09:59 Clonidine HCl (Catapres) 0.1 mg Q6H PRN ORAL SBP>160 03/03/17 10:00 04/02/17 09:59 Dextrose (Dextrose 50%) STAT PRN IV Hypoglycemia 02/28/17 08:00 03/30/17 07:59 Docusate Sodium (Colace) 100 mg THREE TIMES A DAY ORAL 03/01/17 13:00 03/31/17 12:59 03/16/17 09:45 Ergocalciferol (Drisdol) 50,000 intlu QWEEK ORAL 03/01/17 14:00 03/31/17 13:59 03/15/17 17:05 Escitalopram Oxalate (Lexapro) 10 mg DAILY ORAL 03/12/17 09:00 04/11/17 08:59 03/16/17 09:45 Folic Acid (Folate) 2 mg DAILY ORAL 03/01/17 12:30 03/31/17 12:29 03/16/17 09:45 Insulin Aspart (NovoLOG) BEFORE MEALS AND HS SUBQ 03/06/17 21:00 04/05/17 20:59 03/16/17 12:44 Ondansetron HCl (Zofran) 4 mg Q6H PRN IVP Nausea & Vomiting 02/28/17 16:00 03/30/17 15:59 Pantoprazole (Protonix) 40 mg EVERY 12 HOURS ORAL 03/01/17 12:30 03/31/17 12:29 03/16/17 09:45 Polyethylene Glycol (Miralax) 17 gm HSPRN PRN ORAL Constipation 02/28/17 21:00 03/30/17 20:59 Thiamine HCl (Vitamin B1) 100 mg DAILY ORAL 03/01/17 12:30 03/31/17 12:29 03/16/17 09:45 Vitamin A/Vitamin D (A & D Oint) 1 applic EVERY 12 HOURS TOPIC 03/08/17 21:00 04/07/17 20:59 03/16/17 09:46 Warfarin Sodium (Coumadin per pharmacy) 1 ea DAILY PRN MISC Per rx protocol 03/04/17 07:45 04/03/17 07:44 Warfarin Sodium/ Warfarin Sodium (Coumadin/ Coumadin) 7 mg COUMADIN ORAL 03/16/17 17:00 03/21/17 16:59 Zolpidem Tartrate (Ambien) 5 mg HSPRN PRN ORAL Insomnia 02/28/17 21:00 03/30/17 20:59 03/15/17 22:00 GURWINDER YI Mar 16, 2017 15:07
[2017-03-16 16:02] VITALS: BP 137/79
--- NOTE | 2017-03-16 16:09 | General Progress Note ---
Assessment/Plan Assessment/Plan #. Anemia secondary to chronic disease, ferritin is elevated and tibc is low --> hgb goal above 7, continue to closely monitor. remains stable --> transfuse prn --> OB stool neg #Elevated CEA --> colonoscopy as outpatient #. Anemia secondary to orthopedic procedure. #. DVT of right superficial femoral vein of the right lower extremity is on coumadin --> lovenox has been DC --> continue to monitor INR --> INR goal 2-3 #. Uricemia. #. Hypocalcemia. #. Leukocytosis secondary to reactive process from anemia #. Right hip fracture --> has been seen by ortho Subjective Constitutional: Reports: no symptoms HEENT: Reports: no symptoms Cardiovascular: Reports: no symptoms Respiratory: Reports: no symptoms Gastrointestinal/Abdominal: Reports: no symptoms Genitourinary: Reports: no symptoms Neurologic/Psychiatric: Reports: no symptoms Endocrine: Reports: no symptoms Hematologic/Lymphatic: Reports: anemia Allergies: Coded Allergies: No Known Allergies (Unverified , 02/27/17) Subjective unchanged Objective Last 24 Hour Vital Signs Date Time Temp Pulse Resp B/P Pulse Ox O2 Delivery O2 Flow Rate FiO2 03/16/17 16:02 98.0 75 20 137/79 98 Room Air 03/16/17 11:46 97.4 70 20 139/79 98 Room Air 03/16/17 08:10 98.0 83 20 121/70 98 Room Air 03/16/17 04:16 98.1 79 19 147/83 97 Room Air 03/16/17 00:11 96.3 72 18 131/75 97 Room Air 03/15/17 20:23 96.6 79 19 134/73 97 Room Air Intake and Output 03/15/17 03/16/17 19:00 07:00 Intake Total 1020 ml 240 ml Output Total 400 ml 300 ml Balance 620 ml -60 ml Intake Oral 1020 ml 240 ml Output Urine Total 400 ml 300 ml # Voids 5 2 # Bowel Movements 1 1 Laboratory Tests 03/16/17 05:20: White Blood Count 5.2, Red Blood Count 2.99L, Hemoglobin 8.8L, Hematocrit 28.7L , Mean Corpuscular Volume 96, Mean Corpuscular Hemoglobin 29.5, Mean Corpuscular Hemoglobin Concent 30.7L, Red Cell Distribution Width 16.1H, Platelet Count 495H, Mean Platelet Volume 5.2L, Neutrophils (%) (Auto) 58.7, Lymphocytes (%) (Auto) 31.5, Monocytes (%) (Auto) 5.7, Eosinophils (%) (Auto) 3.3H, Basophils (%) (Auto) 0.8, Prothrombin Time 23.9H, Prothromb Time International Ratio 2.3H, Sodium Level 137, Potassium Level 4.4, Chloride Level 98, Carbon Dioxide Level 30, Anion Gap 9, Blood Urea Nitrogen 25H, Creatinine 1.0, Estimat Glomerular Filtration Rate > 60, Glucose Level 111H, Calcium Level 8.7 Height (Feet): 5 Height (Inches): 10.00 Weight (Pounds): 150 General Appearance: no apparent distress EENT: normal ENT inspection Neck: normal alignment Cardiovascular: normal rate Respiratory/Chest: normal breath sounds Edema: no edema noted Pedal (L), no edema noted Pedal (R) 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
[2017-03-16] MEDS ORDERED: WARFARIN SOD ORAL SCH ×2 (17:00)
[2017-03-16 20:39] VITALS: BP 133/78
[2017-03-16] MEDS: Zolpidem 5mg tab ORAL PRN (20:57)
--- NOTE | 2017-03-16 22:00 | Progress Note ---
DATE: 03/15/2017 SUBJECTIVE: The patient's mental condition is unchanged since previous encounter. Continues to be illogical and rational. He has poor insight and judgment into his mental condition and his condition is unchanged services are involved. MENTAL STATUS EXAMINATION: The patient is alert and oriented x3. Mood is depressed. Affect is constricted. Congruent mood. Thought process is concrete. Thought content, there is no suicidal or homicidal ideations. ASSESSMENT: Major depressive disorder. PLAN: The patient lacks capacity to make any decisions. Diana Yanez M.D. DR: ELOISA JOB#: [id number] CC:
[2017-03-17 00:40] VITALS: BP 127/63
[2017-03-17 04:00] VITALS: BP 139/81
[2017-03-17] MEDS: NovoLOG Insulin Flexpen SUBQ SCH ×4 (06:22→22:23)
[2017-03-17 06:47] LABS: INR 2.1 (0.9-1.1); PROTHROMBIN TIME 22.5 SEC (9.30-11.50)
[2017-03-17 08:00] VITALS: BP 128/71
[2017-03-17] MEDS: Thiamine 100mg tab ORAL SCH (08:38)
[2017-03-17] MEDS: Docusate 100mg cap ORAL SCH ×3 (08:38→18:06)
[2017-03-17] MEDS: Vitamin A&D Oint 2oz Tube TOPIC SCH ×2 (08:39→22:24)
--- NOTE | 2017-03-17 09:57 | Pulmonology Progress Note ---
Assessment/Plan Assessment/Plan ASSESSMENT s/p fall R femoral neck displaced fracture s/p R hip hemiarthroplasty acute renal failure, likely due to dehydration-resolved dehydration hypo Na anemia of chronic disease acute DVT RLE ( SFV and popliteal) elevated CEA Hx of HTN electrolyte imbalance ( hypo Mg, hypo P, hypo Ca) protein calorie malnutrition major depressive disorder developmental disability, mild L ischial tuberosity pressure ulcer un-stageable, POA left trochanter pressure ulcer, un-stageable painful mycotic toe nails, s/p debridemetn PLAN OF CARE MS floor surgery follows pain management Venous Duplex BLE + RLE acute DVT SFV and popliteal on Coumadin , INR therapeutic bowel regimen PT/OT nephro follows renal US negative ( no hydro, normal echogenicity) s/p 3% NaCl, Na up e/lytes stable , replace as needed anemia workup with stable iron, borderline B 12 s/p total of 3 u PRBC HH at baseline, monitor and transfuse prn elevated CEA GI follows ( due to anemia and elevated CEA ) HH stable transfuse prn , goal to keep Hgb above 7 heme follows PPI bowel regimen elevated CEA stool OB negative GI recommended outpatient colonoscopy s/p B 12 SQ x 1 ( at normal limits, low range) wound care as per wound nurse recommendations BP management, Clonidine prn seen by power press tender, s/p debridement x10 toenails psych seen and evaluated psych doctor concluded that patient lacks capacity to make informed decision APS involved re home situation SW follows with APS patient needs guardianship for [employer] application and placement case discussed and evaluated by supervising physician Subjective Allergies: Coded Allergies: No Known Allergies (Unverified , 02/27/17) Subjective leukocytosis resolved, afebrile HH at baseline pain controlled on Coumadin awaiting for placement Objective Last 24 Hour Vital Signs Date Time Temp Pulse Resp B/P Pulse Ox O2 Delivery O2 Flow Rate FiO2 03/17/17 08:00 97.9 65 19 128/71 98 Room Air 03/17/17 04:00 96.3 75 18 139/81 98 Room Air 03/17/17 00:40 98.1 90 17 127/63 97 Room Air 03/16/17 20:39 97.9 80 18 133/78 97 Room Air 03/16/17 16:02 98.0 75 20 137/79 98 Room Air 03/16/17 11:46 97.4 70 20 139/79 98 Room Air Intake and Output 03/16/17 03/17/17 19:00 07:00 Intake Total 1080 ml 240 ml Output Total 600 ml Balance 480 ml 240 ml Intake Oral 1080 ml 240 ml Output Urine Total 600 ml # Voids 2 # Bowel Movements 1 Objective General Appearance: no acute distress, awake, alert, confused male in NAD HEENT: normocephalic, atraumatic, anicteric, mucous membranes moist Respiratory/Chest: lungs clear, no respiratory distress, no accessory muscle use Cardiovascular: normal peripheral pulses, normal rate, regular rhythm, no JVD Abdomen: normal bowel sounds, soft, non tender, non distended Genitourinary: normal external genitalia Extremities: no edema, pedal pulses normal Skin: R hip incision healing Neurologic/Psychiatric: abnormal gait, alert, responsive Musculoskeletal: normal muscle bulk Laboratory Tests 03/17/17 06:00: Prothrombin Time 22.5H, Prothromb Time International Ratio 2.1H Current Medications Medications (Trade) Dose Ordered Sig/Bautista Route PRN Reason Start Time Stop Time Status Last Admin Dose Admin Acetaminophen (Tylenol) 650 mg Q4H PRN ORAL fever>100.5 02/28/17 08:00 03/30/17 07:59 Acetaminophen/ Hydrocodone Bitart ([place] 5/325) 1 tab Q4H PRN ORAL Severe Pain (Pain Scale 7-10) 03/12/17 10:00 03/19/17 09:59 Clonidine HCl (Catapres) 0.1 mg Q6H PRN ORAL SBP>160 03/03/17 10:00 04/02/17 09:59 Dextrose (Dextrose 50%) STAT PRN IV Hypoglycemia 02/28/17 08:00 03/30/17 07:59 Docusate Sodium (Colace) 100 mg THREE TIMES A DAY ORAL 03/01/17 13:00 03/31/17 12:59 03/17/17 08:38 Ergocalciferol (Drisdol) 50,000 intlu QWEEK ORAL 03/01/17 14:00 03/31/17 13:59 03/15/17 17:05 Escitalopram Oxalate (Lexapro) 10 mg DAILY ORAL 03/12/17 09:00 04/11/17 08:59 03/17/17 08:38 Folic Acid (Folate) 2 mg DAILY ORAL 03/01/17 12:30 03/31/17 12:29 03/17/17 08:38 Insulin Aspart (NovoLOG) BEFORE MEALS AND HS SUBQ 03/06/17 21:00 04/05/17 20:59 03/17/17 06:22 Ondansetron HCl (Zofran) 4 mg Q6H PRN IVP Nausea & Vomiting 02/28/17 16:00 03/30/17 15:59 Pantoprazole (Protonix) 40 mg EVERY 12 HOURS ORAL 03/01/17 12:30 03/31/17 12:29 03/17/17 08:38 Polyethylene Glycol (Miralax) 17 gm HSPRN PRN ORAL Constipation 02/28/17 21:00 03/30/17 20:59 Thiamine HCl (Vitamin B1) 100 mg DAILY ORAL 03/01/17 12:30 03/31/17 12:29 03/17/17 08:38 Vitamin A/Vitamin D (A & D Oint) 1 applic EVERY 12 HOURS TOPIC 03/08/17 21:00 04/07/17 20:59 03/17/17 08:39 Warfarin Sodium (Coumadin per pharmacy) 1 ea DAILY PRN MISC Per rx protocol 03/04/17 07:45 04/03/17 07:44 Warfarin Sodium (Coumadin) 7.5 mg COUMADIN ONCE ORAL 03/17/17 17:00 03/17/17 17:01 Warfarin Sodium/ Warfarin Sodium (Coumadin/ Coumadin) 7 mg COUMADIN ORAL 03/18/17 17:00 03/23/17 16:59 Zolpidem Tartrate (Ambien) 5 mg HSPRN PRN ORAL Insomnia 02/28/17 21:00 03/30/17 20:59 03/16/17 20:57 Mateus ([facility])Sera NP Mar 17, 2017 09:57
--- NOTE | 2017-03-17 10:48 | GI Progress Note ---
Assessment/Plan Problems: (1) Hypoalbuminemia ICD Codes: E88.09 - Other disorders of plasma-protein metabolism, not elsewhere classified SNOMED: 054642612 (2) Anemia ICD Codes: D64.9 - Anemia, unspecified SNOMED: 957997513 (3) Elevated CEA ICD Codes: R97.0 - Elevated carcinoembryonic antigen [CEA] SNOMED: 79130792, 402335737 Status: stable, unchanged Status Narrative Discussed with Dr. Pressley. Assessment/Plan elevated CEA OB stool r/o GI bleed >> negative stable H&H prn transfusions PPI bowel regime fu labs outpatient colonoscopy pt on Coumadin >> medication must be discontinued min 48 hours prior any endoscopic procedures. Subjective Gastrointestinal/Abdominal: Reports: no symptoms Objective Last 24 Hour Vital Signs Date Time Temp Pulse Resp B/P Pulse Ox O2 Delivery O2 Flow Rate FiO2 03/17/17 08:00 97.9 65 19 128/71 98 Room Air 03/17/17 04:00 96.3 75 18 139/81 98 Room Air 03/17/17 00:40 98.1 90 17 127/63 97 Room Air 03/16/17 20:39 97.9 80 18 133/78 97 Room Air 03/16/17 16:02 98.0 75 20 137/79 98 Room Air 03/16/17 11:46 97.4 70 20 139/79 98 Room Air Intake and Output 03/16/17 03/17/17 19:00 07:00 Intake Total 1080 ml 240 ml Output Total 600 ml Balance 480 ml 240 ml Intake Oral 1080 ml 240 ml Output Urine Total 600 ml # Voids 2 # Bowel Movements 1 Laboratory Tests Test 03/17/17 06:00 Prothrombin Time 22.5 SEC (9.30-11.50) H Prothromb Time International Ratio 2.1 (0.9-1.1) H Height (Feet): 5 Height (Inches): 10.00 Weight (Pounds): 150 General Appearance: no apparent distress, alert Cardiovascular: normal rate Respiratory/Chest: normal breath sounds, no respiratory distress Abdominal Exam: normal bowel sounds, non tender, soft Extremities: normal range of motion, non-tender Mag Esteban NElijah Mar 17, 2017 10:48
[2017-03-17] MEDS ORDERED: Norco 5mg/325mg tab ORAL PRN (11:05)
[2017-03-17 12:00] VITALS: BP 137/74
--- NOTE | 2017-03-17 14:50 | General Progress Note ---
Assessment/Plan Assessment/Plan #. Anemia secondary to chronic disease, ferritin is elevated and tibc is low --> hgb goal above 7, continue to closely monitor. remains stable --> transfuse prn --> OB stool neg #Elevated CEA --> colonoscopy as outpatient #. Anemia secondary to orthopedic procedure. #. DVT of right superficial femoral vein of the right lower extremity is on coumadin --> lovenox has been DC --> continue to monitor INR --> INR goal 2-3 #. Uricemia. #. Hypocalcemia. --> resolved #. Leukocytosis secondary to reactive process from anemia #. Right hip fracture --> has been seen by ortho Subjective Constitutional: Reports: no symptoms HEENT: Reports: no symptoms Cardiovascular: Reports: no symptoms Respiratory: Reports: no symptoms Gastrointestinal/Abdominal: Reports: no symptoms Genitourinary: Reports: no symptoms Neurologic/Psychiatric: Reports: no symptoms Endocrine: Reports: no symptoms Hematologic/Lymphatic: Reports: anemia Allergies: Coded Allergies: No Known Allergies (Unverified , 02/27/17) Subjective no acute distress Objective Last 24 Hour Vital Signs Date Time Temp Pulse Resp B/P Pulse Ox O2 Delivery O2 Flow Rate FiO2 03/17/17 12:00 98.1 67 19 137/74 97 Room Air 03/17/17 08:00 97.9 65 19 128/71 98 Room Air 03/17/17 04:00 96.3 75 18 139/81 98 Room Air 03/17/17 00:40 98.1 90 17 127/63 97 Room Air 03/16/17 20:39 97.9 80 18 133/78 97 Room Air 03/16/17 16:02 98.0 75 20 137/79 98 Room Air Intake and Output 03/16/17 03/17/17 19:00 07:00 Intake Total 1080 ml 240 ml Output Total 600 ml Balance 480 ml 240 ml Intake Oral 1080 ml 240 ml Output Urine Total 600 ml # Voids 2 # Bowel Movements 1 Laboratory Tests 03/17/17 06:00: Prothrombin Time 22.5H, Prothromb Time International Ratio 2.1H Height (Feet): 5 Height (Inches): 10.00 Weight (Pounds): 150 General Appearance: no apparent distress EENT: pharynx normal Neck: normal alignment Cardiovascular: normal rate Respiratory/Chest: lungs clear Abdomen: non tender Edema: no edema noted Pedal (L), no edema noted Pedal (R) Neurologic: early childhood education specialist II-XII grossly normal Skin: warm/dry Leandro Ceja Mar 17, 2017 14:50
[2017-03-17 16:00] VITALS: BP 137/75
[2017-03-17] MEDS ORDERED: Warfarin Sodium 7.5mg ORAL ONE (17:00)
[2017-03-17 20:00] VITALS: BP 130/74
--- NOTE | 2017-03-17 22:00 | Progress Note ---
SUBJECTIVE: No behavior issues. Continues to be depressed, has flat affect and mild cognitive impairment. Poor insight and judgment into the situation he is in. MENTAL STATUS EXAMINATION: The patient is alert, oriented to time, self, place, and situation. Mood is neutral. Affect is constricted. Congruent with mood. Thought process is concrete. Thought content, no suicidal or homicidal ideation. ASSESSMENT: 1. Depression, the patient lacks capacity to make decisions. 2. Continue current medications. 3. Provide the patient with supportive therapy and reality orientation. Diana Yanez M.D. DR: Samantha JOB#: [id number] CC:
[2017-03-17] MEDS: Zolpidem 5mg tab ORAL PRN (22:20)
[2017-03-18 00:14] VITALS: BP 133/69
[2017-03-18 04:00] VITALS: BP 145/85
[2017-03-18] MEDS: NovoLOG Insulin Flexpen SUBQ SCH ×4 (06:31→20:59)
[2017-03-18 07:43] LABS: PROTHROMBIN TIME 21.6 SEC (9.30-11.50)
[2017-03-18 08:02] VITALS: BP 130/77
[2017-03-18] MEDS: Docusate 100mg cap ORAL SCH ×3 (08:57→17:10)
[2017-03-18] MEDS: Thiamine 100mg tab ORAL SCH (08:57)
[2017-03-18] MEDS: Vitamin A&D Oint 2oz Tube TOPIC SCH ×2 (08:58→21:06)
--- NOTE | 2017-03-18 09:00 | General Progress Note ---
Assessment/Plan Problem List: (1) Elevated CEA ICD Codes: R97.0 - Elevated carcinoembryonic antigen [CEA] SNOMED: 34780604, 792284082 (2) Hypoalbuminemia ICD Codes: E88.09 - Other disorders of plasma-protein metabolism, not elsewhere classified SNOMED: 495089472 (3) Fracture of femoral neck, right ICD Codes: S72.001A - Fracture of unspecified part of neck of right femur, initial encounter for closed fracture SNOMED: 6221491 Qualifiers: Qualified Codes: S72.001A - Fracture of unspecified part of neck of right femur, initial encounter for closed fracture (4) Anemia ICD Codes: D64.9 - Anemia, unspecified SNOMED: 327011339 Assessment/Plan fu stool ob>> negative fu H&H prn blood transfusion Subjective ROS Limited/Unobtainable: Yes Allergies: Coded Allergies: No Known Allergies (Unverified , 02/27/17) Subjective no event Objective Last 24 Hour Vital Signs Date Time Temp Pulse Resp B/P Pulse Ox O2 Delivery O2 Flow Rate FiO2 03/18/17 08:02 98.6 73 20 130/77 100 Room Air 03/18/17 04:00 97.7 76 20 145/85 98 Room Air 03/18/17 00:14 98.1 82 18 133/69 97 Room Air 03/17/17 20:00 98.2 86 18 130/74 97 Room Air 03/17/17 16:00 96.6 74 19 137/75 98 Room Air 03/17/17 12:00 98.1 67 19 137/74 97 Room Air Intake and Output 03/17/17 03/18/17 19:00 07:00 Intake Total 240 ml Balance 240 ml Intake Oral 240 ml # Voids 3 3 Laboratory Tests 03/18/17 05:20: Prothrombin Time 21.6H, Prothromb Time International Ratio 2.0H Height (Feet): 5 Height (Inches): 10.00 Weight (Pounds): 150 General Appearance: alert EENT: normal ENT inspection Neck: normal alignment Cardiovascular: normal rate Respiratory/Chest: lungs clear Abdomen: normal bowel sounds, non tender, soft Extremities: non-tender CONTRERAS BANKS Mar 18, 2017 09:00
--- NOTE | 2017-03-18 09:53 | Pulmonology Progress Note ---
Assessment/Plan Assessment/Plan ASSESSMENT s/p fall R femoral neck displaced fracture s/p R hip hemiarthroplasty acute renal failure, likely due to dehydration-resolved dehydration hypo Na anemia of chronic disease acute DVT RLE ( SFV and popliteal) elevated CEA Hx of HTN electrolyte imbalance ( hypo Mg, hypo P, hypo Ca) protein calorie malnutrition major depressive disorder developmental disability, mild L ischial tuberosity pressure ulcer un-stageable, POA left trochanter pressure ulcer, un-stageable painful mycotic toe nails, s/p debridemetn PLAN OF CARE MS floor surgery follows pain management Venous Duplex BLE + RLE acute DVT SFV and popliteal on Coumadin , INR therapeutic bowel regimen PT/OT, working with PT, nephro follows renal US negative ( no hydro, normal echogenicity) s/p 3% NaCl, Na up e/lytes stable , replace as needed anemia workup with stable iron, borderline B 12 s/p total of 3 u PRBC HH at baseline, monitor and transfuse prn elevated CEA GI follows ( due to anemia and elevated CEA ) HH stable transfuse prn , goal to keep Hgb above 7 heme follows PPI bowel regimen elevated CEA stool OB negative GI recommended outpatient colonoscopy s/p B 12 SQ x 1 ( at normal limits, low range) wound care as per wound nurse recommendations BP management, Clonidine prn seen by log snaker, s/p debridement x10 toenails psych seen and evaluated psych doctor concluded that patient lacks capacity to make informed decision APS involved re home situation SW follows with APS patient needs guardianship for [employer] application and placement awaiting for disposition case discussed and evaluated by supervising physician Subjective Allergies: Coded Allergies: No Known Allergies (Unverified , 02/27/17) Subjective awaiting for placement leukocytosis resolved, afebrile HH at baseline pain controlled working with PT Objective Last 24 Hour Vital Signs Date Time Temp Pulse Resp B/P Pulse Ox O2 Delivery O2 Flow Rate FiO2 03/18/17 08:02 98.6 73 20 130/77 100 Room Air 03/18/17 04:00 97.7 76 20 145/85 98 Room Air 03/18/17 00:14 98.1 82 18 133/69 97 Room Air 03/17/17 20:00 98.2 86 18 130/74 97 Room Air 03/17/17 16:00 96.6 74 19 137/75 98 Room Air 03/17/17 12:00 98.1 67 19 137/74 97 Room Air Intake and Output 03/17/17 03/18/17 19:00 07:00 Intake Total 240 ml Balance 240 ml Intake Oral 240 ml # Voids 3 3 Objective General Appearance: no acute distress, awake, alert, confused male in NAD HEENT: normocephalic, atraumatic, anicteric, mucous membranes moist Respiratory/Chest: lungs clear, no respiratory distress, no accessory muscle use Cardiovascular: normal peripheral pulses, normal rate, regular rhythm, no JVD Abdomen: normal bowel sounds, soft, non tender, non distended Genitourinary: normal external genitalia Extremities: no edema, pedal pulses normal Skin: R hip incision healing Neurologic/Psychiatric: abnormal gait, alert, responsive Musculoskeletal: normal muscle bulk Laboratory Tests 03/18/17 05:20: Prothrombin Time 21.6H, Prothromb Time International Ratio 2.0H Current Medications Medications (Trade) Dose Ordered Sig/Bautista Route PRN Reason Start Time Stop Time Status Last Admin Dose Admin Acetaminophen (Tylenol) 650 mg Q4H PRN ORAL fever>100.5 02/28/17 08:00 03/30/17 07:59 Acetaminophen/ Hydrocodone Bitart ([place] 5/325) 1 tab Q4H PRN ORAL Severe Pain (Pain Scale 7-10) 03/17/17 11:05 03/24/17 11:04 Clonidine HCl (Catapres) 0.1 mg Q6H PRN ORAL SBP>160 03/03/17 10:00 04/02/17 09:59 Dextrose (Dextrose 50%) STAT PRN IV Hypoglycemia 02/28/17 08:00 03/30/17 07:59 Docusate Sodium (Colace) 100 mg THREE TIMES A DAY ORAL 03/01/17 13:00 03/31/17 12:59 03/18/17 08:57 Ergocalciferol (Drisdol) 50,000 intlu QWEEK ORAL 03/01/17 14:00 03/31/17 13:59 03/15/17 17:05 Escitalopram Oxalate (Lexapro) 10 mg DAILY ORAL 03/12/17 09:00 04/11/17 08:59 03/18/17 08:57 Folic Acid (Folate) 2 mg DAILY ORAL 03/01/17 12:30 8/18/17 12:29 03/18/17 08:57 Insulin Aspart (NovoLOG) BEFORE MEALS AND HS SUBQ 03/06/17 21:00 04/05/17 20:59 03/18/17 06:31 Ondansetron HCl (Zofran) 4 mg Q6H PRN IVP Nausea & Vomiting 02/28/17 16:00 03/30/17 15:59 Pantoprazole (Protonix) 40 mg EVERY 12 HOURS ORAL 03/01/17 12:30 03/31/17 12:29 03/18/17 08:57 Polyethylene Glycol (Miralax) 17 gm HSPRN PRN ORAL Constipation 02/28/17 21:00 03/30/17 20:59 Thiamine HCl (Vitamin B1) 100 mg DAILY ORAL 03/01/17 12:30 03/31/17 12:29 03/18/17 08:57 Vitamin A/Vitamin D (A & D Oint) 1 applic EVERY 12 HOURS TOPIC 03/08/17 21:00 04/07/17 20:59 03/18/17 08:58 Warfarin Sodium (Coumadin per pharmacy) 1 ea DAILY PRN MISC Per rx protocol 03/04/17 07:45 04/03/17 07:44 Zolpidem Tartrate (Ambien) 5 mg HSPRN PRN ORAL Insomnia 02/28/17 21:00 03/30/17 20:59 03/17/17 22:20 Mateus ([facility])Sera NP Mar 18, 2017 09:53
[2017-03-18 12:08] VITALS: BP 134/87
[2017-03-18 16:05] VITALS: BP 132/69
[2017-03-18] MEDS ORDERED: WARFARIN SOD ORAL SCH ×2 (17:00)
[2017-03-18] MEDS ORDERED: Warfarin Sodium 7.5mg ORAL ONE (17:00)
[2017-03-18 20:25] VITALS: BP 115/73
[2017-03-18] MEDS: Zolpidem 5mg tab ORAL PRN (20:57)
[2017-03-19 00:46] VITALS: BP 138/84
[2017-03-19 04:38] VITALS: BP 148/85
[2017-03-19] MEDS: NovoLOG Insulin Flexpen SUBQ SCH ×4 (06:35→22:12)
--- NOTE | 2017-03-19 07:32 | General Progress Note ---
Assessment/Plan Status: stable Assessment/Plan #. Anemia secondary to chronic disease, ferritin is elevated and tibc is low --> s/p total of 3 units PRBC --> hgb goal above 7, continue to closely monitor. remains stable --> transfuse prn --> OB stool neg #Elevated CEA --> colonoscopy as outpatient #. Anemia secondary to orthopedic procedure. #. DVT of right superficial femoral vein of the right lower extremity is on coumadin --> lovenox has been DC --> continue to monitor INR --> INR goal 2-3 #. Uricemia. #. Hypocalcemia. --> resolved #. Leukocytosis secondary to reactive process from anemia #. Right hip fracture --> has been seen by ortho Subjective Date patient seen: Mar 18, 2017 Constitutional: Reports: no symptoms HEENT: Reports: no symptoms Cardiovascular: Reports: no symptoms Respiratory: Reports: no symptoms Gastrointestinal/Abdominal: Reports: no symptoms Genitourinary: Reports: no symptoms Neurologic/Psychiatric: Reports: no symptoms Endocrine: Reports: no symptoms Hematologic/Lymphatic: Reports: anemia Allergies: Coded Allergies: No Known Allergies (Unverified , 02/27/17) Subjective no events overnight, h/h stable Objective Last 24 Hour Vital Signs Date Time Temp Pulse Resp B/P Pulse Ox O2 Delivery O2 Flow Rate FiO2 03/19/17 04:38 98.1 62 19 148/85 97 Room Air 03/19/17 00:46 97.9 78 18 138/84 98 Room Air 03/18/17 20:25 98.6 70 19 115/73 95 Room Air 03/18/17 16:05 97.9 78 20 132/69 100 Room Air 03/18/17 12:08 98.1 86 20 134/87 100 Room Air 03/18/17 08:02 98.6 73 20 130/77 100 Room Air Intake and Output 03/18/17 03/19/17 19:00 07:00 Intake Total 1450 ml 240 ml Output Total 800 ml Balance 1450 ml -560 ml Intake Oral 1450 ml 240 ml Output Urine Total 800 ml # Voids 3 2 # Bowel Movements 1 Height (Feet): 5 Height (Inches): 10.00 Weight (Pounds): 150 General Appearance: no apparent distress EENT: normal ENT inspection Neck: normal alignment Cardiovascular: normal rate Respiratory/Chest: lungs clear Edema: no edema noted Pedal (L), no edema noted Pedal (R) Neurologic: oriented x 3 Skin: warm/dry Leandro Ceja Mar 19, 2017 07:32
[2017-03-19 08:18] LABS: INR 2.5 (0.9-1.1); PROTHROMBIN TIME 26.5 SEC (9.30-11.50)
[2017-03-19 08:19] VITALS: BP 142/81
[2017-03-19] MEDS: Docusate 100mg cap ORAL SCH ×3 (09:13→17:11)
[2017-03-19] MEDS: Thiamine 100mg tab ORAL SCH (09:13)
[2017-03-19] MEDS: Vitamin A&D Oint 2oz Tube TOPIC SCH ×2 (09:14→22:09)
--- NOTE | 2017-03-19 11:27 | General Progress Note ---
Assessment/Plan Problem List: (1) Elevated CEA ICD Codes: R97.0 - Elevated carcinoembryonic antigen [CEA] SNOMED: 92047031, 765802727 (2) Hypoalbuminemia ICD Codes: E88.09 - Other disorders of plasma-protein metabolism, not elsewhere classified SNOMED: 656302960 (3) Fracture of femoral neck, right ICD Codes: S72.001A - Fracture of unspecified part of neck of right femur, initial encounter for closed fracture SNOMED: 9160177 Qualifiers: Qualified Codes: S72.001A - Fracture of unspecified part of neck of right femur, initial encounter for closed fracture (4) Anemia ICD Codes: D64.9 - Anemia, unspecified SNOMED: 126111822 Assessment/Plan fu stool ob>> negative fu H&H prn blood transfusion Subjective ROS Limited/Unobtainable: Yes Allergies: Coded Allergies: No Known Allergies (Unverified , 02/27/17) Subjective no event Objective Last 24 Hour Vital Signs Date Time Temp Pulse Resp B/P Pulse Ox O2 Delivery O2 Flow Rate FiO2 03/19/17 08:19 97.0 90 19 142/81 99 Room Air 03/19/17 04:38 98.1 62 19 148/85 97 Room Air 03/19/17 00:46 97.9 78 18 138/84 98 Room Air 03/18/17 20:25 98.6 70 19 115/73 95 Room Air 03/18/17 16:05 97.9 78 20 132/69 100 Room Air 03/18/17 12:08 98.1 86 20 134/87 100 Room Air Intake and Output 03/18/17 03/19/17 19:00 07:00 Intake Total 1450 ml 240 ml Output Total 800 ml Balance 1450 ml -560 ml Intake Oral 1450 ml 240 ml Output Urine Total 800 ml # Voids 3 2 # Bowel Movements 1 Laboratory Tests 03/19/17 07:35: Prothrombin Time 26.5H, Prothromb Time International Ratio 2.5H Height (Feet): 5 Height (Inches): 10.00 Weight (Pounds): 150 General Appearance: alert EENT: normal ENT inspection Neck: supple Cardiovascular: normal rate Respiratory/Chest: decreased breath sounds Abdomen: normal bowel sounds, non tender, soft Extremities: non-tender CONTRERAS BANKS Mar 19, 2017 11:27
--- NOTE | 2017-03-19 11:36 | General Progress Note ---
Assessment/Plan Assessment/Plan (1) Right hip fracture (2) Right hip pain (3) S/p naun arthroplasty Pt will be continued on [place] D/w Dr. Loyd and he concurred. Subjective Date patient seen: Mar 19, 2017 Time patient seen: 10:30 - am Allergies: Coded Allergies: No Known Allergies (Unverified , 02/27/17) Subjective REVIEW OF SYSTEMS: Denies rash, fever, chills, sweating, dizziness, drowsiness, blurred vision, sore throat, or change in weight. No shortness of breath, chest pain, palpitations, or cough. No nausea, vomiting, diarrhea, or blood in the stool or urine. No bowel or bladder incontinence. No dysuria. SUBJECTIVE: Patient is sitting up in chair reports that his pain is a 2/10 with walking and is comfortable while at rest. Objective Last 24 Hour Vital Signs Date Time Temp Pulse Resp B/P Pulse Ox O2 Delivery O2 Flow Rate FiO2 03/19/17 08:19 97.0 90 19 142/81 99 Room Air 03/19/17 04:38 98.1 62 19 148/85 97 Room Air 03/19/17 00:46 97.9 78 18 138/84 98 Room Air 03/18/17 20:25 98.6 70 19 115/73 95 Room Air 03/18/17 16:05 97.9 78 20 132/69 100 Room Air 03/18/17 12:08 98.1 86 20 134/87 100 Room Air Intake and Output 03/18/17 03/19/17 19:00 07:00 Intake Total 1450 ml 240 ml Output Total 800 ml Balance 1450 ml -560 ml Intake Oral 1450 ml 240 ml Output Urine Total 800 ml # Voids 3 2 # Bowel Movements 1 Laboratory Tests 03/19/17 07:35: Prothrombin Time 26.5H, Prothromb Time International Ratio 2.5H Height (Feet): 5 Height (Inches): 10.00 Weight (Pounds): 150 Objective GENERAL: Alert, awake, and oriented. HEENT: Pupils are equally round and reactive to light and accommodation. NECK: Range of motion is full in all directions. No tenderness to paracervical muscles. No adenopathy. LUNGS: Lungs are clear. HEART: S1 and S2 are regular. ABDOMEN: Benign. BACK: Range of motion is full on flexion and extension. No tenderness to paraspinal muscles, trapezius, or rhomboid muscles. EXTREMITIES: No cyanosis. No clubbing. No edema. NEURO: No changes. HIEN LAMAR Mar 19, 2017 11:36
[2017-03-19 12:06] VITALS: BP 129/67
--- NOTE | 2017-03-19 13:09 | Pulmonology Progress Note ---
Assessment/Plan Assessment/Plan ASSESSMENT s/p fall R femoral neck displaced fracture s/p R hip hemiarthroplasty acute renal failure, likely due to dehydration-resolved dehydration hypo Na anemia of chronic disease acute DVT RLE ( SFV and popliteal) elevated CEA Hx of HTN electrolyte imbalance ( hypo Mg, hypo P, hypo Ca) protein calorie malnutrition major depressive disorder developmental disability, mild L ischial tuberosity pressure ulcer un-stageable, POA left trochanter pressure ulcer, un-stageable painful mycotic toe nails, s/p debridemetn PLAN OF CARE MS floor surgery follows pain management Venous Duplex BLE + RLE acute DVT SFV and popliteal on Coumadin , INR therapeutic bowel regimen PT/OT, working with PT, ambulating with walker well nephro follows renal US negative ( no hydro, normal echogenicity) s/p 3% NaCl, Na up e/lytes stable , replace as needed anemia workup with stable iron, borderline B 12 s/p total of 3 u PRBC HH at baseline, monitor and transfuse prn elevated CEA GI follows ( due to anemia and elevated CEA ) HH stable transfuse prn , goal to keep Hgb above 7 heme follows PPI bowel regimen elevated CEA stool OB negative GI recommended outpatient colonoscopy s/p B 12 SQ x 1 ( at normal limits, low range) wound care as per wound nurse recommendations BP management, Clonidine prn seen by addiction psychiatrist, s/p debridement x10 toenails psych seen and evaluated psych doctor concluded that patient lacks capacity to make informed decision APS involved re home situation SW follows with APS patient needs guardianship for [employer] application and placement awaiting for disposition case discussed and evaluated by supervising physician Subjective Allergies: Coded Allergies: No Known Allergies (Unverified , 02/27/17) Subjective awaiting for placement leukocytosis resolved, afebrile HH at baseline pain controlled ambulated with PT Objective Last 24 Hour Vital Signs Date Time Temp Pulse Resp B/P Pulse Ox O2 Delivery O2 Flow Rate FiO2 03/19/17 12:06 97.7 67 22 129/67 98 Room Air 03/19/17 08:19 97.0 90 19 142/81 99 Room Air 03/19/17 04:38 98.1 62 19 148/85 97 Room Air 03/19/17 00:46 97.9 78 18 138/84 98 Room Air 03/18/17 20:25 98.6 70 19 115/73 95 Room Air 03/18/17 16:05 97.9 78 20 132/69 100 Room Air Intake and Output 03/18/17 03/19/17 19:00 07:00 Intake Total 1450 ml 240 ml Output Total 800 ml Balance 1450 ml -560 ml Intake Oral 1450 ml 240 ml Output Urine Total 800 ml # Voids 3 2 # Bowel Movements 1 Objective General Appearance: no acute distress, awake, alert, confused male in NAD HEENT: normocephalic, atraumatic, anicteric, mucous membranes moist Respiratory/Chest: lungs clear, no respiratory distress, no accessory muscle use Cardiovascular: normal peripheral pulses, normal rate, regular rhythm, no JVD Abdomen: normal bowel sounds, soft, non tender, non distended Genitourinary: normal external genitalia Extremities: no edema, pedal pulses normal Skin: R hip incision healing Neurologic/Psychiatric: abnormal gait, alert, responsive Musculoskeletal: normal muscle bulk Laboratory Tests 03/19/17 07:35: Prothrombin Time 26.5H, Prothromb Time International Ratio 2.5H Current Medications Medications (Trade) Dose Ordered Sig/Bautista Route PRN Reason Start Time Stop Time Status Last Admin Dose Admin Acetaminophen (Tylenol) 650 mg Q4H PRN ORAL fever>100.5 02/28/17 08:00 03/30/17 07:59 Acetaminophen/ Hydrocodone Bitart ([place] 5/325) 1 tab Q4H PRN ORAL Severe Pain (Pain Scale 7-10) 03/17/17 11:05 03/24/17 11:04 Clonidine HCl (Catapres) 0.1 mg Q6H PRN ORAL SBP>160 03/03/17 10:00 04/02/17 09:59 Dextrose (Dextrose 50%) STAT PRN IV Hypoglycemia 02/28/17 08:00 03/30/17 07:59 Docusate Sodium (Colace) 100 mg THREE TIMES A DAY ORAL 03/01/17 13:00 03/31/17 12:59 03/19/17 13:05 Ergocalciferol (Drisdol) 50,000 intlu QWEEK ORAL 03/01/17 14:00 03/31/17 13:59 03/15/17 17:05 Escitalopram Oxalate (Lexapro) 10 mg DAILY ORAL 03/12/17 09:00 04/11/17 08:59 03/19/17 09:13 Folic Acid (Folate) 2 mg DAILY ORAL 03/01/17 12:30 03/31/17 12:29 03/19/17 09:13 Insulin Aspart (NovoLOG) BEFORE MEALS AND HS SUBQ 03/06/17 21:00 04/05/17 20:59 03/19/17 13:05 Ondansetron HCl (Zofran) 4 mg Q6H PRN IVP Nausea & Vomiting 02/28/17 16:00 03/30/17 15:59 Pantoprazole (Protonix) 40 mg EVERY 12 HOURS ORAL 03/01/17 12:30 03/31/17 12:29 03/19/17 09:13 Polyethylene Glycol (Miralax) 17 gm HSPRN PRN ORAL Constipation 02/28/17 21:00 03/30/17 20:59 Thiamine HCl (Vitamin B1) 100 mg DAILY ORAL 03/01/17 12:30 03/31/17 12:29 03/19/17 09:13 Vitamin A/Vitamin D (A & D Oint) 1 applic EVERY 12 HOURS TOPIC 03/08/17 21:00 04/07/17 20:59 03/19/17 09:14 Warfarin Sodium (Coumadin per pharmacy) 1 ea DAILY PRN MISC Per rx protocol 03/04/17 07:45 04/03/17 07:44 Warfarin Sodium/ Warfarin Sodium (Coumadin/ Coumadin) 7 mg COUMADIN ONCE ORAL 03/19/17 17:00 03/19/17 17:01 Zolpidem Tartrate (Ambien) 5 mg HSPRN PRN ORAL Insomnia 02/28/17 21:00 03/30/17 20:59 03/18/17 20:57 Mateus ([facility])Sera NP Mar 19, 2017 13:09
[2017-03-19 16:08] VITALS: BP 139/69
[2017-03-19] MEDS ORDERED: Warfarin Sod 3 MG, Warfarin Sod 4 MG ORAL ONE ×2 (17:00)
--- NOTE | 2017-03-19 20:15 | Progress Note ---
DATE: 03/19/2017 SUBJECTIVE: The patient continues to be depressed. He is calm. No behavioral issues. Cooperative. He is still illogical and has poor insight and judgment into his mental condition. MENTAL STATUS EXAMINATION: The patient is alert and oriented times self, place, and situation he is in. Mood is neutral. Affect is constricted, congruent with mood. Thought process is concrete. Thought content, there is no suicidal or homicidal ideations. ASSESSMENT: Major depressive disorder, the patient lacks capacity to make decisions. PLAN: 1. The patient will be continued on current medication. 2. Adult Protective Services are involved. Diana Yanez M.D. DR: ROBERTA JOB#: [id number] CC:
[2017-03-19 20:36] VITALS: BP 124/74
--- NOTE | 2017-03-19 22:07 | General Progress Note ---
Assessment/Plan Assessment/Plan #. Anemia secondary to chronic disease, ferritin is elevated and tibc is low --> s/p total of 3 units PRBC --> hgb goal above 7, continue to closely monitor. remains stable --> transfuse prn --> OB stool neg #Elevated CEA --> colonoscopy as outpatient #. Anemia secondary to orthopedic procedure. #. DVT of right superficial femoral vein of the right lower extremity is on coumadin --> lovenox has been DC --> continue to monitor INR --> INR goal 2-3 #. Uricemia. #. Hypocalcemia. --> resolved #. Leukocytosis secondary to reactive process from anemia #. Right hip fracture --> has been seen by ortho Subjective Constitutional: Reports: no symptoms HEENT: Reports: no symptoms Cardiovascular: Reports: no symptoms Respiratory: Reports: no symptoms Gastrointestinal/Abdominal: Reports: no symptoms Genitourinary: Reports: no symptoms Neurologic/Psychiatric: Reports: no symptoms Endocrine: Reports: no symptoms Hematologic/Lymphatic: Reports: anemia Allergies: Coded Allergies: No Known Allergies (Unverified , 02/27/17) Subjective comfortable, in wheelchair Objective Last 24 Hour Vital Signs Date Time Temp Pulse Resp B/P Pulse Ox O2 Delivery O2 Flow Rate FiO2 03/19/17 20:36 99.2 81 18 124/74 97 Room Air 03/19/17 16:08 99.0 67 21 139/69 93 Room Air 03/19/17 12:06 97.7 67 22 129/67 98 Room Air 03/19/17 08:19 97.0 90 19 142/81 99 Room Air 03/19/17 04:38 98.1 62 19 148/85 97 Room Air 03/19/17 00:46 97.9 78 18 138/84 98 Room Air Intake and Output 03/18/17 03/19/17 19:00 07:00 Intake Total 1450 ml 240 ml Output Total 800 ml Balance 1450 ml -560 ml Intake Oral 1450 ml 240 ml Output Urine Total 800 ml # Voids 3 2 # Bowel Movements 1 Laboratory Tests 03/19/17 07:35: Prothrombin Time 26.5H, Prothromb Time International Ratio 2.5H Height (Feet): 5 Height (Inches): 10.00 Weight (Pounds): 150 General Appearance: no apparent distress EENT: normal ENT inspection Neck: non-tender Cardiovascular: normal peripheral pulses Edema: no edema noted Pedal (L), no edema noted Pedal (R) Neurologic: coin purse framer II-XII grossly normal Skin: warm/dry Leandro Ceja Mar 19, 2017 22:07
[2017-03-19] MEDS: Zolpidem 5mg tab ORAL PRN (22:09)
[2017-03-20 00:30] VITALS: BP 137/70
[2017-03-20 04:39] VITALS: BP 134/74
[2017-03-20] MEDS: NovoLOG Insulin Flexpen SUBQ SCH ×4 (05:41→20:33)
[2017-03-20 07:42] LABS: INR 2.3 (0.9-1.1); PROTHROMBIN TIME 24.7 SEC (9.30-11.50)
[2017-03-20 07:47] LABS: BASOPHILS % (AUTO) 1.1 % (0.0-2.0); EOSINOPHILS % (AUTO) 2.9 % (0.0-3.0); LYMPHOCYTES % (AUTO) 40.3 % (20.0-45.0); MEAN CORPUSCULAR HEMOGLOBIN 31.1 PG (27.0-31.0); MEAN CORPUSCULAR HGB CONC 32.5 G/DL (32.0-36.0); MEAN CORPUSCULAR VOLUME 96 FL (80-99); MEAN PLATELET VOLUME 5.1 FL (6.5-10.1); MONOCYTES % (AUTO) 6.2 % (1.0-10.0); NEUTROPHILS % (AUTO) 49.5 % (45.0-75.0); PLATELET COUNT 470 K/UL (150-450); RED BLOOD COUNT 3.13 M/UL (4.70-6.10); RED CELL DISTRIBUTION WIDTH 15.8 % (11.6-14.8); WHITE BLOOD COUNT 4.7 K/UL (4.8-10.8)
[2017-03-20 08:00] VITALS: BP 135/75
[2017-03-20] MEDS: Docusate 100mg cap ORAL SCH ×3 (08:50→18:00)
[2017-03-20] MEDS: Thiamine 100mg tab ORAL SCH (08:51)
[2017-03-20] MEDS: Vitamin A&D Oint 2oz Tube TOPIC SCH ×2 (08:52→20:30)
[2017-03-20 09:22] LABS: ANION GAP 12 (5-15); CALCIUM 9.1 mg/dL (8.6-10.2); CARBON DIOXIDE 27 mEQ/L (20-30); CHLORIDE 97 mEQ/L (98-107); CREATININE 1.1 mg/dL (0.7-1.2); GLOMERULAR FILTRATION RATE > 60 mL/min (>60); HEMOLYSIS 1; POTASSIUM 4.7 mEQ/L (3.4-4.9); SODIUM 136 mEQ/L (135-145)
--- NOTE | 2017-03-20 11:56 | GI Progress Note ---
Assessment/Plan Problems: (1) Hypoalbuminemia ICD Codes: E88.09 - Other disorders of plasma-protein metabolism, not elsewhere classified SNOMED: 755288859 (2) Anemia ICD Codes: D64.9 - Anemia, unspecified SNOMED: 552866342 (3) Elevated CEA ICD Codes: R97.0 - Elevated carcinoembryonic antigen [CEA] SNOMED: 62652030, 593516430 Status: stable Status Narrative Discussed with Dr. Pressley. Assessment/Plan elevated CEA OB stool >> negative stable H&H prn transfusions PPI bowel regime fu labs outpatient colonoscopy pt on Coumadin >> medication must be discontinued min 48 hours prior any endoscopic procedures. Subjective Gastrointestinal/Abdominal: Reports: no symptoms Objective Last 24 Hour Vital Signs Date Time Temp Pulse Resp B/P Pulse Ox O2 Delivery O2 Flow Rate FiO2 03/20/17 08:00 98.0 74 18 135/75 97 Room Air 03/20/17 04:39 97.0 65 18 134/74 97 Room Air 03/20/17 00:30 98.1 75 19 137/70 97 Room Air 03/19/17 20:36 99.2 81 18 124/74 97 Room Air 03/19/17 16:08 99.0 67 21 139/69 93 Room Air 03/19/17 12:06 97.7 67 22 129/67 98 Room Air Intake and Output 03/19/17 03/20/17 19:00 07:00 Intake Total 480 ml Output Total 350 ml 1000 ml Balance -350 ml -520 ml Intake Oral 480 ml Output Urine Total 350 ml 1000 ml # Voids 2 # Bowel Movements 1 Laboratory Tests Test 03/20/17 05:50 White Blood Count 4.7 K/UL (4.8-10.8) L Red Blood Count 3.13 M/UL (4.70-6.10) L Hemoglobin 9.7 G/DL (14.2-18.0) L Hematocrit 29.9 % (42.0-52.0) L Mean Corpuscular Volume 96 FL (80-99) Mean Corpuscular Hemoglobin 31.1 PG (27.0-31.0) H Mean Corpuscular Hemoglobin Concent 32.5 G/DL (32.0-36.0) Red Cell Distribution Width 15.8 % (11.6-14.8) H Platelet Count 470 K/UL (150-450) H Mean Platelet Volume 5.1 FL (6.5-10.1) L Neutrophils (%) (Auto) 49.5 % (45.0-75.0) Lymphocytes (%) (Auto) 40.3 % (20.0-45.0) Monocytes (%) (Auto) 6.2 % (1.0-10.0) Eosinophils (%) (Auto) 2.9 % (0.0-3.0) Basophils (%) (Auto) 1.1 % (0.0-2.0) Prothrombin Time 24.7 SEC (9.30-11.50) H Prothromb Time International Ratio 2.3 (0.9-1.1) H Sodium Level 136 mEQ/L (135-145) Potassium Level 4.7 mEQ/L (3.4-4.9) Chloride Level 97 mEQ/L (98-107) L Carbon Dioxide Level 27 mEQ/L (20-30) Anion Gap 12 (5-15) Blood Urea Nitrogen 37 mg/dL (7-23) H Creatinine 1.1 mg/dL (0.7-1.2) Estimat Glomerular Filtration Rate > 60 mL/min (>60) Glucose Level 104 mg/dL (74-106) Calcium Level 9.1 mg/dL (8.6-10.2) Height (Feet): 5 Height (Inches): 10.00 Weight (Pounds): 150 General Appearance: no apparent distress, alert, thin Cardiovascular: normal rate Respiratory/Chest: normal breath sounds, no respiratory distress Abdominal Exam: normal bowel sounds, non tender, soft Extremities: normal range of motion Mag Esteban N.P. Mar 20, 2017 11:56
[2017-03-20 12:00] VITALS: BP 129/76
--- NOTE | 2017-03-20 15:33 | Pulmonology Progress Note ---
Assessment/Plan Problems: (1) Fracture of femoral neck, right (2) DVT (deep venous thrombosis) (3) Renal insufficiency (4) Anemia Assessment/Plan no new changes pt/ot f/u labs tolerating diet dc planning awaiting placement pt is not competent to make any decisions Subjective ROS Limited/Unobtainable: No Constitutional: Reports: no symptoms HEENT: Repors: no symptoms Respiratory: Reports: no symptoms Allergies: Coded Allergies: No Known Allergies (Unverified , 02/27/17) Objective Last 24 Hour Vital Signs Date Time Temp Pulse Resp B/P Pulse Ox O2 Delivery O2 Flow Rate FiO2 03/20/17 12:00 97.4 66 17 129/76 Room Air 03/20/17 08:00 98.0 74 18 135/75 97 Room Air 03/20/17 04:39 97.0 65 18 134/74 97 Room Air 03/20/17 00:30 98.1 75 19 137/70 97 Room Air 03/19/17 20:36 99.2 81 18 124/74 97 Room Air 03/19/17 16:08 99.0 67 21 139/69 93 Room Air Intake and Output 03/19/17 03/20/17 19:00 07:00 Intake Total 480 ml Output Total 350 ml 1000 ml Balance -350 ml -520 ml Intake Oral 480 ml Output Urine Total 350 ml 1000 ml # Voids 2 # Bowel Movements 1 General Appearance: WD/WN HEENT: normocephalic, atraumatic Respiratory/Chest: chest wall non-tender, lungs clear Cardiovascular: normal peripheral pulses, normal rate Abdomen: normal bowel sounds, soft, non tender Genitourinary: normal external genitalia Extremities: no clubbing Skin: no rash Neurologic/Psychiatric: tare weigher II-XII grossly normal, no motor/sensory deficits, alert Lymphatic: no neck adenopathy Laboratory Tests 03/20/17 05:50: White Blood Count 4.7L, Red Blood Count 3.13L, Hemoglobin 9.7L, Hematocrit 29.9L , Mean Corpuscular Volume 96, Mean Corpuscular Hemoglobin 31.1H, Mean Corpuscular Hemoglobin Concent 32.5, Red Cell Distribution Width 15.8H, Platelet Count 470H, Mean Platelet Volume 5.1L, Neutrophils (%) (Auto) 49.5, Lymphocytes (%) (Auto) 40.3, Monocytes (%) (Auto) 6.2, Eosinophils (%) (Auto) 2.9, Basophils (%) (Auto) 1.1, Prothrombin Time 24.7H, Prothromb Time International Ratio 2.3H, Sodium Level 136, Potassium Level 4.7, Chloride Level 97L, Carbon Dioxide Level 27, Anion Gap 12, Blood Urea Nitrogen 37H, Creatinine 1.1, Estimat Glomerular Filtration Rate > 60, Glucose Level 104, Calcium Level 9.1 Current Medications Medications (Trade) Dose Ordered Sig/Bautista Route PRN Reason Start Time Stop Time Status Last Admin Dose Admin Acetaminophen (Tylenol) 650 mg Q4H PRN ORAL fever>100.5 02/28/17 08:00 03/30/17 07:59 Acetaminophen/ Hydrocodone Bitart ([place] 5/325) 1 tab Q4H PRN ORAL Severe Pain (Pain Scale 7-10) 03/17/17 11:05 03/24/17 11:04 Clonidine HCl (Catapres) 0.1 mg Q6H PRN ORAL SBP>160 03/03/17 10:00 04/02/17 09:59 Dextrose (Dextrose 50%) STAT PRN IV Hypoglycemia 02/28/17 08:00 03/30/17 07:59 Docusate Sodium (Colace) 100 mg THREE TIMES A DAY ORAL 03/01/17 13:00 03/31/17 12:59 03/20/17 08:50 Ergocalciferol (Drisdol) 50,000 intlu QWEEK ORAL 03/01/17 14:00 03/31/17 13:59 03/15/17 17:05 Escitalopram Oxalate (Lexapro) 10 mg DAILY ORAL 03/12/17 09:00 04/11/17 08:59 03/20/17 08:51 Folic Acid (Folate) 2 mg DAILY ORAL 03/01/17 12:30 03/31/17 12:29 03/20/17 08:51 Insulin Aspart (NovoLOG) BEFORE MEALS AND HS SUBQ 03/06/17 21:00 04/05/17 20:59 03/20/17 12:29 Ondansetron HCl (Zofran) 4 mg Q6H PRN IVP Nausea & Vomiting 02/28/17 16:00 03/30/17 15:59 Pantoprazole (Protonix) 40 mg EVERY 12 HOURS ORAL 03/01/17 12:30 03/31/17 12:29 03/20/17 08:50 Polyethylene Glycol (Miralax) 17 gm HSPRN PRN ORAL Constipation 02/28/17 21:00 03/30/17 20:59 Thiamine HCl (Vitamin B1) 100 mg DAILY ORAL 03/01/17 12:30 03/31/17 12:29 03/20/17 08:51 Vitamin A/Vitamin D (A & D Oint) 1 applic EVERY 12 HOURS TOPIC 03/08/17 21:00 04/07/17 20:59 03/20/17 08:52 Warfarin Sodium (Coumadin per pharmacy) 1 ea DAILY PRN MISC Per rx protocol 03/04/17 07:45 04/03/17 07:44 Warfarin Sodium/ Warfarin Sodium (Coumadin/ Coumadin) 7 mg COUMADIN ORAL 03/20/17 17:00 03/25/17 16:59 Zolpidem Tartrate (Ambien) 5 mg HSPRN PRN ORAL Insomnia 02/28/17 21:00 03/30/17 20:59 03/19/17 22:09 GURWINDER YI Mar 20, 2017 15:32
[2017-03-20 16:00] VITALS: BP 134/72
[2017-03-20] MEDS: Warfarin Sod 3 MG, Warfarin Sod 4 MG ORAL SCH ×2 (17:32)
[2017-03-20 20:00] VITALS: BP 119/69
[2017-03-20] MEDS: Zolpidem 5mg tab ORAL PRN (20:30)
--- NOTE | 2017-03-20 21:31 | General Progress Note ---
Assessment/Plan Assessment/Plan #. Anemia secondary to chronic disease, ferritin is elevated and tibc is low --> s/p total of 3 units PRBC --> hgb goal above 7, continue to closely monitor. remains stable --> transfuse prn --> OB stool neg #Elevated CEA --> colonoscopy as outpatient #. Anemia secondary to orthopedic procedure. #. DVT of right superficial femoral vein of the right lower extremity is on coumadin --> lovenox has been DC --> continue to monitor INR --> INR goal 2-3 #. Uricemia. #. Hypocalcemia. --> resolved #. Leukocytosis secondary to reactive process from anemia #. Right hip fracture --> has been seen by ortho Subjective Constitutional: Reports: no symptoms HEENT: Reports: no symptoms Cardiovascular: Reports: no symptoms Respiratory: Reports: no symptoms Gastrointestinal/Abdominal: Reports: no symptoms Genitourinary: Reports: no symptoms Neurologic/Psychiatric: Reports: no symptoms Endocrine: Reports: no symptoms Hematologic/Lymphatic: Reports: no symptoms Allergies: Coded Allergies: No Known Allergies (Unverified , 02/27/17) Subjective no new complaints Objective Last 24 Hour Vital Signs Date Time Temp Pulse Resp B/P Pulse Ox O2 Delivery O2 Flow Rate FiO2 03/20/17 20:00 98.2 88 18 119/69 97 Room Air 03/20/17 16:00 97.2 82 18 134/72 98 Room Air 03/20/17 12:00 97.4 66 17 129/76 Room Air 03/20/17 08:00 98.0 74 18 135/75 97 Room Air 03/20/17 04:39 97.0 65 18 134/74 97 Room Air 03/20/17 00:30 98.1 75 19 137/70 97 Room Air Intake and Output 03/19/17 03/20/17 19:00 07:00 Intake Total 480 ml Output Total 350 ml 1000 ml Balance -350 ml -520 ml Intake Oral 480 ml Output Urine Total 350 ml 1000 ml # Voids 2 # Bowel Movements 1 Laboratory Tests 03/20/17 05:50: White Blood Count 4.7L, Red Blood Count 3.13L, Hemoglobin 9.7L, Hematocrit 29.9L , Mean Corpuscular Volume 96, Mean Corpuscular Hemoglobin 31.1H, Mean Corpuscular Hemoglobin Concent 32.5, Red Cell Distribution Width 15.8H, Platelet Count 470H, Mean Platelet Volume 5.1L, Neutrophils (%) (Auto) 49.5, Lymphocytes (%) (Auto) 40.3, Monocytes (%) (Auto) 6.2, Eosinophils (%) (Auto) 2.9, Basophils (%) (Auto) 1.1, Prothrombin Time 24.7H, Prothromb Time International Ratio 2.3H, Sodium Level 136, Potassium Level 4.7, Chloride Level 97L, Carbon Dioxide Level 27, Anion Gap 12, Blood Urea Nitrogen 37H, Creatinine 1.1, Estimat Glomerular Filtration Rate > 60, Glucose Level 104, Calcium Level 9.1 Height (Feet): 5 Height (Inches): 10.00 Weight (Pounds): 150 General Appearance: no apparent distress EENT: PERRL/EOMI Neck: normal alignment Cardiovascular: normal peripheral pulses Respiratory/Chest: chest wall non-tender Extremities: normal range of motion Edema: no edema noted Pedal (L), no edema noted Pedal (R) Skin: warm/dry Leandro Ceja Mar 20, 2017 21:31
--- NOTE | 2017-03-20 22:15 | Progress Note ---
DATE: 03/20/2017 SUBJECTIVE: The patient is doing well. No behavioral issues. Calm, however, has depressed mood, anhedonia, worthlessness, hopelessness, and decreased energy. MENTAL STATUS EXAMINATION: The patient is alert and oriented x3. Mood is irritable. Affect is constricted, congruent with mood. Thought process is concrete. Thought content, there is no suicidal or homicidal ideation. ASSESSMENT: Depression. PLAN: The patient will be continued on current medications. Provide the patient with supportive therapy and reality orientation. Diana Yanez M.D. DR: Colette JOB#: [id number] CC:
[2017-03-21] VITALS: BP 129/78
[2017-03-21 04:00] VITALS: BP 136/87
[2017-03-21 05:46] LABS: BASOPHILS % (AUTO) 0.8 % (0.0-2.0); EOSINOPHILS % (AUTO) 2.8 % (0.0-3.0); LYMPHOCYTES % (AUTO) 31.4 % (20.0-45.0); MEAN CORPUSCULAR HEMOGLOBIN 31.1 PG (27.0-31.0); MEAN CORPUSCULAR HGB CONC 32.6 G/DL (32.0-36.0); MEAN CORPUSCULAR VOLUME 96 FL (80-99); MONOCYTES % (AUTO) 7.1 % (1.0-10.0); PLATELET COUNT 434 K/UL (150-450); RED BLOOD COUNT 3.02 M/UL (4.70-6.10); RED CELL DISTRIBUTION WIDTH 15.3 % (11.6-14.8); WHITE BLOOD COUNT 5.1 K/UL (4.8-10.8)
[2017-03-21 06:34] LABS: ANION GAP 13 (5-15); CALCIUM 8.9 mg/dL (8.6-10.2); CARBON DIOXIDE 26 mEQ/L (20-30); CHLORIDE 98 mEQ/L (98-107); GLOMERULAR FILTRATION RATE > 60 mL/min (>60); HEMOLYSIS 4; INR 2.3 (0.9-1.1); POTASSIUM 4.5 mEQ/L (3.4-4.9); SODIUM 137 mEQ/L (135-145)
[2017-03-21] MEDS: NovoLOG Insulin Flexpen SUBQ SCH ×4 (06:36→20:24)
[2017-03-21] MEDS: Docusate 100mg cap ORAL SCH ×3 (08:06→17:28)
[2017-03-21] MEDS: Thiamine 100mg tab ORAL SCH (08:07)
[2017-03-21] MEDS: Vitamin A&D Oint 2oz Tube TOPIC SCH ×2 (08:07→20:27)
[2017-03-21 08:15] VITALS: BP 133/75
--- NOTE | 2017-03-21 09:30 | GI Progress Note ---
Assessment/Plan Problems: (1) Hypoalbuminemia ICD Codes: E88.09 - Other disorders of plasma-protein metabolism, not elsewhere classified SNOMED: 190778535 (2) Anemia ICD Codes: D64.9 - Anemia, unspecified SNOMED: 823764259 (3) Elevated CEA ICD Codes: R97.0 - Elevated carcinoembryonic antigen [CEA] SNOMED: 14975228, 510660775 Status: stable Status Narrative Discussed with Dr. Pressley. Assessment/Plan elevated CEA OB stool >> negative stable H&H prn transfusions PPI bowel regime fu labs outpatient colonoscopy pt on Coumadin >> medication must be discontinued min 48 hours prior any endoscopic procedures. Subjective Gastrointestinal/Abdominal: Reports: no symptoms Objective Last 24 Hour Vital Signs Date Time Temp Pulse Resp B/P Pulse Ox O2 Delivery O2 Flow Rate FiO2 03/21/17 08:15 97.1 80 20 133/75 98 Room Air 03/21/17 04:00 97.7 72 17 136/87 98 Room Air 03/21/17 00:00 97.1 70 18 129/78 98 Room Air 03/20/17 20:00 98.2 88 18 119/69 97 Room Air 03/20/17 16:00 97.2 82 18 134/72 98 Room Air 03/20/17 12:00 97.4 66 17 129/76 Room Air Intake and Output 03/20/17 03/21/17 19:00 07:00 Intake Total 600 ml 100 ml Output Total 1125 ml Balance 600 ml -1025 ml Intake Oral 600 ml 100 ml Output Urine Total 1125 ml # Voids 2 2 # Bowel Movements 1 Laboratory Tests Test 03/21/17 05:40 White Blood Count 5.1 K/UL (4.8-10.8) Red Blood Count 3.02 M/UL (4.70-6.10) L Hemoglobin 9.4 G/DL (14.2-18.0) L Hematocrit 28.9 % (42.0-52.0) L Mean Corpuscular Volume 96 FL (80-99) Mean Corpuscular Hemoglobin 31.1 PG (27.0-31.0) H Mean Corpuscular Hemoglobin Concent 32.6 G/DL (32.0-36.0) Red Cell Distribution Width 15.3 % (11.6-14.8) H Platelet Count 434 K/UL (150-450) Mean Platelet Volume 5.0 FL (6.5-10.1) L Neutrophils (%) (Auto) 58.0 % (45.0-75.0) Lymphocytes (%) (Auto) 31.4 % (20.0-45.0) Monocytes (%) (Auto) 7.1 % (1.0-10.0) Eosinophils (%) (Auto) 2.8 % (0.0-3.0) Basophils (%) (Auto) 0.8 % (0.0-2.0) Prothrombin Time 24.0 SEC (9.30-11.50) H Prothromb Time International Ratio 2.3 (0.9-1.1) H Sodium Level 137 mEQ/L (135-145) Potassium Level 4.5 mEQ/L (3.4-4.9) Chloride Level 98 mEQ/L (98-107) Carbon Dioxide Level 26 mEQ/L (20-30) Anion Gap 13 (5-15) Blood Urea Nitrogen 36 mg/dL (7-23) H Creatinine 1.0 mg/dL (0.7-1.2) Estimat Glomerular Filtration Rate > 60 mL/min (>60) Glucose Level 123 mg/dL (74-106) H Calcium Level 8.9 mg/dL (8.6-10.2) Height (Feet): 5 Height (Inches): 10.00 Weight (Pounds): 150 General Appearance: no apparent distress, alert Cardiovascular: normal rate Respiratory/Chest: normal breath sounds, no respiratory distress Abdominal Exam: normal bowel sounds, non tender, soft Extremities: normal range of motion Mag Esteban N.P. Mar 21, 2017 09:30
[2017-03-21 12:04] VITALS: BP 128/79
--- NOTE | 2017-03-21 13:02 | Pulmonology Progress Note ---
Assessment/Plan Problems: (1) Fracture of femoral neck, right (2) DVT (deep venous thrombosis) (3) Renal insufficiency (4) Anemia Assessment/Plan no new changes pt/ot f/u labs tolerating diet dc planning awaiting placement pt is not competent to make any decisions Subjective ROS Limited/Unobtainable: No Constitutional: Reports: no symptoms HEENT: Repors: no symptoms Allergies: Coded Allergies: No Known Allergies (Unverified , 02/27/17) Objective Last 24 Hour Vital Signs Date Time Temp Pulse Resp B/P Pulse Ox O2 Delivery O2 Flow Rate FiO2 03/21/17 12:04 98.0 74 20 128/79 98 Room Air 03/21/17 08:15 97.1 80 20 133/75 98 Room Air 03/21/17 04:00 97.7 72 17 136/87 98 Room Air 03/21/17 00:00 97.1 70 18 129/78 98 Room Air 03/20/17 20:00 98.2 88 18 119/69 97 Room Air 03/20/17 16:00 97.2 82 18 134/72 98 Room Air Intake and Output 03/20/17 03/21/17 19:00 07:00 Intake Total 600 ml 100 ml Output Total 1125 ml Balance 600 ml -1025 ml Intake Oral 600 ml 100 ml Output Urine Total 1125 ml # Voids 2 2 # Bowel Movements 1 General Appearance: WD/WN HEENT: normocephalic, atraumatic, anicteric Respiratory/Chest: chest wall non-tender, normal breath sounds Cardiovascular: normal peripheral pulses, normal rate Abdomen: normal bowel sounds, soft, non tender Extremities: no cyanosis Skin: no rash, no lesions Laboratory Tests 03/21/17 05:40: White Blood Count 5.1, Red Blood Count 3.02L, Hemoglobin 9.4L, Hematocrit 28.9L , Mean Corpuscular Volume 96, Mean Corpuscular Hemoglobin 31.1H, Mean Corpuscular Hemoglobin Concent 32.6, Red Cell Distribution Width 15.3H, Platelet Count 434, Mean Platelet Volume 5.0L, Neutrophils (%) (Auto) 58.0, Lymphocytes (%) (Auto) 31.4, Monocytes (%) (Auto) 7.1, Eosinophils (%) (Auto) 2.8, Basophils (%) (Auto) 0.8, Prothrombin Time 24.0H, Prothromb Time International Ratio 2.3H, Sodium Level 137, Potassium Level 4.5, Chloride Level 98, Carbon Dioxide Level 26, Anion Gap 13, Blood Urea Nitrogen 36H, Creatinine 1.0, Estimat Glomerular Filtration Rate > 60, Glucose Level 123H, Calcium Level 8.9 Current Medications Medications (Trade) Dose Ordered Sig/Bautista Route PRN Reason Start Time Stop Time Status Last Admin Dose Admin Acetaminophen (Tylenol) 650 mg Q4H PRN ORAL fever>100.5 02/28/17 08:00 03/30/17 07:59 Acetaminophen/ Hydrocodone Bitart ([place] 5/325) 1 tab Q4H PRN ORAL Severe Pain (Pain Scale 7-10) 03/17/17 11:05 03/24/17 11:04 Clonidine HCl (Catapres) 0.1 mg Q6H PRN ORAL SBP>160 03/03/17 10:00 04/02/17 09:59 Dextrose (Dextrose 50%) STAT PRN IV Hypoglycemia 02/28/17 08:00 03/30/17 07:59 Docusate Sodium (Colace) 100 mg THREE TIMES A DAY ORAL 03/01/17 13:00 03/31/17 12:59 03/21/17 08:06 Ergocalciferol (Drisdol) 50,000 intlu QWEEK ORAL 03/01/17 14:00 03/31/17 13:59 03/15/17 17:05 Escitalopram Oxalate (Lexapro) 10 mg DAILY ORAL 03/12/17 09:00 04/11/17 08:59 03/21/17 08:06 Folic Acid (Folate) 2 mg DAILY ORAL 03/01/17 12:30 03/31/17 12:29 03/21/17 08:07 Insulin Aspart (NovoLOG) BEFORE MEALS AND HS SUBQ 03/06/17 21:00 04/05/17 20:59 03/21/17 10:36 Ondansetron HCl (Zofran) 4 mg Q6H PRN IVP Nausea & Vomiting 02/28/17 16:00 03/30/17 15:59 Pantoprazole (Protonix) 40 mg EVERY 12 HOURS ORAL 03/01/17 12:30 03/31/17 12:29 03/21/17 08:06 Polyethylene Glycol (Miralax) 17 gm HSPRN PRN ORAL Constipation 02/28/17 21:00 03/30/17 20:59 Thiamine HCl (Vitamin B1) 100 mg DAILY ORAL 03/01/17 12:30 03/31/17 12:29 03/21/17 08:07 Vitamin A/Vitamin D (A & D Oint) 1 applic EVERY 12 HOURS TOPIC 03/08/17 21:00 04/07/17 20:59 03/21/17 08:07 Warfarin Sodium (Coumadin per pharmacy) 1 ea DAILY PRN MISC Per rx protocol 03/04/17 07:45 04/03/17 07:44 Warfarin Sodium/ Warfarin Sodium (Coumadin/ Coumadin) 7 mg COUMADIN ORAL 03/20/17 17:00 03/25/17 16:59 03/20/17 17:32 Zolpidem Tartrate (Ambien) 5 mg HSPRN PRN ORAL Insomnia 02/28/17 21:00 03/30/17 20:59 03/20/17 20:30 GURWINDER YI Mar 21, 2017 13:02
[2017-03-21 16:00] VITALS: BP 135/79
[2017-03-21] MEDS: Warfarin Sod 3 MG, Warfarin Sod 4 MG ORAL SCH ×2 (16:13)
[2017-03-21 20:00] VITALS: BP 128/72
[2017-03-21] MEDS: Zolpidem 5mg tab ORAL PRN (20:22)
--- NOTE | 2017-03-21 22:31 | General Progress Note ---
Assessment/Plan Assessment/Plan #. Anemia secondary to chronic disease, ferritin is elevated and tibc is low --> s/p total of 3 units PRBC --> hgb goal above 7, continue to closely monitor. remains stable --> transfuse prn --> OB stool neg #Elevated CEA --> colonoscopy as outpatient #. Anemia secondary to orthopedic procedure. #. DVT of right superficial femoral vein of the right lower extremity is on coumadin --> lovenox has been DC --> continue to monitor INR --> INR goal 2-3 #. Uricemia. #. Hypocalcemia. --> resolved #. Leukocytosis secondary to reactive process from anemia #. Right hip fracture --> has been seen by ortho Subjective Constitutional: Reports: no symptoms HEENT: Reports: no symptoms Cardiovascular: Reports: no symptoms Respiratory: Reports: no symptoms Gastrointestinal/Abdominal: Reports: no symptoms Genitourinary: Reports: no symptoms Neurologic/Psychiatric: Reports: no symptoms Endocrine: Reports: no symptoms Hematologic/Lymphatic: Reports: no symptoms Allergies: Coded Allergies: No Known Allergies (Unverified , 02/27/17) Subjective no events overnight, pt still awaits placement Objective Last 24 Hour Vital Signs Date Time Temp Pulse Resp B/P Pulse Ox O2 Delivery O2 Flow Rate FiO2 03/21/17 20:00 97.5 77 19 128/72 98 Room Air 03/21/17 16:00 98.0 78 20 135/79 98 Room Air 03/21/17 12:04 98.0 74 20 128/79 98 Room Air 03/21/17 08:15 97.1 80 20 133/75 98 Room Air 03/21/17 04:00 97.7 72 17 136/87 98 Room Air 03/21/17 00:00 97.1 70 18 129/78 98 Room Air Intake and Output 03/20/17 03/21/17 19:00 07:00 Intake Total 600 ml 100 ml Output Total 1125 ml Balance 600 ml -1025 ml Intake Oral 600 ml 100 ml Output Urine Total 1125 ml # Voids 2 2 # Bowel Movements 1 Laboratory Tests 03/21/17 05:40: White Blood Count 5.1, Red Blood Count 3.02L, Hemoglobin 9.4L, Hematocrit 28.9L , Mean Corpuscular Volume 96, Mean Corpuscular Hemoglobin 31.1H, Mean Corpuscular Hemoglobin Concent 32.6, Red Cell Distribution Width 15.3H, Platelet Count 434, Mean Platelet Volume 5.0L, Neutrophils (%) (Auto) 58.0, Lymphocytes (%) (Auto) 31.4, Monocytes (%) (Auto) 7.1, Eosinophils (%) (Auto) 2.8, Basophils (%) (Auto) 0.8, Prothrombin Time 24.0H, Prothromb Time International Ratio 2.3H, Sodium Level 137, Potassium Level 4.5, Chloride Level 98, Carbon Dioxide Level 26, Anion Gap 13, Blood Urea Nitrogen 36H, Creatinine 1.0, Estimat Glomerular Filtration Rate > 60, Glucose Level 123H, Calcium Level 8.9 Height (Feet): 5 Height (Inches): 10.00 Weight (Pounds): 150 General Appearance: WD/WN EENT: PERRL/EOMI Neck: normal alignment Cardiovascular: normal peripheral pulses 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
[2017-03-22 00:12] VITALS: BP 132/71
[2017-03-22 04:00] VITALS: BP 145/86
[2017-03-22] MEDS: NovoLOG Insulin Flexpen SUBQ SCH ×4 (06:21→21:59)
[2017-03-22 06:55] LABS: INR 2.2 (0.9-1.1); PROTHROMBIN TIME 23.4 SEC (9.30-11.50)
[2017-03-22 07:01] LABS: BASOPHILS % (AUTO) 1.2 % (0.0-2.0); EOSINOPHILS % (AUTO) 2.5 % (0.0-3.0); LYMPHOCYTES % (AUTO) 29.5 % (20.0-45.0); MEAN CORPUSCULAR HEMOGLOBIN 31.2 PG (27.0-31.0); MEAN CORPUSCULAR HGB CONC 32.7 G/DL (32.0-36.0); MEAN CORPUSCULAR VOLUME 95 FL (80-99); MEAN PLATELET VOLUME 5.1 FL (6.5-10.1); MONOCYTES % (AUTO) 8.1 % (1.0-10.0); NEUTROPHILS % (AUTO) 58.7 % (45.0-75.0); PLATELET COUNT 457 K/UL (150-450); RED BLOOD COUNT 3.16 M/UL (4.70-6.10); RED CELL DISTRIBUTION WIDTH 15.6 % (11.6-14.8)
[2017-03-22 07:16] LABS: ANION GAP 11 (5-15); CARBON DIOXIDE 28 mEQ/L (20-30); CHLORIDE 100 mEQ/L (98-107); CREATININE 1.1 mg/dL (0.7-1.2); GLOMERULAR FILTRATION RATE > 60 mL/min (>60); HEMOLYSIS 0; POTASSIUM 4.6 mEQ/L (3.4-4.9); SODIUM 139 mEQ/L (135-145)
[2017-03-22 08:00] VITALS: BP 139/73
[2017-03-22] MEDS: Docusate 100mg cap ORAL SCH ×3 (08:15→17:00)
[2017-03-22] MEDS: Thiamine 100mg tab ORAL SCH (08:15)
[2017-03-22] MEDS: Vitamin A&D Oint 2oz Tube TOPIC SCH ×2 (08:16→21:00)
--- NOTE | 2017-03-22 10:26 | GI Progress Note ---
Assessment/Plan Problems: (1) Hypoalbuminemia ICD Codes: E88.09 - Other disorders of plasma-protein metabolism, not elsewhere classified SNOMED: 006953816 (2) Anemia ICD Codes: D64.9 - Anemia, unspecified SNOMED: 233887230 (3) Elevated CEA ICD Codes: R97.0 - Elevated carcinoembryonic antigen [CEA] SNOMED: 73024081, 252131320 Status: stable Status Narrative Discussed with Dr. Pressley. Assessment/Plan elevated CEA OB stool >> negative stable H&H prn transfusions PPI bowel regime fu labs outpatient colonoscopy pt on Coumadin >> medication must be discontinued min 48 hours prior any endoscopic procedures. Subjective Gastrointestinal/Abdominal: Reports: no symptoms Objective Last 24 Hour Vital Signs Date Time Temp Pulse Resp B/P Pulse Ox O2 Delivery O2 Flow Rate FiO2 03/22/17 08:00 96.1 82 20 139/73 Room Air 03/22/17 04:00 97.9 72 18 145/86 72 Room Air 03/22/17 00:12 97.7 67 18 132/71 97 Room Air 03/21/17 20:00 97.5 77 19 128/72 98 Room Air 03/21/17 16:00 98.0 78 20 135/79 98 Room Air 03/21/17 12:04 98.0 74 20 128/79 98 Room Air Intake and Output 03/21/17 03/22/17 19:00 07:00 Intake Total 720 ml Output Total 1250 ml 650 ml Balance -530 ml -650 ml Intake Oral 720 ml Output Urine Total 1250 ml 650 ml Laboratory Tests Test 03/22/17 05:05 White Blood Count 5.0 K/UL (4.8-10.8) Red Blood Count 3.16 M/UL (4.70-6.10) L Hemoglobin 9.8 G/DL (14.2-18.0) L Hematocrit 30.0 % (42.0-52.0) L Mean Corpuscular Volume 95 FL (80-99) Mean Corpuscular Hemoglobin 31.2 PG (27.0-31.0) H Mean Corpuscular Hemoglobin Concent 32.7 G/DL (32.0-36.0) Red Cell Distribution Width 15.6 % (11.6-14.8) H Platelet Count 457 K/UL (150-450) H Mean Platelet Volume 5.1 FL (6.5-10.1) L Neutrophils (%) (Auto) 58.7 % (45.0-75.0) Lymphocytes (%) (Auto) 29.5 % (20.0-45.0) Monocytes (%) (Auto) 8.1 % (1.0-10.0) Eosinophils (%) (Auto) 2.5 % (0.0-3.0) Basophils (%) (Auto) 1.2 % (0.0-2.0) Prothrombin Time 23.4 SEC (9.30-11.50) H Prothromb Time International Ratio 2.2 (0.9-1.1) H Sodium Level 139 mEQ/L (135-145) Potassium Level 4.6 mEQ/L (3.4-4.9) Chloride Level 100 mEQ/L (98-107) Carbon Dioxide Level 28 mEQ/L (20-30) Anion Gap 11 (5-15) Blood Urea Nitrogen 28 mg/dL (7-23) H Creatinine 1.1 mg/dL (0.7-1.2) Estimat Glomerular Filtration Rate > 60 mL/min (>60) Glucose Level 109 mg/dL (74-106) H Calcium Level 9.0 mg/dL (8.6-10.2) Height (Feet): 5 Height (Inches): 10.00 Weight (Pounds): 150 General Appearance: no apparent distress, alert Cardiovascular: normal rate Respiratory/Chest: normal breath sounds, no respiratory distress Abdominal Exam: normal bowel sounds, non tender, soft Extremities: normal range of motion Mag Esteban N.P. Mar 22, 2017 10:26
[2017-03-22 12:00] VITALS: BP 126/78
[2017-03-22] MEDS: Vitamin D 50,000 units cap ORAL SCH (13:04)
--- NOTE | 2017-03-22 15:29 | Pulmonology Progress Note ---
Assessment/Plan Problems: (1) Fracture of femoral neck, right (2) DVT (deep venous thrombosis) (3) Renal insufficiency (4) Anemia Assessment/Plan INR therapeutic no new changes pt/ot f/u labs tolerating diet dc planning awaiting placement pt is not competent to make any decisions Subjective ROS Limited/Unobtainable: No Constitutional: Reports: no symptoms HEENT: Repors: no symptoms Respiratory: Reports: no symptoms Allergies: Coded Allergies: No Known Allergies (Unverified , 02/27/17) Objective Last 24 Hour Vital Signs Date Time Temp Pulse Resp B/P Pulse Ox O2 Delivery O2 Flow Rate FiO2 03/22/17 12:00 98.1 62 19 126/78 97 Room Air 03/22/17 08:00 96.1 82 20 139/73 Room Air 03/22/17 04:00 97.9 72 18 145/86 72 Room Air 03/22/17 00:12 97.7 67 18 132/71 97 Room Air 03/21/17 20:00 97.5 77 19 128/72 98 Room Air 03/21/17 16:00 98.0 78 20 135/79 98 Room Air Intake and Output 03/21/17 03/22/17 19:00 07:00 Intake Total 720 ml Output Total 1250 ml 650 ml Balance -530 ml -650 ml Intake Oral 720 ml Output Urine Total 1250 ml 650 ml General Appearance: WD/WN, no acute distress HEENT: normocephalic Respiratory/Chest: chest wall non-tender, lungs clear Cardiovascular: normal peripheral pulses, normal rate Abdomen: normal bowel sounds, soft, non tender Extremities: no cyanosis, no clubbing Skin: no rash Laboratory Tests 03/22/17 05:05: White Blood Count 5.0, Red Blood Count 3.16L, Hemoglobin 9.8L, Hematocrit 30.0L , Mean Corpuscular Volume 95, Mean Corpuscular Hemoglobin 31.2H, Mean Corpuscular Hemoglobin Concent 32.7, Red Cell Distribution Width 15.6H, Platelet Count 457H, Mean Platelet Volume 5.1L, Neutrophils (%) (Auto) 58.7, Lymphocytes (%) (Auto) 29.5, Monocytes (%) (Auto) 8.1, Eosinophils (%) (Auto) 2.5, Basophils (%) (Auto) 1.2, Prothrombin Time 23.4H, Prothromb Time International Ratio 2.2H, Sodium Level 139, Potassium Level 4.6, Chloride Level 100, Carbon Dioxide Level 28, Anion Gap 11, Blood Urea Nitrogen 28H, Creatinine 1.1, Estimat Glomerular Filtration Rate > 60, Glucose Level 109H, Calcium Level 9.0 Current Medications Medications (Trade) Dose Ordered Sig/Bautista Route PRN Reason Start Time Stop Time Status Last Admin Dose Admin Acetaminophen (Tylenol) 650 mg Q4H PRN ORAL fever>100.5 02/28/17 08:00 03/30/17 07:59 Acetaminophen/ Hydrocodone Bitart ([place] 5/325) 1 tab Q4H PRN ORAL Severe Pain (Pain Scale 7-10) 03/17/17 11:05 03/24/17 11:04 Clonidine HCl (Catapres) 0.1 mg Q6H PRN ORAL SBP>160 03/03/17 10:00 04/02/17 09:59 Dextrose (Dextrose 50%) STAT PRN IV Hypoglycemia 02/28/17 08:00 03/30/17 07:59 Docusate Sodium (Colace) 100 mg THREE TIMES A DAY ORAL 03/01/17 13:00 03/31/17 12:59 03/22/17 13:04 Ergocalciferol (Drisdol) 50,000 intlu QWEEK ORAL 03/01/17 14:00 03/31/17 13:59 03/22/17 13:04 Escitalopram Oxalate (Lexapro) 10 mg DAILY ORAL 03/12/17 09:00 04/11/17 08:59 03/22/17 08:15 Folic Acid (Folate) 2 mg DAILY ORAL 03/01/17 12:30 03/31/17 12:29 03/22/17 08:15 Insulin Aspart (NovoLOG) BEFORE MEALS AND HS SUBQ 03/06/17 21:00 04/05/17 20:59 03/22/17 10:52 Ondansetron HCl (Zofran) 4 mg Q6H PRN IVP Nausea & Vomiting 02/28/17 16:00 03/30/17 15:59 Pantoprazole (Protonix) 40 mg EVERY 12 HOURS ORAL 03/01/17 12:30 03/31/17 12:29 03/22/17 08:15 Polyethylene Glycol (Miralax) 17 gm HSPRN PRN ORAL Constipation 02/28/17 21:00 03/30/17 20:59 Thiamine HCl (Vitamin B1) 100 mg DAILY ORAL 03/01/17 12:30 03/31/17 12:29 03/22/17 08:15 Vitamin A/Vitamin D (A & D Oint) 1 applic EVERY 12 HOURS TOPIC 03/08/17 21:00 04/07/17 20:59 03/22/17 08:16 Warfarin Sodium (Coumadin per pharmacy) 1 ea DAILY PRN MISC Per rx protocol 03/04/17 07:45 04/03/17 07:44 Warfarin Sodium/ Warfarin Sodium (Coumadin/ Coumadin) 7 mg COUMADIN ORAL 03/20/17 17:00 03/25/17 16:59 03/21/17 16:13 Zolpidem Tartrate (Ambien) 5 mg HSPRN PRN ORAL Insomnia 02/28/17 21:00 03/30/17 20:59 03/21/17 20:22 GURWINDER YI Mar 22, 2017 15:29
[2017-03-22 16:00] VITALS: BP 131/79
[2017-03-22] MEDS: Warfarin Sod 3 MG, Warfarin Sod 4 MG ORAL SCH ×2 (17:34)
[2017-03-22 20:00] VITALS: BP 129/77
--- NOTE | 2017-03-22 20:52 | General Progress Note ---
Assessment/Plan Assessment/Plan #. Anemia secondary to chronic disease, ferritin is elevated and tibc is low --> s/p total of 3 units PRBC --> hgb goal above 7, continue to closely monitor. remains stable --> transfuse prn --> OB stool neg #Elevated CEA --> colonoscopy as outpatient #. Anemia secondary to orthopedic procedure. #. DVT of right superficial femoral vein of the right lower extremity is on coumadin --> lovenox has been DC --> INR currently therapeutic --> goal between 2-3 #. Uricemia. #. Hypocalcemia. --> resolved #. Leukocytosis secondary to reactive process from anemia #. Right hip fracture --> has been seen by ortho Subjective Constitutional: Reports: no symptoms HEENT: Reports: no symptoms Cardiovascular: Reports: no symptoms Respiratory: Reports: no symptoms Gastrointestinal/Abdominal: Reports: no symptoms Genitourinary: Reports: no symptoms Neurologic/Psychiatric: Reports: no symptoms Endocrine: Reports: no symptoms Hematologic/Lymphatic: Reports: anemia Allergies: Coded Allergies: No Known Allergies (Unverified , 02/27/17) Subjective remains unchanged Objective Last 24 Hour Vital Signs Date Time Temp Pulse Resp B/P Pulse Ox O2 Delivery O2 Flow Rate FiO2 03/22/17 16:00 98.2 71 19 131/79 99 Room Air 03/22/17 12:00 98.1 62 19 126/78 97 Room Air 03/22/17 08:00 96.1 82 20 139/73 Room Air 03/22/17 04:00 97.9 72 18 145/86 72 Room Air 03/22/17 00:12 97.7 67 18 132/71 97 Room Air Intake and Output 03/21/17 03/22/17 19:00 07:00 Intake Total 720 ml Output Total 1250 ml 650 ml Balance -530 ml -650 ml Intake Oral 720 ml Output Urine Total 1250 ml 650 ml Laboratory Tests 03/22/17 05:05: White Blood Count 5.0, Red Blood Count 3.16L, Hemoglobin 9.8L, Hematocrit 30.0L , Mean Corpuscular Volume 95, Mean Corpuscular Hemoglobin 31.2H, Mean Corpuscular Hemoglobin Concent 32.7, Red Cell Distribution Width 15.6H, Platelet Count 457H, Mean Platelet Volume 5.1L, Neutrophils (%) (Auto) 58.7, Lymphocytes (%) (Auto) 29.5, Monocytes (%) (Auto) 8.1, Eosinophils (%) (Auto) 2.5, Basophils (%) (Auto) 1.2, Prothrombin Time 23.4H, Prothromb Time International Ratio 2.2H, Sodium Level 139, Potassium Level 4.6, Chloride Level 100, Carbon Dioxide Level 28, Anion Gap 11, Blood Urea Nitrogen 28H, Creatinine 1.1, Estimat Glomerular Filtration Rate > 60, Glucose Level 109H, Calcium Level 9.0 Height (Feet): 5 Height (Inches): 10.00 Weight (Pounds): 150 General Appearance: no apparent distress EENT: PERRL/EOMI Neck: non-tender Cardiovascular: normal rate Respiratory/Chest: normal breath sounds Abdomen: non tender Extremities: normal range of motion Edema: no edema noted Pedal (L), no edema noted Pedal (R) 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
[2017-03-22] MEDS: Zolpidem 5mg tab ORAL PRN (21:49)
[2017-03-23] VITALS: BP 139/82
[2017-03-23 04:00] VITALS: BP 134/81
[2017-03-23] MEDS: NovoLOG Insulin Flexpen SUBQ SCH ×4 (06:32→21:45)
[2017-03-23 07:33] LABS: BASOPHILS % (AUTO) 1.8 % (0.0-2.0); EOSINOPHILS % (AUTO) 2.8 % (0.0-3.0); LYMPHOCYTES % (AUTO) 39.9 % (20.0-45.0); MEAN CORPUSCULAR HEMOGLOBIN 32.3 PG (27.0-31.0); MEAN CORPUSCULAR HGB CONC 33.3 G/DL (32.0-36.0); MEAN CORPUSCULAR VOLUME 97 FL (80-99); MEAN PLATELET VOLUME 5.1 FL (6.5-10.1); MONOCYTES % (AUTO) 8.4 % (1.0-10.0); NEUTROPHILS % (AUTO) 47.2 % (45.0-75.0); PLATELET COUNT 408 K/UL (150-450); RED BLOOD COUNT 3.12 M/UL (4.70-6.10); RED CELL DISTRIBUTION WIDTH 15.4 % (11.6-14.8); WHITE BLOOD COUNT 4.7 K/UL (4.8-10.8)
[2017-03-23 07:34] LABS: CALCIUM 9.2 mg/dL (8.6-10.2); CREATININE 1.3 mg/dL (0.7-1.2); GLOMERULAR FILTRATION RATE 56.5 mL/min (>60); POTASSIUM 4.7 mEQ/L (3.4-4.9)
[2017-03-23 08:00] LABS: PROTHROMBIN TIME 21.1 SEC (9.30-11.50)
[2017-03-23] MEDS: Thiamine 100mg tab ORAL SCH (08:15)
[2017-03-23] MEDS: Docusate 100mg cap ORAL SCH ×3 (08:16→17:07)
[2017-03-23] MEDS: Vitamin A&D Oint 2oz Tube TOPIC SCH ×2 (08:16→21:40)
[2017-03-23 08:37] VITALS: BP 135/71
--- NOTE | 2017-03-23 10:44 | GI Progress Note ---
Assessment/Plan Problems: (1) Hypoalbuminemia ICD Codes: E88.09 - Other disorders of plasma-protein metabolism, not elsewhere classified SNOMED: 271448774 (2) Anemia ICD Codes: D64.9 - Anemia, unspecified SNOMED: 754959780 (3) Elevated CEA ICD Codes: R97.0 - Elevated carcinoembryonic antigen [CEA] SNOMED: 53258267, 588327701 Status: stable Status Narrative Discussed with Dr. Pressley. Assessment/Plan elevated CEA OB stool >> negative stable H&H prn transfusions PPI bowel regime fu labs outpatient colonoscopy pt on Coumadin >> medication must be discontinued min 48 hours prior any endoscopic procedures. Subjective Gastrointestinal/Abdominal: Reports: no symptoms Objective Last 24 Hour Vital Signs Date Time Temp Pulse Resp B/P Pulse Ox O2 Delivery O2 Flow Rate FiO2 03/23/17 08:37 98.1 72 20 135/71 99 Room Air 03/23/17 04:00 97.6 63 18 134/81 97 Room Air 03/23/17 00:00 97.8 74 18 139/82 97 Room Air 03/22/17 20:00 97.2 68 18 129/77 98 Room Air 03/22/17 16:00 98.2 71 19 131/79 99 Room Air 03/22/17 12:00 98.1 62 19 126/78 97 Room Air Intake and Output 03/22/17 03/23/17 19:00 07:00 Intake Total 480 ml Output Total 250 ml 1200 ml Balance 230 ml -1200 ml Intake Oral 480 ml Output Urine Total 250 ml 1200 ml Laboratory Tests Test 03/23/17 05:20 White Blood Count 4.7 K/UL (4.8-10.8) L Red Blood Count 3.12 M/UL (4.70-6.10) L Hemoglobin 10.1 G/DL (14.2-18.0) L Hematocrit 30.3 % (42.0-52.0) L Mean Corpuscular Volume 97 FL (80-99) Mean Corpuscular Hemoglobin 32.3 PG (27.0-31.0) H Mean Corpuscular Hemoglobin Concent 33.3 G/DL (32.0-36.0) Red Cell Distribution Width 15.4 % (11.6-14.8) H Platelet Count 408 K/UL (150-450) Mean Platelet Volume 5.1 FL (6.5-10.1) L Neutrophils (%) (Auto) 47.2 % (45.0-75.0) Lymphocytes (%) (Auto) 39.9 % (20.0-45.0) Monocytes (%) (Auto) 8.4 % (1.0-10.0) Eosinophils (%) (Auto) 2.8 % (0.0-3.0) Basophils (%) (Auto) 1.8 % (0.0-2.0) Prothrombin Time 21.1 SEC (9.30-11.50) H Prothromb Time International Ratio 2.0 (0.9-1.1) H Sodium Level 136 mEQ/L (135-145) Potassium Level 4.7 mEQ/L (3.4-4.9) Chloride Level 98 mEQ/L (98-107) Carbon Dioxide Level 29 mEQ/L (20-30) Anion Gap 9 (5-15) Blood Urea Nitrogen 31 mg/dL (7-23) H Creatinine 1.3 mg/dL (0.7-1.2) H Estimat Glomerular Filtration Rate 56.5 mL/min (>60) Glucose Level 115 mg/dL (74-106) H Calcium Level 9.2 mg/dL (8.6-10.2) Height (Feet): 5 Height (Inches): 10.00 Weight (Pounds): 150 General Appearance: no apparent distress, alert, thin Cardiovascular: normal rate Respiratory/Chest: normal breath sounds, no respiratory distress Abdominal Exam: normal bowel sounds, non tender, soft Extremities: normal range of motion Mag Esteban N.P. Mar 23, 2017 10:44
--- NOTE | 2017-03-23 10:57 | Wound Care Consultation ---
Wound Assessment Wound Assessment #1: Wound Present on Admission: Yes New Wound: No Status Change of Wound: No Wound Location Body Site Modif: left Wound Location Body Site: ischial tuberosity Wound Type: pressure ulcer Valentine Test: Does not Valentine Pressure Ulcer Stage: III - unstageable revealed self as stage 3 resolving Wound Thickness: Full Thickness Wound Length: 2.5 Wound Width: 2.5 Wound Depth: 0.1 Percent of Wound [place]/Red: 100 Wound Drainage Amount: Scant Wound Drainage Odor: None/Absent Tissue Surrounding Wound: Intact Wound General Appearance: Reddened, Clean/Dry Wound Assessment #2: Wound Number: #2 Wound Present on Admission: Yes New Wound: No Status Change of Wound: No Wound Location Body Site Modif: left Wound Location Body Site: buttocks Wound Type: scar - scattered scar tissue with hyperpigmentation. Valentine Test: Does not Valentine Wound Thickness: Full Thickness Wound Drainage Amount: None Wound Drainage Odor: None/Absent Tissue Surrounding Wound: Intact Wound General Appearance: Open to air, Clean/Dry Wound Comment #1 Left lower leg dry scaly skin.- noted skin intact moisturized, good progress. #2 Left ischial tuberosity pressure. L 2.5 X W 2.5 D 0.1. 100% pink with small amount of serosanguineous drainage.- noted good progress decrease in size , current treatment effective. #3 Left trochanter scattered pressure ulcer. Resolved 100% reepithelialization. wound care was effective. skin intact. #4 Left buttock scattered full thickness scar tissue with hyperpigmentation. still intact, sacral intact #5 Left knee Traumatic injury - scab. dry scab intact. no further deterioration no changes noted . Recommendation. -Local wound care as ordered. -Apply low air loss mattress SPR for wound and skin management. -Turn and reposition. -Keep clean and dry. -Offload affected wound sites. -Optimize nutrition. -Offload heels. -Assess and notify MD if any further changes of condition noted to skin. NAE SERRA Mar 23, 2017 10:57
[2017-03-23 12:00] VITALS: BP 142/84
--- NOTE | 2017-03-23 13:16 | General Progress Note ---
Assessment/Plan Status: doing well Assessment/Plan #. Anemia secondary to chronic disease, ferritin is elevated and tibc is low --> s/p total of 3 units PRBC --> hgb goal above 7, continue to closely monitor. remains stable --> transfuse prn --> OB stool neg #Elevated CEA --> colonoscopy as outpatient #. Anemia secondary to orthopedic procedure. #. DVT of right superficial femoral vein of the right lower extremity is on coumadin --> coumadin must be DC 48h prior to any endoscopic procedures --> lovenox has been DC --> INR currently therapeutic --> goal between 2-3 #. Hypocalcemia. --> resolved #. Leukocytosis secondary to reactive process from anemia #. Right hip fracture --> has been seen by ortho Subjective Constitutional: Reports: no symptoms HEENT: Reports: no symptoms Cardiovascular: Reports: no symptoms Respiratory: Reports: no symptoms Gastrointestinal/Abdominal: Reports: no symptoms Genitourinary: Reports: no symptoms Neurologic/Psychiatric: Reports: no symptoms Endocrine: Reports: no symptoms Hematologic/Lymphatic: Reports: no symptoms Allergies: Coded Allergies: No Known Allergies (Unverified , 02/27/17) Subjective complaining of abdominal pain, no other events Objective Last 24 Hour Vital Signs Date Time Temp Pulse Resp B/P Pulse Ox O2 Delivery O2 Flow Rate FiO2 03/23/17 08:37 98.1 72 20 135/71 99 Room Air 03/23/17 04:00 97.6 63 18 134/81 97 Room Air 03/23/17 00:00 97.8 74 18 139/82 97 Room Air 03/22/17 20:00 97.2 68 18 129/77 98 Room Air 03/22/17 16:00 98.2 71 19 131/79 99 Room Air Intake and Output 03/22/17 03/23/17 19:00 07:00 Intake Total 480 ml Output Total 250 ml 1200 ml Balance 230 ml -1200 ml Intake Oral 480 ml Output Urine Total 250 ml 1200 ml Laboratory Tests 03/23/17 05:20: White Blood Count 4.7L, Red Blood Count 3.12L, Hemoglobin 10.1L, Hematocrit 30.3L, Mean Corpuscular Volume 97, Mean Corpuscular Hemoglobin 32.3H, Mean Corpuscular Hemoglobin Concent 33.3, Red Cell Distribution Width 15.4H, Platelet Count 408, Mean Platelet Volume 5.1L, Neutrophils (%) (Auto) 47.2, Lymphocytes (%) (Auto) 39.9, Monocytes (%) (Auto) 8.4, Eosinophils (%) (Auto) 2.8, Basophils (%) (Auto) 1.8, Prothrombin Time 21.1H, Prothromb Time International Ratio 2.0H, Sodium Level 136, Potassium Level 4.7, Chloride Level 98, Carbon Dioxide Level 29, Anion Gap 9, Blood Urea Nitrogen 31H, Creatinine 1.3H, Estimat Glomerular Filtration Rate 56.5, Glucose Level 115H, Calcium Level 9.2 Height (Feet): 5 Height (Inches): 10.00 Weight (Pounds): 150 General Appearance: no apparent distress EENT: normal ENT inspection Neck: normal alignment Cardiovascular: normal rate Extremities: non-tender Edema: no edema noted Pedal (L), no edema noted Pedal (R) 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
[2017-03-23 16:00] VITALS: BP 133/64
[2017-03-23] MEDS ORDERED: Warfarin Sodium 7.5mg ORAL ONE (17:00)
[2017-03-23 20:00] VITALS: BP 149/81
[2017-03-23] MEDS: Zolpidem 5mg tab ORAL PRN (21:40)
--- NOTE | 2017-03-23 22:26 | Pulmonology Progress Note ---
Assessment/Plan Problems: (1) Fracture of femoral neck, right (2) DVT (deep venous thrombosis) (3) Renal insufficiency (4) Anemia Assessment/Plan INR therapeutic no new changes pt/ot f/u labs tolerating diet dc planning awaiting placement pt is not competent to make any decisions Subjective ROS Limited/Unobtainable: No Constitutional: Reports: no symptoms HEENT: Repors: no symptoms Respiratory: Reports: no symptoms Allergies: Coded Allergies: No Known Allergies (Unverified , 02/27/17) Objective Last 24 Hour Vital Signs Date Time Temp Pulse Resp B/P Pulse Ox O2 Delivery O2 Flow Rate FiO2 03/23/17 16:00 98.0 76 20 133/64 98 Room Air 03/23/17 12:00 97.3 64 20 142/84 99 Room Air 03/23/17 08:37 98.1 72 20 135/71 99 Room Air 03/23/17 04:00 97.6 63 18 134/81 97 Room Air 03/23/17 00:00 97.8 74 18 139/82 97 Room Air Intake and Output 03/22/17 03/23/17 19:00 07:00 Intake Total 480 ml Output Total 250 ml 1200 ml Balance 230 ml -1200 ml Intake Oral 480 ml Output Urine Total 250 ml 1200 ml General Appearance: WD/WN HEENT: normocephalic, atraumatic Respiratory/Chest: chest wall non-tender, lungs clear Cardiovascular: normal peripheral pulses, normal rate Abdomen: normal bowel sounds, soft, non tender Genitourinary: normal external genitalia Extremities: no clubbing Laboratory Tests 03/23/17 05:20: White Blood Count 4.7L, Red Blood Count 3.12L, Hemoglobin 10.1L, Hematocrit 30.3L, Mean Corpuscular Volume 97, Mean Corpuscular Hemoglobin 32.3H, Mean Corpuscular Hemoglobin Concent 33.3, Red Cell Distribution Width 15.4H, Platelet Count 408, Mean Platelet Volume 5.1L, Neutrophils (%) (Auto) 47.2, Lymphocytes (%) (Auto) 39.9, Monocytes (%) (Auto) 8.4, Eosinophils (%) (Auto) 2.8, Basophils (%) (Auto) 1.8, Prothrombin Time 21.1H, Prothromb Time International Ratio 2.0H, Sodium Level 136, Potassium Level 4.7, Chloride Level 98, Carbon Dioxide Level 29, Anion Gap 9, Blood Urea Nitrogen 31H, Creatinine 1.3H, Estimat Glomerular Filtration Rate 56.5, Glucose Level 115H, Calcium Level 9.2 Current Medications Medications (Trade) Dose Ordered Sig/Bautista Route PRN Reason Start Time Stop Time Status Last Admin Dose Admin Acetaminophen (Tylenol) 650 mg Q4H PRN ORAL fever>100.5 02/28/17 08:00 03/30/17 07:59 Acetaminophen/ Hydrocodone Bitart ([place] 5/325) 1 tab Q4H PRN ORAL Severe Pain (Pain Scale 7-10) 03/17/17 11:05 03/24/17 11:04 Clonidine HCl (Catapres) 0.1 mg Q6H PRN ORAL SBP>160 03/03/17 10:00 04/02/17 09:59 Dextrose (Dextrose 50%) STAT PRN IV Hypoglycemia 02/28/17 08:00 03/30/17 07:59 Docusate Sodium (Colace) 100 mg THREE TIMES A DAY ORAL 03/01/17 13:00 03/31/17 12:59 03/23/17 12:45 Ergocalciferol (Drisdol) 50,000 intlu QWEEK ORAL 03/01/17 14:00 03/31/17 13:59 03/22/17 13:04 Escitalopram Oxalate (Lexapro) 10 mg DAILY ORAL 03/12/17 09:00 04/11/17 08:59 03/23/17 08:16 Folic Acid (Folate) 2 mg DAILY ORAL 03/01/17 12:30 03/31/17 12:29 03/23/17 08:16 Insulin Aspart (NovoLOG) BEFORE MEALS AND HS SUBQ 03/06/17 21:00 04/05/17 20:59 03/23/17 21:45 Ondansetron HCl (Zofran) 4 mg Q6H PRN IVP Nausea & Vomiting 02/28/17 16:00 03/30/17 15:59 Pantoprazole (Protonix) 40 mg EVERY 12 HOURS ORAL 03/01/17 12:30 03/31/17 12:29 03/23/17 20:49 Polyethylene Glycol (Miralax) 17 gm HSPRN PRN ORAL Constipation 02/28/17 21:00 03/30/17 20:59 Thiamine HCl (Vitamin B1) 100 mg DAILY ORAL 03/01/17 12:30 03/31/17 12:29 03/23/17 08:15 Vitamin A/Vitamin D (A & D Oint) 1 applic EVERY 12 HOURS TOPIC 03/08/17 21:00 04/07/17 20:59 03/23/17 21:40 Warfarin Sodium (Coumadin per pharmacy) 1 ea DAILY PRN MISC Per rx protocol 03/04/17 07:45 04/03/17 07:44 Zolpidem Tartrate (Ambien) 5 mg HSPRN PRN ORAL Insomnia 02/28/17 21:00 03/30/17 20:59 03/23/17 21:40 GURWINDER YI Mar 23, 2017 22:26
[2017-03-24 04:00] VITALS: BP 133/78
[2017-03-24 06:02] LABS: PROTHROMBIN TIME 21.2 SEC (9.30-11.50)
[2017-03-24] MEDS: NovoLOG Insulin Flexpen SUBQ SCH ×4 (06:03→22:29)
[2017-03-24 06:04] LABS: BASOPHILS % (AUTO) 1.4 % (0.0-2.0); EOSINOPHILS % (AUTO) 2.1 % (0.0-3.0); MEAN CORPUSCULAR HEMOGLOBIN 30.3 PG (27.0-31.0); MEAN CORPUSCULAR HGB CONC 31.6 G/DL (32.0-36.0); MEAN CORPUSCULAR VOLUME 96 FL (80-99); NEUTROPHILS % (AUTO) 51.6 % (45.0-75.0); PLATELET COUNT 413 K/UL (150-450); RED CELL DISTRIBUTION WIDTH 15.4 % (11.6-14.8); WHITE BLOOD COUNT 5.6 K/UL (4.8-10.8)
[2017-03-24 06:21] LABS: ANION GAP 12 (5-15); CALCIUM 9.4 mg/dL (8.6-10.2); CARBON DIOXIDE 27 mEQ/L (20-30); CHLORIDE 99 mEQ/L (98-107); GLOMERULAR FILTRATION RATE > 60 mL/min (>60); HEMOLYSIS 8; POTASSIUM 4.6 mEQ/L (3.4-4.9); SODIUM 138 mEQ/L (135-145)
[2017-03-24 08:00] VITALS: BP 144/75
[2017-03-24] MEDS: Docusate 100mg cap ORAL SCH ×3 (08:14→17:37)
[2017-03-24] MEDS: Thiamine 100mg tab ORAL SCH (08:14)
[2017-03-24] MEDS: Vitamin A&D Oint 2oz Tube TOPIC SCH ×2 (08:15→21:00)
--- NOTE | 2017-03-24 10:42 | GI Progress Note ---
Assessment/Plan Problems: (1) Hypoalbuminemia ICD Codes: E88.09 - Other disorders of plasma-protein metabolism, not elsewhere classified SNOMED: 351999849 (2) Anemia ICD Codes: D64.9 - Anemia, unspecified SNOMED: 681458856 (3) Elevated CEA ICD Codes: R97.0 - Elevated carcinoembryonic antigen [CEA] SNOMED: 50857177, [id number] Status: stable Status Narrative Discussed with Dr. Pressley. Assessment/Plan elevated CEA OB stool >> negative stable H&H prn transfusions PPI bowel regime fu labs outpatient colonoscopy pt on Coumadin >> medication must be discontinued min 48 hours prior any endoscopic procedures. Subjective Gastrointestinal/Abdominal: Reports: no symptoms Objective Last 24 Hour Vital Signs Date Time Temp Pulse Resp B/P Pulse Ox O2 Delivery O2 Flow Rate FiO2 03/24/17 08:00 98.1 71 20 144/75 98 Room Air 03/24/17 04:00 98.3 71 18 133/78 96 Room Air 03/23/17 20:00 97.1 70 19 149/81 98 Room Air 03/23/17 16:00 98.0 76 20 133/64 98 Room Air 03/23/17 12:00 97.3 64 20 142/84 99 Room Air Intake and Output 03/23/17 03/24/17 19:00 07:00 Intake Total 900 ml 480 ml Output Total 900 ml 600 ml Balance 0 ml -120 ml Intake Oral 900 ml 480 ml Output Urine Total 900 ml 600 ml # Bowel Movements 1 Laboratory Tests Test 03/24/17 05:15 White Blood Count 5.6 K/UL (4.8-10.8) Red Blood Count 3.50 M/UL (4.70-6.10) L Hemoglobin 10.6 G/DL (14.2-18.0) L Hematocrit 33.6 % (42.0-52.0) L Mean Corpuscular Volume 96 FL (80-99) Mean Corpuscular Hemoglobin 30.3 PG (27.0-31.0) Mean Corpuscular Hemoglobin Concent 31.6 G/DL (32.0-36.0) L Red Cell Distribution Width 15.4 % (11.6-14.8) H Platelet Count 413 K/UL (150-450) Mean Platelet Volume 5.0 FL (6.5-10.1) L Neutrophils (%) (Auto) 51.6 % (45.0-75.0) Lymphocytes (%) (Auto) 40.0 % (20.0-45.0) Monocytes (%) (Auto) 5.0 % (1.0-10.0) Eosinophils (%) (Auto) 2.1 % (0.0-3.0) Basophils (%) (Auto) 1.4 % (0.0-2.0) Prothrombin Time 21.2 SEC (9.30-11.50) H Prothromb Time International Ratio 2.0 (0.9-1.1) H Sodium Level 138 mEQ/L (135-145) Potassium Level 4.6 mEQ/L (3.4-4.9) Chloride Level 99 mEQ/L (98-107) Carbon Dioxide Level 27 mEQ/L (20-30) Anion Gap 12 (5-15) Blood Urea Nitrogen 31 mg/dL (7-23) H Creatinine 1.0 mg/dL (0.7-1.2) Estimat Glomerular Filtration Rate > 60 mL/min (>60) Glucose Level 113 mg/dL (74-106) H Calcium Level 9.4 mg/dL (8.6-10.2) Height (Feet): 5 Height (Inches): 10.00 Weight (Pounds): 150 General Appearance: no apparent distress, alert Cardiovascular: normal rate Respiratory/Chest: normal breath sounds, no respiratory distress Abdominal Exam: normal bowel sounds, non tender, soft Extremities: normal range of motion Mag Esteban N.P. Mar 24, 2017 10:42
--- NOTE | 2017-03-24 11:02 | General Progress Note ---
Assessment/Plan Assessment/Plan #. Anemia secondary to chronic disease, ferritin is elevated and tibc is low --> s/p total of 3 units PRBC --> hgb goal above 7, continue to closely monitor. remains stable --> transfuse prn --> OB stool neg #Elevated CEA --> colonoscopy as outpatient #. Anemia secondary to orthopedic procedure. #. DVT of right superficial femoral vein of the right lower extremity is on coumadin --> coumadin must be DC 48h prior to any endoscopic procedures --> lovenox has been DC --> INR currently therapeutic --> goal between 2-3 #. Hypocalcemia. --> resolved #. Leukocytosis secondary to reactive process from anemia #. Right hip fracture --> has been seen by ortho Subjective Constitutional: Reports: no symptoms HEENT: Reports: no symptoms Cardiovascular: Reports: no symptoms Respiratory: Reports: no symptoms Gastrointestinal/Abdominal: Reports: no symptoms Genitourinary: Reports: no symptoms Neurologic/Psychiatric: Reports: no symptoms Endocrine: Reports: no symptoms Hematologic/Lymphatic: Reports: anemia Allergies: Coded Allergies: No Known Allergies (Unverified , 02/27/17) Subjective no new changes Objective Last 24 Hour Vital Signs Date Time Temp Pulse Resp B/P Pulse Ox O2 Delivery O2 Flow Rate FiO2 03/24/17 08:00 98.1 71 20 144/75 98 Room Air 03/24/17 04:00 98.3 71 18 133/78 96 Room Air 03/23/17 20:00 97.1 70 19 149/81 98 Room Air 03/23/17 16:00 98.0 76 20 133/64 98 Room Air 03/23/17 12:00 97.3 64 20 142/84 99 Room Air Intake and Output 03/23/17 03/24/17 19:00 07:00 Intake Total 900 ml 480 ml Output Total 900 ml 600 ml Balance 0 ml -120 ml Intake Oral 900 ml 480 ml Output Urine Total 900 ml 600 ml # Bowel Movements 1 Laboratory Tests 03/24/17 05:15: White Blood Count 5.6, Red Blood Count 3.50L, Hemoglobin 10.6L, Hematocrit 33.6L , Mean Corpuscular Volume 96, Mean Corpuscular Hemoglobin 30.3, Mean Corpuscular Hemoglobin Concent 31.6L, Red Cell Distribution Width 15.4H, Platelet Count 413, Mean Platelet Volume 5.0L, Neutrophils (%) (Auto) 51.6, Lymphocytes (%) (Auto) 40.0, Monocytes (%) (Auto) 5.0, Eosinophils (%) (Auto) 2.1, Basophils (%) (Auto) 1.4, Prothrombin Time 21.2H, Prothromb Time International Ratio 2.0H, Sodium Level 138, Potassium Level 4.6, Chloride Level 99, Carbon Dioxide Level 27, Anion Gap 12, Blood Urea Nitrogen 31H, Creatinine 1.0, Estimat Glomerular Filtration Rate > 60, Glucose Level 113H, Calcium Level 9.4 Height (Feet): 5 Height (Inches): 10.00 Weight (Pounds): 150 General Appearance: no apparent distress EENT: PERRL/EOMI Neck: normal alignment Cardiovascular: normal rate Edema: no edema noted Pedal (L), no edema noted Pedal (R) Edema: trace edema Neurologic: no motor/sensory deficits Skin: warm/dry Leandro Ceja Mar 24, 2017 11:02
[2017-03-24 12:43] VITALS: BP 133/84
[2017-03-24 16:51] VITALS: BP 132/72
[2017-03-24] MEDS ORDERED: Warfarin Sodium 7.5mg ORAL SCH (17:00)
[2017-03-24 20:00] VITALS: BP 118/74
[2017-03-25] VITALS: BP 131/78
[2017-03-25 04:00] VITALS: BP 152/80
[2017-03-25] MEDS: NovoLOG Insulin Flexpen SUBQ SCH ×4 (06:34→21:22)
[2017-03-25 07:21] LABS: BASOPHILS % (AUTO) 1.5 % (0.0-2.0); EOSINOPHILS % (AUTO) 2.6 % (0.0-3.0); LYMPHOCYTES % (AUTO) 36.1 % (20.0-45.0); MEAN CORPUSCULAR HEMOGLOBIN 30.3 PG (27.0-31.0); MEAN CORPUSCULAR HGB CONC 31.6 G/DL (32.0-36.0); MEAN CORPUSCULAR VOLUME 96 FL (80-99); MEAN PLATELET VOLUME 5.2 FL (6.5-10.1); MONOCYTES % (AUTO) 8.6 % (1.0-10.0); NEUTROPHILS % (AUTO) 51.2 % (45.0-75.0); PLATELET COUNT 403 K/UL (150-450); RED BLOOD COUNT 3.57 M/UL (4.70-6.10); RED CELL DISTRIBUTION WIDTH 15.3 % (11.6-14.8)
[2017-03-25 07:25] LABS: INR 2.2 (0.9-1.1); PROTHROMBIN TIME 23.3 SEC (9.30-11.50)
[2017-03-25 07:34] LABS: ANION GAP 10 (5-15); CALCIUM 9.2 mg/dL (8.6-10.2); CARBON DIOXIDE 27 mEQ/L (20-30); CHLORIDE 98 mEQ/L (98-107); CREATININE 1.2 mg/dL (0.7-1.2); GLOMERULAR FILTRATION RATE > 60 mL/min (>60); HEMOLYSIS 2; POTASSIUM 4.8 mEQ/L (3.4-4.9); SODIUM 135 mEQ/L (135-145)
[2017-03-25 08:20] VITALS: BP 146/83
[2017-03-25] MEDS: Thiamine 100mg tab ORAL SCH (08:26)
[2017-03-25] MEDS: Docusate 100mg cap ORAL SCH ×3 (08:26→17:19)
[2017-03-25] MEDS: Vitamin A&D Oint 2oz Tube TOPIC SCH ×2 (08:27→21:21)
[2017-03-25 12:00] VITALS: BP 148/87
[2017-03-25 16:00] VITALS: BP 133/75
[2017-03-25] MEDS: Warfarin Sod 3 MG, Warfarin Sod 4 MG ORAL SCH ×2 (17:20)
[2017-03-25 20:00] VITALS: BP 118/82
[2017-03-25] MEDS: Zolpidem 5mg tab ORAL PRN (21:21)
[2017-03-26] VITALS: BP 129/70
[2017-03-26 04:00] VITALS: BP 143/81
[2017-03-26] MEDS: NovoLOG Insulin Flexpen SUBQ SCH ×4 (05:57→21:00)
[2017-03-26 07:22] LABS: INR 2.4 (0.9-1.1); PROTHROMBIN TIME 25.9 SEC (9.30-11.50)
[2017-03-26 08:00] VITALS: BP 153/76
[2017-03-26] MEDS: Thiamine 100mg tab ORAL SCH (08:39)
[2017-03-26] MEDS: Docusate 100mg cap ORAL SCH ×3 (08:39→17:16)
[2017-03-26] MEDS: Vitamin A&D Oint 2oz Tube TOPIC SCH ×2 (08:40→21:03)
--- NOTE | 2017-03-26 11:18 | General Progress Note ---
Assessment/Plan Assessment/Plan (1) Right hip fracture (2) Right hip pain (3) S/p naun arthroplasty Pt will be discontinued off [place] and will be continued on Tylenol as needed. D/w Dr. Loyd and he concurred. Subjective Date patient seen: Mar 26, 2017 Time patient seen: 10:45 - am Allergies: Coded Allergies: No Known Allergies (Unverified , 02/27/17) Subjective REVIEW OF SYSTEMS: Denies rash, fever, chills, sweating, dizziness, drowsiness, blurred vision, sore throat, or change in weight. No shortness of breath, chest pain, palpitations, or cough. No nausea, vomiting, diarrhea, or blood in the stool or urine. No bowel or bladder incontinence. No dysuria. SUBJECTIVE: Patient is sitting up in chair. He is not c/o pain at this time. Has not requested the [place]. Objective Last 24 Hour Vital Signs Date Time Temp Pulse Resp B/P Pulse Ox O2 Delivery O2 Flow Rate FiO2 03/26/17 08:00 98.0 70 19 153/76 99 Room Air 03/26/17 04:00 97.2 69 18 143/81 99 Room Air 03/26/17 00:00 97.5 74 18 129/70 99 Room Air 03/25/17 20:00 98.0 70 18 118/82 98 Room Air 03/25/17 16:00 97.6 67 18 133/75 98 Room Air 03/25/17 12:00 97.5 70 19 148/87 99 Room Air Intake and Output 03/25/17 03/26/17 19:00 07:00 Intake Total 700 ml 350 ml Output Total 550 ml 450 ml Balance 150 ml -100 ml Intake Oral 700 ml 350 ml Output Urine Total 550 ml 450 ml # Voids 4 2 Laboratory Tests 03/26/17 06:40: Prothrombin Time 25.9H, Prothromb Time International Ratio 2.4H Height (Feet): 5 Height (Inches): 10.00 Weight (Pounds): 150 Objective GENERAL: Alert, awake, and oriented. HEENT: Pupils are equally round and reactive to light and accommodation. NECK: Range of motion is full in all directions. No tenderness to paracervical muscles. No adenopathy. LUNGS: Lungs are clear. HEART: S1 and S2 are regular. ABDOMEN: Benign. BACK: Range of motion is full on flexion and extension. No tenderness to paraspinal muscles, trapezius, or rhomboid muscles. EXTREMITIES: No cyanosis. No clubbing. No edema. NEURO: No changes. HINE LAMAR Mar 26, 2017 11:18
--- NOTE | 2017-03-26 12:21 | General Progress Note ---
Assessment/Plan Status: doing well Assessment/Plan #. Anemia secondary to chronic disease, ferritin is elevated and tibc is low --> s/p total of 3 units PRBC --> hgb goal above 8, continue to closely monitor. remains stable --> transfuse prn --> OB stool neg #Elevated CEA --> colonoscopy as outpatient #. Anemia secondary to orthopedic procedure. #. DVT of right superficial femoral vein of the right lower extremity is on coumadin --> coumadin must be DC 48h prior to any endoscopic procedures --> lovenox has been DC --> INR currently therapeutic --> goal between 2-3 #. Hypocalcemia. --> resolved #. Leukocytosis secondary to reactive process from anemia --> resolbed #. Right hip fracture --> s/p surgery --> patient is making progress with ambulation Subjective Date patient seen: Mar 25, 2017 Constitutional: Reports: no symptoms HEENT: Reports: no symptoms Cardiovascular: Reports: no symptoms Respiratory: Reports: no symptoms Gastrointestinal/Abdominal: Reports: no symptoms Genitourinary: Reports: no symptoms Neurologic/Psychiatric: Reports: no symptoms Endocrine: Reports: no symptoms Hematologic/Lymphatic: Reports: anemia Allergies: Coded Allergies: No Known Allergies (Unverified , 02/27/17) Subjective ambulating with walker Objective Last 24 Hour Vital Signs Date Time Temp Pulse Resp B/P Pulse Ox O2 Delivery O2 Flow Rate FiO2 03/26/17 08:00 98.0 70 19 153/76 99 Room Air 03/26/17 04:00 97.2 69 18 143/81 99 Room Air 03/26/17 00:00 97.5 74 18 129/70 99 Room Air 03/25/17 20:00 98.0 70 18 118/82 98 Room Air 03/25/17 16:00 97.6 67 18 133/75 98 Room Air Intake and Output 03/25/17 03/26/17 19:00 07:00 Intake Total 700 ml 350 ml Output Total 550 ml 450 ml Balance 150 ml -100 ml Intake Oral 700 ml 350 ml Output Urine Total 550 ml 450 ml # Voids 4 2 Laboratory Tests 03/26/17 06:40: Prothrombin Time 25.9H, Prothromb Time International Ratio 2.4H Height (Feet): 5 Height (Inches): 10.00 Weight (Pounds): 150 General Appearance: no apparent distress EENT: PERRL/EOMI Neck: supple Cardiovascular: normal rate Respiratory/Chest: lungs clear Edema: no edema noted Pedal (L), no edema noted Pedal (R) Neurologic: it intern II-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
[2017-03-26 12:42] VITALS: BP 134/74
--- NOTE | 2017-03-26 13:07 | Pulmonology Progress Note ---
Assessment/Plan Problems: (1) Fracture of femoral neck, right (2) DVT (deep venous thrombosis) (3) Renal insufficiency (4) Anemia Assessment/Plan no new changes pt/ot f/u labs tolerating diet dc planning awaiting placement pt is not competent to make any decisions Subjective ROS Limited/Unobtainable: No Constitutional: Reports: no symptoms HEENT: Repors: no symptoms Allergies: Coded Allergies: No Known Allergies (Unverified , 02/27/17) Objective Last 24 Hour Vital Signs Date Time Temp Pulse Resp B/P Pulse Ox O2 Delivery O2 Flow Rate FiO2 03/26/17 12:42 98.3 62 19 134/74 100 Room Air 03/26/17 08:00 98.0 70 19 153/76 99 Room Air 03/26/17 04:00 97.2 69 18 143/81 99 Room Air 03/26/17 00:00 97.5 74 18 129/70 99 Room Air 03/25/17 20:00 98.0 70 18 118/82 98 Room Air 03/25/17 16:00 97.6 67 18 133/75 98 Room Air Intake and Output 03/25/17 03/26/17 19:00 07:00 Intake Total 700 ml 350 ml Output Total 550 ml 450 ml Balance 150 ml -100 ml Intake Oral 700 ml 350 ml Output Urine Total 550 ml 450 ml # Voids 4 2 General Appearance: cachetic HEENT: normocephalic, atraumatic Respiratory/Chest: chest wall non-tender, lungs clear Cardiovascular: normal peripheral pulses, normal rate Abdomen: normal bowel sounds, soft, non tender Genitourinary: normal external genitalia 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 Laboratory Tests 03/26/17 06:40: Prothrombin Time 25.9H, Prothromb Time International Ratio 2.4H Current Medications Medications (Trade) Dose Ordered Sig/Bautista Route PRN Reason Start Time Stop Time Status Last Admin Dose Admin Acetaminophen (Tylenol) 650 mg Q4H PRN ORAL fever>100.5 or pain 03/26/17 12:00 04/25/17 11:59 Clonidine HCl (Catapres) 0.1 mg Q6H PRN ORAL SBP>160 03/03/17 10:00 04/02/17 09:59 Dextrose (Dextrose 50%) STAT PRN IV Hypoglycemia 02/28/17 08:00 03/30/17 07:59 Docusate Sodium (Colace) 100 mg THREE TIMES A DAY ORAL 03/01/17 13:00 03/31/17 12:59 03/26/17 12:48 Ergocalciferol (Drisdol) 50,000 intlu QWEEK ORAL 03/01/17 14:00 03/31/17 13:59 03/22/17 13:04 Escitalopram Oxalate (Lexapro) 10 mg DAILY ORAL 03/12/17 09:00 04/11/17 08:59 03/26/17 08:38 Folic Acid (Folate) 2 mg DAILY ORAL 03/01/17 12:30 03/31/17 12:29 03/26/17 08:38 Insulin Aspart (NovoLOG) BEFORE MEALS AND HS SUBQ 03/06/17 21:00 04/05/17 20:59 03/26/17 12:07 Ondansetron HCl (Zofran) 4 mg Q6H PRN IVP Nausea & Vomiting 02/28/17 16:00 03/30/17 15:59 Pantoprazole (Protonix) 40 mg EVERY 12 HOURS ORAL 03/01/17 12:30 03/31/17 12:29 03/26/17 08:38 Polyethylene Glycol (Miralax) 17 gm HSPRN PRN ORAL Constipation 02/28/17 21:00 03/30/17 20:59 Thiamine HCl (Vitamin B1) 100 mg DAILY ORAL 03/01/17 12:30 03/31/17 12:29 03/26/17 08:39 Vitamin A/Vitamin D (A & D Oint) 1 applic EVERY 12 HOURS TOPIC 03/08/17 21:00 04/07/17 20:59 03/26/17 08:40 Warfarin Sodium (Coumadin per pharmacy) 1 ea DAILY PRN MISC Per rx protocol 03/04/17 07:45 04/03/17 07:44 Warfarin Sodium/ Warfarin Sodium (Coumadin/ Coumadin) 7 mg COUMADIN ORAL 03/25/17 17:00 03/30/17 16:59 03/25/17 17:20 Zolpidem Tartrate (Ambien) 5 mg HSPRN PRN ORAL Insomnia 02/28/17 21:00 03/30/17 20:59 03/25/17 21:21 GURWINDER YI Mar 26, 2017 13:07
--- NOTE | 2017-03-26 15:45 | General Progress Note ---
Assessment/Plan Assessment/Plan #. Anemia secondary to chronic disease, ferritin is elevated and tibc is low --> s/p total of 3 units PRBC --> hgb goal above 8, continue to closely monitor. remains stable --> transfuse prn --> OB stool neg #Elevated CEA --> colonoscopy as outpatient #. Anemia secondary to orthopedic procedure. #. DVT of right superficial femoral vein of the right lower extremity is on coumadin --> coumadin must be DC 48h prior to any endoscopic procedures --> lovenox has been DC --> INR currently therapeutic --> goal between 2-3 #. Hypocalcemia. --> resolved #. Leukocytosis secondary to reactive process from anemia --> resolbed #. Right hip fracture --> s/p surgery --> patient is making progress with ambulation Subjective Constitutional: Reports: no symptoms HEENT: Reports: no symptoms Cardiovascular: Reports: no symptoms Respiratory: Reports: no symptoms Gastrointestinal/Abdominal: Reports: no symptoms Genitourinary: Reports: no symptoms Neurologic/Psychiatric: Reports: no symptoms Endocrine: Reports: no symptoms Hematologic/Lymphatic: Reports: anemia Allergies: Coded Allergies: No Known Allergies (Unverified , 02/27/17) Subjective remains unchanged Objective Last 24 Hour Vital Signs Date Time Temp Pulse Resp B/P Pulse Ox O2 Delivery O2 Flow Rate FiO2 03/26/17 12:42 98.3 62 19 134/74 100 Room Air 03/26/17 08:00 98.0 70 19 153/76 99 Room Air 03/26/17 04:00 97.2 69 18 143/81 99 Room Air 03/26/17 00:00 97.5 74 18 129/70 99 Room Air 03/25/17 20:00 98.0 70 18 118/82 98 Room Air 03/25/17 16:00 97.6 67 18 133/75 98 Room Air Intake and Output 03/25/17 03/26/17 19:00 07:00 Intake Total 700 ml 350 ml Output Total 550 ml 450 ml Balance 150 ml -100 ml Intake Oral 700 ml 350 ml Output Urine Total 550 ml 450 ml # Voids 4 2 Laboratory Tests 03/26/17 06:40: Prothrombin Time 25.9H, Prothromb Time International Ratio 2.4H Height (Feet): 5 Height (Inches): 10.00 Weight (Pounds): 150 General Appearance: no apparent distress EENT: PERRL/EOMI Neck: normal alignment Cardiovascular: normal rate Respiratory/Chest: lungs clear Neurologic: normal mood/affect Skin: warm/dry Leandro Ceja Mar 26, 2017 15:45
[2017-03-26 16:00] VITALS: BP 131/80
[2017-03-26] MEDS: Warfarin Sod 3 MG, Warfarin Sod 4 MG ORAL SCH ×2 (17:16)
[2017-03-26 20:00] VITALS: BP 132/75
[2017-03-26] MEDS: Zolpidem 5mg tab ORAL PRN (21:04)
[2017-03-27] VITALS (7 sets, daily range): BP systolic 127–147; BP diastolic 65–82
[2017-03-27] MEDS: NovoLOG Insulin Flexpen SUBQ SCH ×4 (06:15→21:00)
[2017-03-27 06:49] LABS: INR 2.4 (0.9-1.1); PROTHROMBIN TIME 24.9 SEC (9.30-11.50)
[2017-03-27] MEDS: Thiamine 100mg tab ORAL SCH (08:59)
[2017-03-27] MEDS: Docusate 100mg cap ORAL SCH ×3 (08:59→18:13)
[2017-03-27] MEDS: Vitamin A&D Oint 2oz Tube TOPIC SCH ×2 (09:09→21:00)
--- NOTE | 2017-03-27 10:20 | GI Progress Note ---
Assessment/Plan Problems: (1) Hypoalbuminemia ICD Codes: E88.09 - Other disorders of plasma-protein metabolism, not elsewhere classified SNOMED: 567400083 (2) Anemia ICD Codes: D64.9 - Anemia, unspecified SNOMED: 247012679 (3) Elevated CEA ICD Codes: R97.0 - Elevated carcinoembryonic antigen [CEA] SNOMED: 01290572, [id number] Status: stable Status Narrative Discussed with Dr. Pressley. Assessment/Plan elevated CEA OB stool >> negative stable H&H prn transfusions PPI bowel regime fu labs outpatient colonoscopy pt on Coumadin >> medication must be discontinued min 48 hours prior any endoscopic procedures. Subjective Gastrointestinal/Abdominal: Reports: no symptoms Objective Last 24 Hour Vital Signs Date Time Temp Pulse Resp B/P Pulse Ox O2 Delivery O2 Flow Rate FiO2 03/27/17 08:22 98.9 86 18 127/65 100 Room Air 03/27/17 03:59 97.2 66 18 147/82 100 Room Air 03/27/17 00:00 97.9 61 18 134/76 98 Room Air 03/26/17 20:00 97.5 79 18 132/75 98 Room Air 03/26/17 17:37 98.3 03/26/17 16:00 97.7 68 18 131/80 99 Room Air 03/26/17 12:42 98.3 62 19 134/74 100 Room Air Intake and Output 03/26/17 03/27/17 19:00 07:00 Intake Total 900 ml 100 ml Output Total 1300 ml 500 ml Balance -400 ml -400 ml Intake Oral 900 ml 100 ml Output Urine Total 1300 ml 500 ml # Voids 5 1 # Bowel Movements 1 Laboratory Tests Test 03/27/17 04:50 Prothrombin Time 24.9 SEC (9.30-11.50) H Prothromb Time International Ratio 2.4 (0.9-1.1) H Height (Feet): 5 Height (Inches): 10.00 Weight (Pounds): 150 General Appearance: no apparent distress, alert Cardiovascular: normal rate Respiratory/Chest: normal breath sounds, no respiratory distress Abdominal Exam: normal bowel sounds, non tender, soft Extremities: normal range of motion Mag Esteban N.P. Mar 27, 2017 10:20
--- NOTE | 2017-03-27 12:25 | Pulmonology Progress Note ---
Assessment/Plan Problems: (1) Fracture of femoral neck, right (2) DVT (deep venous thrombosis) (3) Renal insufficiency (4) Anemia Assessment/Plan awaiting placement no new changes pt/ot f/u labs tolerating diet dc planning pt is not competent to make any decisions Subjective ROS Limited/Unobtainable: No Interval Events: took a shower this morning Constitutional: Reports: no symptoms HEENT: Repors: no symptoms Allergies: Coded Allergies: No Known Allergies (Unverified , 02/27/17) Objective Last 24 Hour Vital Signs Date Time Temp Pulse Resp B/P Pulse Ox O2 Delivery O2 Flow Rate FiO2 03/27/17 08:22 98.9 86 18 127/65 100 Room Air 03/27/17 03:59 97.2 66 18 147/82 100 Room Air 03/27/17 00:00 97.9 61 18 134/76 98 Room Air 03/26/17 20:00 97.5 79 18 132/75 98 Room Air 03/26/17 17:37 98.3 03/26/17 16:00 97.7 68 18 131/80 99 Room Air 03/26/17 12:42 98.3 62 19 134/74 100 Room Air Intake and Output 03/26/17 03/27/17 19:00 07:00 Intake Total 900 ml 100 ml Output Total 1300 ml 500 ml Balance -400 ml -400 ml Intake Oral 900 ml 100 ml Output Urine Total 1300 ml 500 ml # Voids 5 1 # Bowel Movements 1 General Appearance: WD/WN HEENT: normocephalic, atraumatic Respiratory/Chest: chest wall non-tender, lungs clear, normal breath sounds Cardiovascular: normal peripheral pulses, normal rate Abdomen: normal bowel sounds, soft, non tender Extremities: no cyanosis Skin: no lesions Laboratory Tests 03/27/17 04:50: Prothrombin Time 24.9H, Prothromb Time International Ratio 2.4H Current Medications Medications (Trade) Dose Ordered Sig/Bautista Route PRN Reason Start Time Stop Time Status Last Admin Dose Admin Acetaminophen (Tylenol) 650 mg Q4H PRN ORAL fever>100.5 or pain 03/26/17 12:00 04/25/17 11:59 03/26/17 16:38 Clonidine HCl (Catapres) 0.1 mg Q6H PRN ORAL SBP>160 03/03/17 10:00 04/02/17 09:59 Dextrose (Dextrose 50%) STAT PRN IV Hypoglycemia 02/28/17 08:00 03/30/17 07:59 Docusate Sodium (Colace) 100 mg THREE TIMES A DAY ORAL 03/01/17 13:00 03/31/17 12:59 03/27/17 08:59 Ergocalciferol (Drisdol) 50,000 intlu QWEEK ORAL 03/01/17 14:00 03/31/17 13:59 03/22/17 13:04 Escitalopram Oxalate (Lexapro) 10 mg DAILY ORAL 03/12/17 09:00 04/11/17 08:59 03/27/17 08:59 Folic Acid (Folate) 2 mg DAILY ORAL 03/01/17 12:30 03/31/17 12:29 03/27/17 08:59 Insulin Aspart (NovoLOG) BEFORE MEALS AND HS SUBQ 03/06/17 21:00 04/05/17 20:59 03/27/17 11:49 Ondansetron HCl (Zofran) 4 mg Q6H PRN IVP Nausea & Vomiting 02/28/17 16:00 03/30/17 15:59 Pantoprazole (Protonix) 40 mg EVERY 12 HOURS ORAL 03/01/17 12:30 03/31/17 12:29 03/26/17 20:21 Polyethylene Glycol (Miralax) 17 gm HSPRN PRN ORAL Constipation 02/28/17 21:00 03/30/17 20:59 Thiamine HCl (Vitamin B1) 100 mg DAILY ORAL 03/01/17 12:30 03/31/17 12:29 03/27/17 08:59 Vitamin A/Vitamin D (A & D Oint) 1 applic EVERY 12 HOURS TOPIC 03/08/17 21:00 04/07/17 20:59 03/27/17 09:09 Warfarin Sodium (Coumadin per pharmacy) 1 ea DAILY PRN MISC Per rx protocol 03/04/17 07:45 04/03/17 07:44 Warfarin Sodium/ Warfarin Sodium (Coumadin/ Coumadin) 7 mg COUMADIN ORAL 03/25/17 17:00 03/30/17 16:59 03/26/17 17:16 Zolpidem Tartrate (Ambien) 5 mg HSPRN PRN ORAL Insomnia 02/28/17 21:00 03/30/17 20:59 03/26/17 21:04 GURWINDER YI Mar 27, 2017 12:25
[2017-03-27] MEDS: Warfarin Sod 3 MG, Warfarin Sod 4 MG ORAL SCH ×2 (18:14)
--- NOTE | 2017-03-27 20:22 | General Progress Note ---
Assessment/Plan Assessment/Plan #. Anemia secondary to chronic disease, ferritin is elevated and tibc is low --> s/p total of 3 units PRBC --> hgb goal above 8, continue to closely monitor. remains stable --> transfuse prn --> OB stool neg #Elevated CEA --> colonoscopy as outpatient #. Anemia secondary to orthopedic procedure. #. DVT of right superficial femoral vein of the right lower extremity is on coumadin --> coumadin must be DC 48h prior to any endoscopic procedures --> lovenox has been DC --> INR currently therapeutic --> goal is to maintain between 2-3 #. Hypocalcemia. --> resolved #. Leukocytosis secondary to reactive process from anemia --> resolbed #. Right hip fracture --> s/p surgery --> patient is making progress with ambulation Subjective Constitutional: Reports: no symptoms HEENT: Reports: no symptoms Cardiovascular: Reports: no symptoms Respiratory: Reports: no symptoms Gastrointestinal/Abdominal: Reports: no symptoms Genitourinary: Reports: no symptoms Neurologic/Psychiatric: Reports: no symptoms Endocrine: Reports: no symptoms Hematologic/Lymphatic: Reports: anemia Allergies: Coded Allergies: No Known Allergies (Unverified , 02/27/17) Subjective no complaints Objective Last 24 Hour Vital Signs Date Time Temp Pulse Resp B/P Pulse Ox O2 Delivery O2 Flow Rate FiO2 03/27/17 17:43 97.4 17 132/77 98 Room Air 03/27/17 16:00 97.8 75 17 132/77 98 Room Air 03/27/17 12:00 98.0 76 18 130/68 100 Room Air 03/27/17 08:22 98.9 86 18 127/65 100 Room Air 03/27/17 03:59 97.2 66 18 147/82 100 Room Air 03/27/17 00:00 97.9 61 18 134/76 98 Room Air Intake and Output 03/26/17 03/27/17 19:00 07:00 Intake Total 900 ml 100 ml Output Total 1300 ml 500 ml Balance -400 ml -400 ml Intake Oral 900 ml 100 ml Output Urine Total 1300 ml 500 ml # Voids 5 1 # Bowel Movements 1 Laboratory Tests 03/27/17 04:50: Prothrombin Time 24.9H, Prothromb Time International Ratio 2.4H Height (Feet): 5 Height (Inches): 10.00 Weight (Pounds): 150 General Appearance: alert EENT: TMs normal Neck: supple Cardiovascular: regular rhythm, no JVD Respiratory/Chest: chest wall non-tender, no accessory muscle use Neurologic: normal mood/affect Skin: normal pigmentation, no diaphoresis Leandro Ceja Mar 27, 2017 20:22
[2017-03-27] MEDS: Zolpidem 5mg tab ORAL PRN (20:58)
[2017-03-28] VITALS: BP 144/79
[2017-03-28 04:00] VITALS: BP 148/87
[2017-03-28 06:17] LABS: BASOPHILS % (AUTO) 2.4 % (0.0-2.0); EOSINOPHILS % (AUTO) 2.7 % (0.0-3.0); LYMPHOCYTES % (AUTO) 31.9 % (20.0-45.0); MEAN CORPUSCULAR HEMOGLOBIN 30.2 PG (27.0-31.0); MEAN CORPUSCULAR HGB CONC 31.5 G/DL (32.0-36.0); MEAN CORPUSCULAR VOLUME 96 FL (80-99); MEAN PLATELET VOLUME 5.4 FL (6.5-10.1); MONOCYTES % (AUTO) 13.5 % (1.0-10.0); NEUTROPHILS % (AUTO) 49.6 % (45.0-75.0); PLATELET COUNT 391 K/UL (150-450); RED BLOOD COUNT 3.69 M/UL (4.70-6.10); RED CELL DISTRIBUTION WIDTH 15.4 % (11.6-14.8); WHITE BLOOD COUNT 5.1 K/UL (4.8-10.8)
[2017-03-28] MEDS: NovoLOG Insulin Flexpen SUBQ SCH ×4 (06:30→21:06)
[2017-03-28 06:34] LABS: ANION GAP 9 (5-15); CALCIUM 9.3 mg/dL (8.6-10.2); CARBON DIOXIDE 29 mEQ/L (20-30); CHLORIDE 99 mEQ/L (98-107); GLOMERULAR FILTRATION RATE > 60 mL/min (>60); HEMOLYSIS 2; POTASSIUM 4.5 mEQ/L (3.4-4.9); SODIUM 137 mEQ/L (135-145)
[2017-03-28 07:44] VITALS: BP 138/64
[2017-03-28] MEDS: Docusate 100mg cap ORAL SCH ×3 (08:25→16:32)
[2017-03-28] MEDS: Vitamin A&D Oint 2oz Tube TOPIC SCH ×2 (09:00→21:07)
[2017-03-28 11:30] VITALS: BP 130/70
[2017-03-28] MEDS: Thiamine 100mg tab ORAL SCH (11:30)
[2017-03-28 12:11] LABS: INR 2.1 (0.9-1.1); PROTHROMBIN TIME 21.6 SEC (9.30-11.50)
--- NOTE | 2017-03-28 12:36 | GI Progress Note ---
Assessment/Plan Problems: (1) Hypoalbuminemia ICD Codes: E88.09 - Other disorders of plasma-protein metabolism, not elsewhere classified SNOMED: 163228434 (2) Anemia ICD Codes: D64.9 - Anemia, unspecified SNOMED: 223239828 (3) Elevated CEA ICD Codes: R97.0 - Elevated carcinoembryonic antigen [CEA] SNOMED: 04752513, 335138372 Status: stable Status Narrative Discussed with Dr. Pressley. Assessment/Plan elevated CEA OB stool >> negative stable H&H, prn transfusions prn transfusions PPI bowel regime fu labs outpatient colonoscopy pt on Coumadin >> medication must be discontinued min 48 hours prior any endoscopic procedures. Subjective Gastrointestinal/Abdominal: Reports: no symptoms Objective Last 24 Hour Vital Signs Date Time Temp Pulse Resp B/P Pulse Ox O2 Delivery O2 Flow Rate FiO2 03/28/17 11:30 97.2 70 18 130/70 99 Room Air 03/28/17 07:44 97.6 62 18 138/64 99 Room Air 03/28/17 04:00 97.7 62 18 148/87 99 Room Air 03/28/17 00:00 97.5 65 17 144/79 97 Room Air 03/27/17 20:00 97.6 75 17 130/79 99 Room Air 03/27/17 17:43 97.4 17 132/77 98 Room Air 03/27/17 16:00 97.8 75 17 132/77 98 Room Air Intake and Output 03/27/17 03/28/17 19:00 07:00 Intake Total 350 ml Output Total 650 ml 1250 ml Balance -300 ml -1250 ml Intake Oral 350 ml Output Urine Total 650 ml 1250 ml # Voids 4 Laboratory Tests Test 03/28/17 05:35 03/28/17 11:50 White Blood Count 5.1 K/UL (4.8-10.8) Red Blood Count 3.69 M/UL (4.70-6.10) L Hemoglobin 11.1 G/DL (14.2-18.0) L Hematocrit 35.4 % (42.0-52.0) L Mean Corpuscular Volume 96 FL (80-99) Mean Corpuscular Hemoglobin 30.2 PG (27.0-31.0) Mean Corpuscular Hemoglobin Concent 31.5 G/DL (32.0-36.0) L Red Cell Distribution Width 15.4 % (11.6-14.8) H Platelet Count 391 K/UL (150-450) Mean Platelet Volume 5.4 FL (6.5-10.1) L Neutrophils (%) (Auto) 49.6 % (45.0-75.0) Lymphocytes (%) (Auto) 31.9 % (20.0-45.0) Monocytes (%) (Auto) 13.5 % (1.0-10.0) H Eosinophils (%) (Auto) 2.7 % (0.0-3.0) Basophils (%) (Auto) 2.4 % (0.0-2.0) H Sodium Level 137 mEQ/L (135-145) Potassium Level 4.5 mEQ/L (3.4-4.9) Chloride Level 99 mEQ/L (98-107) Carbon Dioxide Level 29 mEQ/L (20-30) Anion Gap 9 (5-15) Blood Urea Nitrogen 26 mg/dL (7-23) H Creatinine 1.0 mg/dL (0.7-1.2) Estimat Glomerular Filtration Rate > 60 mL/min (>60) Glucose Level 111 mg/dL (74-106) H Calcium Level 9.3 mg/dL (8.6-10.2) Prothrombin Time 21.6 SEC (9.30-11.50) H Prothromb Time International Ratio 2.1 (0.9-1.1) H Height (Feet): 5 Height (Inches): 10.00 Weight (Pounds): 150 General Appearance: no apparent distress, alert Cardiovascular: normal rate Respiratory/Chest: normal breath sounds, no respiratory distress Abdominal Exam: normal bowel sounds, non tender, soft Extremities: normal range of motion Mag Esteban N.P. Mar 28, 2017 12:36
--- NOTE | 2017-03-28 13:24 | Pulmonology Progress Note ---
Assessment/Plan Problems: (1) Fracture of femoral neck, right (2) DVT (deep venous thrombosis) (3) Renal insufficiency (4) Anemia Assessment/Plan awaiting placement walking in the hallway pt/ot f/u labs tolerating diet dc planning pt is not competent to make any decisions Subjective ROS Limited/Unobtainable: No Constitutional: Reports: no symptoms HEENT: Repors: no symptoms Respiratory: Reports: no symptoms Allergies: Coded Allergies: No Known Allergies (Unverified , 02/27/17) Objective Last 24 Hour Vital Signs Date Time Temp Pulse Resp B/P Pulse Ox O2 Delivery O2 Flow Rate FiO2 03/28/17 11:30 97.2 70 18 130/70 99 Room Air 03/28/17 07:44 97.6 62 18 138/64 99 Room Air 03/28/17 04:00 97.7 62 18 148/87 99 Room Air 03/28/17 00:00 97.5 65 17 144/79 97 Room Air 03/27/17 20:00 97.6 75 17 130/79 99 Room Air 03/27/17 17:43 97.4 17 132/77 98 Room Air 03/27/17 16:00 97.8 75 17 132/77 98 Room Air Intake and Output 03/27/17 03/28/17 19:00 07:00 Intake Total 350 ml Output Total 650 ml 1250 ml Balance -300 ml -1250 ml Intake Oral 350 ml Output Urine Total 650 ml 1250 ml # Voids 4 General Appearance: WD/WN, no acute distress HEENT: atraumatic Respiratory/Chest: chest wall non-tender, lungs clear Cardiovascular: normal peripheral pulses, normal rate Abdomen: normal bowel sounds, soft, non tender Extremities: no cyanosis Skin: no rash, no lesions Laboratory Tests 03/28/17 05:35: White Blood Count 5.1, Red Blood Count 3.69L, Hemoglobin 11.1L, Hematocrit 35.4L , Mean Corpuscular Volume 96, Mean Corpuscular Hemoglobin 30.2, Mean Corpuscular Hemoglobin Concent 31.5L, Red Cell Distribution Width 15.4H, Platelet Count 391, Mean Platelet Volume 5.4L, Neutrophils (%) (Auto) 49.6, Lymphocytes (%) (Auto) 31.9, Monocytes (%) (Auto) 13.5H, Eosinophils (%) (Auto) 2.7, Basophils (%) (Auto) 2.4H, Sodium Level 137, Potassium Level 4.5, Chloride Level 99, Carbon Dioxide Level 29, Anion Gap 9, Blood Urea Nitrogen 26H, Creatinine 1.0, Estimat Glomerular Filtration Rate > 60, Glucose Level 111H, Calcium Level 9.3 03/28/17 11:50: Prothrombin Time 21.6H, Prothromb Time International Ratio 2.1H Current Medications Medications (Trade) Dose Ordered Sig/Bautista Route PRN Reason Start Time Stop Time Status Last Admin Dose Admin Acetaminophen (Tylenol) 650 mg Q4H PRN ORAL fever>100.5 or pain 03/26/17 12:00 04/25/17 11:59 03/26/17 16:38 Clonidine HCl (Catapres) 0.1 mg Q6H PRN ORAL SBP>160 03/03/17 10:00 04/02/17 09:59 Dextrose (Dextrose 50%) STAT PRN IV Hypoglycemia 02/28/17 08:00 03/30/17 07:59 Docusate Sodium (Colace) 100 mg THREE TIMES A DAY ORAL 03/01/17 13:00 03/31/17 12:59 03/28/17 08:25 Ergocalciferol (Drisdol) 50,000 intlu QWEEK ORAL 03/01/17 14:00 03/31/17 13:59 03/22/17 13:04 Escitalopram Oxalate (Lexapro) 10 mg DAILY ORAL 03/12/17 09:00 04/11/17 08:59 03/28/17 08:25 Folic Acid (Folate) 2 mg DAILY ORAL 03/01/17 12:30 03/31/17 12:29 03/28/17 08:25 Insulin Aspart (NovoLOG) BEFORE MEALS AND HS SUBQ 03/06/17 21:00 04/05/17 20:59 03/28/17 11:53 Ondansetron HCl (Zofran) 4 mg Q6H PRN IVP Nausea & Vomiting 02/28/17 16:00 03/30/17 15:59 Pantoprazole (Protonix) 40 mg EVERY 12 HOURS ORAL 03/01/17 12:30 03/31/17 12:29 03/28/17 08:28 Polyethylene Glycol (Miralax) 17 gm HSPRN PRN ORAL Constipation 02/28/17 21:00 03/30/17 20:59 Thiamine HCl (Vitamin B1) 100 mg DAILY ORAL 03/01/17 12:30 03/31/17 12:29 03/28/17 11:30 Vitamin A/Vitamin D (A & D Oint) 1 applic EVERY 12 HOURS TOPIC 03/08/17 21:00 04/07/17 20:59 03/28/17 09:00 Warfarin Sodium (Coumadin per pharmacy) 1 ea DAILY PRN MISC Per rx protocol 03/04/17 07:45 04/03/17 07:44 Warfarin Sodium (Coumadin) 7.5 mg COUMADIN ONCE ORAL 03/28/17 17:00 03/28/17 17:01 Zolpidem Tartrate (Ambien) 5 mg HSPRN PRN ORAL Insomnia 02/28/17 21:00 03/30/17 20:59 03/27/17 20:58 GURWINDER YI Mar 28, 2017 13:24
[2017-03-28 15:51] VITALS: BP 128/67
[2017-03-28] MEDS ORDERED: Warfarin Sodium 7.5mg ORAL ONE (17:00)
--- NOTE | 2017-03-28 18:01 | General Progress Note ---
Assessment/Plan Assessment/Plan #. Anemia secondary to chronic disease, ferritin is elevated and tibc is low --> s/p total of 3 units PRBC --> hgb goal above 8, continue to closely monitor. remains stable --> transfuse prn --> OB stool neg #Elevated CEA --> colonoscopy as outpatient #. Anemia secondary to orthopedic procedure. #. DVT of right superficial femoral vein of the right lower extremity is on coumadin --> coumadin must be DC 48h prior to any endoscopic procedures --> lovenox has been DC --> INR currently therapeutic --> goal is to maintain between 2-3 #. Hypocalcemia. --> resolved #. Leukocytosis secondary to reactive process from anemia --> resolved #. Right hip fracture --> s/p surgery --> patient is making progress with ambulation Subjective Constitutional: Reports: no symptoms HEENT: Reports: no symptoms Cardiovascular: Reports: no symptoms Respiratory: Reports: no symptoms Gastrointestinal/Abdominal: Reports: no symptoms Genitourinary: Reports: no symptoms Neurologic/Psychiatric: Reports: no symptoms Endocrine: Reports: no symptoms Hematologic/Lymphatic: Reports: anemia, no symptoms Allergies: Coded Allergies: No Known Allergies (Unverified , 02/27/17) Subjective ambulation imprving Objective Last 24 Hour Vital Signs Date Time Temp Pulse Resp B/P Pulse Ox O2 Delivery O2 Flow Rate FiO2 03/28/17 15:51 97.7 79 18 128/67 99 Room Air 03/28/17 11:30 97.2 70 18 130/70 99 Room Air 03/28/17 07:44 97.6 62 18 138/64 99 Room Air 03/28/17 04:00 97.7 62 18 148/87 99 Room Air 03/28/17 00:00 97.5 65 17 144/79 97 Room Air 03/27/17 20:00 97.6 75 17 130/79 99 Room Air Intake and Output 03/27/17 03/28/17 19:00 07:00 Intake Total 350 ml Output Total 650 ml 1250 ml Balance -300 ml -1250 ml Intake Oral 350 ml Output Urine Total 650 ml 1250 ml # Voids 4 Laboratory Tests 03/28/17 05:35: White Blood Count 5.1, Red Blood Count 3.69L, Hemoglobin 11.1L, Hematocrit 35.4L , Mean Corpuscular Volume 96, Mean Corpuscular Hemoglobin 30.2, Mean Corpuscular Hemoglobin Concent 31.5L, Red Cell Distribution Width 15.4H, Platelet Count 391, Mean Platelet Volume 5.4L, Neutrophils (%) (Auto) 49.6, Lymphocytes (%) (Auto) 31.9, Monocytes (%) (Auto) 13.5H, Eosinophils (%) (Auto) 2.7, Basophils (%) (Auto) 2.4H, Sodium Level 137, Potassium Level 4.5, Chloride Level 99, Carbon Dioxide Level 29, Anion Gap 9, Blood Urea Nitrogen 26H, Creatinine 1.0, Estimat Glomerular Filtration Rate > 60, Glucose Level 111H, Calcium Level 9.3 03/28/17 11:50: Prothrombin Time 21.6H, Prothromb Time International Ratio 2.1H Height (Feet): 5 Height (Inches): 10.00 Weight (Pounds): 150 General Appearance: alert EENT: normal ENT inspection Neck: normal alignment Abdomen: non tender Edema: no edema noted Pedal (L), no edema noted Pedal (R) Neurologic: upset operator II-XII grossly normal Skin: warm/dry Leandro Ceja Mar 28, 2017 18:01
[2017-03-28 20:19] VITALS: BP 143/82
[2017-03-28] MEDS: Zolpidem 5mg tab ORAL PRN (21:05)
[2017-03-29 00:25] VITALS: BP 139/76
[2017-03-29 04:00] VITALS: BP 132/74
[2017-03-29] MEDS: NovoLOG Insulin Flexpen SUBQ SCH ×4 (06:30→21:07)
[2017-03-29 07:05] LABS: INR 2.2 (0.9-1.1); PROTHROMBIN TIME 22.7 SEC (9.30-11.50)
[2017-03-29 07:11] LABS: BASOPHILS % (AUTO) 1.3 % (0.0-2.0); EOSINOPHILS % (AUTO) 2.6 % (0.0-3.0); LYMPHOCYTES % (AUTO) 38.2 % (20.0-45.0); MEAN CORPUSCULAR HEMOGLOBIN 30.3 PG (27.0-31.0); MEAN CORPUSCULAR HGB CONC 31.6 G/DL (32.0-36.0); MEAN CORPUSCULAR VOLUME 96 FL (80-99); MEAN PLATELET VOLUME 5.6 FL (6.5-10.1); MONOCYTES % (AUTO) 8.5 % (1.0-10.0); NEUTROPHILS % (AUTO) 49.3 % (45.0-75.0); PLATELET COUNT 367 K/UL (150-450); RED BLOOD COUNT 3.77 M/UL (4.70-6.10); RED CELL DISTRIBUTION WIDTH 15.2 % (11.6-14.8); WHITE BLOOD COUNT 5.3 K/UL (4.8-10.8)
[2017-03-29 07:30] LABS: ANION GAP 11 (5-15); CALCIUM 9.2 mg/dL (8.6-10.2); CARBON DIOXIDE 28 mEQ/L (20-30); CHLORIDE 98 mEQ/L (98-107); GLOMERULAR FILTRATION RATE > 60 mL/min (>60); HEMOLYSIS 9; POTASSIUM 5.1 mEQ/L (3.4-4.9); SODIUM 137 mEQ/L (135-145)
[2017-03-29 08:00] VITALS: BP 163/95
[2017-03-29] MEDS: Vitamin A&D Oint 2oz Tube TOPIC SCH ×2 (08:31→21:00)
[2017-03-29] MEDS: Thiamine 100mg tab ORAL SCH (08:31)
[2017-03-29] MEDS: Docusate 100mg cap ORAL SCH ×3 (08:31→17:03)
--- NOTE | 2017-03-29 10:50 | GI Progress Note ---
Assessment/Plan Problems: (1) Hypoalbuminemia ICD Codes: E88.09 - Other disorders of plasma-protein metabolism, not elsewhere classified SNOMED: 741618315 (2) Anemia ICD Codes: D64.9 - Anemia, unspecified SNOMED: 258409196 (3) Elevated CEA ICD Codes: R97.0 - Elevated carcinoembryonic antigen [CEA] SNOMED: 66895116, 161434647 Status: stable Status Narrative Discussed with Dr. Pressley. Assessment/Plan elevated CEA OB stool >> negative stable H&H, prn transfusions prn transfusions PPI bowel regime fu labs outpatient colonoscopy pt on Coumadin >> medication must be discontinued min 48 hours prior any endoscopic procedures. Subjective Gastrointestinal/Abdominal: Reports: no symptoms Objective Last 24 Hour Vital Signs Date Time Temp Pulse Resp B/P Pulse Ox O2 Delivery O2 Flow Rate FiO2 03/29/17 08:00 98.9 100 19 163/95 100 Room Air 03/29/17 04:00 97.9 72 18 132/74 98 Room Air 03/29/17 00:25 97.5 70 19 139/76 98 Room Air 03/28/17 20:19 98.4 76 18 143/82 98 Room Air 03/28/17 15:51 97.7 79 18 128/67 99 Room Air 03/28/17 11:30 97.2 70 18 130/70 99 Room Air Intake and Output 03/28/17 03/29/17 19:00 07:00 Intake Total 890 ml 240 ml Output Total 1100 ml 1200 ml Balance -210 ml -960 ml Intake Oral 890 ml 240 ml Output Urine Total 1100 ml 1200 ml # Voids 2 Laboratory Tests Test 03/28/17 11:50 03/29/17 05:10 Prothrombin Time 21.6 SEC (9.30-11.50) H 22.7 SEC (9.30-11.50) H Prothromb Time International Ratio 2.1 (0.9-1.1) H 2.2 (0.9-1.1) H White Blood Count 5.3 K/UL (4.8-10.8) Red Blood Count 3.77 M/UL (4.70-6.10) L Hemoglobin 11.4 G/DL (14.2-18.0) L Hematocrit 36.1 % (42.0-52.0) L Mean Corpuscular Volume 96 FL (80-99) Mean Corpuscular Hemoglobin 30.3 PG (27.0-31.0) Mean Corpuscular Hemoglobin Concent 31.6 G/DL (32.0-36.0) L Red Cell Distribution Width 15.2 % (11.6-14.8) H Platelet Count 367 K/UL (150-450) Mean Platelet Volume 5.6 FL (6.5-10.1) L Neutrophils (%) (Auto) 49.3 % (45.0-75.0) Lymphocytes (%) (Auto) 38.2 % (20.0-45.0) Monocytes (%) (Auto) 8.5 % (1.0-10.0) Eosinophils (%) (Auto) 2.6 % (0.0-3.0) Basophils (%) (Auto) 1.3 % (0.0-2.0) Sodium Level 137 mEQ/L (135-145) Potassium Level 5.1 mEQ/L (3.4-4.9) H Chloride Level 98 mEQ/L (98-107) Carbon Dioxide Level 28 mEQ/L (20-30) Anion Gap 11 (5-15) Blood Urea Nitrogen 29 mg/dL (7-23) H Creatinine 1.0 mg/dL (0.7-1.2) Estimat Glomerular Filtration Rate > 60 mL/min (>60) Glucose Level 103 mg/dL (74-106) Calcium Level 9.2 mg/dL (8.6-10.2) Height (Feet): 5 Height (Inches): 10.00 Weight (Pounds): 150 General Appearance: no apparent distress, alert Cardiovascular: normal rate Respiratory/Chest: normal breath sounds, no respiratory distress Extremities: normal range of motion Mag Esteban N.P. Mar 29, 2017 10:50
[2017-03-29 12:00] VITALS: BP 127/73
[2017-03-29] MEDS: Vitamin D 50,000 units cap ORAL SCH (13:07)
--- NOTE | 2017-03-29 14:23 | General Progress Note ---
Assessment/Plan Assessment/Plan #. Anemia secondary to chronic disease, ferritin is elevated and tibc is low --> s/p total of 3 units PRBC --> hgb goal above 8, continue to closely monitor. remains stable --> transfuse prn --> OB stool neg #Elevated CEA --> colonoscopy as outpatient #. Anemia secondary to orthopedic procedure. #. DVT of right superficial femoral vein of the right lower extremity is on coumadin --> coumadin must be DC 48h prior to any endoscopic procedures --> lovenox has been DC --> INR currently therapeutic --> goal is to maintain between 2-3 #. Hypocalcemia. --> resolved #. Leukocytosis secondary to reactive process from anemia --> resolved #. Right hip fracture --> s/p surgery --> patient is making progress with ambulation Subjective Constitutional: Reports: no symptoms HEENT: Reports: no symptoms Cardiovascular: Reports: no symptoms Respiratory: Reports: no symptoms Gastrointestinal/Abdominal: Reports: no symptoms Genitourinary: Reports: no symptoms Neurologic/Psychiatric: Reports: no symptoms Endocrine: Reports: no symptoms Hematologic/Lymphatic: Reports: anemia Allergies: Coded Allergies: No Known Allergies (Unverified , 02/27/17) Subjective no major changes Objective Last 24 Hour Vital Signs Date Time Temp Pulse Resp B/P Pulse Ox O2 Delivery O2 Flow Rate FiO2 03/29/17 12:00 97.8 78 20 127/73 97 Room Air 03/29/17 08:00 98.9 100 19 163/95 100 Room Air 03/29/17 04:00 97.9 72 18 132/74 98 Room Air 03/29/17 00:25 97.5 70 19 139/76 98 Room Air 03/28/17 20:19 98.4 76 18 143/82 98 Room Air 03/28/17 15:51 97.7 79 18 128/67 99 Room Air Intake and Output 03/28/17 03/29/17 19:00 07:00 Intake Total 890 ml 240 ml Output Total 1100 ml 1200 ml Balance -210 ml -960 ml Intake Oral 890 ml 240 ml Output Urine Total 1100 ml 1200 ml # Voids 2 Laboratory Tests 03/29/17 05:10: White Blood Count 5.3, Red Blood Count 3.77L, Hemoglobin 11.4L, Hematocrit 36.1L , Mean Corpuscular Volume 96, Mean Corpuscular Hemoglobin 30.3, Mean Corpuscular Hemoglobin Concent 31.6L, Red Cell Distribution Width 15.2H, Platelet Count 367, Mean Platelet Volume 5.6L, Neutrophils (%) (Auto) 49.3, Lymphocytes (%) (Auto) 38.2, Monocytes (%) (Auto) 8.5, Eosinophils (%) (Auto) 2.6, Basophils (%) (Auto) 1.3, Prothrombin Time 22.7H, Prothromb Time International Ratio 2.2H, Sodium Level 137, Potassium Level 5.1H, Chloride Level 98, Carbon Dioxide Level 28, Anion Gap 11, Blood Urea Nitrogen 29H, Creatinine 1.0, Estimat Glomerular Filtration Rate > 60, Glucose Level 103, Calcium Level 9.2 Height (Feet): 5 Height (Inches): 10.00 Weight (Pounds): 150 General Appearance: no apparent distress EENT: normal ENT inspection Neck: non-tender Edema: no edema noted Pedal (L), no edema noted Pedal (R) Skin: warm/dry Leandro Ceja Mar 29, 2017 14:23
--- NOTE | 2017-03-29 15:44 | Pulmonology Progress Note ---
Assessment/Plan Problems: (1) Fracture of femoral neck, right (2) DVT (deep venous thrombosis) (3) Renal insufficiency (4) Anemia Assessment/Plan awaiting placement walking in the hallway pt/ot f/u labs tolerating diet dc planning pt is not competent to make any decisions Subjective ROS Limited/Unobtainable: No Constitutional: Reports: no symptoms Respiratory: Reports: no symptoms Allergies: Coded Allergies: No Known Allergies (Unverified , 02/27/17) Objective Last 24 Hour Vital Signs Date Time Temp Pulse Resp B/P Pulse Ox O2 Delivery O2 Flow Rate FiO2 03/29/17 12:00 97.8 78 20 127/73 97 Room Air 03/29/17 08:00 98.9 100 19 163/95 100 Room Air 03/29/17 04:00 97.9 72 18 132/74 98 Room Air 03/29/17 00:25 97.5 70 19 139/76 98 Room Air 03/28/17 20:19 98.4 76 18 143/82 98 Room Air 03/28/17 15:51 97.7 79 18 128/67 99 Room Air Intake and Output 03/28/17 03/29/17 19:00 07:00 Intake Total 890 ml 240 ml Output Total 1100 ml 1200 ml Balance -210 ml -960 ml Intake Oral 890 ml 240 ml Output Urine Total 1100 ml 1200 ml # Voids 2 General Appearance: WD/WN HEENT: normocephalic, atraumatic Respiratory/Chest: chest wall non-tender, lungs clear Cardiovascular: normal peripheral pulses, normal rate Abdomen: normal bowel sounds, no organomegaly Genitourinary: normal external genitalia Extremities: no clubbing Skin: no ulcers Neurologic/Psychiatric: disease education specialist II-XII grossly normal, no motor/sensory deficits Lymphatic: no neck adenopathy Laboratory Tests 03/29/17 05:10: White Blood Count 5.3, Red Blood Count 3.77L, Hemoglobin 11.4L, Hematocrit 36.1L , Mean Corpuscular Volume 96, Mean Corpuscular Hemoglobin 30.3, Mean Corpuscular Hemoglobin Concent 31.6L, Red Cell Distribution Width 15.2H, Platelet Count 367, Mean Platelet Volume 5.6L, Neutrophils (%) (Auto) 49.3, Lymphocytes (%) (Auto) 38.2, Monocytes (%) (Auto) 8.5, Eosinophils (%) (Auto) 2.6, Basophils (%) (Auto) 1.3, Prothrombin Time 22.7H, Prothromb Time International Ratio 2.2H, Sodium Level 137, Potassium Level 5.1H, Chloride Level 98, Carbon Dioxide Level 28, Anion Gap 11, Blood Urea Nitrogen 29H, Creatinine 1.0, Estimat Glomerular Filtration Rate > 60, Glucose Level 103, Calcium Level 9.2 Current Medications Medications (Trade) Dose Ordered Sig/Bautista Route PRN Reason Start Time Stop Time Status Last Admin Dose Admin Acetaminophen (Tylenol) 650 mg Q4H PRN ORAL fever>100.5 or pain 03/26/17 12:00 04/25/17 11:59 03/26/17 16:38 Clonidine HCl (Catapres) 0.1 mg Q6H PRN ORAL SBP>160 03/03/17 10:00 04/02/17 09:59 Dextrose (Dextrose 50%) STAT PRN IV Hypoglycemia 02/28/17 08:00 03/30/17 07:59 Docusate Sodium (Colace) 100 mg THREE TIMES A DAY ORAL 03/01/17 13:00 03/31/17 12:59 03/29/17 13:07 Ergocalciferol (Drisdol) 50,000 intlu QWEEK ORAL 03/01/17 14:00 03/31/17 13:59 03/29/17 13:07 Escitalopram Oxalate (Lexapro) 10 mg DAILY ORAL 03/12/17 09:00 04/11/17 08:59 03/29/17 08:30 Folic Acid (Folate) 2 mg DAILY ORAL 03/01/17 12:30 03/31/17 12:29 03/29/17 08:31 Insulin Aspart (NovoLOG) BEFORE MEALS AND HS SUBQ 03/06/17 21:00 04/05/17 20:59 03/29/17 10:59 Ondansetron HCl (Zofran) 4 mg Q6H PRN IVP Nausea & Vomiting 02/28/17 16:00 03/30/17 15:59 Pantoprazole (Protonix) 40 mg EVERY 12 HOURS ORAL 03/01/17 12:30 03/31/17 12:29 03/29/17 08:30 Polyethylene Glycol (Miralax) 17 gm HSPRN PRN ORAL Constipation 02/28/17 21:00 03/30/17 20:59 Sodium Polystyrene Sulfonate (Kayexalate) 45 gm ONCE ONCE ORAL 03/29/17 16:00 03/29/17 16:01 Thiamine HCl (Vitamin B1) 100 mg DAILY ORAL 03/01/17 12:30 03/31/17 12:29 03/29/17 08:31 Vitamin A/Vitamin D (A & D Oint) 1 applic EVERY 12 HOURS TOPIC 03/08/17 21:00 04/07/17 20:59 03/29/17 08:31 Warfarin Sodium (Coumadin per pharmacy) 1 ea DAILY PRN MISC Per rx protocol 03/04/17 07:45 04/03/17 07:44 Warfarin Sodium (Coumadin) 7.5 mg COUMADIN ORAL 03/29/17 17:00 03/29/17 17:01 Zolpidem Tartrate (Ambien) 5 mg HSPRN PRN ORAL Insomnia 02/28/17 21:00 03/30/17 20:59 03/28/17 21:05 GURWINDER YI Mar 29, 2017 15:44
[2017-03-29 16:00] VITALS: BP 127/72
[2017-03-29] MEDS ORDERED: Sodium Polystyrene Sulfonate 15gm Powder ORAL ONE (16:00)
[2017-03-29] MEDS ORDERED: Warfarin Sodium 7.5mg ORAL SCH (17:00)
[2017-03-29 20:00] VITALS: BP 132/77
[2017-03-29] MEDS: Zolpidem 5mg tab ORAL PRN (21:00)
[2017-03-30 00:30] VITALS: BP 130/79
[2017-03-30 04:49] VITALS: BP 135/70
[2017-03-30] MEDS: NovoLOG Insulin Flexpen SUBQ SCH ×4 (06:30→20:52)
[2017-03-30 07:22] LABS: ANION GAP 10 (5-15); CALCIUM 9.5 mg/dL (8.6-10.2); CARBON DIOXIDE 32 mEQ/L (20-30); CHLORIDE 98 mEQ/L (98-107); CREATININE 1.1 mg/dL (0.7-1.2); GLOMERULAR FILTRATION RATE > 60 mL/min (>60); HEMOLYSIS 0; POTASSIUM 4.9 mEQ/L (3.4-4.9); SODIUM 140 mEQ/L (135-145)
[2017-03-30 07:47] LABS: BASOPHILS % (AUTO) 1.2 % (0.0-2.0); EOSINOPHILS % (AUTO) 1.8 % (0.0-3.0); LYMPHOCYTES % (AUTO) 36.8 % (20.0-45.0); MEAN CORPUSCULAR HEMOGLOBIN 30.5 PG (27.0-31.0); MEAN CORPUSCULAR HGB CONC 31.9 G/DL (32.0-36.0); MEAN CORPUSCULAR VOLUME 96 FL (80-99); MEAN PLATELET VOLUME 5.5 FL (6.5-10.1); MONOCYTES % (AUTO) 6.7 % (1.0-10.0); NEUTROPHILS % (AUTO) 53.5 % (45.0-75.0); PLATELET COUNT 363 K/UL (150-450); RED BLOOD COUNT 3.54 M/UL (4.70-6.10); RED CELL DISTRIBUTION WIDTH 15.1 % (11.6-14.8); WHITE BLOOD COUNT 5.6 K/UL (4.8-10.8)
[2017-03-30 08:17] LABS: PROTHROMBIN TIME 20.7 SEC (9.30-11.50)
[2017-03-30 08:33] VITALS: BP 144/84
[2017-03-30] MEDS: Thiamine 100mg tab ORAL SCH (09:49)
[2017-03-30] MEDS: Docusate 100mg cap ORAL SCH ×3 (09:49→17:42)
[2017-03-30] MEDS: Vitamin A&D Oint 2oz Tube TOPIC SCH ×2 (09:50→20:52)
--- NOTE | 2017-03-30 10:07 | GI Progress Note ---
Assessment/Plan Problems: (1) Hypoalbuminemia ICD Codes: E88.09 - Other disorders of plasma-protein metabolism, not elsewhere classified SNOMED: 372498387 (2) Anemia ICD Codes: D64.9 - Anemia, unspecified SNOMED: 010696844 (3) Elevated CEA ICD Codes: R97.0 - Elevated carcinoembryonic antigen [CEA] SNOMED: 02001354, [id number] Status: progressing Status Narrative Discussed with Dr. Pressley. Assessment/Plan elevated CEA OB stool >> negative stable H&H, prn transfusions prn transfusions PPI bowel regime fu labs outpatient colonoscopy pt on Coumadin >> medication must be discontinued min 48 hours prior any endoscopic procedures. Subjective Gastrointestinal/Abdominal: Reports: no symptoms Objective Last 24 Hour Vital Signs Date Time Temp Pulse Resp B/P Pulse Ox O2 Delivery O2 Flow Rate FiO2 03/30/17 08:33 98.3 84 22 144/84 100 Room Air 03/30/17 04:49 98.4 82 17 135/70 99 Room Air 03/30/17 00:30 98.2 67 18 130/79 98 Room Air 03/29/17 20:00 97.9 74 19 132/77 98 Room Air 03/29/17 16:00 96.4 77 20 127/72 98 Room Air 03/29/17 12:00 97.8 78 20 127/73 97 Room Air Intake and Output 03/29/17 03/30/17 19:00 07:00 Intake Total 840 ml 240 ml Output Total 500 ml 800 ml Balance 340 ml -560 ml Intake Oral 840 ml 240 ml Output Urine Total 500 ml 800 ml # Voids 2 2 # Bowel Movements 2 1 Laboratory Tests Test 03/30/17 05:15 White Blood Count 5.6 K/UL (4.8-10.8) Red Blood Count 3.54 M/UL (4.70-6.10) L Hemoglobin 10.8 G/DL (14.2-18.0) L Hematocrit 33.9 % (42.0-52.0) L Mean Corpuscular Volume 96 FL (80-99) Mean Corpuscular Hemoglobin 30.5 PG (27.0-31.0) Mean Corpuscular Hemoglobin Concent 31.9 G/DL (32.0-36.0) L Red Cell Distribution Width 15.1 % (11.6-14.8) H Platelet Count 363 K/UL (150-450) Mean Platelet Volume 5.5 FL (6.5-10.1) L Neutrophils (%) (Auto) 53.5 % (45.0-75.0) Lymphocytes (%) (Auto) 36.8 % (20.0-45.0) Monocytes (%) (Auto) 6.7 % (1.0-10.0) Eosinophils (%) (Auto) 1.8 % (0.0-3.0) Basophils (%) (Auto) 1.2 % (0.0-2.0) Prothrombin Time 20.7 SEC (9.30-11.50) H Prothromb Time International Ratio 2.0 (0.9-1.1) H Sodium Level 140 mEQ/L (135-145) Potassium Level 4.9 mEQ/L (3.4-4.9) Chloride Level 98 mEQ/L (98-107) Carbon Dioxide Level 32 mEQ/L (20-30) H Anion Gap 10 (5-15) Blood Urea Nitrogen 30 mg/dL (7-23) H Creatinine 1.1 mg/dL (0.7-1.2) Estimat Glomerular Filtration Rate > 60 mL/min (>60) Glucose Level 107 mg/dL (74-106) H Calcium Level 9.5 mg/dL (8.6-10.2) Height (Feet): 5 Height (Inches): 10.00 Weight (Pounds): 150 General Appearance: no apparent distress, alert, thin Cardiovascular: normal rate Respiratory/Chest: lungs clear Abdominal Exam: normal bowel sounds, non tender, soft Mag Esteban N.Nuria Mar 30, 2017 10:07
[2017-03-30 12:00] VITALS: BP 130/77
[2017-03-30 16:37] VITALS: BP 129/73
--- NOTE | 2017-03-30 16:47 | General Progress Note ---
Assessment/Plan Assessment/Plan #. Anemia secondary to chronic disease, ferritin is elevated and tibc is low --> s/p total of 3 units PRBC --> hgb goal above 8, continue to closely monitor. remains stable --> transfuse prn --> OB stool neg #Elevated CEA --> colonoscopy as outpatient #. Anemia secondary to orthopedic procedure. #. DVT of right superficial femoral vein of the right lower extremity is on coumadin --> coumadin must be DC 48h prior to any endoscopic procedures --> lovenox has been DC --> INR currently therapeutic --> goal is to maintain between 2-3 #. Hypocalcemia. --> resolved #. Leukocytosis secondary to reactive process from anemia --> resolved #. Right hip fracture --> s/p surgery --> patient is making progress with ambulation Subjective Constitutional: Reports: no symptoms HEENT: Reports: no symptoms Cardiovascular: Reports: no symptoms Respiratory: Reports: no symptoms Gastrointestinal/Abdominal: Reports: no symptoms Genitourinary: Reports: no symptoms Neurologic/Psychiatric: Reports: no symptoms Endocrine: Reports: no symptoms Hematologic/Lymphatic: Reports: anemia Allergies: Coded Allergies: No Known Allergies (Unverified , 02/27/17) Subjective no major changes, comfortable, eating Objective Last 24 Hour Vital Signs Date Time Temp Pulse Resp B/P Pulse Ox O2 Delivery O2 Flow Rate FiO2 03/30/17 16:37 98.5 78 21 129/73 98 Room Air 03/30/17 12:00 98.1 69 20 130/77 96 Room Air 03/30/17 08:33 98.3 84 22 144/84 100 Room Air 03/30/17 04:49 98.4 82 17 135/70 99 Room Air 03/30/17 00:30 98.2 67 18 130/79 98 Room Air 03/29/17 20:00 97.9 74 19 132/77 98 Room Air Intake and Output 03/29/17 03/30/17 19:00 07:00 Intake Total 840 ml 240 ml Output Total 500 ml 800 ml Balance 340 ml -560 ml Intake Oral 840 ml 240 ml Output Urine Total 500 ml 800 ml # Voids 2 2 # Bowel Movements 2 1 Laboratory Tests 03/30/17 05:15: White Blood Count 5.6, Red Blood Count 3.54L, Hemoglobin 10.8L, Hematocrit 33.9L , Mean Corpuscular Volume 96, Mean Corpuscular Hemoglobin 30.5, Mean Corpuscular Hemoglobin Concent 31.9L, Red Cell Distribution Width 15.1H, Platelet Count 363, Mean Platelet Volume 5.5L, Neutrophils (%) (Auto) 53.5, Lymphocytes (%) (Auto) 36.8, Monocytes (%) (Auto) 6.7, Eosinophils (%) (Auto) 1.8, Basophils (%) (Auto) 1.2, Prothrombin Time 20.7H, Prothromb Time International Ratio 2.0H, Sodium Level 140, Potassium Level 4.9, Chloride Level 98, Carbon Dioxide Level 32H, Anion Gap 10, Blood Urea Nitrogen 30H, Creatinine 1.1, Estimat Glomerular Filtration Rate > 60, Glucose Level 107H, Calcium Level 9.5 Height (Feet): 5 Height (Inches): 10.00 Weight (Pounds): 150 General Appearance: no apparent distress EENT: PERRL/EOMI Neck: normal alignment Cardiovascular: regular rhythm Respiratory/Chest: no respiratory distress Abdomen: no mass Edema: no edema noted Pedal (L), no edema noted Pedal (R) Neurologic: grants administrator II-XII grossly normal Leandro Ceja Mar 30, 2017 16:47
[2017-03-30] MEDS ORDERED: Warfarin Sodium 4mg PO ONE (17:00)
[2017-03-30 20:00] VITALS: BP 137/80
[2017-03-30] MEDS: Zolpidem 5mg tab ORAL PRN (20:40)
--- NOTE | 2017-03-30 21:46 | Wound Care Consultation ---
Wound Assessment Wound Assessment : Wound Number: #1 Wound Present on Admission: Yes New Wound: No Status Change of Wound: No Wound Location Body Site Modif: left Wound Location Body Site: ischial tuberosity Wound Type: pressure ulcer Valentine Test: Does not Valentine Pressure Ulcer Stage: III - resolving Wound Length: 2.0 Wound Width: 1.5 Percent of Wound Bay/Red: 100 Wound Drainage Description: Serosanguineous Wound Drainage Amount: Scant Wound Drainage Odor: None/Absent Tissue Surrounding Wound: Intact Wound General Appearance: Reddened, Draining Wound Comment #1 Resolving stage III pressure ulcer. Noted good progress decrease in size , current treatment effective. #2 Left trochanter scattered pressure ulcer. Resolved. skin intact. #3 Left buttock scattered full thickness scar tissue with hyperpigmentation. Still intact, sacral intact #4 Left knee Traumatic injury with dry scab intact. No further deterioration no changes noted . Recommendation. -Local wound care as ordered. -Apply low air loss mattress SPR for wound and skin management. -Turn and reposition. -Keep clean and dry. -Offload affected wound sites. -Optimize nutrition. -Offload heels. -Assess and notify MD if any further changes of condition noted to skin. EAGLE JOHNSON RN Mar 30, 2017 21:46
[2017-03-31] VITALS (7 sets, daily range): BP systolic 124–143; BP diastolic 71–86
[2017-03-31] MEDS: NovoLOG Insulin Flexpen SUBQ SCH ×4 (06:54→20:39)
--- NOTE | 2017-03-31 07:22 | Pulmonology Progress Note ---
Assessment/Plan Assessment/Plan ASSESSMENT s/p fall R femoral neck displaced fracture s/p R hip hemiarthroplasty acute renal failure, likely due to dehydration-resolved dehydration hypo Na anemia of chronic disease acute DVT RLE ( SFV and popliteal) elevated CEA Hx of HTN electrolyte imbalance ( hypo Mg, hypo P, hypo Ca) protein calorie malnutrition major depressive disorder developmental disability, mild L ischial tuberosity pressure ulcer un-stageable, POA left trochanter pressure ulcer, un-stageable painful mycotic toe nails, s/p debridemetn PLAN OF CARE MS floor surgery follows pain management , controlled, currently pain free Venous Duplex BLE + RLE acute DVT SFV and popliteal on Coumadin , INR subtherapeutic today, per pharmacy further Coumadin dosing bowel regimen PT/OT, working with PT, ambulating with walker well nephro follows renal US negative ( no hydro, normal echogenicity) s/p 3% NaCl, Na up e/lytes stable , replace as needed anemia workup with stable iron, borderline B 12 s/p total of 3 u PRBC HH at baseline, monitor and transfuse prn elevated CEA GI follows ( due to anemia and elevated CEA ) HH stable transfuse prn , goal to keep Hgb above 7 heme follows PPI bowel regimen elevated CEA stool OB negative GI recommended outpatient colonoscopy s/p B 12 SQ x 1 ( at normal limits, low range) wound care as per wound nurse recommendations BP management, Clonidine prn seen by real estate administrator, s/p debridement x10 toenails psych seen and evaluated psych doctor concluded that patient lacks capacity to make informed decision APS involved re home situation SW follows with APS patient needs guardianship for [employer] application and placement awaiting for disposition /placement- challenging case discussed and evaluated by supervising physician Subjective Allergies: Coded Allergies: No Known Allergies (Unverified , 02/27/17) Subjective awaiting for placement ambulates with PT in hallway Objective Last 24 Hour Vital Signs Date Time Temp Pulse Resp B/P Pulse Ox O2 Delivery O2 Flow Rate FiO2 03/31/17 04:00 98.2 62 24 143/86 99 Room Air 03/31/17 00:00 98.5 71 24 136/83 94 Room Air 03/30/17 20:00 99.4 74 24 137/80 98 Room Air 03/30/17 16:37 98.5 78 21 129/73 98 Room Air 03/30/17 12:00 98.1 69 20 130/77 96 Room Air 03/30/17 08:33 98.3 84 22 144/84 100 Room Air Intake and Output 03/30/17 03/31/17 19:00 07:00 Output Total 575 ml 1000 ml Balance -575 ml -1000 ml Output Urine Total 575 ml 1000 ml Objective General Appearance: no acute distress, awake, alert, confused male in NAD HEENT: normocephalic, atraumatic, anicteric, mucous membranes moist Respiratory/Chest: lungs clear, no respiratory distress, no accessory muscle use Cardiovascular: normal peripheral pulses, normal rate, regular rhythm, no JVD Abdomen: normal bowel sounds, soft, non tender, non distended Genitourinary: normal external genitalia Extremities: no edema, pedal pulses normal Skin: R hip incision healing Neurologic/Psychiatric: abnormal gait, alert, responsive Musculoskeletal: normal muscle bulk Current Medications Medications (Trade) Dose Ordered Sig/Bautista Route PRN Reason Start Time Stop Time Status Last Admin Dose Admin Acetaminophen (Tylenol) 650 mg Q4H PRN ORAL fever>100.5 or pain 03/26/17 12:00 04/25/17 11:59 03/26/17 16:38 Clonidine HCl (Catapres) 0.1 mg Q6H PRN ORAL SBP>160 03/03/17 10:00 04/02/17 09:59 Docusate Sodium (Colace) 100 mg THREE TIMES A DAY ORAL 03/01/17 13:00 03/31/17 12:59 03/30/17 17:42 Ergocalciferol (Drisdol) 50,000 intlu QWEEK ORAL 03/01/17 14:00 03/31/17 13:59 03/29/17 13:07 Escitalopram Oxalate (Lexapro) 10 mg DAILY ORAL 03/12/17 09:00 04/11/17 08:59 03/30/17 09:49 Folic Acid (Folate) 2 mg DAILY ORAL 03/01/17 12:30 03/31/17 12:29 03/30/17 09:49 Insulin Aspart (NovoLOG) BEFORE MEALS AND HS SUBQ 03/06/17 21:00 04/05/17 20:59 03/31/17 06:54 Pantoprazole (Protonix) 40 mg EVERY 12 HOURS ORAL 03/01/17 12:30 03/31/17 12:29 03/30/17 20:40 Thiamine HCl (Vitamin B1) 100 mg DAILY ORAL 03/01/17 12:30 03/31/17 12:29 03/30/17 09:49 Vitamin A/Vitamin D (A & D Oint) 1 applic EVERY 12 HOURS TOPIC 03/08/17 21:00 04/07/17 20:59 03/30/17 20:52 Warfarin Sodium (Coumadin per pharmacy) 1 ea DAILY PRN MISC Per rx protocol 03/04/17 07:45 04/03/17 07:44 Mateus ([facility])Sera NP Mar 31, 2017 07:22
[2017-03-31 09:24] LABS: MEAN CORPUSCULAR HEMOGLOBIN 31.1 PG (27.0-31.0); MEAN CORPUSCULAR HGB CONC 32.3 G/DL (32.0-36.0); MEAN CORPUSCULAR VOLUME 96 FL (80-99); MEAN PLATELET VOLUME 5.5 FL (6.5-10.1); PLATELET COUNT 358 K/UL (150-450); RED BLOOD COUNT 3.71 M/UL (4.70-6.10); RED CELL DISTRIBUTION WIDTH 15.3 % (11.6-14.8); WHITE BLOOD COUNT 6.3 K/UL (4.8-10.8)
[2017-03-31 09:47] LABS: INR 1.7 (0.9-1.1); PROTHROMBIN TIME 18.2 SEC (9.30-11.50)
[2017-03-31 09:50] LABS: ANION GAP 9 (5-15); CALCIUM 9.7 mg/dL (8.6-10.2); CARBON DIOXIDE 31 mEQ/L (20-30); CHLORIDE 95 mEQ/L (98-107); CREATININE 1.1 mg/dL (0.7-1.2); GLOMERULAR FILTRATION RATE > 60 mL/min (>60); HEMOLYSIS 0; POTASSIUM 4.4 mEQ/L (3.4-4.9); SODIUM 135 mEQ/L (135-145)
[2017-03-31] MEDS: Docusate 100mg cap ORAL SCH (10:14)
[2017-03-31] MEDS: Thiamine 100mg tab ORAL SCH (10:14)
[2017-03-31] MEDS: Vitamin A&D Oint 2oz Tube TOPIC SCH ×2 (10:14→21:27)
--- NOTE | 2017-03-31 10:41 | GI Progress Note ---
Assessment/Plan Problems: (1) Hypoalbuminemia ICD Codes: E88.09 - Other disorders of plasma-protein metabolism, not elsewhere classified SNOMED: 796423553 (2) Anemia ICD Codes: D64.9 - Anemia, unspecified SNOMED: 071769810 (3) Elevated CEA ICD Codes: R97.0 - Elevated carcinoembryonic antigen [CEA] SNOMED: 30703852, 728831672 Status: stable Status Narrative Discussed with Dr Marlene Pressley. Assessment/Plan elevated CEA OB stool >> negative stable H&H, prn transfusions prn transfusions PPI bowel regime fu labs outpatient colonoscopy pt on Coumadin >> medication must be discontinued min 48 hours prior any endoscopic procedures. Subjective Gastrointestinal/Abdominal: Reports: no symptoms Objective Last 24 Hour Vital Signs Date Time Temp Pulse Resp B/P Pulse Ox O2 Delivery O2 Flow Rate FiO2 03/31/17 08:00 97.1 75 18 130/84 99 03/31/17 04:00 98.2 62 24 143/86 99 Room Air 03/31/17 00:00 98.5 71 24 136/83 94 Room Air 03/30/17 20:00 99.4 74 24 137/80 98 Room Air 03/30/17 16:37 98.5 78 21 129/73 98 Room Air 03/30/17 12:00 98.1 69 20 130/77 96 Room Air Intake and Output 03/30/17 03/31/17 19:00 07:00 Output Total 575 ml 1000 ml Balance -575 ml -1000 ml Output Urine Total 575 ml 1000 ml Laboratory Tests Test 03/31/17 08:20 White Blood Count 6.3 K/UL (4.8-10.8) Red Blood Count 3.71 M/UL (4.70-6.10) L Hemoglobin 11.5 G/DL (14.2-18.0) L Hematocrit 35.7 % (42.0-52.0) L Mean Corpuscular Volume 96 FL (80-99) Mean Corpuscular Hemoglobin 31.1 PG (27.0-31.0) H Mean Corpuscular Hemoglobin Concent 32.3 G/DL (32.0-36.0) Red Cell Distribution Width 15.3 % (11.6-14.8) H Platelet Count 358 K/UL (150-450) Mean Platelet Volume 5.5 FL (6.5-10.1) L Neutrophils (%) (Auto) % (45.0-75.0) Lymphocytes (%) (Auto) % (20.0-45.0) Monocytes (%) (Auto) % (1.0-10.0) Eosinophils (%) (Auto) % (0.0-3.0) Basophils (%) (Auto) % (0.0-2.0) Neutrophils % (Manual) Pending Lymphocytes % (Manual) Pending Platelet Estimate Pending Platelet Morphology Pending Prothrombin Time 18.2 SEC (9.30-11.50) H Prothromb Time International Ratio 1.7 (0.9-1.1) H Sodium Level 135 mEQ/L (135-145) Potassium Level 4.4 mEQ/L (3.4-4.9) Chloride Level 95 mEQ/L (98-107) L Carbon Dioxide Level 31 mEQ/L (20-30) H Anion Gap 9 (5-15) Blood Urea Nitrogen 32 mg/dL (7-23) H Creatinine 1.1 mg/dL (0.7-1.2) Estimat Glomerular Filtration Rate > 60 mL/min (>60) Glucose Level 198 mg/dL (74-106) H Calcium Level 9.7 mg/dL (8.6-10.2) Height (Feet): 5 Height (Inches): 10.00 Weight (Pounds): 150 General Appearance: no apparent distress, alert, thin Cardiovascular: normal rate Respiratory/Chest: lungs clear, normal breath sounds Abdominal Exam: normal bowel sounds, non tender, soft Extremities: normal range of motion Mag Esteban N.P. Mar 31, 2017 10:41
[2017-03-31 10:45] LABS: BAND NEUTROPHILS % (MANUAL) 0 % (0-8); BASOPHILS % (MANUAL) 1 % (0-2); EOSINOPHILS % (MANUAL) 2 % (0-3); HYPOCHROMASIA 1+; LYMPHOCYTES % (MANUAL) 19 % (20-45); NEUTROPHILS % (MANUAL) 73 % (45-75); PLATELET ESTIMATE ADEQUATE; PLATELET MORPHOLOGY NORMAL; TOTAL CELLS COUNTED 100
[2017-03-31 10:46] LABS: ACANTHOCYTES 1+
[2017-03-31 10:47] LABS: ANISOCYTOSIS 1+; MICROCYTES 1+
[2017-03-31] MEDS ORDERED: Warfarin Sod 4 MG, Warfarin Sod 5 MG PO ONE ×2 (17:00)
[2017-03-31] MEDS: Zolpidem 5mg tab ORAL PRN (20:31)
[2017-04-01] VITALS: BP 120/75
[2017-04-01 04:00] VITALS: BP 151/88
[2017-04-01] MEDS: NovoLOG Insulin Flexpen SUBQ SCH ×4 (06:03→21:12)
[2017-04-01 08:00] VITALS: BP 155/88
[2017-04-01 08:01] LABS: EOSINOPHILS % (AUTO) 1.8 % (0.0-3.0); LYMPHOCYTES % (AUTO) 33.8 % (20.0-45.0); MEAN CORPUSCULAR HEMOGLOBIN 31.5 PG (27.0-31.0); MEAN CORPUSCULAR HGB CONC 32.9 G/DL (32.0-36.0); MEAN CORPUSCULAR VOLUME 96 FL (80-99); MEAN PLATELET VOLUME 5.7 FL (6.5-10.1); MONOCYTES % (AUTO) 7.9 % (1.0-10.0); NEUTROPHILS % (AUTO) 55.5 % (45.0-75.0); PLATELET COUNT 328 K/UL (150-450); RED BLOOD COUNT 3.57 M/UL (4.70-6.10); RED CELL DISTRIBUTION WIDTH 14.8 % (11.6-14.8); WHITE BLOOD COUNT 5.6 K/UL (4.8-10.8)
[2017-04-01 08:06] LABS: INR 1.8 (0.9-1.1); PROTHROMBIN TIME 18.5 SEC (9.30-11.50)
[2017-04-01 08:46] LABS: ANION GAP 10 (5-15); CALCIUM 9.2 mg/dL (8.6-10.2); CARBON DIOXIDE 29 mEQ/L (20-30); CHLORIDE 101 mEQ/L (98-107); GLOMERULAR FILTRATION RATE > 60 mL/min (>60); HEMOLYSIS 24; POTASSIUM 4.2 mEQ/L (3.4-4.9); SODIUM 140 mEQ/L (135-145)
[2017-04-01] MEDS: Vitamin A&D Oint 2oz Tube TOPIC SCH ×2 (09:03→21:15)
--- NOTE | 2017-04-01 10:55 | Pulmonology Progress Note ---
Assessment/Plan Assessment/Plan ASSESSMENT s/p fall R femoral neck displaced fracture s/p R hip hemiarthroplasty acute renal failure, likely due to dehydration-resolved dehydration hypo Na anemia of chronic disease acute DVT RLE ( SFV and popliteal) elevated CEA Hx of HTN electrolyte imbalance ( hypo Mg, hypo P, hypo Ca) protein calorie malnutrition major depressive disorder developmental disability, mild L ischial tuberosity pressure ulcer un-stageable, POA left trochanter pressure ulcer, un-stageable painful mycotic toe nails, s/p debridement PLAN OF CARE MS floor surgery follows pain management , controlled, currently pain free Venous Duplex BLE + RLE acute DVT SFV and popliteal on Coumadin , INR subtherapeutic today, per pharmacy further Coumadin dosing bowel regimen PT/OT, working with PT, ambulating with walker well nephro follows renal US negative ( no hydro, normal echogenicity) s/p 3% NaCl, Na up e/lytes stable , replace as needed anemia workup with stable iron, borderline B 12 s/p total of 3 u PRBC HH at baseline, monitor and transfuse prn elevated CEA GI follows ( due to anemia and elevated CEA ) HH stable transfuse prn , goal to keep Hgb above 7 heme follows PPI bowel regimen elevated CEA stool OB negative GI recommended outpatient colonoscopy s/p B 12 SQ x 1 ( at normal limits, low range) wound care as per wound nurse recommendations BP management, Clonidine prn seen by supervisor show operations, s/p debridement x10 toenails psych seen and evaluated psych doctor concluded that patient lacks capacity to make informed decision APS involved re home situation SW follows with APS patient needs guardianship for [employer] application and placement awaiting for disposition /placement- challenging caregiver called the station that will cotton picker operator the patient in the evening patient able to ambulate with walker case discussed and evaluated by supervising physician Subjective Allergies: Coded Allergies: No Known Allergies (Unverified , 02/27/17) Subjective awaiting for placement which is challenging ambulates with PT pain controlled Objective Last 24 Hour Vital Signs Date Time Temp Pulse Resp B/P Pulse Ox O2 Delivery O2 Flow Rate FiO2 04/01/17 08:00 97.0 73 20 155/88 98 Room Air 04/01/17 04:00 97.2 71 20 151/88 99 Room Air 04/01/17 00:00 97.5 68 18 120/75 97 Room Air 03/31/17 20:20 97.8 83 19 124/71 98 Room Air 03/31/17 20:00 97.8 83 18 124/71 98 Room Air 03/31/17 16:00 98.2 73 20 129/77 99 Room Air 03/31/17 12:46 97.0 70 18 128/76 99 Room Air Intake and Output 03/31/17 04/01/17 19:00 07:00 Intake Total 480 ml 100 ml Output Total 400 ml 800 ml Balance 80 ml -700 ml Intake Oral 480 ml 100 ml Output Urine Total 400 ml 800 ml Objective General Appearance: no acute distress, awake, alert, confused male in NAD HEENT: normocephalic, atraumatic, anicteric, mucous membranes moist Respiratory/Chest: lungs clear, no respiratory distress, no accessory muscle use Cardiovascular: normal peripheral pulses, normal rate, regular rhythm, no JVD Abdomen: normal bowel sounds, soft, non tender, non distended Genitourinary: normal external genitalia Extremities: no edema, pedal pulses normal Skin: R hip incision healing Neurologic/Psychiatric: abnormal gait, alert, responsive Musculoskeletal: normal muscle bulk Laboratory Tests 04/01/17 07:10: White Blood Count 5.6, Red Blood Count 3.57L, Hemoglobin 11.2L, Hematocrit 34.2L , Mean Corpuscular Volume 96, Mean Corpuscular Hemoglobin 31.5H, Mean Corpuscular Hemoglobin Concent 32.9, Red Cell Distribution Width 14.8, Platelet Count 328, Mean Platelet Volume 5.7L, Neutrophils (%) (Auto) 55.5, Lymphocytes ( %) (Auto) 33.8, Monocytes (%) (Auto) 7.9, Eosinophils (%) (Auto) 1.8, Basophils (%) (Auto) 1.0, Prothrombin Time 18.5H, Prothromb Time International Ratio 1.8H , Sodium Level 140, Potassium Level 4.2, Chloride Level 101, Carbon Dioxide Level 29, Anion Gap 10, Blood Urea Nitrogen 29H, Creatinine 1.0, Estimat Glomerular Filtration Rate > 60, Glucose Level 113H, Calcium Level 9.2 Current Medications Medications (Trade) Dose Ordered Sig/Bautista Route PRN Reason Start Time Stop Time Status Last Admin Dose Admin Acetaminophen (Tylenol) 650 mg Q4H PRN ORAL fever>100.5 or pain 03/26/17 12:00 04/25/17 11:59 03/26/17 16:38 Clonidine HCl (Catapres) 0.1 mg Q6H PRN ORAL SBP>160 03/03/17 10:00 04/02/17 09:59 Escitalopram Oxalate (Lexapro) 10 mg DAILY ORAL 03/12/17 09:00 04/11/17 08:59 04/01/17 09:03 Insulin Aspart (NovoLOG) BEFORE MEALS AND HS SUBQ 03/06/17 21:00 04/05/17 20:59 03/31/17 20:39 Vitamin A/Vitamin D (A & D Oint) 1 applic EVERY 12 HOURS TOPIC 03/08/17 21:00 04/07/17 20:59 04/01/17 09:03 Warfarin Sodium (Coumadin per pharmacy) 1 ea DAILY PRN MISC Per rx protocol 03/04/17 07:45 04/03/17 07:44 Warfarin Sodium (Coumadin) 8 mg COUMADIN PO 04/01/17 17:00 04/01/17 17:01 Zolpidem Tartrate (Ambien) 5 mg HSPRN PRN ORAL Insomnia 03/31/17 18:45 04/30/17 18:44 03/31/17 20:31 Mateus ([facility])Sera NP Apr 01, 2017 10:55
[2017-04-01 12:00] VITALS: BP 130/80
[2017-04-01] MEDS ORDERED: COUMADIN4 MG PO (12:50)
[2017-04-01] MEDS ORDERED: LEXAPRO10 MG ORAL (12:50)
[2017-04-01 16:00] VITALS: BP 126/75
[2017-04-01] MEDS ORDERED: Warfarin Sodium 4mg PO SCH (17:00)
--- NOTE | 2017-04-01 17:00 | General Progress Note ---
Assessment/Plan Status: stable Assessment/Plan MDD, DD, the pt lacks capacity to make decisions. social work services are involved and have called apt/adult protective services -lexapro 20mg qam -provided ro/st Subjective Date patient seen: Mar 31, 2017 Constitutional: Reports: malaise, weakness Neurologic/Psychiatric: Reports: anxiety, depressed, emotional problems Allergies: Coded Allergies: No Known Allergies (Unverified , 02/27/17) Subjective cont to be illogical and is very concrete. poor historian. the pt is the same. no behavioral issues Objective Last 24 Hour Vital Signs Date Time Temp Pulse Resp B/P Pulse Ox O2 Delivery O2 Flow Rate FiO2 04/01/17 16:00 97.2 19 126/75 97 Room Air 04/01/17 12:00 97.1 79 19 130/80 98 Room Air 04/01/17 08:00 97.0 73 20 155/88 98 Room Air 04/01/17 04:00 97.2 71 20 151/88 99 Room Air 04/01/17 00:00 97.5 68 18 120/75 97 Room Air 03/31/17 20:20 97.8 83 19 124/71 98 Room Air 03/31/17 20:00 97.8 83 18 124/71 98 Room Air Intake and Output 03/31/17 04/01/17 19:00 07:00 Intake Total 480 ml 100 ml Output Total 400 ml 800 ml Balance 80 ml -700 ml Intake Oral 480 ml 100 ml Output Urine Total 400 ml 800 ml Laboratory Tests 04/01/17 07:10: White Blood Count 5.6, Red Blood Count 3.57L, Hemoglobin 11.2L, Hematocrit 34.2L , Mean Corpuscular Volume 96, Mean Corpuscular Hemoglobin 31.5H, Mean Corpuscular Hemoglobin Concent 32.9, Red Cell Distribution Width 14.8, Platelet Count 328, Mean Platelet Volume 5.7L, Neutrophils (%) (Auto) 55.5, Lymphocytes ( %) (Auto) 33.8, Monocytes (%) (Auto) 7.9, Eosinophils (%) (Auto) 1.8, Basophils (%) (Auto) 1.0, Prothrombin Time 18.5H, Prothromb Time International Ratio 1.8H , Sodium Level 140, Potassium Level 4.2, Chloride Level 101, Carbon Dioxide Level 29, Anion Gap 10, Blood Urea Nitrogen 29H, Creatinine 1.0, Estimat Glomerular Filtration Rate > 60, Glucose Level 113H, Calcium Level 9.2 Height (Feet): 5 Height (Inches): 10.00 Weight (Pounds): 150 General Appearance: no apparent distress, alert, thin Neurologic: alert, oriented x 3, depressed affect Diana Yanez M.D. Apr 01, 2017 17:00
[2017-04-01 20:00] VITALS: BP 133/74
[2017-04-01] MEDS: Zolpidem 5mg tab ORAL PRN (21:08)
[2017-04-02 00:16] VITALS: BP 134/76
--- NOTE | 2017-04-02 02:45 | Progress Note ---
SUBJECTIVE: The patient is doing well. No behavior issues. The patient has poor insight and judgment into his mental condition. Easily agitated. not cooperative. The patient is calm, presents with depressed mood, anhedonia, worthlessness, and hopelessness. The patient still believes that he is delusional about her cryptoanalysis teacher. He believes that cryptoanalysis teacher is him. He also believes that they are very close even though they barely talk. It is appeared that the cryptoanalysis teacher is taking advantage of the patient. The patient wants to take the dry mulligan into his house as he is involved with her. The cryptoanalysis teacher had briefly came to the hospital last Monday. The patient has cognitive impairment and in regards to his work history, it appears that he never had a stable job situation and his family always take care of him. He keeps telling the staff that he is living in a [address] house in [facility]. He has poor insight and judgment into his mental condition. MENTAL STATUS EXAMINATION: The patient is alert and oriented x3. Mood is depressed. Affect is constricted, congruent with mood. Thought process is concrete. Thought content, no suicidal or homicidal ideation. ASSESSMENT: Depression, rule out developmental disability. The patient needs formal psychological testing to be diagnosed, but however, it appears that he has lower IQ. The patient also may have . The patient lacks capacity to make a decision. PLAN: 1. The patient will be continued on Lexapro. We will increase the Lexapro to 20 mg in the morning. 2. We will continue to follow and readjust the medications. Diana Yanez M.D. DR: EFREM JOB#: [id number] CC:
[2017-04-02 04:20] VITALS: BP 154/88
[2017-04-02] MEDS: NovoLOG Insulin Flexpen SUBQ SCH ×4 (06:30→21:26)
[2017-04-02 07:50] LABS: INR 1.8 (0.9-1.1); PROTHROMBIN TIME 18.5 SEC (9.30-11.50)
[2017-04-02] MEDS: Vitamin A&D Oint 2oz Tube TOPIC SCH ×2 (08:15→21:26)
[2017-04-02 08:29] VITALS: BP 140/80
--- NOTE | 2017-04-02 10:35 | Pulmonology Progress Note ---
Assessment/Plan Assessment/Plan ASSESSMENT s/p fall R femoral neck displaced fracture s/p R hip hemiarthroplasty acute renal failure, likely due to dehydration-resolved dehydration hypo Na anemia of chronic disease acute DVT RLE ( SFV and popliteal) elevated CEA Hx of HTN electrolyte imbalance ( hypo Mg, hypo P, hypo Ca) protein calorie malnutrition major depressive disorder developmental disability, mild L ischial tuberosity pressure ulcer un-stageable, POA left trochanter pressure ulcer, un-stageable painful mycotic toe nails, s/p debridement PLAN OF CARE MS floor pain management , controlled, currently pain free Venous Duplex BLE + RLE acute DVT SFV and popliteal on Coumadin , INR subtherapeutic today, per pharmacy further Coumadin dosing bowel regimen PT/OT, working with PT, ambulating with walker well nephro follows renal US negative ( no hydro, normal echogenicity) s/p 3% NaCl, Na up e/lytes stable , replace as needed anemia workup with stable iron, borderline B 12 s/p total of 3 u PRBC HH at baseline, monitor and transfuse prn elevated CEA GI follows ( due to anemia and elevated CEA ) HH stable transfuse prn , goal to keep Hgb above 7 heme follows PPI bowel regimen elevated CEA stool OB negative GI recommended outpatient colonoscopy s/p B 12 SQ x 1 ( at normal limits, low range) wound care as per wound nurse recommendations BP management, Clonidine prn seen by head bander and liner operator, s/p debridement x10 toenails psych seen and evaluated psych doctor concluded that patient lacks capacity to make informed decision APS involved re home situation SW follows with APS patient needs guardianship for [employer] application and placement awaiting for disposition /placement- challenging caregiver called 04/01 the station that will garbage pick up worker the patient in the evening , never showed up case discussed and evaluated by supervising physician Subjective Allergies: Coded Allergies: No Known Allergies (Unverified , 02/27/17) Subjective awaiting for placement caregiver/ ? girlfriend who was supposed to garbage pick up worker patient yesterday ( per patient), never did ambulates with PT pain controlled Objective Last 24 Hour Vital Signs Date Time Temp Pulse Resp B/P Pulse Ox O2 Delivery O2 Flow Rate FiO2 04/02/17 08:29 97.4 85 18 140/80 99 Room Air 04/02/17 04:20 97.9 82 20 154/88 99 Room Air 04/02/17 00:16 96.4 70 18 134/76 99 Room Air 04/01/17 20:00 97.6 77 19 133/74 98 Room Air 04/01/17 16:00 97.2 19 126/75 97 Room Air 04/01/17 12:00 97.1 79 19 130/80 98 Room Air Intake and Output 04/01/17 04/02/17 19:00 07:00 Intake Total 900 ml 480 ml Output Total 900 ml 1000 ml Balance 0 ml -520 ml Intake Oral 900 ml 480 ml Output Urine Total 900 ml 1000 ml # Voids 2 Objective General Appearance: no acute distress, awake, alert, confused male in NAD HEENT: normocephalic, atraumatic, anicteric, mucous membranes moist Respiratory/Chest: lungs clear, no respiratory distress, no accessory muscle use Cardiovascular: normal peripheral pulses, normal rate, regular rhythm, no JVD Abdomen: normal bowel sounds, soft, non tender, non distended Genitourinary: normal external genitalia Extremities: no edema, pedal pulses normal Skin: R hip incision healing Neurologic/Psychiatric: abnormal gait, alert, responsive Musculoskeletal: normal muscle bulk Laboratory Tests 04/02/17 07:00: Prothrombin Time 18.5H, Prothromb Time International Ratio 1.8H Current Medications Medications (Trade) Dose Ordered Sig/Bautista Route PRN Reason Start Time Stop Time Status Last Admin Dose Admin Acetaminophen (Tylenol) 650 mg Q4H PRN ORAL fever>100.5 or pain 03/26/17 12:00 04/25/17 11:59 03/26/17 16:38 Escitalopram Oxalate (Lexapro) 20 mg DAILY ORAL 04/02/17 09:00 05/02/17 08:59 04/02/17 08:15 Insulin Aspart (NovoLOG) BEFORE MEALS AND HS SUBQ 03/06/17 21:00 04/05/17 20:59 04/01/17 21:12 Vitamin A/Vitamin D (A & D Oint) 1 applic EVERY 12 HOURS TOPIC 03/08/17 21:00 04/07/17 20:59 04/02/17 08:15 Warfarin Sodium (Coumadin per pharmacy) 1 ea DAILY PRN MISC Per rx protocol 03/04/17 07:45 04/03/17 07:44 Warfarin Sodium (Coumadin) 8 mg COUMADIN ONCE PO 04/02/17 17:00 04/02/17 17:01 Zolpidem Tartrate (Ambien) 5 mg HSPRN PRN ORAL Insomnia 03/31/17 18:45 04/30/17 18:44 04/01/17 21:08 Mate[facility] ([facility])Sera NP Apr 02, 2017 10:35
[2017-04-02 12:25] VITALS: BP 133/78
--- NOTE | 2017-04-02 15:13 | General Progress Note ---
Assessment/Plan Assessment/Plan (1) Right hip fracture (2) Right hip pain (3) S/p naun arthroplasty Pt will be discontinued off [place] and will be continued on Tylenol as needed. D/w Dr. Loyd and he concurred. Subjective Date patient seen: Apr 02, 2017 Time patient seen: 02:15 - pm Allergies: Coded Allergies: No Known Allergies (Unverified , 02/27/17) Subjective REVIEW OF SYSTEMS: Denies rash, fever, chills, sweating, dizziness, drowsiness, blurred vision, sore throat, or change in weight. No shortness of breath, chest pain, palpitations, or cough. No nausea, vomiting, diarrhea, or blood in the stool or urine. No bowel or bladder incontinence. No dysuria. SUBJECTIVE: Pt reports that this pain has been mild and can be worse with activities. Objective Last 24 Hour Vital Signs Date Time Temp Pulse Resp B/P Pulse Ox O2 Delivery O2 Flow Rate FiO2 04/02/17 12:25 97.0 78 20 133/78 99 Room Air 04/02/17 08:29 97.4 85 18 140/80 99 Room Air 04/02/17 04:20 97.9 82 20 154/88 99 Room Air 04/02/17 00:16 96.4 70 18 134/76 99 Room Air 04/01/17 20:00 97.6 77 19 133/74 98 Room Air 04/01/17 16:00 97.2 19 126/75 97 Room Air Intake and Output 04/01/17 04/02/17 19:00 07:00 Intake Total 900 ml 480 ml Output Total 900 ml 1000 ml Balance 0 ml -520 ml Intake Oral 900 ml 480 ml Output Urine Total 900 ml 1000 ml # Voids 2 Laboratory Tests 04/02/17 07:00: Prothrombin Time 18.5H, Prothromb Time International Ratio 1.8H Height (Feet): 5 Height (Inches): 10.00 Weight (Pounds): 150 Objective GENERAL: Alert, awake, and oriented. HEENT: Pupils are equally round and reactive to light and accommodation. NECK: Range of motion is full in all directions. No tenderness to paracervical muscles. No adenopathy. LUNGS: Lungs are clear. HEART: S1 and S2 are regular. ABDOMEN: Benign. BACK: Range of motion is full on flexion and extension. No tenderness to paraspinal muscles, trapezius, or rhomboid muscles. EXTREMITIES: No cyanosis. No clubbing. No edema. NEURO: No changes. HIEN LAMAR Apr 02, 2017 15:13
[2017-04-02 16:55] VITALS: BP 149/77
[2017-04-02] MEDS ORDERED: Warfarin Sodium 4mg PO ONE (17:00)
--- NOTE | 2017-04-02 17:51 | Diagnostic Imaging Report ---
APPROVED REPORT CPT Code: 84251 Risk Factors Prior Phlebitis/DVT RIGHT LEG: Venous imaging reveals acute thrombus in the superficial femoral to calf veins. Imaging also reveals patency of the common femoral vein. The greater saphenous vein is also within normal limits. LEFT LEG: Venous imaging reveals a patent deep venous system. There is no evidence of thrombus within the femoral, popliteal or tibial segments. The greater saphenous vein is also within normal limits. Doppler indicates normal spontaneous flow within these segments. RN was notified of abnormal results at 1520 hours
--- NOTE | 2017-04-02 18:43 | General Progress Note ---
Assessment/Plan Status: stable Assessment/Plan MDD, DD, the pt lacks capacity to make decisions. social work services are involved and have called apt/adult protective services -lexapro 20mg qam -provided ro/st Subjective Allergies: Coded Allergies: No Known Allergies (Unverified , 02/27/17) Subjective cont to be illogical and is very concrete. poor historian. the pt is the same. no behavioral issues Objective Last 24 Hour Vital Signs Date Time Temp Pulse Resp B/P Pulse Ox O2 Delivery O2 Flow Rate FiO2 04/02/17 16:55 98.0 64 18 149/77 98 Room Air 04/02/17 12:25 97.0 78 20 133/78 99 Room Air 04/02/17 08:29 97.4 85 18 140/80 99 Room Air 04/02/17 04:20 97.9 82 20 154/88 99 Room Air 04/02/17 00:16 96.4 70 18 134/76 99 Room Air 04/01/17 20:00 97.6 77 19 133/74 98 Room Air Intake and Output 04/01/17 04/02/17 19:00 07:00 Intake Total 900 ml 480 ml Output Total 900 ml 1000 ml Balance 0 ml -520 ml Intake Oral 900 ml 480 ml Output Urine Total 900 ml 1000 ml # Voids 2 Laboratory Tests 04/02/17 07:00: Prothrombin Time 18.5H, Prothromb Time International Ratio 1.8H Height (Feet): 5 Height (Inches): 10.00 Weight (Pounds): 150 General Appearance: alert, thin Neurologic: alert, oriented x 3, responsive, depressed affect Diana Yanez M.D. Apr 02, 2017 18:43
[2017-04-02 20:00] VITALS: BP 135/80
[2017-04-02] MEDS: Zolpidem 5mg tab ORAL PRN (21:24)
--- NOTE | 2017-04-02 22:04 | General Progress Note ---
Assessment/Plan Assessment/Plan #. DVT of right superficial femoral vein of the right lower extremity is on coumadin --> coumadin must be DC 48h prior to any endoscopic procedures --> lovenox has been DC --> INR currently SUBtherapeutic, will be adjusted per pharmacy --> goal is to maintain between 2-3 #. Anemia secondary to chronic disease, ferritin is elevated and tibc is low --> s/p total of 3 units PRBC --> hgb goal above 8, continue to closely monitor. remains stable --> transfuse prn --> OB stool neg #Elevated CEA --> GI following --> colonoscopy as outpatient #. Anemia secondary to orthopedic procedure. #. Hypocalcemia. --> resolved #. Leukocytosis secondary to reactive process from anemia --> resolved #. Right hip fracture --> s/p surgery --> patient is making good progress with ambulation with PT Subjective Date patient seen: Mar 31, 2017 Constitutional: Reports: no symptoms HEENT: Reports: no symptoms Cardiovascular: Reports: no symptoms Respiratory: Reports: no symptoms Gastrointestinal/Abdominal: Reports: no symptoms Genitourinary: Reports: no symptoms Neurologic/Psychiatric: Reports: no symptoms Endocrine: Reports: no symptoms Hematologic/Lymphatic: Reports: no symptoms Allergies: Coded Allergies: No Known Allergies (Unverified , 02/27/17) Subjective dvt noted Objective Last 24 Hour Vital Signs Date Time Temp Pulse Resp B/P Pulse Ox O2 Delivery O2 Flow Rate FiO2 04/02/17 20:00 98.0 68 18 135/80 99 Room Air 04/02/17 16:55 98.0 64 18 149/77 98 Room Air 04/02/17 12:25 97.0 78 20 133/78 99 Room Air 04/02/17 08:29 97.4 85 18 140/80 99 Room Air 04/02/17 04:20 97.9 82 20 154/88 99 Room Air 04/02/17 00:16 96.4 70 18 134/76 99 Room Air Intake and Output 04/01/17 04/02/17 19:00 07:00 Intake Total 900 ml 480 ml Output Total 900 ml 1000 ml Balance 0 ml -520 ml Intake Oral 900 ml 480 ml Output Urine Total 900 ml 1000 ml # Voids 2 Laboratory Tests 04/02/17 07:00: Prothrombin Time 18.5H, Prothromb Time International Ratio 1.8H Height (Feet): 5 Height (Inches): 10.00 Weight (Pounds): 150 General Appearance: no apparent distress EENT: normal ENT inspection Neck: normal alignment Cardiovascular: normal peripheral pulses Respiratory/Chest: no accessory muscle use Abdomen: non tender Extremities: normal range of motion Neurologic: continuity reader II-XII grossly normal Skin: warm/dry Leandro Ceja Apr 02, 2017 22:04
[2017-04-03 04:00] VITALS: BP 137/84
[2017-04-03] MEDS: NovoLOG Insulin Flexpen SUBQ SCH ×4 (06:30→20:44)
[2017-04-03 06:32] LABS: EOSINOPHILS % (AUTO) 2.3 % (0.0-3.0); LYMPHOCYTES % (AUTO) 30.7 % (20.0-45.0); MEAN CORPUSCULAR HEMOGLOBIN 30.7 PG (27.0-31.0); MEAN CORPUSCULAR HGB CONC 32.1 G/DL (32.0-36.0); MEAN CORPUSCULAR VOLUME 96 FL (80-99); MEAN PLATELET VOLUME 5.8 FL (6.5-10.1); MONOCYTES % (AUTO) 8.8 % (1.0-10.0); NEUTROPHILS % (AUTO) 57.2 % (45.0-75.0); PLATELET COUNT 344 K/UL (150-450); RED BLOOD COUNT 3.77 M/UL (4.70-6.10); RED CELL DISTRIBUTION WIDTH 14.7 % (11.6-14.8); WHITE BLOOD COUNT 6.2 K/UL (4.8-10.8)
[2017-04-03 06:45] LABS: INR 1.7 (0.9-1.1); PROTHROMBIN TIME 18.3 SEC (9.30-11.50)
[2017-04-03 06:56] LABS: ANION GAP 12 (5-15); CALCIUM 9.4 mg/dL (8.6-10.2); CARBON DIOXIDE 25 mEQ/L (20-30); CHLORIDE 101 mEQ/L (98-107); GLOMERULAR FILTRATION RATE > 60 mL/min (>60); HEMOLYSIS 34; SODIUM 138 mEQ/L (135-145)
[2017-04-03 08:00] VITALS: BP 147/71
[2017-04-03] MEDS: Vitamin A&D Oint 2oz Tube TOPIC SCH ×2 (08:30→20:42)
--- NOTE | 2017-04-03 11:13 | GI Progress Note ---
Assessment/Plan Problems: (1) Hypoalbuminemia ICD Codes: E88.09 - Other disorders of plasma-protein metabolism, not elsewhere classified SNOMED: 758735426 (2) Anemia ICD Codes: D64.9 - Anemia, unspecified SNOMED: 451245624 (3) Elevated CEA ICD Codes: R97.0 - Elevated carcinoembryonic antigen [CEA] SNOMED: 58059911, 599876330 Status: stable Status Narrative Discussed with Dr. Pressley. Assessment/Plan elevated CEA OB stool >> negative stable H&H, prn transfusions prn transfusions PPI bowel regime fu labs outpatient colonoscopy pt on Coumadin >> medication must be discontinued min 48 hours prior any endoscopic procedures. Subjective Gastrointestinal/Abdominal: Reports: no symptoms Objective Last 24 Hour Vital Signs Date Time Temp Pulse Resp B/P Pulse Ox O2 Delivery O2 Flow Rate FiO2 04/03/17 08:00 97.0 72 20 147/71 99 Room Air 04/03/17 04:00 97.2 72 18 137/84 99 Room Air 04/02/17 20:00 98.0 68 18 135/80 99 Room Air 04/02/17 16:55 98.0 64 18 149/77 98 Room Air 04/02/17 12:25 97.0 78 20 133/78 99 Room Air Intake and Output 04/02/17 04/03/17 19:00 07:00 Intake Total 840 ml 500 ml Output Total 700 ml 1200 ml Balance 140 ml -700 ml Intake Oral 840 ml 500 ml Output Urine Total 700 ml 1200 ml Laboratory Tests Test 04/03/17 05:10 White Blood Count 6.2 K/UL (4.8-10.8) Red Blood Count 3.77 M/UL (4.70-6.10) L Hemoglobin 11.6 G/DL (14.2-18.0) L Hematocrit 36.0 % (42.0-52.0) L Mean Corpuscular Volume 96 FL (80-99) Mean Corpuscular Hemoglobin 30.7 PG (27.0-31.0) Mean Corpuscular Hemoglobin Concent 32.1 G/DL (32.0-36.0) Red Cell Distribution Width 14.7 % (11.6-14.8) Platelet Count 344 K/UL (150-450) Mean Platelet Volume 5.8 FL (6.5-10.1) L Neutrophils (%) (Auto) 57.2 % (45.0-75.0) Lymphocytes (%) (Auto) 30.7 % (20.0-45.0) Monocytes (%) (Auto) 8.8 % (1.0-10.0) Eosinophils (%) (Auto) 2.3 % (0.0-3.0) Basophils (%) (Auto) 1.0 % (0.0-2.0) Prothrombin Time 18.3 SEC (9.30-11.50) H Prothromb Time International Ratio 1.7 (0.9-1.1) H Sodium Level 138 mEQ/L (135-145) Potassium Level 5.0 mEQ/L (3.4-4.9) H Chloride Level 101 mEQ/L (98-107) Carbon Dioxide Level 25 mEQ/L (20-30) Anion Gap 12 (5-15) Blood Urea Nitrogen 30 mg/dL (7-23) H Creatinine 1.0 mg/dL (0.7-1.2) Estimat Glomerular Filtration Rate > 60 mL/min (>60) Glucose Level 107 mg/dL (74-106) H Calcium Level 9.4 mg/dL (8.6-10.2) Height (Feet): 5 Height (Inches): 10.00 Weight (Pounds): 150 General Appearance: no apparent distress, alert, thin Cardiovascular: normal rate Respiratory/Chest: normal breath sounds Abdominal Exam: normal bowel sounds, non tender, soft Extremities: normal range of motion Mag Esteban N.P. Apr 03, 2017 11:13
[2017-04-03 12:20] VITALS: BP 146/80
--- NOTE | 2017-04-03 14:21 | General Progress Note ---
Assessment/Plan Assessment/Plan #. DVT of right superficial femoral vein of the right lower extremity is on coumadin --> coumadin must be DC 48h prior to any endoscopic procedures --> lovenox has been DC --> INR currently SUBtherapeutic, will be adjusted per pharmacy --> goal is to maintain between 2-3 #. Anemia secondary to chronic disease, ferritin is elevated and tibc is low --> s/p total of 3 units PRBC --> hgb goal above 8, continue to closely monitor. remains stable --> transfuse prn --> OB stool neg #Elevated CEA --> GI following --> colonoscopy as outpatient #. Anemia secondary to orthopedic procedure. #. Hypocalcemia. --> resolved #. Leukocytosis secondary to reactive process from anemia --> resolved #. Right hip fracture --> s/p surgery --> patient is making good progress with ambulation with PT and walker Subjective Date patient seen: Apr 01, 2017 Constitutional: Reports: no symptoms HEENT: Reports: no symptoms Cardiovascular: Reports: no symptoms Respiratory: Reports: no symptoms Gastrointestinal/Abdominal: Reports: no symptoms Genitourinary: Reports: no symptoms Neurologic/Psychiatric: Reports: no symptoms Endocrine: Reports: no symptoms Hematologic/Lymphatic: Reports: anemia Allergies: Coded Allergies: No Known Allergies (Unverified , 02/27/17) Subjective no complaints, afebrile, no evident bleeding Objective Last 24 Hour Vital Signs Date Time Temp Pulse Resp B/P Pulse Ox O2 Delivery O2 Flow Rate FiO2 04/03/17 12:20 97.2 63 20 146/80 97 Room Air 04/03/17 08:00 97.0 72 20 147/71 99 Room Air 04/03/17 04:00 97.2 72 18 137/84 99 Room Air 04/02/17 20:00 98.0 68 18 135/80 99 Room Air 04/02/17 16:55 98.0 64 18 149/77 98 Room Air Intake and Output 04/02/17 04/03/17 19:00 07:00 Intake Total 840 ml 500 ml Output Total 700 ml 1200 ml Balance 140 ml -700 ml Intake Oral 840 ml 500 ml Output Urine Total 700 ml 1200 ml Laboratory Tests 04/03/17 05:10: White Blood Count 6.2, Red Blood Count 3.77L, Hemoglobin 11.6L, Hematocrit 36.0L , Mean Corpuscular Volume 96, Mean Corpuscular Hemoglobin 30.7, Mean Corpuscular Hemoglobin Concent 32.1, Red Cell Distribution Width 14.7, Platelet Count 344, Mean Platelet Volume 5.8L, Neutrophils (%) (Auto) 57.2, Lymphocytes ( %) (Auto) 30.7, Monocytes (%) (Auto) 8.8, Eosinophils (%) (Auto) 2.3, Basophils (%) (Auto) 1.0, Prothrombin Time 18.3H, Prothromb Time International Ratio 1.7H , Sodium Level 138, Potassium Level 5.0H, Chloride Level 101, Carbon Dioxide Level 25, Anion Gap 12, Blood Urea Nitrogen 30H, Creatinine 1.0, Estimat Glomerular Filtration Rate > 60, Glucose Level 107H, Calcium Level 9.4 Height (Feet): 5 Height (Inches): 10.00 Weight (Pounds): 150 General Appearance: no apparent distress EENT: normal ENT inspection Neck: normal alignment Cardiovascular: regular rhythm Respiratory/Chest: lungs clear Edema: no edema noted Pedal (L), no edema noted Pedal (R) Skin: warm/dry PINKY DIANE Apr 03, 2017 14:21
--- NOTE | 2017-04-03 15:19 | Pulmonology Progress Note ---
Assessment/Plan Problems: (1) Fracture of femoral neck, right (2) DVT (deep venous thrombosis) (3) Renal insufficiency (4) Anemia Assessment/Plan awaiting placement walking in the hallway pt/ot f/u labs tolerating diet dc planning to home for today Subjective ROS Limited/Unobtainable: No Constitutional: Reports: no symptoms Respiratory: Reports: no symptoms Allergies: Coded Allergies: No Known Allergies (Unverified , 02/27/17) Objective Last 24 Hour Vital Signs Date Time Temp Pulse Resp B/P Pulse Ox O2 Delivery O2 Flow Rate FiO2 04/03/17 12:20 97.2 63 20 146/80 97 Room Air 04/03/17 08:00 97.0 72 20 147/71 99 Room Air 04/03/17 04:00 97.2 72 18 137/84 99 Room Air 04/02/17 20:00 98.0 68 18 135/80 99 Room Air 04/02/17 16:55 98.0 64 18 149/77 98 Room Air Intake and Output 04/02/17 04/03/17 19:00 07:00 Intake Total 840 ml 500 ml Output Total 700 ml 1200 ml Balance 140 ml -700 ml Intake Oral 840 ml 500 ml Output Urine Total 700 ml 1200 ml General Appearance: WD/WN HEENT: normocephalic, atraumatic Respiratory/Chest: lungs clear, normal breath sounds Cardiovascular: normal peripheral pulses, normal rate Abdomen: normal bowel sounds, soft, non tender Genitourinary: normal external genitalia Extremities: no clubbing Neurologic/Psychiatric: bottle hop II-XII grossly normal, no motor/sensory deficits, oriented x 3 Lymphatic: no groin adenopathy Laboratory Tests 04/03/17 05:10: White Blood Count 6.2, Red Blood Count 3.77L, Hemoglobin 11.6L, Hematocrit 36.0L , Mean Corpuscular Volume 96, Mean Corpuscular Hemoglobin 30.7, Mean Corpuscular Hemoglobin Concent 32.1, Red Cell Distribution Width 14.7, Platelet Count 344, Mean Platelet Volume 5.8L, Neutrophils (%) (Auto) 57.2, Lymphocytes ( %) (Auto) 30.7, Monocytes (%) (Auto) 8.8, Eosinophils (%) (Auto) 2.3, Basophils (%) (Auto) 1.0, Prothrombin Time 18.3H, Prothromb Time International Ratio 1.7H , Sodium Level 138, Potassium Level 5.0H, Chloride Level 101, Carbon Dioxide Level 25, Anion Gap 12, Blood Urea Nitrogen 30H, Creatinine 1.0, Estimat Glomerular Filtration Rate > 60, Glucose Level 107H, Calcium Level 9.4 Current Medications Medications (Trade) Dose Ordered Sig/Bautista Route PRN Reason Start Time Stop Time Status Last Admin Dose Admin Acetaminophen (Tylenol) 650 mg Q4H PRN ORAL fever>100.5 or pain 03/26/17 12:00 04/25/17 11:59 03/26/17 16:38 Escitalopram Oxalate (Lexapro) 20 mg DAILY ORAL 04/02/17 09:00 05/02/17 08:59 04/03/17 08:30 Insulin Aspart (NovoLOG) BEFORE MEALS AND HS SUBQ 03/06/17 21:00 04/05/17 20:59 04/03/17 11:49 Vitamin A/Vitamin D (A & D Oint) 1 applic EVERY 12 HOURS TOPIC 03/08/17 21:00 04/07/17 20:59 04/03/17 08:30 Warfarin Sodium (Coumadin per pharmacy) 1 ea DAILY PRN MISC Per rx protocol 04/03/17 11:00 05/03/17 10:59 Warfarin Sodium (Coumadin) 10 mg COUMADIN ONCE ORAL 04/03/17 17:00 04/03/17 17:01 Zolpidem Tartrate (Ambien) 5 mg HSPRN PRN ORAL Insomnia 03/31/17 18:45 04/30/17 18:44 04/02/17 21:24 GURWINDER YI Apr 03, 2017 15:19
[2017-04-03 16:19] VITALS: BP 135/82
[2017-04-03] MEDS ORDERED: Warfarin Sodium 10mg ORAL ONE (17:00)
[2017-04-03 20:20] VITALS: BP 116/67
[2017-04-03] MEDS: Zolpidem 5mg tab ORAL PRN (20:44)
--- NOTE | 2017-04-03 22:30 | Progress Note ---
SUBJECTIVE: The patient was seen. He was on the phone with Crissy, his power of staff attorney. The patient was asked to hang up the phone and speak to the physician as he is being discharged tomorrow. The patient asked the DPOA to hang up. She requested to know my name and the patient gave her the name. The patient also told the DPOA that this physician recommended adult protective investigation. The Crissy became upset and asked the patient to not talk to this physician. The patient agreed and stated my DPOA is saying that I have the right to my Fifth Amendment and I am refusing to talk to you as "she is asking me to do so." The patient is unable to understand process, communicate, or appreciate. Information was given to him in regards to the situation going on with Crissy. The patient believes the Crissy has less interest at heart and she is going to him. She has told him that they are engaged and they would get soon. The patient believes that the only person who keeps him alive is Crissy during this hospitalization, which is more than a month. Crissy only visited the patient one time. We were going to discharge the patient over the weekend, however, due to medical issues, the discharge was canceled by the primary doctor. Crissy is refusing to come and brass pickler the patient today as she is saying it is inconvenient for her. The patient has poor insight and judgment into medical condition as well as in the situation he is in with Crissy. MENTAL STATUS EXAMINATION: The patient is alert and oriented times self, place, and time. His mood was neutral when I entered the room, however, he became very agitated when Crissy asked me to leave the room. His affect was blunted, congruent with mood, and appropriate. Thought process is concrete. Thought content, positive for delusion that Crissy is his fiancee and is the person who is keeping him alive. Cognition is not formally examined. There was no psychological testing as the patient was uncooperative and I am not a psychologist. He was uncooperative with mini-mental status examination. Insight and judgment impaired. ASSESSMENT: The patient has depression, possibly mental retardation or schizoid personality versus schizophrenia. He does not provide much history as Crissy has not been giving us any medical records. dialysis social worker requested for medical records and she has not been cooperative, but the patient is not gravely disabled nor an imminent danger to self or others. The patient will be discharged to the [facility] durable power of staff attorney. We have reported Crissy to the adult protective services and also being started a case on her. The patient does not meet the criteria of psychiatric inpatient level of care. The patient is not holdable. PLAN: 1. The patient will be discharged with Lexapro 20 mg in the morning. 2. I do recommend he is to follow up with the psychiatrist and we notified the DPOA. 3. I also recommended to purchase medical insurance, which Crissy has not been purchasing any medical insurance for the patient. According to the social media developer investigation, the patient has funds to purchase medical insurance. 4. The patient may be discharged when physically cleared by Dr. De Paz. Diana Yanez M.D. DR: EVA JOB#: [id number] CC:
[2017-04-04 04:00] VITALS: BP 141/81
[2017-04-04 06:13] LABS: BASOPHILS % (AUTO) 1.5 % (0.0-2.0); EOSINOPHILS % (AUTO) 2.2 % (0.0-3.0); LYMPHOCYTES % (AUTO) 38.4 % (20.0-45.0); MEAN CORPUSCULAR HEMOGLOBIN 31.2 PG (27.0-31.0); MEAN CORPUSCULAR HGB CONC 32.6 G/DL (32.0-36.0); MEAN CORPUSCULAR VOLUME 96 FL (80-99); MEAN PLATELET VOLUME 5.7 FL (6.5-10.1); MONOCYTES % (AUTO) 9.7 % (1.0-10.0); NEUTROPHILS % (AUTO) 48.1 % (45.0-75.0); PLATELET COUNT 330 K/UL (150-450); RED BLOOD COUNT 3.52 M/UL (4.70-6.10); RED CELL DISTRIBUTION WIDTH 14.4 % (11.6-14.8); WHITE BLOOD COUNT 5.8 K/UL (4.8-10.8)
[2017-04-04 06:19] LABS: INR 1.8 (0.9-1.1); PROTHROMBIN TIME 18.6 SEC (9.30-11.50)
[2017-04-04] MEDS: NovoLOG Insulin Flexpen SUBQ SCH ×2 (06:19→11:38)
[2017-04-04 06:47] LABS: ANION GAP 10 (5-15); CALCIUM 9.2 mg/dL (8.6-10.2); CARBON DIOXIDE 28 mEQ/L (20-30); CHLORIDE 102 mEQ/L (98-107); CREATININE 0.9 mg/dL (0.7-1.2); GLOMERULAR FILTRATION RATE > 60 mL/min (>60); HEMOLYSIS 0; POTASSIUM 4.5 mEQ/L (3.4-4.9); SODIUM 140 mEQ/L (135-145)
[2017-04-04 07:49] VITALS: BP 158/84
[2017-04-04] MEDS: Vitamin A&D Oint 2oz Tube TOPIC SCH (08:31)
[2017-04-04 12:00] VITALS: BP 129/81
--- NOTE | 2017-04-04 13:30 | General Progress Note ---
Assessment/Plan Assessment/Plan #. DVT of right superficial femoral vein of the right lower extremity is on coumadin --> coumadin must be DC 48h prior to any endoscopic procedures --> lovenox has been DC --> INR currently SUBtherapeutic, will be adjusted per pharmacy --> goal is to maintain between 2-3 #. Anemia secondary to chronic disease, ferritin is elevated and tibc is low --> s/p total of 3 units PRBC --> hgb goal above 8, continue to closely monitor. remains stable --> transfuse prn --> OB stool neg #Elevated CEA --> GI following --> colonoscopy as outpatient #. Anemia secondary to orthopedic procedure. #. Hypocalcemia. --> resolved #. Leukocytosis secondary to reactive process from anemia --> resolved #. Right hip fracture --> s/p surgery --> patient is making good progress with ambulation with PT and walker Subjective Date patient seen: Apr 02, 2017 Constitutional: Reports: no symptoms HEENT: Reports: no symptoms Cardiovascular: Reports: no symptoms Respiratory: Reports: no symptoms Gastrointestinal/Abdominal: Reports: no symptoms Genitourinary: Reports: no symptoms Neurologic/Psychiatric: Reports: no symptoms Endocrine: Reports: no symptoms Hematologic/Lymphatic: Reports: no symptoms Allergies: Coded Allergies: No Known Allergies (Unverified , 02/27/17) Subjective no major changes Objective Last 24 Hour Vital Signs Date Time Temp Pulse Resp B/P Pulse Ox O2 Delivery O2 Flow Rate FiO2 04/04/17 12:00 97.5 80 18 129/81 97 Room Air 04/04/17 07:49 97.3 60 16 158/84 98 Room Air 04/04/17 04:00 97.9 69 16 141/81 97 Room Air 04/03/17 20:20 97.7 78 20 116/67 96 Room Air 04/03/17 16:19 98.4 66 20 135/82 98 Room Air Intake and Output 04/03/17 04/04/17 19:00 07:00 Intake Total 750 ml Output Total 700 ml 775 ml Balance 50 ml -775 ml Intake Oral 750 ml Output Urine Total 700 ml 775 ml # Voids 2 2 Laboratory Tests 04/04/17 05:20: White Blood Count 5.8, Red Blood Count 3.52L, Hemoglobin 11.0L, Hematocrit 33.6L , Mean Corpuscular Volume 96, Mean Corpuscular Hemoglobin 31.2H, Mean Corpuscular Hemoglobin Concent 32.6, Red Cell Distribution Width 14.4, Platelet Count 330, Mean Platelet Volume 5.7L, Neutrophils (%) (Auto) 48.1, Lymphocytes ( %) (Auto) 38.4, Monocytes (%) (Auto) 9.7, Eosinophils (%) (Auto) 2.2, Basophils (%) (Auto) 1.5, Prothrombin Time 18.6H, Prothromb Time International Ratio 1.8H , Sodium Level 140, Potassium Level 4.5, Chloride Level 102, Carbon Dioxide Level 28, Anion Gap 10, Blood Urea Nitrogen 32H, Creatinine 0.9, Estimat Glomerular Filtration Rate > 60, Glucose Level 111H, Calcium Level 9.2 Height (Feet): 5 Height (Inches): 10.00 Weight (Pounds): 150 General Appearance: no apparent distress EENT: normal ENT inspection Neck: normal alignment Cardiovascular: normal peripheral pulses Respiratory/Chest: lungs clear Edema: no edema noted Pedal (L), no edema noted Pedal (R) Skin: normal pigmentation PINKY DIANE Apr 04, 2017 13:30
--- NOTE | 2017-04-04 14:52 | GI Progress Note ---
Assessment/Plan Problems: (1) Hypoalbuminemia ICD Codes: E88.09 - Other disorders of plasma-protein metabolism, not elsewhere classified SNOMED: 339773606 (2) Anemia ICD Codes: D64.9 - Anemia, unspecified SNOMED: 365127235 (3) Elevated CEA ICD Codes: R97.0 - Elevated carcinoembryonic antigen [CEA] SNOMED: 72328837, 785020511 Status: stable Status Narrative Discussed with Dr. Pressley. Assessment/Plan elevated CEA OB stool >> negative stable H&H, prn transfusions prn transfusions PPI bowel regime fu labs outpatient colonoscopy pt on Coumadin >> medication must be discontinued min 48 hours prior any endoscopic procedures. Subjective Gastrointestinal/Abdominal: Reports: no symptoms Objective Last 24 Hour Vital Signs Date Time Temp Pulse Resp B/P Pulse Ox O2 Delivery O2 Flow Rate FiO2 04/04/17 12:00 97.5 80 18 129/81 97 Room Air 04/04/17 07:49 97.3 60 16 158/84 98 Room Air 04/04/17 04:00 97.9 69 16 141/81 97 Room Air 04/03/17 20:20 97.7 78 20 116/67 96 Room Air 04/03/17 16:19 98.4 66 20 135/82 98 Room Air Intake and Output 04/03/17 04/04/17 19:00 07:00 Intake Total 750 ml Output Total 700 ml 775 ml Balance 50 ml -775 ml Intake Oral 750 ml Output Urine Total 700 ml 775 ml # Voids 2 2 Laboratory Tests Test 04/04/17 05:20 White Blood Count 5.8 K/UL (4.8-10.8) Red Blood Count 3.52 M/UL (4.70-6.10) L Hemoglobin 11.0 G/DL (14.2-18.0) L Hematocrit 33.6 % (42.0-52.0) L Mean Corpuscular Volume 96 FL (80-99) Mean Corpuscular Hemoglobin 31.2 PG (27.0-31.0) H Mean Corpuscular Hemoglobin Concent 32.6 G/DL (32.0-36.0) Red Cell Distribution Width 14.4 % (11.6-14.8) Platelet Count 330 K/UL (150-450) Mean Platelet Volume 5.7 FL (6.5-10.1) L Neutrophils (%) (Auto) 48.1 % (45.0-75.0) Lymphocytes (%) (Auto) 38.4 % (20.0-45.0) Monocytes (%) (Auto) 9.7 % (1.0-10.0) Eosinophils (%) (Auto) 2.2 % (0.0-3.0) Basophils (%) (Auto) 1.5 % (0.0-2.0) Prothrombin Time 18.6 SEC (9.30-11.50) H Prothromb Time International Ratio 1.8 (0.9-1.1) H Sodium Level 140 mEQ/L (135-145) Potassium Level 4.5 mEQ/L (3.4-4.9) Chloride Level 102 mEQ/L (98-107) Carbon Dioxide Level 28 mEQ/L (20-30) Anion Gap 10 (5-15) Blood Urea Nitrogen 32 mg/dL (7-23) H Creatinine 0.9 mg/dL (0.7-1.2) Estimat Glomerular Filtration Rate > 60 mL/min (>60) Glucose Level 111 mg/dL (74-106) H Calcium Level 9.2 mg/dL (8.6-10.2) Height (Feet): 5 Height (Inches): 10.00 Weight (Pounds): 150 General Appearance: no apparent distress, alert, thin Cardiovascular: normal rate Respiratory/Chest: normal breath sounds, no respiratory distress Abdominal Exam: normal bowel sounds, non tender, soft Extremities: normal range of motion Mag Esteban N.P. Apr 04, 2017 14:52
--- NOTE | 2017-04-04 16:23 | General Progress Note ---
Assessment/Plan Assessment/Plan #. DVT of right superficial femoral vein of the right lower extremity is on coumadin --> coumadin must be DC 48h prior to any endoscopic procedures --> lovenox has been DC --> INR currently SUBtherapeutic, will be adjusted per pharmacy --> goal is to maintain between 2-3 #. Anemia secondary to chronic disease, ferritin is elevated and tibc is low --> s/p total of 3 units PRBC --> hgb goal above 8, continue to closely monitor. remains stable --> transfuse prn --> OB stool neg #Elevated CEA --> GI following --> colonoscopy as outpatient #. Anemia secondary to orthopedic procedure. #. Hypocalcemia. --> resolved #. Leukocytosis secondary to reactive process from anemia --> resolved #. Right hip fracture --> s/p surgery --> patient is making good progress with ambulation with PT Subjective Date patient seen: Apr 03, 2017 Constitutional: Reports: no symptoms HEENT: Reports: no symptoms Cardiovascular: Reports: no symptoms Respiratory: Reports: no symptoms Gastrointestinal/Abdominal: Reports: no symptoms Genitourinary: Reports: no symptoms Neurologic/Psychiatric: Reports: no symptoms Endocrine: Reports: no symptoms Hematologic/Lymphatic: Reports: no symptoms Allergies: Coded Allergies: No Known Allergies (Unverified , 02/27/17) Subjective no major complaints Objective Last 24 Hour Vital Signs Date Time Temp Pulse Resp B/P Pulse Ox O2 Delivery O2 Flow Rate FiO2 04/04/17 12:00 97.5 80 18 129/81 97 Room Air 04/04/17 07:49 97.3 60 16 158/84 98 Room Air 04/04/17 04:00 97.9 69 16 141/81 97 Room Air 04/03/17 20:20 97.7 78 20 116/67 96 Room Air Intake and Output 04/03/17 04/04/17 19:00 07:00 Intake Total 750 ml Output Total 700 ml 775 ml Balance 50 ml -775 ml Intake Oral 750 ml Output Urine Total 700 ml 775 ml # Voids 2 2 Laboratory Tests 04/04/17 05:20: White Blood Count 5.8, Red Blood Count 3.52L, Hemoglobin 11.0L, Hematocrit 33.6L , Mean Corpuscular Volume 96, Mean Corpuscular Hemoglobin 31.2H, Mean Corpuscular Hemoglobin Concent 32.6, Red Cell Distribution Width 14.4, Platelet Count 330, Mean Platelet Volume 5.7L, Neutrophils (%) (Auto) 48.1, Lymphocytes ( %) (Auto) 38.4, Monocytes (%) (Auto) 9.7, Eosinophils (%) (Auto) 2.2, Basophils (%) (Auto) 1.5, Prothrombin Time 18.6H, Prothromb Time International Ratio 1.8H , Sodium Level 140, Potassium Level 4.5, Chloride Level 102, Carbon Dioxide Level 28, Anion Gap 10, Blood Urea Nitrogen 32H, Creatinine 0.9, Estimat Glomerular Filtration Rate > 60, Glucose Level 111H, Calcium Level 9.2 Height (Feet): 5 Height (Inches): 10.00 Weight (Pounds): 150 General Appearance: no apparent distress EENT: TMs normal Neck: non-tender Cardiovascular: normal peripheral pulses Respiratory/Chest: normal breath sounds Extremities: non-tender Skin: normal pigmentation, warm/dry Leandro Ceja Apr 04, 2017 16:23
[2017-04-04] MEDS ORDERED: Warfarin Sodium 10mg ORAL ONE (17:00)
--- NOTE | 2017-04-05 | Progress Note ---
DATE: 04/04/2017 SUBJECTIVE: The patient's mental condition is unchanged since previous encounter. The patient has poor insight and judgment into his current condition he is in. He lacks capacity to make decision. He has a DPOA who has been not taking appropriate care of the patient. MENTAL STATUS EXAMINATION: The patient is alert and oriented x3. Mood is dysphoric. Affect is constricted, congruent with mood. Thought process is concrete. Thought content, there is no suicidal or homicidal ideation. ASSESSMENT: Major depressive disorder. PLAN: 1. The patient will be continued on current medication. 2. Provide the patient with supportive therapy and reality orientation. Diana Yanez M.D. DR: VIJAY JOB#: [id number] CC:
--- NOTE | 2017-04-05 09:57 | General Progress Note ---
Assessment/Plan Assessment/Plan #. DVT of right superficial femoral vein of the right lower extremity is on coumadin --> coumadin must be DC 48h prior to any endoscopic procedures --> lovenox has been DC --> goal is to maintain between 2-3 #. Anemia secondary to chronic disease, ferritin is elevated and tibc is low --> s/p total of 3 units PRBC --> hgb goal above 8, continue to closely monitor. remains stable --> transfuse prn --> OB stool neg #Elevated CEA --> GI following --> colonoscopy as outpatient #. Anemia secondary to orthopedic procedure. #. Hypocalcemia. --> resolved #. Leukocytosis secondary to reactive process from anemia --> resolved #. Right hip fracture --> s/p surgery --> patient is making good progress with ambulation with PT Subjective Date patient seen: Apr 04, 2017 Constitutional: Reports: no symptoms HEENT: Reports: no symptoms Cardiovascular: Reports: no symptoms Respiratory: Reports: no symptoms Gastrointestinal/Abdominal: Reports: no symptoms Genitourinary: Reports: no symptoms Neurologic/Psychiatric: Reports: no symptoms Endocrine: Reports: no symptoms Allergies: Coded Allergies: No Known Allergies (Unverified , 02/27/17) Subjective no changes, dc home today Objective Last 24 Hour Vital Signs Date Time Temp Pulse Resp B/P (MAP) Pulse Ox O2 Delivery O2 Flow Rate FiO2 04/04/17 12:00 97.5 80 18 129/81 97 Room Air Height (Feet): 5 Height (Inches): 10.00 Weight (Pounds): 150 General Appearance: no apparent distress EENT: PERRL/EOMI Neck: normal alignment Cardiovascular: regular rhythm Respiratory/Chest: normal breath sounds 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
--- NOTE | 2017-04-07 17:19 | Discharge Summary ---
Discharge Summary Hospital Course Date of Admission Feb 28, 2017 at 02:23 Date of Discharge Apr 04, 2017 at 15:20 Admitting Diagnosis RIGHT HIP FRACTURE ANIKA Garcia is a 61 year old male who was admitted on Feb 28, 2017 at 02:23 for Right Hip Fracture Hospital Course [id number] Discharge Discharge Disposition Patient was discharged to Home (01) Discharge Diagnoses: Ethel Negron NP Apr 07, 2017 17:19
--- NOTE | 2017-04-08 07:00 | Discharge Summary 2 SIG ---
DATE OF ADMISSION: 02/28/2017 DATE OF DISCHARGE: 04/04/2017 CONSULTANTS: 1. Brendon Jay M.D. 2. Diana Yanez M.D. 3. Tripp Lambert M.D. 4. Juan Hancock M.D. 5. Leandro Ceja M.D. 6. Karin Loyd M.D. 7. Leonardo Pressley M.D. BRIEF HOSPITAL COURSE: The patient is a 61-year-old male, who presented to ED complaining of right leg pain after a mechanical fall at home and he was unable to bear weight. On evaluation at ED, he was diagnosed to have right hip fracture. He lives at home and uses a walker. When asked why, he stated that over the last two months, he had weakness and imbalance and has fallen several times. Most recently, fell and sustained a femoral neck fracture on the right and he was unable to bear weight. He denied loss of consciousness. AP, pelvis and CT scan revealed a displaced impacted femoral neck fracture. On 03/01/2017, he underwent right hip hemiarthroplasty. He was given pain management by Dr. Loyd. He also came in with anemia and was assessed to be secondary to chronic disease. He had hyponatremia and acute renal failure, creatinine was elevated to 1.8. He was given 3% saline solution. Renal function improved with hydration. Postoperatively, he had venous duplex of lower extremity that revealed an acute DVT on the right leg. Postoperatively, he was given SCDs for DVT prophylaxis, however, venous duplex of lower extremity revealed an acute DVT on the right leg. SCDs was discontinued and was placed on Lovenox on bridge with Coumadin. He had anemia and received a total of two units packed RBC blood transfusion. He had painful toenails bilaterally and able to train himself. He underwent toe debridement secondary to painful mycotic toenails by Dr. Lambert. Hyponatremia improved. Renal failure improved. He came in with unstageable pressure ulcer and was provided with local wound care. He underwent physical therapy and occupational therapy and was referred to several facilities for rehabilitation, however, it was a difficult placement. Dr. Yanez was consulted and diagnosed the patient lacks the capacity to make decision. The patient has cognitive impairment, most likely developmental disability, although protective Services were already notified. He refused to be started on any antidepressant. He was eventually discharged home, cleared by [facility], and [facility] to follow up inpatient home. FINAL DIAGNOSES: 1. Fracture of the right femoral neck status post right hip hemiarthroplasty. 2. Status post fall. 3. Acute renal failure likely due to dehydration, resolved. 4. Hyponatremia. 5. Acute anemia requiring blood transfusion. 6. Acute deep vein thrombosis of the right leg. 7. Electrolyte imbalance. 8. Protein-calorie malnutrition. 9. Major depressive disorder. 10. Mental disability. 11. Painful mycotic toenail status post debridement. 12. Left trochanter pressure ulcer, unstageable. 13. Left ischial tuberosity pressure ulcer, unstageable, present on admission. 14. Anemia of chronic disease. 15. Hypocalcemia. 16. Elevated CEA. DISPOSITION: The patient was discharged home under APS. DISCHARGE MEDICATIONS: Refer to medication list. Tano De Paz M.D. I have been assigned to dictate discharge summary on this account and I was not involved in the patient's management. Ethel Negron N.P. DR: KAYLIE JOB#: [id number] CC:
== END 2017-04-04 15:20 | disposition home or self-care (01) | DRG 301 ==
LOC: EDBD 21:48 → EMR 22:20 → 3E 02-28 02:23 → EDBEDREQ 02-28 02:44
PROC: 0SRR0JA Replacement of Right Hip Joint, Femoral Surface with Synthetic Substitute, Uncemented, Open Approach (ICD-10-PCS; principal; 2017-02-28 14:30)
PROC: 0HBRXZZ Excision of Toe Nail, External Approach (ICD-10-PCS; 2017-03-04)
PROC: 0HBRXZZ Excision of Toe Nail, External Approach (ICD-10-PCS; 2017-03-04)
PROC: 0HBRXZZ Excision of Toe Nail, External Approach (ICD-10-PCS; 2017-03-04)
PROC: 0HBRXZZ Excision of Toe Nail, External Approach (ICD-10-PCS; 2017-03-04)
PROC: 0HBRXZZ Excision of Toe Nail, External Approach (ICD-10-PCS; 2017-03-04)
PROC: 0HBRXZZ Excision of Toe Nail, External Approach (ICD-10-PCS; 2017-03-04)
PROC: 0HBRXZZ Excision of Toe Nail, External Approach (ICD-10-PCS; 2017-03-04)
PROC: 0HBRXZZ Excision of Toe Nail, External Approach (ICD-10-PCS; 2017-03-04)
PROC: 0HBRXZZ Excision of Toe Nail, External Approach (ICD-10-PCS; 2017-03-04)
PROC: 0HBRXZZ Excision of Toe Nail, External Approach (ICD-10-PCS; 2017-03-04)
DX: S72.001A Fracture of unspecified part of neck of right femur, initial encounter for closed fracture (principal); N17.9 Acute kidney failure, unspecified; B48.8 Other specified mycoses; E46 Unspecified protein-calorie malnutrition; I82.411 Acute embolism and thrombosis of right femoral vein; L89.220 Pressure ulcer of left hip, unstageable; W19.XXXA Unspecified fall, initial encounter; Y92.019 Unspecified place in single-family (private) house as the place of occurrence of the external cause; L89.890 Pressure ulcer of other site, unstageable; F32.9 Major depressive disorder, single episode, unspecified; F79 Unspecified intellectual disabilities; E87.1 Hypo-osmolality and hyponatremia; D63.8 Anemia in other chronic diseases classified elsewhere; E86.0 Dehydration; Z68.21 Body mass index [BMI] 21.0-21.9, adult; E83.51 Hypocalcemia
CPT/HCPCS: 36415; 72170; 72192; 76775; 80048; 80053; 80061; 81001; 82140; 82270; 82378; 82550; 82607; 82728; 82746; 82962; 82977; 83036; 83540; 83550; 83615; 83735; 83880; 83970; 84100; 84133; 84300; 84443; 84550; 85007; 85025; 85044; 85060; 85610; 85730; 86140; 86850; 86900; 86901; 86920; 89050; 93970; 94003; 94150; C9399; J1815; J2250; J2405